=== PATIENT | male | born 1935 ===

== ENCOUNTER 2016-12-17 15:12 | Observation (INO) | payer MEDICARE, OTHER ==
[2016-12-17 15:12] VITALS: PULSE 55
--- NOTE | 2016-12-17 15:54 | ED PDOC ---
Arrival/HPI - General Historian: Patient - History of Present Illness Time/Duration: < week Symptom Onset: Gradual Symptom Course: Unchanged - General Chief Complaint: Chest Pain Time Seen by Provider: 12/17/16 15:36 - History of Present Illness Narrative History of Present Illness (Text): 81 M with a PMHx that includes diabetes, hypertension, congestive heart failure , COPD, atrial flutter, and atrial fibrillation (on eliquis) presents with shortness of breath. Pt states that his shortness of breath has been present for the past few days but is worse this morning. It is exacerbated upon ambulation. He denies any chest pain or palpitations. He denies any gorman, dizziness, f/c, cp, abd pain, n/v/d. PMD: Dr Luis ([facility]) Past Medical History - Provider Review Nursing Documentation Reviewed: Yes - Infectious Disease Hx of Infectious Diseases: None - Tetanus Immunization Tetanus Immunization: Unknown - Cardiac Hx Cardiac Disorders: Yes (mi) Hx Congestive Heart Failure: Yes Hx Hypertension: Yes - Pulmonary Hx Respiratory Disorders: Yes Hx Chronic Obstructive Pulmonary Disease (COPD): Yes - Neurological Hx Neurological Disorder: No Hx Alzheimer's Disease: No HX Cerebrovascular Accident: No Hx Dementia: No Hx Dizziness: No Hx Meningitis: No Hx Migraine: No Hx Parkinson's Disease: No Hx Seizures: No Hx Transient Ischemic Attacks (TIA): No - HEENT Hx HEENT Disorder: Yes Hx Blind: Yes (right eye) Hx Cataracts: Yes Hx Deafness: No Hx Difficulty Chewing: No Hx Epistaxis: No Hx Glaucoma: Yes Hx Macular Degeneration: No - Renal Hx Renal Disorder: No Hx Dialysis: No Hx Kidney Stones: No Hx Neurogenic Bladder: No Hx Pyelonephritis: No Hx Renal Cancer: No Hx Renal Failure: No - Endocrine/Metabolic Hx Endocrine Disorders: Yes Hx Diabetes Mellitus Type 2: Yes - Hematological/Oncological Hx Blood Disorders: Yes Hx AIDS: No Hx Anemia: No Hx Cancer: No Hx Chemotherapy: No Hx Cirrhosis: No Hx Hemophilia: No Hx Hepatitis A: No Hx Hepatitis B: No Hx Hepatitis C: No Hx Metastasis: No Hx Shingles: Yes Hx Sickle Cell Disease: No Hx Unexplained Bleeding: No - Integumentary Hx Dermatological Disorder: No Hx Basal Cell Carcinoma: No Hx Eczema: No Hx Melanoma: No Hx Psoriasis: No Hx Squamous Cell Carcinoma: No - Musculoskeletal/Rheumatological Hx Musculoskeletal Disorders: Yes Hx Arthritis: Yes (knees chronic pain) - Gastrointestinal Hx Gastrointestinal Disorders: Yes Hx Colostomy: No Hx Crohn's Disease: No Hx Diverticulitis: No Hx Gall Bladder Disease: Yes Hx Gastroesophageal Reflux: Yes Hx Gastrointestinal Ulcer: No Hx Ileostomy: No Hx Liver Failure: No Hx Pancreatitis: No HX Swallowing Problems: No - Genitourinary/Gynecological Hx Genitourinary Disorders: No Hx Hematuria: No Hx Incontinence: No Hx Prostate Problems: No Hx Sexually Transmitted Diseases: No Hx Urinary Tract Infection: No - Psychiatric Hx Psychophysiologic Disorder: Yes Hx Anxiety: Yes Hx Bipolar Disorder: No Hx Depression: Yes Hx Emotional Abuse: No Hx Hallucinations: No Hx Panic Disorder: No Hx Post Traumatic Stress Disorder: No Hx Psychosis: No Hx Physical Abuse: No Hx Schizophrenia: No Hx Sexual Abuse: No Hx Substance Use: No - Past Surgical History Past Surgical History: Unable to Obtain - Surgical History Hx Amputation: No Hx Appendectomy: No Hx Cardiac Catheterization: Yes Hx Cholecystectomy: Yes Hx Coronary Stent: Yes Hx Gastric Bypass Surgery: No Hx Hysterectomy: No Hx Joint Replacement: No Hx Kidney Transplant: No Hx Liver Transplant: No Hx Mastectomy: No Hx Musculoskeletal Surgery: No Hx Open Heart Surgery: Yes (CABG) Hx Orthopedic Surgery: No Hx Splenectomy: No Hx Valve Replacement: No Other/Comment: carotid endarterectomy, pacemaker - Anesthesia Hx Anesthesia: Yes Hx Anesthesia Reactions: No Hx Malignant Hyperthermia: No - Suicidal Assessment Feels Threatened In Home Enviroment: No Family/Social History Family/Social History: CAD/RI Smoking Status: Never Smoked Hx Alcohol Use: No Hx Substance Use: No Hx Substance Use Treatment: No Allergies/Home Meds Allergies/Adverse Reactions: Allergies aspirin Allergy (Verified 12/17/16 15:19) RASH ketorolac tromethamine [From Toradol] Allergy (Verified 12/17/16 15:19) SWELLING Penicillins Allergy (Verified 12/17/16 15:19) ANGIOEDEMA Home Medications: Home Meds Medication Instructions Recorded Confirmed Carvedilol [Coreg] 3.125 mg PO BID 02/06/14 09/28/16 Digoxin [Lanoxin] 125 mcg PO DAILY 02/17/16 09/28/16 Glipizide [Glipizide ER] 1 tab PO DAILY 06/18/16 09/30/16 Potassium Chloride [Klor-Con 10] 1 tab PO DAILY 06/18/16 09/28/16 Prednisone [Jese] 3 tab PO DAILY 09/28/16 09/28/16 Furosemide [Lasix] 20 mg PO DAILY 09/30/16 09/30/16 Isosorbide Mononitrate [Imdur] 60 mg PO DAILY 09/30/16 09/30/16 Review of Systems - Physician Review All systems were reviewed & negative as marked: Yes - Review of Systems Respiratory: SOB. absent: Cough, Sputum Cardiovascular: absent: Chest Pain, Palpitations Gastrointestinal: absent: Abdominal Pain, Nausea, Vomiting Neurological: absent: Headache Endocrine: absent: Diaphoresis Physical Exam Temperature: Afebrile Blood Pressure: Normal Pulse: Tachycardic Respiratory Rate: Normal Appearance: Positive for: Well-Appearing, Non-Toxic, Comfortable Pain Distress: None Mental Status: Positive for: Alert and Oriented X 3 - Systems Exam Head: Present: Atraumatic, Normocephalic Pupils: Present: PERRL Extroacular Muscles: Present: EOMI Conjunctiva: Present: Normal Mouth: Present: Moist Mucous Membranes Neck: Present: Normal Range of Motion Respiratory/Chest: Present: Clear to Auscultation, Good Air Exchange. No: Respiratory Distress, Accessory Muscle Use, Wheezes, Rales, Rhonchi Cardiovascular: Present: Regular Rate and Rhythm, Normal S1, S2. No: Murmurs Abdomen: Present: Normal Bowel Sounds. No: Tenderness, Distention, Peritoneal Signs Upper Extremity: Present: Normal Inspection. No: Cyanosis, Edema Lower Extremity: Present: Normal Inspection, Edema (1+). No: CALF TENDERNESS Neurological: Present: GCS=15, CN II-XII Intact, Speech Normal Skin: Present: Warm, Dry, Normal Color. No: Rashes Psychiatric: Present: Alert, Oriented x 3, Normal Insight, Normal Concentration Vital Signs Temp Pulse Resp BP Pulse Ox 12/17/16 18:40 97 H 17 100/62 94 L 12/17/16 18:20 127/76 12/17/16 17:50 75 17 131/83 100 12/17/16 16:23 89 18 138/79 96 12/17/16 15:33 98.5 F 91 H 18 140/86 96 Medical Decision Making ED Course and Treatment: Patient seen and examined with resident. Came up with treatment and disposition plan with resident. (Maikol Allan) Impression: 81 M with a PMHx that includes diabetes, hypertension, congestive heart failure, COPD, atrial flutter, and atrial fibrillation (on eliquis) presents with shortness of breath. Differential Diagnosis included but are not limited to: chf exac / copd exac / RI Plan: - CBC, CMP, Cardiac iso, BNP - EKG stat - CXR - Reassess and disposition Progress Notes: 12/17/16 16:02 Pt resting comfortably in bed. No complaints. Hemodynamically stable. 12/17/16 16:06 EKG: Ordered, reviewed, and independently interpreted the EKG. Rate : 55 BPM Rhythm : Interpretation: 09/28/16 12/17/16 17:19 BNP: 1850 CXR shows Cardiomegally with mild pulm vascular congestion. Lasix 40mg IVP stat Hyperkalemia of 5.7 - treated with Insulin 10 unit and Albuterol neb treatment 12/17/16 17:[address] Luis which will admit the patient for CHF exac for obs to telemetry. 12/17/16 18:[address] Luis request I placed a cardiology consult with Dr Costa and Oxycodone 15mg PO Stat (Raminfar,Vic) - Lab Interpretations Lab Results: 12/17/16 16:00 12/17/16 16:00 Lab Results 12/17/16 16:00: Sodium 132, Potassium 5.7 H* D, Chloride 98, Carbon Dioxide 25, Anion Gap 15, BUN 28 H, Creatinine 1.6 H, Est GFR ( Amer) 50, Est GFR ( Non-Af Amer) 42, Random Glucose 210 H, Calcium 9.2, Total Bilirubin 1.9 H, AST 36, ALT 42, Alkaline Phosphatase 152 H, Lactate Dehydrogenase 635, Total Creatine Kinase 36, Troponin I 0.05, NT-Pro-B Natriuret Pep 1850 H, Total Protein 7.4, Albumin 3.7, Globulin 3.6, Albumin/Globulin Ratio 1.0 L 12/17/16 16:00: WBC 6.4, RBC 4.32, Hgb 13.3 L, Hct 41.1 L, MCV 95.1, MCH 30.8, MCHC 32.4, RDW 15.4 H, Plt Count 162, MPV 11.3 H, Gran % 73.2 H, Lymph % (Auto) 19.7 L, [place] % (Auto) 5.5, Eos % (Auto) 1.3 L, Baso % (Auto) 0.3, Gran # 4.66, Lymph # 1.3, [place] # 0.4, Eos # 0.1, Baso # 0.02 - RAD Interpretation Radiology Orders: 12/17/16 15:48 CHEST PORTABLE [RAD] Stat - Medication Orders Current Medication Orders: Discontinued Medications Albuterol Sulfate (Albuterol 0.083% Inhal [place] (2.5 Mg/3 Ml) Ud) 2.5 mg IH STAT STA Stop: 12/17/16 16:59 Last Admin: 12/17/16 18:30 Dose: 2.5 mg Dextrose (Dextrose 50% Inj) 50 ml IVP STAT STA Stop: 12/17/16 17:29 Last Admin: 12/17/16 18:39 Dose: 50 ml Furosemide (Lasix) 40 mg IVP STAT STA Stop: 12/17/16 16:51 Last Admin: 12/17/16 18:20 Dose: 40 mg Insulin Human Regular (Humulin R) 10 units IVP STAT STA Stop: 12/17/16 16:57 Last Admin: 12/17/16 18:30 Dose: 10 units Nitroglycerin (Nitrostat Sl Tab) 0.4 mg SL STAT STA Stop: 12/17/16 16:53 Last Admin: 12/17/16 18:20 Dose: 0.4 mg Oxycodone HCl (Oxycodone Immediate Release Tab) 15 mg PO STAT STA Stop: 12/17/16 18:49 - PA / LABORER [employer]FIN[employer] / Resident Statement SON has reviewed & agrees with the documentation as recorded. / has examined the patient and agrees with the treatment plan. Disposition/Present on Arrival - Present on Arrival Any Indicators Present on Arrival: No History of DVT/PE: No History of Uncontrolled Diabetes: No Urinary Catheter: No History of Decub. Ulcer: No History Surgical Site Infection Following: None - Disposition Have Diagnosis and Disposition been Completed?: Yes Disposition Time: 17:27 Patient Plan: Admission - Disposition Diagnosis: CHF exacerbation Disposition: HOSPITALIZED Patient Problems: Current Active Problems Problem Status Onset CHF exacerbation Acute Condition: IMPROVED
[2016-12-17 16:11] LABS: ADD MANUAL DIFF? NO
[2016-12-17 16:25] LABS: BASO # 0.02 K/mm3 (0.0-2.0); BASO % 0.3 % (0.0-3.0); EOS # 0.1 (0.0-0.7); EOS % 1.3 % (1.5-5.0); GRAN # 4.66 (1.4-6.5); GRAN % 73.2 % (50.0-68.0); HEMATOCRIT 41.1 % (42.0-52.0); LYMPH # 1.3 (1.2-3.4); LYMPH % 19.7 % (22.0-35.0); MEAN CELL VOLUME 95.1 fL (80.0-105.0); MEAN CORPUSCULAR HEMOGLOBIN 30.8 pg (25.0-35.0); MEAN CORPUSCULAR HGB CONC 32.4 g/dl (31.0-37.0); MEAN PLATELET VOLUME 11.3 fl (7.0-11.0); MONO # 0.4 (0.1-0.6); MONO % 5.5 % (1.0-6.0); PLATELET COUNT 162 10^3/uL (120.0-450.0); RED CELL DISTRIBUTION WIDTH 15.4 % (11.5-14.5); WHITE BLOOD COUNT 6.4 10^3/ul (4.5-11.0)
[2016-12-17 16:27] LABS: BILIRUBIN,TOTAL 1.9 mg/dL (0.2-1.3); CALCIUM 9.2 mg/dL (8.4-10.5); TOTAL PROTEIN 7.4 g/dL (5.8-8.3)
[2016-12-17 16:39] LABS: TROPONIN I 0.05 ng/mL
[2016-12-17 16:45] LABS: POTASSIUM 5.7 mmol/L (3.6-5.0)
[2016-12-17] MEDS ORDERED: Insulin Regular 1 UNITS/0.01 ML ML IVP STA (16:56)
[2016-12-17] MEDS ORDERED: Albuterol 0.083% Inhal Sol (2.5 mg/3 mL) UD IH STA (16:58)
--- NOTE | 2016-12-17 17:11 | RAD ---
HISTORY: sob COMPARISON: Chest x-ray performed 09/28/16 TECHNIQUE: Chest, one view. FINDINGS: LUNGS: Pulmonary venous congestion. Biapical pleural thickening. Please note that chest x-ray has limited sensitivity for the detection of pulmonary masses. PLEURA: No significant pleural effusion identified. No definite pneumothorax . CARDIOVASCULAR: Cardiomegaly. Median sternotomy wires. Left-sided dual lead pacemaker. OSSEOUS STRUCTURES: Osseous demineralization. Degenerative changes. Acromioclavicular arthropathy. VISUALIZED UPPER ABDOMEN: Unremarkable. OTHER FINDINGS: None. IMPRESSION: Cardiomegaly. Mild pulmonary venous congestion.
[2016-12-17] MEDS ORDERED: Dextrose 50% SYRINGE Inj (50 ml) IVP STA (17:28)
[2016-12-17] MEDS ORDERED: oxyCODONE 20 mg Immediate Release Tab PO STA ×3 (18:19→18:26)
[2016-12-17] MEDS ORDERED: oxyCODONE 30 mg Immediate Release Tab PO STA (18:25)
[2016-12-17] MEDS ORDERED: oxyCODONE 10 mg Immediate Release Tab PO STA (18:32)
[2016-12-17] MEDS ORDERED: oxyCODONE 15 mg Immediate Release Tab PO STA (18:48)
[2016-12-17 20:05] VITALS: O2SAT 96
[2016-12-17] MEDS ORDERED: oxyCODONE 5 mg Immediate Release Tab PO PRN (21:53)
--- NOTE | 2016-12-17 22:21 | CARD ---
APPROVED REPORT EKG Measurement Heart [id number] <Conclusion> Electronic ventricular pacemaker Underlying rhythm is A Flutter
[2016-12-17] MEDS: Budesonide 0.5 mg/2 ml Inhal Susp UD IH SCH (23:10)
[2016-12-18] MEDS: Budesonide 0.5 mg/2 ml Inhal Susp UD IH SCH ×2 (07:43→19:25)
[2016-12-18] MEDS: Arformoterol 15 mcg/2 ml Inh Sol IH SCH ×2 (07:43→19:24)
[2016-12-18] MEDS ORDERED: oxyCODONE 15 mg Immediate Release Tab PO PRN (08:14)
[2016-12-18 09:56] LABS: MEAN CELL VOLUME 93.3 fL (80.0-105.0); MEAN CORPUSCULAR HEMOGLOBIN 30.4 pg (25.0-35.0); MEAN CORPUSCULAR HGB CONC 32.6 g/dl (31.0-37.0); MEAN PLATELET VOLUME 10.6 fl (7.0-11.0); RED CELL DISTRIBUTION WIDTH 15.4 % (11.5-14.5); WHITE BLOOD COUNT 7.8 10^3/ul (4.5-11.0)
[2016-12-18] MEDS ORDERED: GlipiZIDE 2.5 mg SR Tab PO SCH (10:00)
[2016-12-18] MEDS ORDERED: PREDNISONE PO SCH (10:00)
[2016-12-18 10:07] LABS: ALB/GLOB RATIO 0.9 (1.1-1.8); BILIRUBIN,TOTAL 1.8 mg/dL (0.2-1.3); CALCIUM 9.1 mg/dL (8.4-10.5); MAGNESIUM 1.9 mg/dL (1.7-2.2); PHOSPHOROUS 3.3 mg/dL (2.5-4.5); POTASSIUM 4.6 mmol/L (3.6-5.0); TOTAL PROTEIN 6.6 g/dL (5.8-8.3)
[2016-12-18 10:17] LABS: TROPONIN I 0.08 ng/mL
[2016-12-18] MEDS ORDERED: Digoxin 125 mcg (0.125 mg) Tab PO SCH (14:00)
--- NOTE | 2016-12-18 16:31 | CARD ---
APPROVED REPORT EKG Measurement Heart [id number] <Conclusion> Atrial Flutter with variable conduction, a demand Ventricualr pacemaker rhythm Left axis deviation Right bundle branch block Left ventricular hypertrophy with repolarization abnormality Inferior infarct, age undetermined Abnormal ECG
[2016-12-18 18:08] VITALS: BP 112/43; PULSE 56
[2016-12-18 18:43] VITALS: RESP 14; TEMP 98
--- NOTE | 2016-12-18 19:42 | CON ---
DATE: 12/18/2016 REASON FOR CONSULTATION: Cardiac evaluation, history of coronary artery disease, CABG, history of PT CA. Admitted with generalized weakness, chronic atrial fibrillation. BRIEF CLINICAL HISTORY: This is an 81-year-old male with a past medical history significant for diab etes, hypertension, hyperlipidemia, coronary artery disease, CABG, chronic atrial fibrillation, and C OPD. Very noncompliant with medication. History of chronic atrial fibrillation. Admitted with comp laint of generalized weakness, inability to walk. Denies any chest pain, denies any shortness of luis alfredo ath, denies any palpitation. PAST HISTORY: Significant for ischemic cardiomyopathy, history of hypertension, history of CABG, his tory of nonobstructive coronary artery disease (post-CABG), history of recurrent pneumonia, history o f AICD, chronic atrial fibrillation, noncompliance with the medication. PREVIOUS CARDIAC WORKUP: As follows: The patient had a recent cardiac catheterization 03/29/2016 whe n the patient admitted with a non-STEMI. Troponin 7.35. Cardiac catheterization revealed 2-vessel d isease, occluded LAD and RCA, patent stent in circumflex, ramus intermedius mild to moderate disease, patent GLOVER to LAD but distal LAD diffusely diseased, patent SVG to diagonal 1, patent SVG to RCA bu t patent proximal stent in SVG, severely decreased LV function, ejection fraction 20%. EDP was in th e range of 15. Medical treatment recommended. Status post AICD. Cardiac catheterization as mention ed dated 03/29/2016, medical treatment recommended. Last echocardiography 02/19/2016 that shows modera te to severe tricuspid regurgitation, RV systolic pressure 75, mild to moderate aortic regurgitation, 4-chamber dilatation, ejection fraction 30% to 35%, moderate mitral regurgitation, history of CABG i n 2006 at [facility], 3-vessel bypass -- initially GLOVER to LAD, saphenous graft to th e RCA, and saphenous graft to the diagonal 1. Most recent cardiac catheterization as above, status p ost AICD. Last catheterization dated 03/29/2016 shows [place] 2-vessel disease, occluded LAD, occluded RCA, patent stent in circumflex, ramus intermedius mild to moderate disease, patent GLOVER to LAD, pat ent SVG to diagonal 1, patent SVG to RCA, patent proximal stent in SVG to RCA, distal LAD diffuse dis ease, ejection fraction 20%, EDP was in the range of 20. Chronic atrial fibrillation, anticoagulatio n, status post AICD. SOCIAL HISTORY: Denies any smoking. Denies any history of alcohol abuse. CURRENT MEDICATIONS: The patient is taking Eliquis 2.5 mg daily, carvedilol 3.125 mg, digoxin 0.125 mg, Lasix 20 mg, glipizide 1 tablet, isosorbide 60 mg, potassium chloride 1 tablet, prednisone 3 tabl et daily. REVIEW OF SYSTEMS: As per HPI. Fourteen point review of the systems as per HPI and negative except as per HPI. PHYSICAL EXAMINATION: As follows: VITAL SIGNS: Temperature afebrile, heart rate 86, blood pressure 123/67. HEENT: PERRLA, intact. NECK: Supple. No carotid bruits. No thyromegaly. CHEST: Clear to auscultation. HEART: S1, S2 regular. ABDOMEN: Soft. EXTREMITIES: Clubbing and cyanosis negative. BLOOD WORKUP: As follows: WBC 7.8, hemoglobin 12.7, hematocrit 39, platelet count 168. Chemistry s hows sodium 134, potassium ____, chloride ____, carbon dioxide 25, anion gap of 15, BUN 29, creatinin e 1.5. Troponin 0.05. 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 Last catheterization the patient presented non ST segment eleva tion myocardial infarction on 03/29/2016, showed [place] 2-vessel disease, occluded left internal mamma ry artery, occluded right coronary artery, patent stent in circumflex, ramus intermedius mild to mode rate disease, patent left internal mammary artery to left anterior descending but distal left anterio r descending diffusely diseased, patent saphenous graft to diagonal 1, patent saphenous graft to the right coronary artery with proximal stent patent, decreased left ventricular function, ejection fract ion 20%, end-diastolic pressure was in the range of 20. Most recent echo dated 03/29/2016 shows eject ion fraction 30% to 35%, moderate mitral regurgitation, moderate to severe tricuspid regurgitation, r ight ventricular systolic pressure 75 consistent with moderate to severe pulmonary hypertension. Gen eralized weakness. Chronic atrial fibrillation flutter, status post automatic implanted cardiac defi brillator, currently on Eliquis. RECOMMENDATION: We will give 1 dose of Lasix. Resume all previous medication including Coreg, isoso rbide nitrate, Lasix. We will give extra dose of Lasix IV and then resume from tomorrow. Continue _ ___ for back pain. We will get lipid profile, TSH, hemoglobin A1c and chemistry tomorrow. Monitor r enal function closely. Thank you, Dr. Luis, for providing us the opportunity in taking care of the patient. Kymberly Costa MD cc: [id number] TT: 12/18/2016 19:42:01 Confirmation # [id number] Dictation # [id number]
--- NOTE | 2016-12-18 22:53 | CP.PCM.PN ---
Subjective - Date & Time of Evaluation Date of Evaluation: 12/18/16 Time of Evaluation: 22:53 - Subjective Subjective: S:Patient was seen at bedside. Requests a sleeping pill. Has no other complaints now. Denies chest pain, sob. Pertinent medical record was reviewed. O:VSS. Not in acute distress. LUNGS:Normal breathing pattern. NEURO: Speech normal. A: Adjustment insomnia. P:Ambien 5 mg PO x 1. Objective - Vital Signs/Intake and Output Vital Signs (last 24 hours): Temp Pulse Resp BP Pulse Ox 98 F 56 L 14 112/43 L 96 12/18/16 18:00 12/18/16 18:07 12/18/16 18:00 12/18/16 18:07 12/17/16 20:04 Intake and Output: 12/18/16 12/19/16 18:59 06:59 Intake Total 600 Output Total 600 Balance 0 - Medications Medications: Current Medications Apixaban (Eliquis) 2.5 mg PO BID [facility] PRN Reason: Protocol Last Admin: 12/18/16 18:07 Dose: 2.5 mg Arformoterol Tartrate (Brovana) 15 mcg IH [id number] [facility] Last Admin: 12/18/16 19:24 Dose: 15 mcg Budesonide (Pulmicort Respules) 0.5 mg IH [id number] [facility] Last Admin: 12/18/16 19:25 Dose: 0.5 mg Carvedilol (Coreg) 3.125 mg PO BID [facility] Last Admin: 12/18/16 18:07 Dose: Not Given Digoxin (Lanoxin) 0.125 mg PO 1400 [facility] Last Admin: 12/18/16 14:02 Dose: Not Given Furosemide (Lasix) 40 mg PO DAILY [facility] Glipizide (Glucotrol Xl) 2.5 mg PO DAILY [facility] Last Admin: 12/18/16 09:56 Dose: 2.5 mg Isosorbide Mononitrate (Imdur) 60 mg PO DAILY [facility] Last Admin: 12/18/16 09:56 Dose: 60 mg Non-Formulary Medication (Prednisone [Jese]) 3 tab PO DAILY [facility] Oxycodone HCl (Oxycodone Immediate Release Tab) 15 mg PO Q6H PRN PRN Reason: Arthritis Prednisone (Prednisone Tab) 15 mg PO DAILY [facility] - Labs Labs: 12/18/16 09:35 12/18/16 09:35
--- NOTE | 2016-12-19 07:40 | HP ---
REASON FOR ADMISSION: The patient came in short of breath. HISTORY OF PRESENT ILLNESS: The patient is an 81-year-old male with cardiomyopathy insuf ficiency, pacemaker, ICD, came in with complaints of short of breath . Denied any fever o r chills. vomiting or diarrhea. PAST MEDICAL HISTORY: , rheumatoid arthritis, . MEDICATIONS: He takes mg p.o. daily, once a day, Imdur 60 once a day, mg once a da y, Lasix 20 p.o. daily, and enalapril 2.5 mg daily. ALLERGIES: . REVIEW OF SYSTEMS: present illness. . PHYSICAL EXAMINATION: GENERAL: The patient is sitting on the side of the bed, comfortable, . VITAL SIGNS: Temperature , heart rate , blood pressure /83, respirations 17, saturati ng on room air. HEAD AND NECK: Normal. No JVD, no thyromegaly. CHEST: Diminished breath sounds. A few crackles at the bases. CARDIAC: First sound and second sound normal. Systolic . ABDOMEN: Soft, nontender. EXTREMITIES: No edema. ENUROLOGIC: . LABORATORY DATA: White blood cell count 6.4, hemoglobin , hematocrit , platelets 162. Terese mistries: Sodium , BUN 28, creatinine 1.6, , calcium , total bilirubin . AST an d ALT is normal at . ProBNP 1850. Troponin 0.05. Chest x-ray shows , congestive h eart failure, pleural thickening. IMPRESSION AND PLAN: 1. Acute congestive heart failure, , acute systolic heart failure on top of chronic systolic he art failure. Continue IV Lasix. . Cardiology consult, Dr. Costa. 2. Chronic COPD. Continue . 3. Diabetes, . 4. Hypertension . 5. Rheumatoid arthritis . Followup clinically . Other medication. Myles Luis MD cc: [phone] TT: 12/18/2016 19:23:37 mn
--- NOTE | 2016-12-19 15:05 | PN ---
DATE: 12/19/2016 REASON FOR CONSULTATION: History of chronic atrial fibrillation, atrial flutter, CABG, PTCA, status post AICD, admitted with generalized weakness. BRIEF CLINICAL HISTORY: This is an 81-year-old male with past medical history significant for zamora ry artery disease, CABG in 2006, status post multiple stents, chronic atrial fibrillation, anticoagul ation, noncompliance with medication, COPD, history of chronic atrial fibrillation, admitted with gen eralized weakness. Denies any chest pain, shortness of breath, any palpitation. PHYSICAL EXAMINATION: VITAL SIGNS: Temperature afebrile, heart rate 80, blood pressure 120/80. HEENT: PERRLA. Extraocular muscles intact. NECK: Supple. No carotid bruits. No thyromegaly. CHEST: Clear to auscultation. HEART: S1, S2 regular. ABDOMEN: Soft. EXTREMITIES: Clubbing and cyanosis negative. LABORATORY DATA: Blood workup pending as [employer] system is down. IMPRESSION: Decompensated congestive heart failure, acute on chronic systolic dysfunction, coronary artery disease, coronary artery bypass graft in 2006, 3-vessel bypass, status post percutaneous trans luminal coronary angioplasty, chronic atrial flutter, chronic obstructive pulmonary disease, status p ost automatic implantable cardioverter-defibrillator. RECOMMENDATION: Continue anticoagulation. Continue diuretics. Follow up the lab as the [employer] sy stem is down. Will follow the lab when the lab is available. Kymberly Costa MD cc: [id number] TT: 12/19/2016 11:36:47 Confirmation # [id number] Dictation # [id number] scotty
[2016-12-19] MEDS: Budesonide 0.5 mg/2 ml Inhal Susp UD IH SCH (19:42)
[2016-12-19] MEDS: Arformoterol 15 mcg/2 ml Inh Sol IH SCH (19:42)
--- NOTE | 2016-12-20 08:17 | HP ---
CHIEF COMPLAINT: An 81-year-old male who came into the hospital because of short of breath. HISTORY OF PRESENT ILLNESS: The patient is complaining of short of breath that has been getting wors e for the last few days. He denied any fever, any phlegm, any chills. The patient does have a histo ry of congestive heart failure in the past, ischemic cardiomyopathy with ejection fraction low in the 20% with ICD and pacemaker. The patient does comply with his medications, seems compliant with diet ; however, the patient, in the last few days, seems to be getting worse breathing tavarez his. He denie d any chest pain at this time. History and physical was done on 12/18/2016. 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 HOME MEDICATIONS: The patient takes prednisone 50 mg daily, potassium, Lasix 20, glipizide ER 10 mg p.o. daily, Imdur 60 mg p.o. daily, Lanoxin 0.125 mg p.o. daily, Coreg 3.125 mg p.o. b.i.d., Eliquis 2.5 mg p.o. b.i.d. ALLERGIES: SHE HAS ALLERGY TO PENICILLIN AND TORADOL AND ASPIRIN. REVIEW OF SYSTEMS: As in the present illness, is short of breath, will get chest pain occasionally, he is weak, he has multiple joint pain. PHYSICAL EXAMINATION: VITAL SIGNS: On 12/18/2016, temperature 98, heart rate 56, blood pressure 112/43, respirations 18. HEAD AND NECK: Normal. No JVD, no thyromegaly. CHEST: Clear, good entry. CARDIAC: First and second sounds are normal. Systolic murmur across the precordium. ABDOMEN: Soft, nontender. EXTREMITIES: No edema. NEUROLOGIC: Nonfocal. JOINTS: Multiple joint swellings, including knees and hands. LABORATORY DATA: On 12/18/2016, the patient has white count 7.8, hemoglobin 12.7, hematocrit 39, aric telets 168. Chemistry shows sodium 134, potassium 4.6, chloride 99, bicarbonate 25, BUN 29, creatini ne 1.5, which is better than before. On 12/17, his BUN 28, creatinine was 1.6. IMPRESSION AND PLAN: 1. Acute congestive heart failure, improving. Will continue Lasix. Cardiology seen the patient, se ems stable. Will continue current treatment. 2. Chronic renal insufficiency. Will follow up clinically. Seems stable. Creatinine runs usually 1.5. 3. Diabetes type 2, chronic atrial fibrillation, chronic ischemic cardiomyopathy. Continue current medication. Follow up clinically. Myles Luis MD cc: [phone] TT: 12/20/2016 02:40:07 mn
--- NOTE | 2016-12-20 08:17 | DS ---
HISTORY OF PRESENT ILLNESS: An 81-year-old male admitted with congestive heart failure. The patient was seen by attic blower, Dr. Costa. Clinically, the patient is better, less pain, less short of luis alfredo ath. The patient does have chronic ischemic cardiomyopathy with acute systolic heart failure on top of chronic. It seems better. We will discharge the patient. His potassium is better and the patien t will be discharged. PHYSICAL EXAMINATION: VITAL SIGNS: Temperature 98, heart rate in the 60s, blood pressure 112/50, respirations 18. HEAD AND NECK: Normal. No JVD, no thyromegaly. CHEST: Clear, good entry. CARDIAC: First sounds and second sounds normal. There is a systolic murmur across the precordium. ABDOMEN: Soft, nontender. EXTREMITIES: No edema. NEUROLOGIC: Normal except generalized weakness. LABORATORY DATA: Including blood sugar was 100-180. DISCHARGE DIAGNOSES: 1. Acute systolic heart failure on top of chronic systolic heart failure. 2. Chronic obstructive pulmonary disease. 3. Chronic atrial fibrillations. 4. Ischemic cardiomyopathy. 5. Chronic rheumatoid arthritis. 6. Chronic osteoarthritis. 7. Generalized weakness. The patient wants to go home. Will discharge the patient home. The is taking care of him and s he does assist him and seems stable environment at home. Myles Luis MD cc: [phone] TT: 12/20/2016 03:24:15 an
[2016-12-20 16:55] LABS: HEMATOCRIT 39.1 % (42.0-52.0); MEAN CELL VOLUME 93.5 fL (80.0-105.0); MEAN CORPUSCULAR HEMOGLOBIN 30.4 pg (25.0-35.0); MEAN CORPUSCULAR HGB CONC 32.5 g/dl (31.0-37.0); MEAN PLATELET VOLUME 10.4 fl (7.0-11.0); RED CELL DISTRIBUTION WIDTH 15.3 % (11.5-14.5); WHITE BLOOD COUNT 7.8 10^3/ul (4.5-11.0)
[2016-12-23 01:36] LABS: ALB/GLOB RATIO 0.9 (1.1-1.8); ALKALINE PHOSPHATASE 123 U/L (38-133); ALT/SGPT 39 U/L (7-56); AST/SGOT 31 U/L (15-59); BILIRUBIN,TOTAL 1.2 mg/dL (0.2-1.3); BLOOD UREA NITROGEN 25 mg/dL (7-21); CARBON DIOXIDE 26 mmol/L (21-33); CHLORIDE 97 mmol/L (98-107); CHOLESTEROL 116 mg/dL (130-200); GFR AFRICAN-AMERICAN > 60; GLUCOSE,RANDOM 87 mg/dL (70-110); MAGNESIUM 1.9 mg/dL (1.7-2.2); PHOSPHOROUS 2.7 mg/dL (2.5-4.5); POTASSIUM 3.9 mmol/L (3.6-5.0); SODIUM 135 mmol/L (132-148); TOTAL PROTEIN 6.7 g/dL (5.8-8.3)
== END 2016-12-19 14:37 | disposition home or self-care (01) ==
LOC: ED 15:12 → ERH 17:51 → 2RNO 21:14
PROVIDERS: ADMIT Internal Medicine; ATTEND Internal Medicine
DX: I13.0 Hypertensive heart and chronic kidney disease with heart failure and stage 1 through stage 4 chronic kidney disease, or unspecified chronic kidney disease (principal); I50.23 Acute on chronic systolic (congestive) heart failure; I25.10 Atherosclerotic heart disease of native coronary artery without angina pectoris; N18.9 Chronic kidney disease, unspecified; E11.22 Type 2 diabetes mellitus with diabetic chronic kidney disease; E78.5 Hyperlipidemia, unspecified; H40.9 Unspecified glaucoma; H54.41 Blindness, right eye, normal vision left eye; I08.3 Combined rheumatic disorders of mitral, aortic and tricuspid valves; I25.2 Old myocardial infarction; I25.5 Ischemic cardiomyopathy; I27.2 Other secondary pulmonary hypertension; I48.2 Chronic atrial fibrillation; I48.92 Unspecified atrial flutter; J44.9 Chronic obstructive pulmonary disease, unspecified; K21.9 Gastro-esophageal reflux disease without esophagitis; M06.9 Rheumatoid arthritis, unspecified; M17.0 Bilateral primary osteoarthritis of knee; Z95.810 Presence of automatic (implantable) cardiac defibrillator; Z79.01 Long term (current) use of anticoagulants; Z87.01 Personal history of pneumonia (recurrent); Z90.49 Acquired absence of other specified parts of digestive tract; Z91.14 Patient's other noncompliance with medication regimen; Z95.1 Presence of aortocoronary bypass graft; Z95.5 Presence of coronary angioplasty implant and graft
CPT/HCPCS: 36415; 71010; 80053; 80061; 82550; 82948; 83036; 83615; 83735; 83880; 84100; 84443; 84484; 85025; 85027; 93005; 94640; 94760; 96374; 96375; 96376; 99285; G0378; J1940

== ENCOUNTER 2016-12-25 11:07 | Observation (INO) | payer MEDICARE, OTHER ==
[2016-12-25 11:07] VITALS: PULSE 55
[2016-12-25 11:18] VITALS: BMI 22.4
[2016-12-25 12:12] LABS: ADD MANUAL DIFF? NO
[2016-12-25 12:26] LABS: INR 1.2 (0.93-1.08); PARTIAL THROMBOPLASTIN TIME 31.8 Seconds (23.7-30.8)
--- NOTE | 2016-12-25 12:33 | RAD ---
HISTORY: chest pain COMPARISON: 12/17/2016 FINDINGS: LUNGS: Interstitial infiltrate unchanged PLEURA: No significant pleural effusion identified, no pneumothorax apparent. CARDIOVASCULAR: Moderate cardiomegaly OSSEOUS STRUCTURES: No significant abnormalities. VISUALIZED UPPER ABDOMEN: Normal. OTHER FINDINGS: None. IMPRESSION: No change in interstitial infiltrate
[2016-12-25 12:35] LABS: ALB/GLOB RATIO 1.1 (1.1-1.8); ALKALINE PHOSPHATASE 133 U/L (38-133); ALT/SGPT 33 U/L (7-56); AST/SGOT 40 U/L (15-59); BILIRUBIN,TOTAL 1.4 mg/dL (0.2-1.3); BLOOD UREA NITROGEN 29 mg/dL (7-21); CALCIUM 9.8 mg/dL (8.4-10.5); CARBON DIOXIDE 27 mmol/L (21-33); CHLORIDE 101 mmol/L (98-107); GFR AFRICAN-AMERICAN > 60; GLUCOSE,RANDOM 141 mg/dL (70-110); MAGNESIUM 2.2 mg/dL (1.7-2.2); POTASSIUM 4.7 mmol/L (3.6-5.0); SODIUM 137 mmol/L (132-148); TOTAL PROTEIN 7.6 g/dL (5.8-8.3)
--- NOTE | 2016-12-25 12:35 | ED PDOC ---
Arrival/HPI - General Chief Complaint: Chest Pain Time Seen by Provider: 12/25/16 11:18 Historian: Patient, Family EM Caveat: Language Barrier (Patient's daughter functioning as medical translator as per miket's request. ) - History of Present Illness Narrative History of Present Illness (Text): 12/25/16 12:03 A 81 year old male, whose past medical history includes ischemic cardiomyopathy with low ejection fraction of 20%, COPD, CHF, pacemaker, chronic atrial fibrillation (on eliquis), diabetes, and chronic rheumatoid arthritis, presents to the emergency department, accompanied by daughter and , for complaints of 2 days history of abdominal and chest pain, which radiated to the back. Patient notes some associated shortness of breath, dizziness, and mild headache. He denies any fever, nausea, vomiting, dysuria, or other complaints at this time. PMD: Dr. Luis Time/Duration: Other (2 days) Symptom Onset: Sudden Symptom Course: Unchanged Quality: Other Activities at Onset: Rest Context: Home Past Medical History - Provider Review Nursing Documentation Reviewed: Yes - Infectious Disease Hx of Infectious Diseases: None - Tetanus Immunization Tetanus Immunization: Unknown - Cardiac Hx Cardiac Disorders: Yes Hx Congestive Heart Failure: Yes Hx Hypertension: Yes Hx Pacemaker: Yes - Pulmonary Hx Respiratory Disorders: Yes Hx Chronic Obstructive Pulmonary Disease (COPD): Yes - Neurological Hx Neurological Disorder: No Hx Alzheimer's Disease: No HX Cerebrovascular Accident: No Hx Dementia: No Hx Dizziness: No Hx Meningitis: No Hx Migraine: No Hx Parkinson's Disease: No Hx Seizures: No Hx Transient Ischemic Attacks (TIA): No - HEENT Hx HEENT Disorder: Yes Hx Blind: Yes (right eye) Hx Cataracts: Yes Hx Deafness: No Hx Difficulty Chewing: No Hx Epistaxis: No Hx Glaucoma: Yes Hx Macular Degeneration: No - Renal Hx Renal Disorder: No Hx Dialysis: No Hx Kidney Stones: No Hx Neurogenic Bladder: No Hx Pyelonephritis: No Hx Renal Cancer: No Hx Renal Failure: No - Endocrine/Metabolic Hx Endocrine Disorders: Yes Hx Diabetes Mellitus Type 2: Yes - Hematological/Oncological Hx Blood Disorders: Yes Hx AIDS: No Hx Anemia: No Hx Cancer: No Hx Chemotherapy: No Hx Cirrhosis: No Hx Hemophilia: No Hx Hepatitis A: No Hx Hepatitis B: No Hx Hepatitis C: No Hx Metastasis: No Hx Shingles: Yes Hx Sickle Cell Disease: No Hx Unexplained Bleeding: No - Integumentary Hx Dermatological Disorder: No Hx Basal Cell Carcinoma: No Hx Eczema: No Hx Melanoma: No Hx Psoriasis: No Hx Squamous Cell Carcinoma: No - Musculoskeletal/Rheumatological Hx Falls: No - Gastrointestinal Hx Gastrointestinal Disorders: Yes Hx Colostomy: No Hx Crohn's Disease: No Hx Diverticulitis: No Hx Gall Bladder Disease: Yes Hx Gastroesophageal Reflux: Yes Hx Gastrointestinal Ulcer: No Hx Ileostomy: No Hx Liver Failure: No Hx Pancreatitis: No HX Swallowing Problems: No - Genitourinary/Gynecological Hx Genitourinary Disorders: No Hx Hematuria: No Hx Incontinence: No Hx Prostate Problems: No Hx Sexually Transmitted Diseases: No Hx Urinary Tract Infection: No - Psychiatric Hx Psychophysiologic Disorder: Yes Hx Anxiety: Yes Hx Bipolar Disorder: No Hx Depression: Yes Hx Emotional Abuse: No Hx Hallucinations: No Hx Panic Disorder: No Hx Post Traumatic Stress Disorder: No Hx Psychosis: No Hx Physical Abuse: No Hx Schizophrenia: No Hx Sexual Abuse: No Hx Substance Use: No - Past Surgical History Past Surgical History: Unable to Obtain - Surgical History Hx Amputation: No Hx Appendectomy: No Hx Cardiac Catheterization: Yes Hx Cholecystectomy: Yes Hx Coronary Stent: Yes Hx Gastric Bypass Surgery: No Hx Hysterectomy: No Hx Joint Replacement: No Hx Kidney Transplant: No Hx Liver Transplant: No Hx Mastectomy: No Hx Musculoskeletal Surgery: No Hx Open Heart Surgery: Yes (CABG) Hx Orthopedic Surgery: No Hx Splenectomy: No Hx Valve Replacement: No Other/Comment: carotid endarterectomy, pacemaker - Anesthesia Hx Anesthesia: Yes Hx Anesthesia Reactions: No Hx Malignant Hyperthermia: No - Suicidal Assessment Feels Threatened In Home Enviroment: No Family/Social History - Physician Review Nursing Documentation Reviewed: Yes Family/Social History: Unknown Family HX Smoking Status: Never Smoked Hx Alcohol Use: No Hx Substance Use: No Hx Substance Use Treatment: No Allergies/Home Meds Allergies/Adverse Reactions: Allergies aspirin Allergy (Verified 12/17/16 15:19) RASH ketorolac tromethamine [From Toradol] Allergy (Verified 12/17/16 15:19) SWELLING Penicillins Allergy (Verified 12/17/16 15:19) ANGIOEDEMA Home Medications: Home Meds Medication Instructions Recorded Confirmed Carvedilol [Coreg] 3.125 mg PO BID 02/06/14 09/28/16 Glipizide [Glipizide ER] 1 tab PO DAILY 06/18/16 09/30/16 Potassium Chloride [Klor-Con 10] 1 tab PO DAILY 06/18/16 09/28/16 Furosemide [Lasix] 40 mg PO DAILY 09/30/16 12/25/16 Allopurinol [Zyloprim] 100 mg PO DAILY 12/25/16 Brimonidine 0.2% [Alphagan 0.2% 1 drop OU HS 12/25/16 Opht] Omeprazole 20 mg PO DAILY 12/25/16 Timolol [Betimol] 5 ml OU DAILY 12/25/16 Review of Systems - Physician Review All systems were reviewed & negative as marked: Yes - Review of Systems Constitutional: absent: Fevers Eyes: Normal ENT: Normal Respiratory: Normal Cardiovascular: Chest Pain Gastrointestinal: Abdominal Pain. absent: Nausea, Vomiting Genitourinary Male: absent: Dysuria Musculoskeletal: Back Pain Skin: Normal Neurological: Normal Endocrine: Normal Hemo/Lymphatic: Normal Psychiatric: Normal Physical Exam Vital Signs Temp Pulse Resp BP Pulse Ox 12/25/16 13:32 58 L 18 126/84 97 12/25/16 11:26 98.1 F 55 L 16 153/83 H 97 Temperature: Afebrile Blood Pressure: Hypertensive Pulse: Regular Respiratory Rate: Normal Appearance: Positive for: Well-Appearing, Non-Toxic, Comfortable Pain Distress: None Mental Status: Positive for: Alert and Oriented X 3 - Systems Exam Head: Present: Atraumatic, Normocephalic Pupils: Present: PERRL Conjunctiva: Present: Normal Mouth: Present: Moist Mucous Membranes Pharnyx: Present: Normal. No: ERYTHEMA, EXUDATE Neck: Present: Normal Range of Motion Respiratory/Chest: Present: Clear to Auscultation, Good Air Exchange. No: Respiratory Distress, Accessory Muscle Use Cardiovascular: Present: Regular Rate and Rhythm, Murmurs, Normal S1, S2 Abdomen: Present: Normal Bowel Sounds. No: Tenderness, Distention, Peritoneal Signs Back: Present: Normal Inspection Upper Extremity: Present: Normal Inspection. No: Cyanosis, Edema Lower Extremity: Present: Normal Inspection. No: Edema Neurological: Present: GCS=15, CN II-XII Intact, Speech Normal Skin: Present: Warm, Dry, Normal Color. No: Rashes Psychiatric: Present: Alert, Oriented x 3, Normal Insight, Normal Concentration Medical Decision Making ED Course and Treatment: 12/25/16 12:03 Impression: A 81 year old male with abdominal and back pain radiating to the chest. Differential Diagnosis included but are not limited to: aortic dissection vs. ACS Plan: -- EKG -- Angiography Dissection CT -- Chest X-ray -- labs -- Urinalysis -- Reassess and disposition Prior Visits: Notes and results from previous visits were reviewed. The patient last presented to the emergency department emergency department on 12/17/16 for evaluation of shortness of breath. Progress Notes: EKG: Ordered, reviewed, and independently interpreted the EKG. Rate : 57 BPM Rhythm : Ventricular paced Interpretation : underlying atrial flutter, left bundle branch block pattern Comparison : No change from previous EKG on 12/17/16 for comparison. 12/25/16 12:35 Chest X-ray: Creator : Jorge L Cuadra MD COMPARISON:12/17/2016 FINDINGS: LUNGS:Interstitial infiltrate unchanged PLEURA:No significant pleural effusion identified, no pneumothorax apparent. CARDIOVASCULAR:Moderate cardiomegaly OSSEOUS STRUCTURES:No significant abnormalities. VISUALIZED UPPER ABDOMEN:Normal. OTHER FINDINGS:None. IMPRESSION: No change in interstitial infiltrate 12/25/16 14:[address]: Creator : Jorge L Cuadra MD COMPARISON:None. FINDINGS: CT ANGIOGRAPHY OF THE CHEST WITH & WITHOUT CONTRAST: AORTA (CHEST AND ABDOMEN): The thoracic and abdominal aorta are unremarkable, without aneurysm, dissection or rupture. No intramural thrombus identified in the thoracic aorta on the non-contrast ct of the chest. The celiac axis, superior mesenteric artery, inferior mesenteric artery and the renal arteries are widely patent. The pelvic arteries are unremarkable. LUNGS: Minimal ground-glass interstitial infiltrates MEDIASTINUM: Unremarkable. Normal caliber aorta and pulmonary arterial trunk. No aortic dissection. Normal size heart. LYMPH NODES: Unremarkable. PLEURA: Small pleural effusions BONES: Unremarkable. OTHER FINDINGS: None. CT ANGIOGRAPHY OF THE ABDOMEN AND PELVIS WITH CONTRAST: LIVER: Unremarkable. No gross lesion or ductal dilatation. GALLBLADDER AND BILE DUCTS: There is some enhancement of the wall of the gallbladder with mural thickening and edema. No obvious stones. PANCREAS: Unremarkable. No gross lesion or ductal dilatation. SPLEEN: Unremarkable. ADRENALS: Unremarkable. No mass. KIDNEYS AND URETERS: Unremarkable. No hydronephrosis. No solid mass. VASCULATURE: Unremarkable. No aortic aneurysm. STOMACH AND BOWEL: Unremarkable. No obstruction. No gross mural thickening. APPENDIX: Normal appendix. PERITONEUM: Unremarkable. No free fluid. No free air. LYMPH NODES: Unremarkable. No enlarged lymph nodes. BLADDER: Unremarkable. REPRODUCTIVE: Unremarkable. BONES: No acute fracture. OTHER FINDINGS: None. IMPRESSION: No evidence of aortic dissection. Mural thickening and edema in the gallbladder. Possible cholecystitis. Small pleural effusions. Minimal ground- glass interstitial infiltrates 12/25/16 15:50 Abdomen Ultrasound: Creator : Joelle Martinez MD COMPARISON: CT dissection angiography protocol performed the same day. FINDINGS: LIVER:Measures 12.8 cm in sagittal dimension. Echogenic liver may be seen in setting of hepatic parenchymal disease or fatty infiltration. No focal hepatic mass identified. The main portal vein appears patent with normal directional flow. No intrahepatic bile duct dilatation. GALLBLADDER:No gallstones. Mild gallbladder wall thickening measuring approximately 5 mm. Trace pericholecystic fluid. Negative sonographic Knapp's sign as assessed by the capital project engineer. COMMON BILE DUCT:Measures 5 mm. PANCREAS:Not well visualized. RIGHT KIDNEY:Measures 7.7 x 4.6 x 4.2 cm. No obstructing calculus or hydronephrosis identified. LEFT KIDNEY:Measures 9.6 x 5.5 x 4.6cm. No obstructing calculus or hydronephrosis identified. SPLEEN:Measures approximately 10.4 x 5.7 x 4.8 cm. AORTA:Limited views appear unremarkable. IVC:Limited views appear unremarkable. OTHER FINDINGS:None. IMPRESSION: Gallbladder wall thickening and trace pericholecystic fluid. No evidence of gallstones. Negative sonographic Knapp's sign as assessed by the capital project engineer. Correlate clinically. Echogenic liver may be seen in setting of hepatic parenchymal disease or fatty infiltration. Diminutive right kidney. 12/25/16 16:28 Patient with noted history. EKG is unchanged. CTA done to r/o dissection is negative for dissection but possible cholecysititis. Patient is not tender in RUQ but history may reflect GB etiology. Additionally given age and medical problems, exam may not be reliable. Sono done shows GB wall thickening and pericholecystic fluid. Will start antibiotics for possible cholecystitis. Discussed with Dr. Luis, who requested surgical and GI consult. Patient will be place on observation on tele, given chest pain. 12/25/16 16:31 Patient is allergic to aspirin, so it was held. - Lab Interpretations Lab Results: 12/25/16 11:40 12/25/16 11:40 Lab Results 12/25/16 11:40: Sodium 137, Potassium 4.7, Chloride 101, Carbon Dioxide 27, Anion Gap 14, BUN 29 H, Creatinine 1.3, Est GFR ( Amer) > 60, Est GFR ( Non-Af Amer) 53, Random Glucose 141 H, Calcium 9.8, Magnesium 2.2, Total Bilirubin 1.4 H, AST 40, ALT 33, Alkaline Phosphatase 133, Lactate Dehydrogenase 822 H, Total Creatine Kinase 42, Troponin I 0.05 D, NT-Pro-B Natriuret Pep 2090 H, Total Protein 7.6, Albumin 3.9, Globulin 3.7, Albumin/ Globulin Ratio 1.1 12/25/16 11:40: PT 13.0 H, INR 1.20 H, APTT 31.8 H 12/25/16 11:40: WBC 7.8, RBC 4.69, Hgb 14.3, Hct 44.1, MCV 94.0, MCH 30.5, MCHC 32.4, RDW 15.4 H, Plt Count 284, MPV 11.1 H, Gran % 73.6 H, Lymph % (Auto) 16.5 L, Woodward % (Auto) 8.3 H, Eos % (Auto) 1.2 L, Baso % (Auto) 0.4, Gran # 5.76, Lymph # 1.3, Woodward # 0.7 H, Eos # 0.1, Baso # 0.03 I have reviewed the lab results: Yes - RAD Interpretation Radiology Orders: 12/25/16 11:51 CHEST PORTABLE [RAD] Stat 12/25/16 12:08 ANGIOGRAPHY DISECTION PROTOCOL [CT] Stat - Medication Orders Current Medication Orders: Sodium Chloride (Sodium Chloride 0.9%) 500 mls @ 100 mls/hr IV .Q5H STA Stop: 12/25/16 17:37 Last Admin: 12/25/16 12:57 Dose: 100 mls/hr Meropenem 1g/NS 100mL IVPB (Meropenem 1g/Ns 100ml Ivpb) 1 gm in 100 mls @ 100 mls/hr IVPB STAT STA PRN Reason: Protocol Stop: 12/25/16 17:16 Discontinued Medications Iodixanol (Visipaque) Confirm Administered Dose 150 ml IV .[employer] Stop: 12/25/16 12:59 - Scribe Statement The provider has reviewed the documentation as recorded by the Scribe Temi Landin Provider Scribe Attestation: All medical record entries made by the Scribe were at my direction and personally dictated by me. I have reviewed the chart and agree that the record accurately reflects my personal performance of the history, physical exam, medical decision making, and the department course for this patient. I have also personally directed, reviewed, and agree with the discharge instructions and disposition. Disposition/Present on Arrival - Present on Arrival Any Indicators Present on Arrival: No History of DVT/PE: No History of Uncontrolled Diabetes: No Urinary Catheter: No History of Decub. Ulcer: No History Surgical Site Infection Following: None - Disposition Have Diagnosis and Disposition been Completed?: Yes Diagnosis: Abdominal pain, Chest pain Disposition: HOSPITALIZED Disposition Time: 13:40 Patient Plan: Observation, Telemetry Condition: FAIR
[2016-12-25] MEDS ORDERED: Sodium Chloride 0.9% 500 ML IV STA (12:38)
[2016-12-25 12:43] LABS: BASO # 0.03 K/mm3 (0.0-2.0); BASO % 0.4 % (0.0-3.0); EOS # 0.1 (0.0-0.7); EOS % 1.2 % (1.5-5.0); GRAN # 5.76 (1.4-6.5); GRAN % 73.6 % (50.0-68.0); HEMATOCRIT 44.1 % (42.0-52.0); LYMPH # 1.3 (1.2-3.4); LYMPH % 16.5 % (22.0-35.0); MEAN CORPUSCULAR HEMOGLOBIN 30.5 pg (25.0-35.0); MEAN CORPUSCULAR HGB CONC 32.4 g/dl (31.0-37.0); MEAN PLATELET VOLUME 11.1 fl (7.0-11.0); MONO # 0.7 (0.1-0.6); MONO % 8.3 % (1.0-6.0); PLATELET COUNT 284 10^3/uL (120.0-450.0); RED CELL DISTRIBUTION WIDTH 15.4 % (11.5-14.5); WHITE BLOOD COUNT 7.8 10^3/ul (4.5-11.0)
[2016-12-25 12:45] LABS: TROPONIN I 0.05 ng/mL
[2016-12-25] MEDS ORDERED: Iodixanol 320 mg/ml 150 ml Bottle IV ONE (12:58)
--- NOTE | 2016-12-25 14:05 | CT ---
PROCEDURE: CT Angiography Chest, Abdomen and Pelvis with and without intravenous contrast HISTORY: chest pain abd pain radiating to the back COMPARISON: None. TECHNIQUE: Contiguous axial images of the chest, abdomen and pelvis were obtained in the phase of aortic enhancement. A noncontrast enhanced CT of the chest was also obtained to evaluate for possible intramural thrombus. Coronal and sagittal reformats were generated. There was a technical problem with the timing of injection. On the initial images most of the contrast was seen in the right side of the heart and pulmonary arteries with some reflux into the IVC. Some delayed images were obtained of the aorta which showed enhancement to a level of 88 Hounsfield units. This is probably enough to exclude aortic dissection but the images are suboptimal IV dose administered: 150 cc of Visipaque Radiation dose: Total exam DLP = 1263 mGy-cm. This CT exam was performed using one or more of the following dose reduction techniques: Automated exposure control, adjustment of the mA and/or kV according to patient size, and/or use of iterative reconstruction technique. FINDINGS: CT ANGIOGRAPHY OF THE CHEST WITH & WITHOUT CONTRAST: AORTA (CHEST AND ABDOMEN): The thoracic and abdominal aorta are unremarkable, without aneurysm, dissection or rupture. No intramural thrombus identified in the thoracic aorta on the non-contrast ct of the chest. The celiac axis, superior mesenteric artery, inferior mesenteric artery and the renal arteries are widely patent. The pelvic arteries are unremarkable. LUNGS: Minimal ground-glass interstitial infiltrates MEDIASTINUM: Unremarkable. Normal caliber aorta and pulmonary arterial trunk. No aortic dissection. Normal size heart. LYMPH NODES: Unremarkable. PLEURA: Small pleural effusions BONES: Unremarkable. OTHER FINDINGS: None. CT ANGIOGRAPHY OF THE ABDOMEN AND PELVIS WITH CONTRAST: LIVER: Unremarkable. No gross lesion or ductal dilatation. GALLBLADDER AND BILE DUCTS: There is some enhancement of the wall of the gallbladder with mural thickening and edema. No obvious stones. PANCREAS: Unremarkable. No gross lesion or ductal dilatation. SPLEEN: Unremarkable. ADRENALS: Unremarkable. No mass. KIDNEYS AND URETERS: Unremarkable. No hydronephrosis. No solid mass. VASCULATURE: Unremarkable. No aortic aneurysm. STOMACH AND BOWEL: Unremarkable. No obstruction. No gross mural thickening. APPENDIX: Normal appendix. PERITONEUM: Unremarkable. No free fluid. No free air. LYMPH NODES: Unremarkable. No enlarged lymph nodes. BLADDER: Unremarkable. REPRODUCTIVE: Unremarkable. BONES: No acute fracture. OTHER FINDINGS: None. IMPRESSION: No evidence of aortic dissection. Mural thickening and edema in the gallbladder. Possible cholecystitis. Small pleural effusions. Minimal ground-glass interstitial infiltrates
--- NOTE | 2016-12-25 15:50 | US ---
HISTORY: wall thick on CT - r/o cholecystitis COMPARISON: CT dissection angiography protocol performed the same day. TECHNIQUE: Sonographic evaluation of the abdomen. FINDINGS: LIVER: Measures 12.8 cm in sagittal dimension. Echogenic liver may be seen in setting of hepatic parenchymal disease or fatty infiltration. No focal hepatic mass identified. The main portal vein appears patent with normal directional flow. No intrahepatic bile duct dilatation. GALLBLADDER: No gallstones. Mild gallbladder wall thickening measuring approximately 5 mm. Trace pericholecystic fluid. Negative sonographic Knapp's sign as assessed by the cyber software engineer. COMMON BILE DUCT: Measures 5 mm. PANCREAS: Not well visualized. RIGHT KIDNEY: Measures 7.7 x 4.6 x 4.2 cm. No obstructing calculus or hydronephrosis identified. LEFT KIDNEY: Measures 9.6 x 5.5 x 4.6cm. No obstructing calculus or hydronephrosis identified. SPLEEN: Measures approximately 10.4 x 5.7 x 4.8 cm. AORTA: Limited views appear unremarkable. IVC: Limited views appear unremarkable. OTHER FINDINGS: None. IMPRESSION: Gallbladder wall thickening and trace pericholecystic fluid. No evidence of gallstones. Negative sonographic Knapp's sign as assessed by the cyber software engineer. Correlate clinically. Echogenic liver may be seen in setting of hepatic parenchymal disease or fatty infiltration. Diminutive right kidney.
[2016-12-25] MEDS ORDERED: Meropenem 1g/NS 100mL IVPB 1 GM/100 ML PIGGYBACK IVPB STA (16:17)
--- NOTE | 2016-12-25 18:31 | CP.PCM.CON ---
History of Present Illness - History of Present Illness History of Present Illness: Gen Sx: Dr Nicholson Pt is an 81M with PMH of ischemic cardiomyopathy (EF 20% w/ pacemaker), COPD, CHF, pacemaker, DM, chronic afib (eliquis). Pt came to the ED with CC of epigastric pain 6/10 radiating into the left chest. Pt states it started about two days ago. He has been feeling weak, with intermittent episodes of dizziness and shortness of breath. His dyspnea is worse with exertion. He has also had some intermittent nausea. At this current point in time, he states his symptoms have resolved. He has never had any episodes of emesis. His pain has not been associated with food or drink, and has seemed to be exacerbated by physical exertion. He admits to moving his bowels regularly and denies diarrhea or constipation. Surgery consulted to rule out cholecystitis CT/US show thickened gallbladder wall but no evidence of stones. There is no leukocytosis and his liver enzymes are normal. Review of Systems - Review of Systems All systems: reviewed and no additional remarkable complaints except (as per hpi ) Past Patient History - Infectious Disease Hx of Infectious Diseases: None - Tetanus Immunizations Tetanus Immunization: Unknown - Past Social History Smoking Status: Never Smoked - CARDIAC Hx Cardiac Disorders: Yes Hx Congestive Heart Failure: Yes Hx Hypertension: Yes Hx Pacemaker: Yes - PULMONARY Hx Respiratory Disorders: Yes Hx Chronic Obstructive Pulmonary Disease (COPD): Yes - NEUROLOGICAL Hx Neurological Disorder: No Hx Alzheimer's Disease: No HX Cerebrovascular Accident: No Hx Dementia: No Hx Dizziness: No Hx Meningitis: No Hx Migraine: No Hx Parkinson's Disease: No Hx Seizures: No Hx Transient Ischemic Attacks (TIA): No - HEENT Hx HEENT Problems: Yes Hx Blind: Yes (right eye) Hx Cataracts: Yes Hx Deafness: No Hx Difficulty Chewing: No Hx Epistaxis: No Hx Glaucoma: Yes Hx Macular Degeneration: No - RENAL Hx Chronic Kidney Disease: No Hx Dialysis: No Hx Kidney Stones: No Hx Neurogenic Bladder: No Hx Pyelonephritis: No Hx Renal (Kidney) Cancer: No Hx Renal Failure: No - ENDOCRINE/METABOLIC Hx Endocrine Disorders: Yes Hx Diabetes Mellitus Type 2: Yes - HEMATOLOGICAL/ONCOLOGICAL Hx Blood Disorders: Yes Hx AIDS: No Hx Anemia: No Hx Cancer: No Hx Chemotherapy: No Hx Cirrhosis: No Hx Hemophilia: No Hx Hepatitis A: No Hx Hepatitis B: No Hx Hepatitis C: No Hx Metastesis: No Hx Shingles: Yes Hx Sickle Cell Disease: No Hx Unexplained Bleeding: No - INTEGUMENTARY Hx Dermatological Problems: No Hx Basil Cell: No Hx Eczema: No Hx Melanoma: No Hx Psoriasis: No Hx Squamous Cell: No - MUSCULOSKELETAL/RHEUMATOLOGICAL Hx Falls: No - GASTROINTESTINAL Hx Gastrointestinal Disorders: Yes Hx Colostomy: No Hx Crohn's Disease: No Hx Diverticulitis: No Hx Gall Bladder Disease: Yes Hx Gastroesophageal Reflux: Yes Hx Ileostomy: No Hx Liver Failure: No Hx Pancreatitis: No HX Swallowing Problems: No - GENITOURINARY/GYNECOLOGICAL Hx Genitourinary Disorders: No Hx Hematuria: No Hx Incontinence: No Hx Prostate Problems: No Hx Sexually Transmitted Disorders: No Hx Urinary Tract Infection: No - PSYCHIATRIC Hx Psychophysiologic Disorder: Yes Hx Anxiety: Yes Hx Bipolar Disorder: No Hx Depression: Yes Hx Emotional Abuse: No Hx Hallucinations: No Hx Panic Symptoms: No Hx Post Traumatic Stress Disorder: No Hx Psychosis: No Hx Physical Abuse: No Hx Schizophrenia: No Hx Sexual Abuse: No Hx Substance Use: No - SURGICAL HISTORY Hx Amputation: No Hx Appendectomy: No Hx Cardiac Catheterization: Yes Hx Cholecystectomy: Yes Hx Coronary Stent: Yes Hx Gastric Bypass Surgery: No Hx Hysterectomy: No Hx Joint Replacement: No Hx Kidney Transplant: No Hx Liver Transplant: No Hx Mastectomy: No Hx Musculoskeletal Surgery: No Hx Open Heart Surgery: Yes (CABG) Hx Orthopedic Surgery: No Hx Splenectomy: No Hx Valve Replacement: No Other/Comment: carotid endarterectomy, pacemaker - ANESTHESIA Hx Anesthesia: Yes Hx Anesthesia Reactions: No Hx Malignant Hyperthermia: No Meds Allergies/Adverse Reactions: Allergies Allergy/AdvReac Type Severity Reaction Status Date / Time aspirin Allergy RASH Verified 12/17/16 15:19 ketorolac tromethamine Allergy SWELLING Verified 12/17/16 15:19 [From Toradol] Penicillins Allergy ANGIOEDEMA Verified 12/17/16 15:19 Physical Exam - Constitutional Appears: Non-toxic, No Acute Distress - Head Exam Head Exam: NORMOCEPHALIC - Eye Exam Eye Exam: absent: Scleral icterus - ENT Exam ENT Exam: Mucous Membranes Dry - Respiratory Exam Respiratory Exam: absent: Accessory Muscle Use, Respiratory Distress - GI/Abdominal Exam GI & Abdominal Exam: Soft, Tenderness (epigastric). absent: Distended, Firm, Guarding, Hernia, Rigid - Extremities Exam Extremities exam: Negative for: pedal edema - Neurological Exam Neurological exam: Alert, Oriented x3 - Psychiatric Exam Psychiatric exam: Normal Mood - Skin Skin Exam: Normal Color, Warm Results - Vital Signs Recent Vital Signs: Last Vital Signs Temp 97.2 F L 12/25/16 16:25 Pulse 57 L 12/25/16 18:00 Resp 18 12/25/16 16:25 BP 163/92 H 12/25/16 16:25 Pulse Ox 96 12/25/16 16:25 - Labs Result Diagrams: 12/25/16 11:40 12/25/16 11:40 Labs: Laboratory Results - last 24 hr 12/25/16 12/25/16 14:30 14:30 Lipase 88 Digoxin < 0.4 L Assessment & Plan - Assessment and Plan (Free Text) Assessment: 81M admitted for epigastric pain and sob Plan: given age and history prudent to r/o cardiac causes symptoms unlikely related to gallbladder we will continue to follow Ok to trial on CLD if symptoms have resolved d/w Dr Bharat Garza DO, PGY2 - Date & Time Date: 12/25/16 Time: 20:12
--- NOTE | 2016-12-25 18:36 | CARD ---
APPROVED REPORT EKG Measurement Heart [id number] <Conclusion> Electronic ventricular pacemaker
[2016-12-25 19:19] LABS: PH,URINE 5.5 (4.7-8.0); URINE BILIRUBIN NEGATIVE (NEGATIVE); URINE BLOOD SMALL (NEGATIVE); URINE GLUCOSE (UA) NEGATIVE (NEGATIVE); URINE KETONE NEGATIVE (NEGATIVE); URINE LEUKOCYTE ESTERASE NEGATIVE Leu/uL (NEGATIVE); URINE PROTEIN 100 mg/dL (<30 mg/dL)
[2016-12-25 19:20] LABS: URINE APPEARANCE CLEAR (CLEAR); URINE COLOR YELLOW (YELLOW)
[2016-12-25 20:01] LABS: URINE BACTERIA FEW (NEG); URINE EPITHELIAL CELLS 0 - 2 /hpf (0-5); URINE WBC 0 - 2 /hpf (0-6)
[2016-12-25] MEDS ORDERED: Pneumococcal 23-Valent Vaccine IM ONE (21:47)
--- NOTE | 2016-12-26 08:01 | CP.PCM.PN ---
Subjective - Date & Time of Evaluation Date of Evaluation: 12/26/16 Time of Evaluation: 07:59 - Subjective Subjective: pt needs angiocath insertion. Objective - Vital Signs/Intake and Output Vital Signs (last 24 hours): Temp Pulse Resp BP Pulse Ox 97.5 F L 66 18 119/67 96 12/26/16 00:00 12/26/16 02:00 12/26/16 00:00 12/26/16 00:00 12/25/16 16:25 Intake and Output: 12/26/16 12/26/16 06:59 18:59 Intake Total 240 Output Total 150 Balance 90 - Medications Medications: Current Medications Allopurinol (Zyloprim) 100 mg PO DAILY [facility] Apixaban (Eliquis) 2.5 mg PO BID [facility] PRN Reason: Protocol Last Admin: 12/25/16 20:30 Dose: 2.5 mg Carvedilol (Coreg) 3.125 mg PO BID [facility] Last Admin: 12/25/16 20:35 Dose: Not Given Famotidine (Pepcid) 20 mg PO 1000,2200 [facility] Last Admin: 12/25/16 22:46 Dose: 20 mg Furosemide (Lasix) 40 mg PO DAILY [facility] Glipizide (Glucotrol Xl) 2.5 mg PO DAILY [facility] Non-Formulary Medication (Brimonidine 0.2% [Alphagan 0.2% Opht]) 1 drop OU HS [facility] Non-Formulary Medication (Timolol [Betimol]) 0.02 ml OU DAILY [facility] Pantoprazole Sodium (Protonix Inj) 40 mg IVP DAILY [facility] Potassium Chloride (Klor-Con 10) 10 meq PO DAILY [facility] - Labs Labs: PT 13.0 Seconds (9.9-11.8) H 12/25/16 11:40 INR 1.20 (0.93-1.08) H 12/25/16 11:40 APTT 31.8 Seconds (23.7-30.8) H 12/25/16 11:40 Assessment and Plan - Assessment and Plan (Free Text) Assessment: 24 guage angio cath inserted in left wrist area.
--- NOTE | 2016-12-26 08:20 | CP.PCM.PN ---
Subjective - Date & Time of Evaluation Date of Evaluation: 12/26/16 Time of Evaluation: 07:20 - Subjective Subjective: General Surgery Progress Note for Dr. Nicholson Pt was seen and examined at bedside. No acute complaints at this time. No acute or adverse events overnight as per nursing team. Pt states that he is feeling better today compared to yesterday. Pt admitted to having a bm and to passing flatus. He is also tolerating po intake at this time. Pt denied fever, chills, n/v/c. Objective - Vital Signs/Intake and Output Vital Signs (last 24 hours): Temp Pulse Resp BP Pulse Ox 97.0 F L 56 L 20 144/71 100 12/26/16 06:00 12/26/16 06:00 12/26/16 06:00 12/26/16 06:00 12/26/16 06:00 Intake and Output: 12/26/16 12/26/16 06:59 18:59 Intake Total 240 Output Total 150 Balance 90 - Medications Medications: Current Medications Allopurinol (Zyloprim) 100 mg PO DAILY [facility] Apixaban (Eliquis) 2.5 mg PO BID [facility] PRN Reason: Protocol Last Admin: 12/25/16 20:30 Dose: 2.5 mg Carvedilol (Coreg) 3.125 mg PO BID [facility] Last Admin: 12/25/16 20:35 Dose: Not Given Famotidine (Pepcid) 20 mg PO 1000,2200 [facility] Last Admin: 12/25/16 22:46 Dose: 20 mg Furosemide (Lasix) 40 mg PO DAILY [facility] Glipizide (Glucotrol Xl) 2.5 mg PO DAILY [facility] Non-Formulary Medication (Brimonidine 0.2% [Alphagan 0.2% Opht]) 1 drop OU HS [facility] Non-Formulary Medication (Timolol [Betimol]) 0.02 ml OU DAILY [facility] Pantoprazole Sodium (Protonix Inj) 40 mg IVP DAILY [facility] Potassium Chloride (Klor-Con 10) 10 meq PO DAILY [facility] - Labs Labs: PT 13.0 Seconds (9.9-11.8) H 12/25/16 11:40 INR 1.20 (0.93-1.08) H 12/25/16 11:40 APTT 31.8 Seconds (23.7-30.8) H 12/25/16 11:40 - Constitutional Appears: No Acute Distress - Head Exam Head Exam: ATRAUMATIC, NORMAL INSPECTION, NORMOCEPHALIC - Eye Exam Eye Exam: EOMI, Normal appearance, PERRL. absent: Scleral icterus Pupil Exam: NORMAL ACCOMODATION, PERRL - ENT Exam ENT Exam: Mucous Membranes Moist, Normal Exam - Neck Exam Neck Exam: Full ROM, Normal Inspection. absent: Lymphadenopathy - Respiratory Exam Respiratory Exam: Clear to Ausculation Bilateral, NORMAL BREATHING PATTERN. absent: Rales, Rhonchi, Wheezes - Cardiovascular Exam Cardiovascular Exam: REGULAR RHYTHM, +S1, +S2. absent: Murmur - GI/Abdominal Exam GI & Abdominal Exam: Soft, Normal Bowel Sounds. absent: Tenderness - Extremities Exam Extremities Exam: Full ROM, Normal Capillary Refill, Normal Inspection. absent : Joint Swelling, Pedal Edema - Neurological Exam Neurological Exam: Alert, Awake, CN II-XII Intact, Oriented x3 - Psychiatric Exam Psychiatric exam: Normal Affect, Normal Mood - Skin Skin Exam: Dry, Intact, Normal Color, Warm Assessment and Plan - Assessment and Plan (Free Text) Assessment: 81M admitted for epigastric pain and sob general surgery consulted to r/o cholecystitis. Pt denies abdominal pain at this time. - CT/US show thickened gallbladder wall but no evidence of stones. There is no leukocytosis and his liver enzymes are normal. - Likely 2/2 cardiac pathology, unlikely to be caused by gbladder - we will continue to follow - Ok to trial on CLD if symptoms have resolved Seen reviewed and discussed with attending Emma Tolliver, PGY1
--- NOTE | 2016-12-26 11:15 | HP ---
DATE: 12/25/2016. CHIEF COMPLAINT: The patient is an 81-year-old male, Yakut speaking, and came in with complaint of chest pain radiating to the epigastric area. HISTORY OF PRESENT ILLNESS: This is an 81-year-old male who has ischemic cardiomyopathy, rheumatoid arthritis, congestive heart failure with low ejection fraction, and chronic atrial fibrillation, came into the hospital with left side chest pain. He also feels like the pain is getting into his upper part of the abdomen. That pain has been intermittently. He denies any nausea, any vomiting, any kegaan rrhea. He does feel short of breath and this pain happening for the last day or two. The patient ca me to the ER for further evaluation. No fever, no cough, no phlegm, no diarrhea, no other complaint. 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 HOME MEDICATIONS: Timolol, he also gets potassium 10 mEq, omeprazole, glipizide ER 1 tablet daily, c arvedilol 3.125 mg daily, Lasix 40 mg 1 daily, Alphagan eyedrops daily, Eliquis 2.5 mg b.i.d., and al lopurinol 100 mg p.o. daily. ALLERGIES: ASPIRIN, TORADOL, AND PENICILLINS. FAMILY HISTORY: Noncontributory. REVIEW OF SYSTEMS: As in the present illness. PHYSICAL EXAMINATION: GENERAL: The patient is alert, awake, does not seem to be in distress. VITAL SIGNS: Temperature 97.2, heart rate 58, blood pressure is 163/92, respiratory rate 18. HEAD AND NECK: Normal. No JVD, no thyromegaly. CHEST: There is a few rhonchi, otherwise clear. CARDIAC: First and second sounds diminished. There is pansystolic murmur across the precordium. ABDOMEN: Soft. There is mild tenderness in the epigastric area, more than on each side, the whole u pper abdomen mildly tender. Bowel sounds intact. EXTREMITIES: No edema. NEUROLOGIC: Normal. LABORATORY DATA: White count 7.8, hemoglobin 14.3, hematocrit 44.1, platelets 284. Chemistry shows s odium 137, potassium 4.7, chloride 101, bicarb 27, BUN 29, creatinine 1.3. Blood sugar 141, calcium 9.8, magnesium 2.2. AST is normal at 40, ALT 33, alkaline phosphatase 133. Lactate dehydrogenase is 822. ProBNP 2090. The patient also had a urinalysis which was negative. He also had ____ INR 1.2 and PTT 31.8. Digoxin level was low, less than 0.4. The patient also had angio CT of the chest by t Emergency Room to rule out dissection. There was no dissection. There is no evidence of aortic d issection. There is mural thickening and edema in the gallbladder, possible cholecystitis. Also sma ll pleural effusion, minimal ground glass interstitial infiltrates. Abdominal ultrasound here was do ne and shows gallbladder wall thickening and trace pericholecystic fluid, no evidence of gallstones. Negative sonographic Knapp sign ____ echogenic liver, may be in the setting of hepatic parenchymal disease or fatty liver, diminutive right kidney. IMPRESSION AND PLAN: 1. This is an 81-year-old male with severe cardiomyopathy, low ejection fraction, came in with left side chest pain, also epigastric pain and noted that he has epigastric tenderness and a thick walled gallbladder, raises the possibility of acute cholecystitis. The patient will be admitted for observa tion, get a GI consult, Dr. Pace, surgical consult Dr. Nicholson. We will discuss further with the resident and the surgical residency ____ does not think it is acute cholecystitis; however, if it is, he is a high risk patient for surgery is so high. Will evaluate on a daily basis. We will see how things go. 2. Chronic congestive heart failure, chronic obstructive pulmonary disease, diabetes, chronic antico agulation. Will resume all meds. We will observe the patient and see how he does. We may put him on diet and see how he tolerates it and will follow up with the surgical consult. Also get a cardiolog y consult, Dr. Costa. Myles Luis MD cc: [phone] TT: 12/26/2016 11:14:55 scotty
[2016-12-26] MEDS: TIMOLOL OU SCH (11:32)
[2016-12-26] MEDS: Insulin Reg-LOW-Coverage SC SCH ×3 (11:32→22:01)
[2016-12-26] MEDS: GlipiZIDE 2.5 mg SR Tab PO SCH (11:53)
[2016-12-26] MEDS: Potassium Chloride 10 mEq ER Tab PO SCH (11:55)
--- NOTE | 2016-12-26 13:07 | CON ---
DATE: 12/26/2016 Seen and examined at the bedside this morning. He just returned from HIDA scan. REASON FOR CONSULTATION: Abdominal pain/cholecystitis HISTORY OF PRESENT ILLNESS: This is an 81-year-old male with a past medical history of atrial fibrillation on Eliquis who came to the Emergency Room with complaints of epigastric pain and shortness of breath. The patient's and son are currently at bedside. The patient denies any nausea or vomiting. Denies any fever or chills. No reports of any diarrhea. On admission, he had an abdominal ultrasound which was showing gallbladder wall thickening and positive for pericholecystic fluid. There were no gallstones noted. Denies ever having endoscopy. His reports that he did have a colonoscopy many years ago, does not recall any colon polyps. Denies any weight loss or loss of appetite. PAST MEDICAL HISTORY: Atrial fibrillation, on Eliquis. He has ischemic cardiomyopathy, congestive heart failure with low ejection fraction, rheumatoid arthritis, gastritis, glaucoma and diabetes mellitus type 2. PAST SURGICAL HISTORY: He had a pacemaker and CABG x 4 vessels. ALLERGIES: HE IS ALLERGIC TO ASPIRIN AND KETORLOAC, PROAMATINE, PENICILLIN. He had cardiac stents, carotid endarterectomy. FAMILY HISTORY: Noncontributory at this time. SOCIAL HISTORY: Denies smoking, alcohol or substance abuse. MEDICATIONS: Significant for Eliquis, otherwise reviewed as per MAR. REVIEW OF SYSTEMS: Systems reviewed with positive findings, see HPI VITAL SIGNS: Temperature is 97.0, blood pressure 144/71, pulse 53, his respiration is 20, 100 100 room oxygen. LABORATORY DATA: Labs on admission 12/25: WBC is 7.8, H and H is 14.3 and 44.1 , platelets are 284. PT is 13.0, INR is 1.20, PTT is 31.8. Sodium is 137, K 4.7, BUN 29, creatinine is 1.3, magnesium 2.2, total bilirubin is 1.4, AST 40, ALT 33, alkaline phosphatase is 133. LDH is 822. BNP is 2090. The patient had abdominal ultrasound which showed gallbladder wall thickening, positive pericholecystic fluid, no gallstones, common bile duct measured 5 mm. PHYSICAL EXAMINATION: HEENT: Sclerae are anicteric. NECK: Supple. CARDIAC: S1, S2. LUNGS: With decreased breath sounds, but positive air entry. No rales or wheeze. ABDOMEN: With bowel sounds, softly distended. He has some mid upper abdominal tenderness and right upper quadrant. No rebound, guarding, or organomegaly. EXTREMITIES: Positive pedal pulses, no edema. NEUROLOGIC: Awake, alert, and aware of surroundings. ASSESSMENT: This is an 81-year-old male with a past medical history of atrial fibrillation on Eliquis, pacemaker, ischemic cardiomyopathy, came with complaints of epigastric pain and shortness of breath. He had an ultrasound on admission which was showing gallbladder wall thickening and pericholecystic fluid. Rule out acute cholecystitis. The patient with chronic atrial fibrillation, history of diabetes mellitus type 2, congestive heart failure. PLAN: Follow up the HIDA scan. The patient is currently on clear liquid. He seems to be tolerating this. Continue Protonix 40 in am. The patient is also on Pepcid bid, will change to 20 mg at HS. We will follow up with the HIDA. The patient is also being followed by surgery and cardiology. Thank you for this consult and for allowing us to participate in your patient's care. We will make further recommendations based upon patient's clinical course. The patient was seen and case discussed with Dr. Pace. Mago COLÓN cc: [id number] TT: 12/26/2016 13:06:24 Confirmation # [id number] Dictation # [id number] [id number]
--- NOTE | 2016-12-26 15:32 | NM ---
PROCEDURE: Nuclear Medicine Hepatobiliary Scan HISTORY: cholysystitis COMPARISON: December 25, 2016. Abdominal ultrasound TECHNIQUE: 5.2 mCi of technetium 99m Mebrofenin was administered intravenously. Planar images of the abdomen were obtained at 5 min intervals to 60 mins. Delayed images were also obtained. FINDINGS: LIVER: Timely and homogenous uptake. COMMON BILE DUCT: identified at 15 mins. GALLBLADDER: identified at 15 mins. SMALL BOWEL: Identified at 30 mins. IMPRESSION: Normal Hepatobiliary Scan. The cystic duct is patent.
--- NOTE | 2016-12-26 15:51 | RAD ---
HISTORY: abdominal pain/vomiting COMPARISON: No prior. FINDINGS: BOWEL: Normal. No obstruction. No free air. BONES: Normal. OTHER FINDINGS: None. IMPRESSION: No active disease.
[2016-12-26 20:18] VITALS: RESP 20
[2016-12-26] MEDS: Non Formulary Medication (Brimonidine 0.2% [Alphagan 0.2% Opht] 1 DROP) OU SCH ×2 (22:21→22:37)
[2016-12-26 23:51] VITALS: O2SAT 96
[2016-12-27 08:08] VITALS: PULSE 51; TEMP 98.2
--- NOTE | 2016-12-27 08:24 | CON ---
DATE: 12/26/2016 The patient in room 262, bed 2. REASON FOR CONSULTATION: Abdominal pain, coronary artery disease, atrial fibrillation; cardiomyopath y, ischemic. HISTORY OF PRESENT ILLNESS: The patient is an 81-year-old male admitted with a history of abdominal pain of 2-3 days' duration, upper abdominal and epigastric area. Family present. History taken thro [facility] [place] the family. The patient felt nausea but did not have any vomiting or diarrhea, or hemetemesis, n o melena. The patient off and on complained of shortness of breath, but this present admission is du e to abdominal pain. According to family, sometimes on exertion he says that he has shortness of luis alfredo ath. Also, patient very poor compliant as per family; patient takes medication off and on. The sunil ent now lying flat in bed without any shortness of breath. PAST MEDICAL HISTORY: Positive for ischemic cardiomyopathy, hypertension, CABG. Post CABG, patient has nonobstructive coronary artery disease, history of recurrent pneumonia, AICD, chronic atrial fibr illation. PREVIOUS CARDIAC WORKUP: The patient had cardiac catheterization 03/29/2016. When patient was admit bubba with non-STEMI, troponin was 7.35. Cardiac catheterization revealed 2-vessel disease - occluded LAD and RCA - patent stent in circumflex, ramus intermedius mild to moderate disease, patent GLOVER to LAD but the distal LAD diffusely diseased, patent SVG to diagonal 1, patent SVG to RCA, patent proxim al stent in the SVG, severely decreased LV function, ejection fraction 20%, EDP was in the range of 1 5. Medical treatment was recommended. The patient had AICD already. Echo on 02/19/2016 showed moderate to severe tricuspid regurg, RV systolic pressure of 75 mmHg sugges tive of severe pulmonary hypertension, mild to moderate aortic regurgitation, 4-chamber dilatation, e jection fraction 30-35%, moderate mitral regurgitation. The patient had CABG in 2006 at [facility], 3-vessel bypass - initially GLOVER to LAD, saphenous vein graft to RCA, saphenous vein graft to diagonal 1. PERSONAL HISTORY: Denies smoking, denies alcohol abuse. HOME MEDICATIONS: The patient was taking carvedilol 3.125 mg, digoxin 0.125 mg, Eliquis 2.5 mg, Lasi x 20 mg, glipizide 1 tablet daily, isosorbide 60 mg daily, potassium 1 tablet daily and prednisone, b ut patient is poorly compliant; he takes medication on and off. ALLERGIES: The patient has no allergies. REVIEW OF SYSTEMS: All the systems were reviewed. Positive mentioned in the history, others were ne gative. PHYSICAL EXAMINATION: VITAL SIGNS: Blood pressure 137/91, respirations 20, pulse 70, temperature 97.2. HEENT: Head is normocephalic. Eyes: Pupils normal. Conjunctivae normal. Nose and throat normal. NECK: JVP low. Carotid equal. THORAX: AP diameter normal. LUNGS: Clear. CARDIOVASCULAR: S1, S2, systolic murmur, no rub. ABDOMEN: Soft. No organomegaly. Bowel sounds normal. The patient feels vague tenderness epigastri c/upper abdomen. PERIPHERIES: No clubbing, no cyanosis. LABORATORY DATA: WBC 7.8, hemoglobin 14.3, hematocrit 44.1, platelets 284. Sodium 137, potassium 4. 7, BUN 29, creatinine 1.3, random sugar 141, magnesium 2.2, calcium 9.8. AST, ALT normal. Troponin 0.05. Anti-proB natriuretic pep 0. Chest x-ray: Moderate cardiomegaly, interstitial infiltrates. No change in interstitial infiltrates as compared to old x-rays. EKG showed pacemaker rhythm. CT angio for pulmonary embolism was negati ve for pulmonary embolism; small pleural effusions, minimal ground glass interstitial infiltrates; no evidence of dissection. Abdominal ultrasound shows gallbladder wall thickening and trace pericholec ystic fluid, no evidence of gallstones, negative sonographic Knapp sign. Echogenic liver may be see n in the setting of hepatic parenchymal disease or fatty infiltration. DIAGNOSES: Abdominal pain, coronary artery disease, coronary artery bypass graft, ischemic cardiomyo sandy, automatic implantable cardioverter-defibrillator insertion, status post coronary artery bypass graft, ejection fraction 30-35%, moderate mitral regurgitation, moderate to severe tricuspid regurg, right ventricular systolic pressure 75 mmHg consistent with moderate to severe pulmonary hypertensio n, chronic atrial fibrillation, thickened gallbladder on ultrasound. PLAN: The patient on carvedilol 3.125 b.i.d., Eliquis 2.5 b.i.d., Glucotrol-XL 2.5 mg p.o. daily, po tassium 10 mEq p.o. daily, furosemide 40 mg p.o. daily, Pepcid 20 mg p.o. b.i.d., Protonix 40 IV courtney Kaye moodyoprim 100 mg p.o. daily. Clinically, patient has no evidence of CHF at present and I doubt he had any anginal symptoms. If he needs any GI procedures like endoscopy, from cardiac point of view w e can proceed with that as a moderate risk. Will follow with you. Kymberly Schafer MD cc: [phone] TT: 12/27/2016 08:23:53 Confirmation # [id number] Dictation # [id number] mn
--- NOTE | 2016-12-27 08:41 | CON ---
DATE: 12/26/2016 This is an addendum to the GI consultation report dictated by Mago Oden APN. This 81-year-old admitted with a history of atrial fibrillation on Eliquis, status post pacemaker, __ __ to be admitted with epigastric pain. The patient has mild tenderness on deep palpation in the epi gastrium and the midline. No rebound or guarding. The patient did have a HIDA scan which was review ed which was negative. The patient ____. BNP was elevated. Clinically, it is less likely gallstone s, less likely cholecystitis. Common bile duct was normal. No gallstones. The differential diagnos is should include hepatic congestion and peptic ulcer disease to be considered in the differential di agnosis. Continue to follow up the care. Thank you very much for allowing us to participate in the care of the patient. Tra Pace MD cc: [phone] TT: 12/27/2016 08:40:18 Confirmation # [id number] Dictation # [id number] tn
--- NOTE | 2016-12-27 08:46 | PN ---
DATE: 12/26/2016 The patient seems clinically stable, underwent a HIDA scan. He has no chest pain, no abdominal pain. Currently on Protonix IV, Pepcid. PHYSICAL EXAMINATION: VITAL SIGNS: Temperature 97.2, heart rate , blood pressure 127/86, respirations 18, saturation 96% on room air. HEAD AND NECK: Normal. No JVD, no thyromegaly. CHEST: Clear, good air entry. CARDIAC: First sound, second sound normal. ABDOMEN: Soft, nontender. EXTREMITIES: No edema. ABDOMEN: Soft. Mild epigastric tenderness. EXTREMITIES: No edema. NEUROLOGIC: Normal. HIDA scan came back negative, no evidence of cholecystitis. IMPRESSION AND PLAN: 1. Abdominal pain, most likely gastritis. Continue Protonix. Continue Pepcid. Follow up as outpat ient. 2. Chronic congestive heart failure, chronic atrial fibrillation, coronary artery disease, defibrill ator/pacemaker, underlying chronic obstructive pulmonary disease, chronic anemia, chronic rheumatoid arthritis. We will continue current treatment. The patient supposedly getting the prednisone, but i s not. We will resume it. We will continue current therapy. Myles Luis MD cc: [phone] TT: 12/27/2016 08:45:07 Confirmation # [id number] Dictation # [id number]
[2016-12-27] MEDS: GlipiZIDE 2.5 mg SR Tab PO SCH (11:20)
[2016-12-27] MEDS: Potassium Chloride 10 mEq ER Tab PO SCH (11:20)
[2016-12-27 11:23] VITALS: BP 130/72
[2016-12-27] MEDS: Insulin Reg-LOW-Coverage SC SCH (11:28)
[2016-12-27] MEDS: TIMOLOL OU SCH (11:28)
--- NOTE | 2016-12-27 12:38 | PN ---
DATE: 12/27/2016 The patient in room 377, bed 2. REASON FOR CONSULTATION: Abdominal pain, coronary artery disease, atrial fibrillation, cardiomyopath y. HISTORY OF PRESENT ILLNESS: The patient is an 81-year-old male admitted with abdominal pain of 2-3 d ays' duration, upper abdominal and epigastric area. The patient denies any chest pain, shortness of breath, or palpitation. The patient known to have coronary artery disease, CABG, post CABG nonobstru ctive coronary artery disease, history of recurrent pneumonia, AICD insertion, chronic atrial fibrill ation. There is ischemic cardiomyopathy. The patient stated today abdominal pain is much, much bett er now. Denies any cardiac symptoms. The patient's detailed cardiac history has been mentioned in o ur consult dated 12/26/2016. PHYSICAL EXAMINATION: VITAL SIGNS: Blood pressure 130/72, respirations 20, pulse 51, temperature 98.2. HEAD: Normocephalic. EYES: Pupils normal. Conjunctivae are normal. NOSE AND THROAT: Normal. NECK: JVP low. Carotid equal. THORAX: AP diameter normal. LUNGS: Clear. CARDIOVASCULAR: S1, S2. ABDOMEN: Soft, bowel sounds normal. EXTREMITIES: No clubbing, no cyanosis. LABORATORY DATA: WBC 7.8, hemoglobin 14.3, hematocrit 44.1, platelets 284. Sodium 137, potassium 4. 7, BUN 29, creatinine 1.3, random glucose 98. AST, ALT normal. Anti-proB natriuretic pep 2090. Lip ase 88. DIAGNOSES: Abdominal pain which is improving, coronary artery disease, coronary artery bypass surger y, ischemic cardiomyopathy, automatic implantable cardioverter-defibrillator insertion, status post c oronary artery bypass surgery, ejection fraction 30-35%, moderate mitral regurgitation, moderate to s evere tricuspid regurgitation, right ventricular systolic pressure at 75 mmHg consistent with severe pulmonary hypertension, chronic atrial fibrillation, thickened gallbladder on ultrasound. PLAN: The patient clinically has no evidence of congestive heart failure. The patient has no angina l symptoms. We will continue present therapy. Carvedilol 3.125 b.i.d., Eliquis 2.5 b.i.d., glipizid e 2.5 mg p.o. daily, potassium 10 mg daily, furosemide 40 p.o. daily, Pepcid 20 mg b.i.d., prednisone ____ mg daily, Protonix 40 mg IV daily, Zyloprim 100 mg p.o. daily. If patient needs any GI procedu re, the patient can go for that as a moderate to high risk for the procedures. Will continue to foll ow with you. Kymberly Schafer MD cc: [phone] TT: 12/27/2016 12:36:50 Confirmation # [id number] Dictation # [id number] mn
--- NOTE | 2016-12-28 19:35 | DS ---
An 81-year-old male came in with abdominal pain, some chest pain. The patient does have history of c oronary artery disease, congestive heart failure, multiple medications. The patient also has history of chronic atrial fibrillation, diabetes type 2, rheumatoid arthritis. The patient came into the [facility] with abdominal pain, epigastric area. CT was negative for any dissection; however, a thick wa lled gallbladder, edema of wall gallbladder. The patient underwent biliary scan, which was negative. Clinically, patient less likely to a surgical candidate. He is stable, hemodynamically stable, vit als stable. PHYSICAL EXAMINATION: VITAL SIGNS: On discharge, which is 12/27/2016, temperature 98.2, heart rate 51, blood pressure 139/8 4, respirations 20, saturation 96. HEAD AND NECK: Normal. No JVD, no thyromegaly. CHEST: Clear, good entry. CARDIAC: First and second sounds diminished, horn systolic murmur. EXTREMITIES: No edema. NEUROLOGIC: Normal. LABORATORY DATA: No change in the labs. His blood sugar runs 98. His lipase is 88. His proBNP 209 0. The patient was given Lasix, seen by software engineering manager and GI, Dr. Pace and also by surgical consult, which I discussed with him, he thinks it is a nonsurgical case and patient clinically stable, no comp laints. DISCHARGE DIAGNOSES: 1. Abdominal pain, probably gastritis. 2. Congestive heart failure. 3. Chronic atrial fibrillation. 4. Coronary artery disease. 5. Right-sided heart failure, secondary to the left sided heart failure. 6. Hepatic congestions. 7. Gastritis. 8. Gouty arthritis. 9. Rheumatoid arthritis. PLAN: Discharge the patient, same meds, will continue Protonix 20 mg b.i.d. and also prednisone 15 m g. To be followed by electric organ inspector and repairer as outpatient. Myles Luis MD cc: [phone] TT: 12/28/2016 19:34:41 jn
== END 2016-12-27 12:15 | disposition home or self-care (01) ==
LOC: ED 11:07 → ERH 13:40 → 2RNO 16:45 → 3RNO 12-26 22:28 → 3RSO 12-27 08:13
PROVIDERS: ADMIT Internal Medicine; ATTEND Internal Medicine
DX: R07.9 Chest pain, unspecified (principal); R10.13 Epigastric pain; I48.2 Chronic atrial fibrillation; I25.5 Ischemic cardiomyopathy; E11.9 Type 2 diabetes mellitus without complications; J44.9 Chronic obstructive pulmonary disease, unspecified; M10.00 Idiopathic gout, unspecified site; M06.9 Rheumatoid arthritis, unspecified; K29.70 Gastritis, unspecified, without bleeding; I50.9 Heart failure, unspecified; I27.2 Other secondary pulmonary hypertension; I11.0 Hypertensive heart disease with heart failure; I25.10 Atherosclerotic heart disease of native coronary artery without angina pectoris; I08.1 Rheumatic disorders of both mitral and tricuspid valves; H40.9 Unspecified glaucoma; D64.9 Anemia, unspecified; Z79.01 Long term (current) use of anticoagulants; Z95.1 Presence of aortocoronary bypass graft; Z95.810 Presence of automatic (implantable) cardiac defibrillator; Z87.01 Personal history of pneumonia (recurrent); Z91.19 Patient's noncompliance with other medical treatment and regimen; Z88.6 Allergy status to analgesic agent
CPT/HCPCS: 71010; 71275; 74000; 74175; 76700; 78227; 80053; 80162; 81001; 82550; 82948; 83615; 83690; 83735; 83880; 84484; 85025; 85610; 85730; 93005; 99284; A9537; C9113; G0378; J7040

== ENCOUNTER 2017-01-01 14:52 | Inpatient (IN) | payer MEDICARE, OTHER ==
[2017-01-01 14:53] VITALS: PULSE 55
[2017-01-01 14:54] VITALS: BMI 20.5
--- NOTE | 2017-01-01 15:11 | ED PDOC ---
Arrival/HPI - General Time Seen by Provider: 01/01/17 14:56 Historian: Patient, Family - History of Present Illness Narrative History of Present Illness (Text): 01/01/17 15:11 Patient is an 81 yr old male with a PMH of HTN, DM, CABG, COPD, pacemaker, a-fib , gastritis, heart failure and rheumatoid arthritis who was admitted to [facility] last week (12/25/16 to 12/27/16) with a discharge diagnosis of CHF , gastritis, a-fib who presents to the ED today with family with a complaint of nausea, chest pain, SOB and cough (with yellow phlegm) for the past 3 days. states that the patient had a tactile fever today as well--but did not check the patient's temperature with a thermometer. Tylenol was given at 11 AM for the tactile fever. Patient also not eating well/poor appetite. No additional complaints at this time. PMD: Dr. Myles Luis Past Medical History - Provider Review Nursing Documentation Reviewed: Yes - Infectious Disease Hx of Infectious Diseases: None - Tetanus Immunization Tetanus Immunization: Unknown - Cardiac Hx Cardiac Disorders: Yes Hx Cardiac Arrhythmia: Yes (palpitations/svt/tachycardia/afib) Hx Congestive Heart Failure: Yes Hx Hypertension: Yes Hx Pacemaker: Yes Other/Comment: coronary rotational ablation, coronary laser therapy, angioplasty ,carotid endarterectomy, mi, open heart, left forearm and hand cool to touch - Pulmonary Hx Respiratory Disorders: Yes Hx Chronic Obstructive Pulmonary Disease (COPD): Yes Hx Pneumonia: Yes - Neurological Hx Neurological Disorder: No Hx Alzheimer's Disease: No HX Cerebrovascular Accident: No Hx Dementia: No Hx Dizziness: No Hx Meningitis: No Hx Migraine: No Hx Parkinson's Disease: No Hx Seizures: No Hx Transient Ischemic Attacks (TIA): No - HEENT Hx HEENT Disorder: Yes Hx Blind: Yes (right eye) Hx Cataracts: Yes Hx Deafness: No Hx Difficulty Chewing: No Hx Epistaxis: No Hx Glaucoma: Yes Hx Macular Degeneration: No - Renal Hx Renal Disorder: No Hx Dialysis: No Hx Kidney Stones: No Hx Neurogenic Bladder: No Hx Pyelonephritis: No Hx Renal Cancer: No Hx Renal Failure: No - Endocrine/Metabolic Hx Endocrine Disorders: Yes Hx Diabetes Mellitus Type 2: Yes - Hematological/Oncological Hx Blood Disorders: Yes Hx AIDS: No Hx Anemia: No Hx Cancer: No Hx Chemotherapy: No Hx Cirrhosis: No Hx Hemophilia: No Hx Hepatitis A: No Hx Hepatitis B: No Hx Hepatitis C: No Hx Metastasis: No Hx Shingles: Yes Hx Sickle Cell Disease: No Hx Unexplained Bleeding: No - Integumentary Hx Dermatological Disorder: No Hx Basal Cell Carcinoma: No Hx Eczema: No Hx Melanoma: No Hx Psoriasis: No Hx Squamous Cell Carcinoma: No Other/Comment: ble discolored dry skin, healed wound lle - Musculoskeletal/Rheumatological Hx Falls: No - Gastrointestinal Hx Gastrointestinal Disorders: Yes Hx Colostomy: No Hx Crohn's Disease: No Hx Diverticulitis: No Hx Gall Bladder Disease: Yes Hx Gastroesophageal Reflux: Yes Hx Ileostomy: No Hx Liver Failure: No Hx Pancreatitis: No HX Swallowing Problems: No - Genitourinary/Gynecological Hx Genitourinary Disorders: No Hx Hematuria: No Hx Incontinence: No Hx Prostate Problems: No Hx Sexually Transmitted Diseases: No Hx Urinary Tract Infection: No - Psychiatric Hx Psychophysiologic Disorder: Yes Hx Anxiety: Yes Hx Bipolar Disorder: No Hx Depression: Yes Hx Emotional Abuse: No Hx Hallucinations: No Hx Panic Disorder: No Hx Post Traumatic Stress Disorder: No Hx Psychosis: No Hx Physical Abuse: No Hx Schizophrenia: No Hx Sexual Abuse: No Hx Substance Use: No - Past Surgical History Past Surgical History: Unable to Obtain - Surgical History Hx Amputation: No Hx Appendectomy: No Hx Cardiac Catheterization: Yes Hx Cholecystectomy: Yes Hx Coronary Stent: Yes Hx Gastric Bypass Surgery: No Hx Hysterectomy: No Hx Joint Replacement: No Hx Kidney Transplant: No Hx Liver Transplant: No Hx Mastectomy: No Hx Musculoskeletal Surgery: No Hx Open Heart Surgery: Yes (CABG) Hx Orthopedic Surgery: No Hx Splenectomy: No Hx Valve Replacement: No Other/Comment: carotid endarterectomy, pacemaker - Anesthesia Hx Anesthesia: Yes Hx Anesthesia Reactions: No Hx Malignant Hyperthermia: No - Suicidal Assessment Feels Threatened In Home Enviroment: No Family/Social History Family/Social History: Diabetes Smoking Status: Never Smoked Hx Alcohol Use: No Hx Substance Use: No Hx Substance Use Treatment: No Allergies/Home Meds Allergies/Adverse Reactions: Allergies aspirin Allergy (Verified 12/17/16 15:19) RASH ketorolac tromethamine [From Toradol] Allergy (Verified 12/17/16 15:19) SWELLING Penicillins Allergy (Verified 12/17/16 15:19) ANGIOEDEMA Home Medications: Home Meds Medication Instructions Recorded Confirmed Carvedilol [Coreg] 3.125 mg PO BID 02/06/14 12/25/16 Glipizide [Glipizide ER] 1 tab PO DAILY 06/18/16 12/25/16 Potassium Chloride [Klor-Con 10] 1 tab PO DAILY 06/18/16 12/25/16 Furosemide [Lasix] 40 mg PO DAILY 09/30/16 12/25/16 Allopurinol [Zyloprim] 100 mg PO DAILY 12/25/16 12/25/16 Brimonidine 0.2% [Alphagan 0.2% 1 drop OU HS 12/25/16 12/25/16 Opht] Omeprazole 20 mg PO DAILY 12/25/16 12/25/16 Timolol [Betimol] 5 ml OU DAILY 12/25/16 12/25/16 Review of Systems - Review of Systems Constitutional: Fatigue Respiratory: SOB, Cough Cardiovascular: Chest Pain Gastrointestinal: absent: Vomiting Neurological: absent: Headache Physical Exam Vital Signs Reviewed: Yes Vital Signs Temp Pulse Resp BP Pulse Ox 01/01/17 17:38 61 14 142/94 H 96 01/01/17 16:28 69 14 132/79 96 01/01/17 15:30 59 L 18 136/89 98 01/01/17 14:53 97.8 F 56 L 17 141/93 H 96 Temperature: Afebrile Blood Pressure: Hypertensive Pulse: Bradycardic Respiratory Rate: Tachypneic Appearance: Positive for: Ill-Appearing Pain Distress: None - Systems Exam Head: Present: Atraumatic, Normocephalic Pupils: Present: PERRL Extroacular Muscles: Present: EOMI Conjunctiva: Present: Normal Mouth: Present: Dry Pharnyx: Present: Normal Nose (External): Present: Atraumatic Respiratory/Chest: Present: Decreased Breath Sounds (to bases bilateral) Cardiovascular: Present: Irregular Rhythm Abdomen: Present: Normal Bowel Sounds. No: Tenderness Upper Extremity: Present: Normal Inspection. No: Cyanosis, Edema Lower Extremity: Present: Normal Inspection, Edema (mild) Neurological: Present: Motor Func Grossly Intact, Normal Sensory Function Skin: Present: Warm, Dry Psychiatric: Present: Alert Medical Decision Making ED Course and Treatment: 01/01/17 15:24 Initial Impression: Dyspnea/chest pain; also with possible fever Differential diagnosis includes but is not limited to: CHF, pneumonia, bronchitis, ACS, sepsis, hospital acquired infection (recently admitted to the hospital) Initial Plan: Will check labs, CXR, monitor, get EKG, pain medication (will not give aspirin as pt has aspirin allergy) 01/01/17 15:31 Patient's lactate is 5.2--indicative of possible sepsis; however, currently does not have 2 SIRS criteria (only 1 SIRS -- resp rate >20). Since pt does not have 2 or more SIRS criteria, the pt does not meet the national core measure definition of septic shock; therefore, I will not give 30mL/kg of IV fluids at this time (will give lower volume of fluids and then repeat lactate). QSOFA score = 1 :30 Case d/w Dr. Luis--recommends admission to his service. 01/01/17 18:26 Repeat lactate has come down significantly after 1 liter of IV fluids. Will admit to telemetry (not ICU) given satisfactory lactate clearance. - Critical Care Critical Care Minutes: 30 minutes - Lab Interpretations Lab Results: 01/01/17 15:00 01/01/17 15:05 Lab Results 01/01/17 18:00: pO2 44, VBG pH 7.29 L, VBG pCO2 50.0, VBG HCO3 24.0, VBG Total CO2 25.5, VBG O2 Sat (Calc) 71.8 H, VBG Base Excess -3.1 L, VBG Potassium 4.5, Sodium 135.0, Chloride 104.0, Glucose 109, Lactate 2.8 H, FiO2 21.0, Venous Blood Potassium 4.5 01/01/17 17:15: Urine Color Dark yellow, Urine Appearance Sl cloudy, Urine pH 5.5, Ur Specific Gerber >= 1.030, Urine Protein 100 H, Urine Glucose (UA) Negative, Urine Ketones Negative, Urine Blood Moderate H, Urine Nitrate Negative , Urine Bilirubin Small H, Urine Urobilinogen 2.0 H, Ur Leukocyte Esterase Trace H, Urine RBC 2 - 5, Urine WBC 2 - 5, Ur Epithelial Cells 0 - 2, Amorphous Sediment Moderate, Urine Bacteria Few 01/01/17 15:05: Sodium 135, Chloride 102, Potassium 4.6, Carbon Dioxide 22, Anion Gap 16, BUN 39 H, Creatinine 1.6 H, Est GFR ( Amer) 50, Est GFR ( Non-Af Amer) 42, Random Glucose 148 H, Calcium 9.2, Magnesium 2.4 H, Total Bilirubin 2.1 H, AST 55, ALT 44, Alkaline Phosphatase 230 H, Lactate Dehydrogenase 773 H, Total Creatine Kinase 38, Troponin I 0.05, NT-Pro-B Natriuret Pep 3690 H, Total Protein 7.3, Albumin 3.8, Globulin 3.6, Albumin/ Globulin Ratio 1.1 01/01/17 15:00: pO2 52, VBG pH 7.29 L, VBG pCO2 40.0, VBG HCO3 19.2 L, VBG Total CO2 20.4 L, VBG O2 Sat (Calc) 85.9 H, VBG Base Excess -7.0 L, VBG Potassium 7.1 H*, Sodium 134.0, Chloride 104.0, Glucose 143 H, Lactate 5.2 H*, FiO2 21.0, Venous Blood Potassium 7.1 H* 01/01/17 15:00: PT 16.4 H, INR 1.52 H, APTT 31.7 H 01/01/17 15:00: WBC 8.1, RBC 4.88, Hgb 14.7, Hct 45.6, MCV 93.4, MCH 30.1, MCHC 32.2, RDW 15.9 H, Plt Count 332, MPV 10.5, Gran % 70.7 H, Lymph % (Auto) 18.4 L , [place] % (Auto) 9.7 H, Eos % (Auto) 1.0 L, Baso % (Auto) 0.2, Gran # 5.70, Lymph # 1.5, [place] # 0.8 H, Eos # 0.1, Baso # 0.02 - RAD Interpretation Radiology Orders: 01/01/17 14:57 CHEST PORTABLE [RAD] Stat - EKG Interpretation EKG Interpretation (Text): 01/01/17 16:26 atrial flutter with demand pacemaker rhythm as well. Interpreted by ED Physician: Yes - Medication Orders Current Medication Orders: Discontinued Medications Albuterol/Ipratropium (Duoneb 3 Mg/0.5 Mg (3 Ml) Ud) 3 ml IH STAT STA Stop: 01/01/17 16:00 Last Admin: 01/01/17 16:48 Dose: 3 ml Aztreonam (Azactam 2 Gm) 100 mls @ 100 mls/hr IVPB STAT STA PRN Reason: Protocol Stop: 01/01/17 16:26 Last Admin: 01/01/17 15:43 Dose: 100 mls/hr Vancomycin HCl (Vancomycin 1gm) 1 gm in 250 mls @ 167 mls/hr IVPB STAT STA PRN Reason: Protocol Stop: 01/01/17 16:56 Last Admin: 01/01/17 16:43 Dose: 167 mls/hr Sodium Chloride (Sodium Chloride 0.9%) 1,000 mls @ 999 mls/hr IV .Q1H1M STA Stop: 01/01/17 18:22 Last Admin: 01/01/17 17:28 Dose: 999 mls/hr Morphine Sulfate (Morphine) 4 mg IVP STAT STA Stop: 01/01/17 15:15 Last Admin: 01/01/17 15:20 Dose: 4 mg Re-Assess: [place] Pain Assessment Document 01/01/17 16:20 SRE (Rec: 01/01/17 16:47 SRE [id number]) Pain Reassessment Is this a pain reassessment? Yes Sleep Is patient sleeping during reassessment? No Presence of Pain Presence of Pain Yes Pain Scale Used Pain Scale Used Numeric Location Pain Location Body Site Chest Description Description Intermittent Disposition/Present on Arrival - Present on Arrival Any Indicators Present on Arrival: No History of DVT/PE: No History of Uncontrolled Diabetes: No Urinary Catheter: No History Surgical Site Infection Following: None - Disposition Have Diagnosis and Disposition been Completed?: Yes Diagnosis: Sepsis, CHF (congestive heart failure), UTI (urinary tract infection), Chest pain Disposition: HOSPITALIZED Disposition Time: 16:27 Patient Plan: Admission Patient Problems: Current Active Problems Problem Status Onset Sepsis Acute CHF (congestive heart failure) Acute UTI (urinary tract infection) Acute Chest pain Acute Condition: FAIR Discharge Instructions (ExitCare): Heart Failure (ED), Chest Pain (ED), Sepsis (ED) Referrals: Myles Luis MD [Primary Care Provider] - Follow up with primary
[2017-01-01 15:14] LABS: ADD MANUAL DIFF? NO
[2017-01-01] MEDS ORDERED: Morphine 4 mg/ml ISec IVP STA (15:14)
[2017-01-01 15:21] LABS: VENOUS BLOOD PH 7.29 (7.32-7.43)
[2017-01-01 15:23] LABS: BASO # 0.02 K/mm3 (0.0-2.0); BASO % 0.2 % (0.0-3.0); EOS # 0.1 (0.0-0.7); GRAN % 70.7 % (50.0-68.0); HEMATOCRIT 45.6 % (42.0-52.0); LYMPH # 1.5 (1.2-3.4); LYMPH % 18.4 % (22.0-35.0); MEAN CELL VOLUME 93.4 fL (80.0-105.0); MEAN CORPUSCULAR HEMOGLOBIN 30.1 pg (25.0-35.0); MEAN CORPUSCULAR HGB CONC 32.2 g/dl (31.0-37.0); MEAN PLATELET VOLUME 10.5 fl (7.0-11.0); MONO # 0.8 (0.1-0.6); MONO % 9.7 % (1.0-6.0); PLATELET COUNT 332 10^3/uL (120.0-450.0); RED CELL DISTRIBUTION WIDTH 15.9 % (11.5-14.5); WHITE BLOOD COUNT 8.1 10^3/ul (4.5-11.0)
[2017-01-01] MEDS ORDERED: Aztreonam 2 Gm in NS 100mL 100 ML IVPB STA (15:27)
[2017-01-01] MEDS ORDERED: Vancomycin 1gm in NS 250ml 1 GM/250 ML BAG IVPB STA (15:27)
[2017-01-01 15:29] LABS: INR 1.52 (0.93-1.08); PARTIAL THROMBOPLASTIN TIME 31.7 Seconds (23.7-30.8)
--- NOTE | 2017-01-01 15:46 | RAD ---
HISTORY: chest pain Comparison chest 12/25/2016 COMPARISON: FINDINGS: LUNGS: Mild pulmonary vascular congestive changes. PLEURA: No significant pleural effusion identified, no pneumothorax apparent. CARDIOVASCULAR: Sternotomy wires, bipolar pacemaker and mild cardiomegaly unchanged. OSSEOUS STRUCTURES: No significant abnormalities. VISUALIZED UPPER ABDOMEN: Normal. OTHER FINDINGS: None. IMPRESSION: Mild pulmonary vascular congestion.
[2017-01-01] MEDS ORDERED: Albuterol-Ipratrop 3 mg / 0.5 (3 ml) UD IH STA ×2 (15:59→18:35)
[2017-01-01 16:11] LABS: ALB/GLOB RATIO 1.1 (1.1-1.8); BILIRUBIN,TOTAL 2.1 mg/dL (0.2-1.3); CALCIUM 9.2 mg/dL (8.4-10.5); MAGNESIUM 2.4 mg/dL (1.7-2.2); POTASSIUM 4.6 mmol/L (3.6-5.0); TOTAL PROTEIN 7.3 g/dL (5.8-8.3)
[2017-01-01 16:23] LABS: TROPONIN I 0.05 ng/mL
[2017-01-01] MEDS ORDERED: Sodium Chloride 0.9% 1,000 ML IV STA (17:22)
[2017-01-01 17:29] LABS: PH,URINE 5.5 (4.7-8.0); URINE APPEARANCE SL CLOUDY (CLEAR); URINE BILIRUBIN SMALL (NEGATIVE); URINE BLOOD MODERATE (NEGATIVE); URINE COLOR DARK YELLOW (YELLOW); URINE GLUCOSE (UA) NEGATIVE (NEGATIVE); URINE KETONE NEGATIVE (NEGATIVE); URINE LEUKOCYTE ESTERASE TRACE Leu/uL (NEGATIVE); URINE PROTEIN 100 mg/dL (<30 mg/dL)
[2017-01-01 17:39] LABS: URINE AMORPHOUS SEDIMENT MODERATE; URINE BACTERIA FEW (NEG); URINE EPITHELIAL CELLS 0 - 2 /hpf (0-5)
[2017-01-01 18:12] LABS: VENOUS BLOOD GAS BASE EXCESS -3.1 mmol/L (0.0-2.0); VENOUS BLOOD PH 7.29 (7.32-7.43)
[2017-01-01] MEDS ORDERED: MethylPREDNISolone 40 mg Vial ONE (20:30)
[2017-01-01] MEDS ORDERED: MethylPREDNISolone 40 mg Vial IV STA (21:03)
[2017-01-01] MEDS ORDERED: Levalbuterol 0.63 MG/3 ML Inhal Soln UD IH PRN (21:15)
--- NOTE | 2017-01-01 22:09 | CARD ---
APPROVED REPORT EKG Measurement Heart [id number] PA P96 [id number] <Conclusion> Demand pacemaker, interpretation is based on intrinsic rhythm Atrial flutter with variable AV block with premature ventricular or aberrantly conducted complexes Left axis deviation Right bundle branch block Left ventricular hypertrophy with repolarization abnormality Inferior infarct, age undetermined Abnormal ECG
[2017-01-02] MEDS: oxyCODONE 15 mg Immediate Release Tab PO PRN (01:49)
[2017-01-02] MEDS: MethylPREDNISolone 40 mg Vial IV SCH ×3 (06:29→21:56)
[2017-01-02] MEDS: Budesonide 0.5 mg/2 ml Inhal Susp UD IH SCH ×2 (08:09→19:53)
[2017-01-02] MEDS: Arformoterol 15 mcg/2 ml Inh Sol IH SCH ×2 (08:09→19:53)
[2017-01-02] MEDS ORDERED: TIMOLOL OU SCH (10:00)
[2017-01-02] MEDS: Potassium Chloride 10 mEq ER Tab PO SCH (10:19)
--- NOTE | 2017-01-02 11:21 | HP ---
An 81-year-old male came in with left-sided chest pain and epigastric discomfort. HISTORY OF PRESENT ILLNESS: An 81-year-old male was recently admitted to the hospital with similar s ymptoms and was discharged, came back by the because of persistent chest pain, stayed longer. T he patient has the pain left side. It is across his chest mainly, but more on the left. He denied a ny nausea or vomiting. mentioned one-time fever, but otherwise he feels weak. He feels tired. He is short of breath. Otherwise negative. The patient has history of COPD, congestive heart failu re, on multiple medications. PAST MEDICAL HISTORY: As I mentioned, congestive heart failure, EF 15%, coronary artery disease, atr ial fibrillation flutter, COPD, congestive heart failure, renal insufficiency, diabetes type 2, rheum atoid arthritis with steroids, and multiple gouty arthritis. ALLERGIES: ASPIRIN. TORADOL. PENICILLINS. FAMILY HISTORY: Noncontributory. REVIEW OF SYSTEMS: ____ complained of joint pain, short of breath, back pain, frequent urination, de creased vision, also has history of glaucoma. PHYSICAL EXAMINATION: GENERAL: The patient was seen in the Emergency Room. He was stable. No respiratory distress. The patient was in Emergency Room on 01/01/2017 when I saw him. The patient was seen on 01/01/2017. VITAL SIGNS: Temperature 98. Heart rate is ____9, blood pressure 141/93, respirations 17, saturatio n 96% on room air. HEAD AND NECK: Normal. No JVD, no thyromegaly. CHEST: Diminished breath sounds. Few rhonchi. CARDIAC: First and second sounds are normal. Systolic murmur. ABDOMEN: Soft. Epigastric tenderness. EXTREMITIES: No edema. NEUROLOGIC: He is normal. LABORATORY DATA: White count 8.1, hemoglobin 14.7, hematocrit 45.6. Platelets are 332. Chemistry s hows sodium 135, potassium 4.6, chloride 102, bicarb 22, BUN 39, creatinine 1.6. Liver function test is normal. Blood sugar 148, calcium 9.2, magnesium 2.4, bilirubin total 2.1. AST and ALT are opal l. Alk phos 230. Lactate dehydrogenase is 773, and proBNP 3690. The patient also had a chest x-ray, which shows mild pulmonary vascular congestive changes. IMPRESSION AND PLAN: 1. Chest pain, most likely cardiac. The patient has coronary artery disease, has cardiac symptoms. We will admit to telemetry. Cardiology consult, Dr. Costa. 2. Congestive heart failure. IV Lasix. Continue his cardiac meds. 3. Atrial fibrillation flutter, diabetes, hypertension, gouty arthritis. We will put the patient on steroids for underlying chronic obstructive pulmonary disease, probably will be switched to p.o. pre dnisone 15 mg, and we will give him also Protonix and Pepcid. 4. Gastritis. We will put the patient on Pepcid and Protonix. He is tender in epigastric area. Th e patient advised to take these while he is on the steroids to prevent any ulcerations. At this time , continue with current medicines, follow up with the decorator consultant, get cardiac enzymes. We will get G I, Dr. Pace, and cardiology, Dr. Costa. Myles Luis MD cc: [phone] TT: 01/02/2017 11:20:04 jn
[2017-01-02] MEDS: POLYETHYLENE GLYCOL 3350 17 GM/Dose PACKET PO SCH (14:54)
--- NOTE | 2017-01-02 16:27 | CARD ---
APPROVED REPORT EKG Measurement Heart [id number] <Conclusion> Demand pacemaker, interpretation is based on intrinsic rhythm Atrial flutter with variable AV block with premature ventricular or aberrantly conducted complexes Left axis deviation Right bundle branch block Left ventricular hypertrophy with repolarization abnormality Inferior infarct, age undetermined Abnormal ECG
[2017-01-02] MEDS: Aztreonam 2 Gm in NS 100mL 100 ML IVPB SCH (21:56)
[2017-01-02] MEDS ORDERED: Non Formulary Medication (Brimonidine 0.2% [Alphagan 0.2% Opht] 1 DROP) OU SCH (22:00)
[2017-01-02] MEDS: GlipiZIDE 2.5 mg SR Tab PO SCH (22:36)
[2017-01-03] MEDS: oxyCODONE 15 mg Immediate Release Tab PO PRN (02:07)
[2017-01-03] MEDS: Aztreonam 2 Gm in NS 100mL 100 ML IVPB SCH ×3 (05:31→22:10)
[2017-01-03] MEDS: MethylPREDNISolone 40 mg Vial IV SCH ×3 (06:27→22:12)
[2017-01-03] MEDS: Budesonide 0.5 mg/2 ml Inhal Susp UD IH SCH ×2 (08:02→19:49)
[2017-01-03] MEDS: Arformoterol 15 mcg/2 ml Inh Sol IH SCH ×2 (08:02→19:49)
--- NOTE | 2017-01-03 08:22 | CON ---
DATE: 01/02/2017 REASON FOR CONSULTATION: Cardiac evaluation, history of coronary artery disease, CABG, pacemaker, ad mitted with epigastric pain, cough, fever and chest pain on coughing. BRIEF CLINICAL HISTORY: This is an 81-year-old male with a past medical history significant for isch emic cardiomyopathy, CABG, history of AICD, who was recently discharged 2 days ago, came in with a co mplaint of epigastric pain, fever. According to , has a fever at home, but did not check, but ap pears warm and cough and coughing developed chest pain, so brought here. Denies any chest pain now. PAST MEDICAL HISTORY: Significant for ischemic cardiomyopathy, hypertension, coronary artery disease , CABG, status post recent cardiac catheterization, nonobstructive post CABG, history of recurrent pn eumonia, history of AICD, history of chronic atrial fibrillation, noncompliance with the medication. PREVIOUS CARDIAC WORKUP: The patient had a recent cardiac catheterization 03/29/2016 when the patient admitted with a non-STEMI, troponin 7.35. Cardiac catheterization revealed 2-vessel disease, occlud ed LAD and RCA, patent stent in circumflex, ramus intermedius mild to moderate disease, patent GLOVER t o LAD, but distal LAD is diffusely diseased, ejection fraction 20%, EDP was in the range of 15, medic al treatment recommended, is status post AICD. Cardiac catheterization dated 03/29/2016. The patient had also echocardiography done on 02/19/2016 that shows moderate to severe tricuspid regurg, RV systo lic pressure 75, mild to moderate aortic regurgitation, 4-chamber dilatation, ejection fraction 30%-3 5%, moderate mitral regurgitation. History of CABG in 2006 at [facility], 3-vessel b ypass, initial GLOVER to LAD, saphenous venous graft to the RCA, saphenous graft to the diagonal 1. Mo st recent cardiac catheterization as mentioned revealed occluded LAD, occluded RCA, patent stent in c ircumflex, ramus intermedius mild to moderate disease, patent GLOVER to LAD, patent SVG to diagonal 1, patent GLOVER, patent SVG to diagonal 1, patent SVG to diagonal, SVG to RCA, medical treatment recommen ded. History of chronic atrial fibrillation. SOCIAL HISTORY: Denies smoking. Denies any history of alcohol abuse. CURRENT MEDICATIONS: The patient is taking Eliquis 2.5 mg daily, Coreg 3.125 mg , digoxin 0.125 mg daily, Lasix 20, glipizide 1 tablet, isosorbide 60 mg, potassium chloride 1 tablet, prednisone re cently tapering dose. REVIEW OF SYSTEMS: A 14-point as per HPI. PHYSICAL EXAMINATION: VITAL SIGNS: Temperature afebrile, heart rate 54, blood pressure 132/62. HEENT: PERRLA. Extraocular muscles intact. NECK: Supple. No carotid bruits. No thyromegaly. CHEST: Clear to auscultation. HEART: S1, S2 regular. ABDOMEN: Soft. EXTREMITIES: Clubbing, cyanosis negative. WBC 8.1, hemoglobin 14. , hematocrit 45.6, platelet count 332. Chemistry shows sodium 135, potas sium , chloride 102, carbon dioxide 22, anion gap of 16, BUN 39, creatinine 1.6. Troponin 0.05 and 0.08. BNP 2090. IMPRESSION: Atypical chest pain, chronic renal insufficiency with a baseline creatinine 1.5-1.6, his tory of coronary artery bypass graft 3 vessels 2005 at [facility], left internal mamm arcelia artery to left anterior descending, saphenous venous graft to the right coronary artery, saphenou s graft to diagonal 1 at [facility] [place] in 2006. Most recent cardiac catheterization 03/29/2016 showed patent s aphenous graft, circumflex patent, patent saphenous vein graft to right coronary artery, patent left internal mammary artery to left anterior descending, occluded left anterior descending, occluded righ t coronary artery, mild disease in ramus, medical treatment recommended, decreased left ventricular f unction. Bronchitis, diabetes, hypertension, hyperlipidemia, atrial fibrillation, chronic, status po st automatic implantable cardioverter-defibrillator. RECOMMENDATION: Continue antibiotic, continue Coreg, continue Eliquis, continue Lasix. Supplement p otassium. Continue cough suppressant and antibiotic. No further invasive cardiac workup is planned at this time. We will follow. We will discontinue telemetry Thank you, Dr. Luis, for providing us the opportunity in taking care of the patient. We will follo w. Kymberly Costa MD cc: [id number] TT: 01/02/2017 15:43:29 Confirmation # [id number] Dictation # [id number] en
--- NOTE | 2017-01-03 10:06 | PN ---
DATE: 01/03/2017 REASON FOR CONSULTATION AND FOLLOWUP: Cardiac evaluation, history of coronary artery disease, CABG, status post AICD, admitted with epigastric pain, cough, fever and ____ on coughing and epigastric jaya n. BRIEF CLINICAL HISTORY: This is an 81-year-old male with past medical history significant for ischem ic cardiomyopathy, CABG, history of AICD, recently discharged 2 days ago, admitted with possible bron chitis. brought because of fever, epigastric pain, cough, nausea. Denies any ____. The patient's last catheterization 03/29/2016 revealed 2-vessel disease - occluded left anterior desc ending and RCA - patent stent in circumflex, ramus intermedius with mild to moderate disease, patent GLOVER to LAD, but distal LAD diffusely diseased, patent SVG to RCA, patent SVG to diagonal 1 and RCA. ____ Cardiac catheterization revealed eklutna 2 vessel disease - occluded LAD, occluded RCA - patent stent in circumflex, ramus intermedius mild to moderate disease, patent GLOVER to LAD, but distal LAD is diff usely diseased, patent SVG to diagonal 1, patent SVG to RCA with 2 patent stents. Medical treatment recommended, status post automatic implantable cardioverter-defibrillator. ____ Last echo patient had, 02/19/2016, that showed 4-chamber dilatation, ejection fraction 30-35%, modera te MR. PHYSICAL EXAMINATION: VITAL SIGNS: Temperature afebrile, heart rate 56, blood pressure 124/75. HEENT: PERRLA. Extraocular muscles intact. NECK: Supple. No carotid bruits. No thyromegaly. CHEST: Clear to auscultation. HEART: S1, S2 regular. ABDOMEN: Soft. EXTREMITIES: Clubbing and cyanosis negative. BLOOD WORKUP: As follows: WBC 8.1, hemoglobin 14.____, hematocrit 45.6, platelet count 332. Chemis try shows sodium 135, potassium 4.____, chloride 102, carbon dioxide 22, anion gap of 16, BUN 39, cre atinine 1.6. Troponin remains negative. No evidence of acute [place]. IMPRESSION: Decompensated congestive heart failure, acute on chronic, secondary to systolic dysfunct ion; cardiomyopathy, decreased left ventricular function, status post coronary artery bypass graft in 2008, status post repeat catheterization last year when the patient had positive troponin 7.6, noted occluded left anterior descending, occluded right coronary artery, patent stent in circumflex, paten t saphenous vein graft to diagonal 1 with patent saphenous vein graft to right coronary artery, and l eft internal mammary artery to left anterior descending patent, status post automatic implantable car dioverter-defibrillator; cardiomyopathy, ischemic cardiomyopathy, medical treatment; history of chron ic atrial fibrillation, on anticoagulation. RECOMMENDATION: No evidence of acute [place]. Will discontinue telemetry. Continue aggressive medical t reatment. Continue treatment for bronchitis. Continue Eliquis 2.5 mg, renally adjusted dose and age . Will discontinue telemetry. Further recommendation depending upon the hospital course. We will p ut AICD interrogation because patient is very noncompliant. Last interrogation was a couple of years ago. Discussed with the family yesterday. Discussed with the . Will follow with you. The pat ient also refuses the blood workup this morning. Also, patient refused blood workup. Kymberly Costa MD cc: [phone] TT: 01/03/2017 09:53:13 Confirmation # [id number] Dictation # [id number] leola
--- NOTE | 2017-01-03 10:43 | CP.PCM.CON ---
History of Present Illness - History of Present Illness History of Present Illness: 81 year old male with PMH of CAD S/P CABG, chronic CHF, HTN, COPD, DM, S/P pacemaker placement, atrial fibrillation, history of gastritis came in complaining of chest pain associated with cough and shortness of breath for the past 3-4 days. The patient denies having fever or chills, no nausea or vomiting , no headache or dizziness, no sore throat or rhinorrhea, no abdominal pain, no diarrhea, no dysuria. In the ED, CXr shows pulmonary vascular congestion but Infectious Diseases consult is requested to evaluate for the possibility of pneumonia in this patient. Review of Systems - Review of Systems All systems: reviewed and no additional remarkable complaints except (as per HPI ) Past Patient History - Infectious Disease Hx of Infectious Diseases: None - Tetanus Immunizations Tetanus Immunization: Unknown - Past Social History Smoking Status: Unknown If Ever Smoked - CARDIAC Hx Cardiac Disorders: Yes Hx Cardia Arrhythmia: Yes Hx Congestive Heart Failure: Yes - PULMONARY Hx Chronic Obstructive Pulmonary Disease (COPD): Yes - NEUROLOGICAL Hx Neurological Disorder: No Hx Alzheimer's Disease: No HX Cerebrovascular Accident: No Hx Dementia: No Hx Dizziness: No Hx Meningitis: No Hx Migraine: No Hx Parkinson's Disease: No Hx Seizures: No Hx Transient Ischemic Attacks (TIA): No - HEENT Hx Cataracts: Yes - RENAL Hx Chronic Kidney Disease: No Hx Dialysis: No Hx Kidney Stones: No Hx Neurogenic Bladder: No Hx Pyelonephritis: No Hx Renal (Kidney) Cancer: No Hx Renal Failure: No - ENDOCRINE/METABOLIC Hx Endocrine Disorders: Yes Hx Diabetes Mellitus Type 2: Yes - HEMATOLOGICAL/ONCOLOGICAL Hx Blood Disorders: Yes Hx AIDS: No Hx Anemia: No Hx Cancer: No Hx Chemotherapy: No Hx Cirrhosis: No Hx Hemophilia: No Hx Hepatitis A: No Hx Hepatitis B: No Hx Hepatitis C: No Hx Metastesis: No Hx Shingles: Yes Hx Sickle Cell Disease: No Hx Unexplained Bleeding: No - INTEGUMENTARY Hx Dermatological Problems: No Hx Basil Cell: No Hx Eczema: No Hx Melanoma: No Hx Psoriasis: No Hx Squamous Cell: No Other/Comment: ble discolored dry skin, healed wound lle - MUSCULOSKELETAL/RHEUMATOLOGICAL Hx Falls: No Hx Osteoarthritis: Yes - GASTROINTESTINAL Hx Gastrointestinal Disorders: Yes Hx Gastroesophageal Reflux: Yes - GENITOURINARY/GYNECOLOGICAL Hx Genitourinary Disorders: No Hx Hematuria: No Hx Incontinence: No Hx Prostate Problems: No Hx Sexually Transmitted Disorders: No Hx Urinary Tract Infection: No - PSYCHIATRIC Hx Anxiety: Yes Hx Depression: Yes - SURGICAL HISTORY Hx Cardiac Catheterization: Yes Hx Coronary Stent: Yes - ANESTHESIA Hx Anesthesia: Yes Hx Anesthesia Reactions: No Hx Malignant Hyperthermia: No Meds Allergies/Adverse Reactions: Allergies Allergy/AdvReac Type Severity Reaction Status Date / Time aspirin Allergy RASH Verified 12/17/16 15:19 ketorolac tromethamine Allergy SWELLING Verified 12/17/16 15:19 [From Toradol] Penicillins Allergy ANGIOEDEMA Verified 12/17/16 15:19 - Medications Medications: Current Medications Allopurinol (Zyloprim) 100 mg PO DAILY [facility] Last Admin: 01/02/17 10:19 Dose: 100 mg Apixaban (Eliquis) 2.5 mg PO BID [facility] PRN Reason: Protocol Last Admin: 01/02/17 17:58 Dose: 2.5 mg Arformoterol Tartrate (Brovana) 15 mcg IH [id number] [facility] Last Admin: 01/02/17 08:09 Dose: 15 mcg Budesonide (Pulmicort Respules) 0.5 mg IH [id number] [facility] Last Admin: 01/02/17 08:09 Dose: 0.5 mg Carvedilol (Coreg) 3.125 mg PO BID [facility] Last Admin: 01/02/17 18:00 Dose: 3.125 mg Docusate Sodium (Colace) 100 mg PO BID [facility] Last Admin: 01/02/17 17:58 Dose: 100 mg Famotidine (Pepcid) 20 mg PO 1000,2200 [facility] Furosemide (Lasix) 40 mg IV DAILY [facility] Last Admin: 01/02/17 10:20 Dose: Not Given Glipizide (Glucotrol Xl) 2.5 mg PO HS [facility] Doxycycline Hyclate 100 mg/ (Sodium Chloride) 100 mls @ 100 mls/hr IVPB Q12 [facility] PRN Reason: Protocol Last Admin: 01/02/17 13:11 Dose: Not Given Aztreonam (Azactam 2 Gm) 100 mls @ 100 mls/hr IVPB Q8 [facility] PRN Reason: Protocol Stop: 01/09/17 22:01 Levalbuterol HCl (Xopenex) 0.63 mg IH [id number] PRN PRN Reason: Cough and congestion Last Admin: 01/02/17 08:09 Dose: 0.63 mg Methylprednisolone (Solu-Medrol) 40 mg IV Q8 [facility] Last Admin: 01/02/17 13:11 Dose: Not Given Mirtazapine (Remeron) 15 mg PO HS [facility] Non-Formulary Medication (Brimonidine 0.2% [Alphagan 0.2% Opht]) 1 drop OU HS [facility] Non-Formulary Medication (Timolol [Betimol]) 5 ml OU DAILY [facility] Oxycodone HCl (Oxycodone Immediate Release Tab) 15 mg PO Q6H PRN PRN Reason: Pain, moderate (4-7) Last Admin: 01/02/17 01:49 Dose: 15 mg Pantoprazole Sodium (Protonix Inj) 40 mg IVP DAILY [facility] Last Admin: 01/02/17 10:20 Dose: Not Given Polyethylene Glycol (Miralax) 17 gm PO DAILY [facility] Last Admin: 01/02/17 14:54 Dose: 17 gm Potassium Chloride (Klor-Con 10) 10 meq PO DAILY [facility] Last Admin: 01/02/17 10:19 Dose: 10 meq Physical Exam - Constitutional Appears: Non-toxic, No Acute Distress - Head Exam Head Exam: NORMAL INSPECTION - ENT Exam ENT Exam: Mucous Membranes Moist - Neck Exam Neck exam: Negative for: Lymphadenopathy, Meningismus - Respiratory Exam Respiratory Exam: Decreased Breath Sounds - Cardiovascular Exam Cardiovascular Exam: +S1, +S2 - GI/Abdominal Exam GI & Abdominal Exam: Soft. absent: Tenderness Results - Vital Signs Recent Vital Signs: Last Vital Signs Temp 97.3 F L 01/02/17 12:00 Pulse 62 01/02/17 18:00 Resp 20 01/02/17 12:00 BP 145/95 H 01/02/17 18:00 Pulse Ox 99 01/02/17 06:00 - Labs Result Diagrams: 01/01/17 15:00 01/01/17 15:05 Labs: Laboratory Results - last 24 hr 01/02/17 07:29 POC Glucose (mg/dL) 171 H Assessment & Plan - Assessment and Plan (Free Text) Plan: Assessment Dyspnea, probable acute on chronic congestive heart failure, need to rule out pneumonia CAD S/P CABG chronic CHF HTN COPD DM S/P pacemaker placement atrial fibrillation history of gastritis Plan started patient on Doxycycline and Azactam pending blood cx, PCT; reviewed CXR; should get a repeat CXR tomorrow to re-evaluate the findings on the CXR Will monitor clinically
--- NOTE | 2017-01-03 12:01 | PN ---
DATE: 01/02/2017 SUBJECTIVE: The patient admitted with chest pain is still complaining of chest pain intermittently; however, he does not seem to be in any distress at this time. PHYSICAL EXAMINATION: VITAL SIGNS: Temperature 98.2, heart rate 66, blood pressure 145/95, respiratory rate is 18, saturat ion 97% on room air. HEAD AND NECK: Normal, positive JVD. CHEST: Clear, diminished breath sounds bilaterally. CARDIAC: First and second sounds are normal. Systolic murmur across the precordium. ABDOMEN: Soft, nontender except epigastric area. EXTREMITIES: No edema. NEUROLOGIC: Normal. LABORATORY DATA: Noted for normal white count 8.1, hemoglobin 14.7, hematocrit 45.6, and platelets 3 3.2. Also, he has BUN 39, creatinine 1.6. His blood sugar 150s range. IMPRESSION: 1. Chest pain, atypical. However, because the patient has history of coronary artery disease, we wi ll evaluate with the cardiology consult, Dr. Costa. He will further evaluate the patient and follow h is recommendations. Continue IV Lasix. Continue IV and inhaled bronchodilators and continue current treatment. The patient is noncompliant, he refused blood work this morning. 2. Acute chronic obstructive pulmonary disease exacerbation. Continue IV steroids and continue inha led bronchodilators. 3. Chronic renal insufficiency, diabetes type 2, rheumatoid arthritis, chronic osteoarthritis, gener alized weakness, chronic atrial fibrillation, history of permanent pacemaker an defibrillator. 4. History of coronary artery disease with stenting bypass surgery. PLAN: 1. Continue current treatment. 3. History of fever. The patient did have cultures, urine culture, blood culture, which came back n egative. Follow up with ID. Continue current antibiotic treatment and further evaluation. Chest x- ray was done on admission shows congestive heart failure. Probably patient would benefit from TCU. Myles Luis MD cc: [phone] TT: 01/03/2017 12:01:00 Confirmation # [id number] Dictation # [id number] [email or web address]
[2017-01-03] MEDS: Potassium Chloride 10 mEq ER Tab PO SCH (12:16)
[2017-01-03 12:18] VITALS: RESP 18
[2017-01-03] MEDS: POLYETHYLENE GLYCOL 3350 17 GM/Dose PACKET PO SCH (12:18)
--- NOTE | 2017-01-03 14:04 | CON ---
DATE: 01/03/2017 Seen and examined at the bedside earlier this morning. REQUEST FOR CONSULTATION: For abdominal pain. The chart was reviewed. HISTORY OF PRESENT ILLNESS: This is an 81-year-old male who came to the Emergency Room with complain ts of chest pain. The patient was seen by our service last week. He was complaining of epigastric p ain. At that time, the patient had gone for an abdominal ultrasound, which was negative for gallston es, but did show some mild gallbladder wall thickening and a trace of pericholecystic fluid. He went for a HIDA scan to rule out any acute cholecystitis and that was negative. The patient was discharg ed home, was not complaining of any abdominal pain. The patient returned with complaints of persiste nt chest pain, mostly on the left side. Now, the patient was seen this morning. The is there a nd he complains of chest pain and point that it is across. He denies abdominal pain. No nausea or v omiting. He is eating. No reports of any fever or chills. He did have a chest x-ray and that showe d mild pulmonary vascular congestion. PAST MEDICAL HISTORY: Atrial fibrillation, ischemic cardiomyopathy, congestive heart failure with lo w ejection fraction, glaucoma, gastritis, diabetes mellitus type 2 and rheumatoid arthritis. PAST SURGICAL HISTORY: He had a pacemaker and CABG x 4 vessels. Colonoscopy, according to , was many years ago. Cardiac endarterectomy. ALLERGIES: ASPIRIN, PROAMATINE, PENICILLIN, AND KETORALAC. FAMILY HISTORY: Noncontributory at this time. SOCIAL HISTORY: Denies smoking, alcohol abuse or substance abuse. MEDICATIONS: Reviewed as per MAR. REVIEW OF SYSTEMS: Systems reviewed with positive findings, see HPI. VITAL SIGNS: Temperature is 97.8, blood pressure is 124/75, pulse 56, respirations 20, 98% on room a ir. LABORATORIES: Most recent are noted from 01/01. WBC is 8.1, hemoglobin 14.7, hematocrit is 45.6, aric telets is 332. PT is 16.4, INR is 1.52, PTT 31.7. His chem is from 01/01 as well and sodium 135, K i s 4.6, BUN 39, creatinine is 1.6, magnesium is 2.4. His total bilirubin is 2.1, AST 55, ALT 44, frieda line phosphatase is 230. BNP at that time is 3690. No recent labs are noted except for POC glucose which was 154 at 7:34 this morning. PHYSICAL EXAMINATION: HEENT: Sclera is anicteric. NECK: Supple. CARDIAC: S1, S2. LUNG SOUNDS: With decreased breath sounds, no rales or wheeze. ABDOMEN: With bowel sounds, soft. It is not distended and there was no tenderness on exam. No rebo und or guarding. EXTREMITIES: No edema. NEUROLOGIC: He is awake, alert, oriented. ASSESSMENT: This is an 81-year-old male with history of atrial fibrillation, pacemaker, congestive h eart failure. Comes with complaint of chest discomfort. The patient also with chronic renal insuffi ciency, diabetes, coronary artery bypass graft and history of chronic obstructive pulmonary disease. PLAN: The patient is on PPI. We will continue Protonix in the morning and he can get the Pepcid in the evening. The patient is on antibiotics of doxycycline. He is also getting Solu-Medrol. He is a lso on MiraLax for the bowel regimen and getting Azactam. The patient is on Eliquis for the atrial f ibrillation. If cardiac workup is negative, patient has multiple comorbidities, we would have to dis cuss if he would benefit from an endoscopy. He did have abdominal ultrasound and that was negative f or any gallbladder pathology except for some sludge, but no gallstones. Thank you for this consult and for allowing us to participate in your patient's care. We will make f urther recommendations based upon patient's clinical course. The patient was seen and case discussed with Dr. Pace. Mago COLÓN cc: [phone] TT: 01/03/2017 14:03:37 Confirmation # [id number] Dictation # [id number] en
--- NOTE | 2017-01-03 17:07 | PN ---
DATE: 01/03/2017 ADDENDUM The patient's AICD was interrogated, found to be reaching end of life in 1-2 months. Arrangements gorman d been made with ____ office for generator change as outpatient. The patient is currently on Faiza juanito. When the patient is stable and discharged home and AICD generator change can be done as outpat ient early next week after holding the Eliquis for 24-48 hours. All arrangements have been made for this. Will also notified Dr. Luis. Thank you for providing the opportunity in taking care of this patient. Kymberly Costa MD cc: [id number] TT: 01/03/2017 17:06:37 Confirmation # [id number] Dictation # [id number] [email or web address]
[2017-01-03 17:48] VITALS: TEMP 97.4
[2017-01-03] MEDS: GlipiZIDE 2.5 mg SR Tab PO SCH (22:11)
[2017-01-04] MEDS: Aztreonam 2 Gm in NS 100mL 100 ML IVPB SCH (05:31)
[2017-01-04] MEDS: MethylPREDNISolone 40 mg Vial IV SCH (05:32)
[2017-01-04 07:47] VITALS: BP 139/98; PULSE 74; O2SAT 92
[2017-01-04] MEDS: Arformoterol 15 mcg/2 ml Inh Sol IH SCH (08:43)
[2017-01-04] MEDS: Budesonide 0.5 mg/2 ml Inhal Susp UD IH SCH (08:43)
[2017-01-04] MEDS: POLYETHYLENE GLYCOL 3350 17 GM/Dose PACKET PO SCH (09:33)
[2017-01-04] MEDS: Potassium Chloride 10 mEq ER Tab PO SCH (09:34)
--- NOTE | 2017-01-04 10:01 | US ---
HISTORY: abnormal lft COMPARISON: None. TECHNIQUE: Sonographic evaluation of the abdomen. FINDINGS: LIVER: Measures cm. Heterogeneous echogenicity of the liver parenchyma. No mass. No intrahepatic bile duct dilatation. GALLBLADDER: Unremarkable. No gallstones. COMMON BILE DUCT: Measures mm. No stones. No dilatation. PANCREAS: Unremarkable as visualized. No mass. No ductal dilatation. RIGHT KIDNEY: Measures cm. Normal echogenicity. No calculus, mass, or hydronephrosis. LEFT KIDNEY: Measures cm. Normal echogenicity. No calculus, mass, or hydronephrosis. SPLEEN: Normal in size and contour. No mass. AORTA: No aneurysmal dilatation. IVC: Unremarkable. OTHER FINDINGS: Ascites. IMPRESSION: Heterogeneous liver echotexture. Mild abdominal ascites.
--- NOTE | 2017-01-04 10:26 | CON ---
DATE: 01/03/2017 This patient was seen and evaluated earlier. This is an addendum to the GI progress report dictated by Mago Oden APN. The patient was recently in the hospital, discharged and readmitted with chest pain and also epigastric pain. The patient at the time of admission had some pericholecystic fluid a nd epigastric discomfort, but ultrasound showed no stones. The patient clinically improved. Now say s mainly discomfort on the left side of the chest. Now presently denies any abdominal discomfort. T he patient has a history of atrial fibrillation on Eliquis, history of diabetes mellitus, history of rheumatoid arthritis. PHYSICAL EXAMINATION: ABDOMEN: Soft. There is no mass, no tenderness. The patient is presently on steroid, history of COPD. The patient does have a significantly elevated total bilirubin level. We will repeat the labs this morning and we will repeat the LFTs and also re quest for repeat ultrasound scan to further evaluate. Thank you very much for allowing us to participate in the care of the patient. Tra Pace MD cc: [phone] TT: 01/04/2017 10:25:50 Confirmation # [id number] Dictation # [id number] tn
--- NOTE | 2017-01-04 11:46 | CP.PCM.PN ---
Subjective - Date & Time of Evaluation Date of Evaluation: 01/04/17 Time of Evaluation: 10:30 - Subjective Subjective: Comfortable in bed, breathing better, not in distress, afebrile. Objective - Vital Signs/Intake and Output Vital Signs (last 24 hours): Temp Pulse Resp BP Pulse Ox 97.4 F L 74 18 139/98 H 92 L 01/04/17 07:46 01/04/17 09:34 01/04/17 07:46 01/04/17 09:34 01/04/17 07:46 Intake and Output: 01/04/17 01/04/17 06:59 18:59 Intake Total 200 Output Total 250 Balance -50 - Medications Medications: Current Medications Allopurinol (Zyloprim) 100 mg PO DAILY [facility] Last Admin: 01/04/17 09:34 Dose: 100 mg Apixaban (Eliquis) 2.5 mg PO BID [facility] PRN Reason: Protocol Last Admin: 01/04/17 09:34 Dose: 2.5 mg Arformoterol Tartrate (Brovana) 15 mcg IH [id number] [facility] Last Admin: 01/04/17 08:43 Dose: Not Given Budesonide (Pulmicort Respules) 0.5 mg IH [id number] [facility] Last Admin: 01/04/17 08:43 Dose: Not Given Carvedilol (Coreg) 6.25 mg PO BID [facility] Docusate Sodium (Colace) 100 mg PO BID [facility] Last Admin: 01/04/17 09:34 Dose: 100 mg Famotidine (Pepcid) 20 mg IVP HS [facility] Last Admin: 01/03/17 22:11 Dose: 20 mg Furosemide (Lasix) 40 mg IV DAILY [facility] Last Admin: 01/04/17 09:34 Dose: 40 mg Glipizide (Glucotrol Xl) 2.5 mg PO HS [facility] Last Admin: 01/03/17 22:11 Dose: 2.5 mg Doxycycline Hyclate 100 mg/ (Sodium Chloride) 100 mls @ 100 mls/hr IVPB Q12 [facility] PRN Reason: Protocol Last Admin: 01/04/17 09:36 Dose: 100 mls/hr Aztreonam (Azactam 2 Gm) 100 mls @ 100 mls/hr IVPB Q8 [facility] PRN Reason: Protocol Stop: 01/09/17 22:01 Last Admin: 01/04/17 05:31 Dose: 100 mls/hr Levalbuterol HCl (Xopenex) 0.63 mg IH [id number] PRN PRN Reason: Cough and congestion Last Admin: 01/02/17 08:09 Dose: 0.63 mg Methylprednisolone (Solu-Medrol) 40 mg IV Q8 [facility] Last Admin: 01/04/17 05:32 Dose: 40 mg Mirtazapine (Remeron) 15 mg PO HS [facility] Last Admin: 01/03/17 22:12 Dose: 15 mg Non-Formulary Medication (Brimonidine 0.2% [Alphagan 0.2% Opht]) 1 drop OU HS [facility] Non-Formulary Medication (Timolol [Betimol]) 5 ml OU DAILY [facility] Oxycodone HCl (Oxycodone Immediate Release Tab) 15 mg PO Q6H PRN PRN Reason: Pain, moderate (4-7) Last Admin: 01/03/17 02:07 Dose: 15 mg Pantoprazole Sodium (Protonix Inj) 40 mg IVP DAILY [facility] Last Admin: 01/04/17 09:34 Dose: 40 mg Polyethylene Glycol (Miralax) 17 gm PO DAILY [facility] Last Admin: 01/04/17 09:33 Dose: 17 gm Potassium Chloride (Klor-Con 10) 10 meq PO DAILY [facility] Last Admin: 01/04/17 09:34 Dose: 10 meq - Labs Labs: PT 16.4 Seconds (9.9-11.8) H 01/01/17 15:00 INR 1.52 (0.93-1.08) H 01/01/17 15:00 APTT 31.7 Seconds (23.7-30.8) H 01/01/17 15:00 - Constitutional Appears: Non-toxic, No Acute Distress - Head Exam Head Exam: NORMAL INSPECTION - ENT Exam ENT Exam: Mucous Membranes Moist - Neck Exam Neck Exam: absent: Lymphadenopathy, Meningismus - Respiratory Exam Respiratory Exam: Decreased Breath Sounds (with some crackles at the bases) - Cardiovascular Exam Cardiovascular Exam: +S1, +S2 - GI/Abdominal Exam GI & Abdominal Exam: Soft. absent: Tenderness Assessment and Plan - Assessment and Plan (Free Text) Plan: Assessment Dyspnea, probable acute on chronic congestive heart failure, need to rule out pneumonia CAD S/P CABG chronic CHF HTN COPD DM S/P pacemaker placement atrial fibrillation history of gastritis Plan on Doxycycline and Azactam day 2 pending final blood cx results; PCT is only 0.21; reviewed CXR; should get a repeat CXR tomorrow to re-evaluate the findings on the CXR Will continue to monitor clinically
--- NOTE | 2017-01-04 18:19 | PN ---
DATE: 01/04/2017 The patient is in room 277, bed 2. REASON FOR CONSULTATION AND FOLLOWUP: History of coronary artery disease, CABG, status post AICD, ad mitted with epigastric pain, cough, fever. HISTORY OF PRESENT ILLNESS: The patient is an 81-year-old male with history of ischemic cardiomyopat hy, CABG, history of AICD insertion. Now admitted with possible bronchitis with fever, epigastric pa in, cough and nausea. The patient denies any chest pain, palpitation, shortness of breath. The sunil ent detailed cardiac history as mentioned in our consult 01/02/2017. PHYSICAL EXAMINATION: VITAL SIGNS: Blood pressure 133/96, respirations 18, pulse 77, temperature 97.6. HEAD: Normocephalic. EYES: Pupils normal. Conjunctivae normal. NOSE AND THROAT: Normal. NECK: JVP low. Carotid equal. THORAX: AP diameter normal. LUNGS: Clear. CARDIOVASCULAR: S1, S2. Systolic murmur. ABDOMEN: Soft, nontender, no organomegaly. Bowel sounds normal. EXTREMITIES: No clubbing, no cyanosis. LABORATORY DATA: WBC 8.1, hemoglobin 14.7, hematocrit 45.6, platelet 332, random sugar 198. Other l abs were done on 12/25 and were reported on previous notes. AICD interrogation was done and it is reading end of life, it has still about 2 months' time in the b attery and arrangements have been made for the patient in outpatient to go to ____ and change the AICD. At that time, will stop the Eliquis for 2-3 days prior to insertion of AICD. In the meantime , we will continue present therapy aztreonam 2 gram IV q. 8 hours, carvedilol 6.25 b.i.d., Eliquis 2. 5 b.i.d., glipizide SR 2.5 p.o. daily, furosemide 40 IV daily, methylprednisone 40 mg IV q. 8 hours, Zyloprim 100 mg daily. DIAGNOSES: Acute on chronic decompensated congestive heart failure secondary to systolic dysfunction , ischemic cardiomyopathy, coronary artery disease. Personal history of coronary artery bypass graft , automatic implantable cardioverter defibrillator insertions end of life, chronic atrial fibrillatio n. Kymberly Schafer MD cc: [phone] TT: 01/04/2017 18:17:44 Confirmation # [id number] Dictation # [id number] jn
--- NOTE | 2017-01-05 23:20 | PN ---
DATE: 01/03/2017 HISTORY OF PRESENT ILLNESS: The patient was admitted to telemetry with chest pain, congestive heart failure. The patient clinically stable. Currently on IV Lasix. He does not seem to be in distress. PHYSICAL EXAMINATION: VITAL SIGNS: Temperature 97.4, heart rate 68, blood pressure 122/86, respirations 18, saturation 92% on room air. HEAD AND NECK: Normal. No JVD, no thyromegaly. CHEST: There are diminished breath sounds, few rhonchi. CARDIAC: First and second sounds are normal. Systolic murmur across precordium. ABDOMEN: Soft, nontender. EXTREMITIES: No edema. NEUROLOGIC: Normal except general weakness, unsteady gait. LABORATORY DATA: Blood sugar 182. Blood cultures are pending at the time. The patient also seen by GI consult, Dr. Pace, who recommended to continue Protonix IV and Pepcid in the evening, and will follow up clinically. IMPRESSION AND PLAN: 1. Acute chest pain: Will get a cardiology consult. Dr. Costa will evaluate. The patient did have coronary artery disease, bypass surgery. Will continue beta-blockers, continue Eliquis, and follow u p clinically. 2. Chronic atrial fibrillations: Continue Eliquis. Continue current medications. 3. Chronic obstructive pulmonary disease with acute exacerbations: Continue IV steroids, Solu-Medr ol. Continue inhaled bronchodilators. Continue IV antibiotic. Currently on doxycycline and Azactam . Follow up with the infectious disease consult. 4. Chronic rheumatoid arthritis, history of osteoarthritis, gouty arthritis. Continue Solu-Medrol. Probably patient will continue also on oxycodone. Continue current treatment. Repeat labs in the m orning. The patient does have high creatinine, which is normal for him. His baseline usually 1.5, 1 .6, so will monitor his labs in the morning. 5. The patient also has diabetes. Continue insulin coverage. Continue current meds for diabetes an d follow up clinically. Myles Luis MD cc: [phone] TT: 01/05/2017 23:18:57 Confirmation # [id number] Dictation # [id number] dn
--- NOTE | 2017-01-05 23:21 | DS ---
SUBJECTIVE: The patient clinically stable. He just complains of general weakness. Otherwise, breat catherine tavarez, he is better. His appetite a little bit down, but otherwise he feels better. He is afebr ile. No nausea, no vomiting. PHYSICAL EXAMINATION: VITAL SIGNS: His temperature 97.4, heart rate 74, blood pressure 139/98, respirations 18, saturation 92% on room air. HEAD AND NECK: Normal. No JVD, no thyromegaly. CHEST: Clear. Diminished breath sounds. CARDIAC: First and second sounds normal. Irregular, systolic murmur across the precordium. ABDOMEN: Soft, nontender. Minimal or mild tender epigastric area. EXTREMITIES: No edema. NEUROLOGIC: Normal. The patient, while in the hospital, seen by cardiology, Dr. Costa, and seen by GI, Dr. Pace and Wayne Oden. Also seen by ID consult, . We will continue current medications. We will follow up clinically and the patient probably will be discharged to transitional care unit for continuation of care, pending lab results. LABORATORY DATA: Blood sugar noted for 150-230 range. DISCHARGE DIAGNOSES: 1. Acute chronic obstructive pulmonary disease exacerbations. 2. Chest pain, atypical, stable cardiac tavarez. 3. Diabetes type 2. 4. Chronic osteoarthritis, rheumatoid arthritis, gouty arthritis. Continue steroids. 5. Generalized weakness, unsteady gait. The patient will benefit from physical therapy, TCU evaluat ion. Will be discharged to TCU when bed available. 6. Chronic anemia, chronic renal insufficiency, history of noncompliance. PLAN: Continue current therapy, follow up clinically. Myles Luis MD cc: [phone] TT: 01/05/2017 23:20:30 leola
--- NOTE | 2017-01-06 22:16 | PQF SEPSIS ---
01/06/17 Dr. Luis, ED documents "acute sepsis" in their diagnostic statement. This is the only mention of this diagnosis in this chart. Was sepsis ruled out, ruled n, undetermined? Thank you. Clarification of your documentation is requested to better reflect the severity of illness and intensity of treatment of your patient. Indicators present [] Temp < 96.8 or > 100.4 [] WBC count > 12,000/mm3 or <000/mm3 or 10% immature neutrophils [] Heart Rate > 90 [] Respiratory Rate > 20 [] Fever or hypothermia [] Chills [] Positive blood cultures [] Hypotension [] Metabolic acidosis (Elevated lactate level, anion gap or reduced blood pH) [] Acute confusion /Altered Mental Status [] Shock [] Other: [] Location in the medical record that reflects the above clinical findings: [] Treatment Provided: [] PHYSICIAN'S RESPONSE Based on your medical judgment of the clinical indicators outlined above, are you treating this patient for a known or suspected: [] Sepsis / Septicemia Please specify organism if known [] [] SIRS (Systemic Inflammatory Response Syndrome) [] Severe Sepsis (Sepsis with Associated Organ Dysfunction) [] Fever of Unknown Origin [] Other, please indicate: [] [] If Unable to Determine, please check the box, sign and date. Present On Admission (POA) Indicator: [] Present at the time of admission [] Not present at the time of admission [] Clinically Undetermined In responding to this query, please exercise your independent professional judgment. The fact that a question is asked does not imply that any particular answer is desired or expected. Thank you for your clarification on this documentation. If you have any questions please call:[ ] * Thank you, [ ] sterile proc tech RANDA
--- NOTE | 2017-01-15 13:32 | PQF SEPSIS ---
01/15/17 Dr. Luis, Sepsis is mentioned in the ED notes for this patient but nowhere else. Was sepsis ruled in, ruled out, undetermined? Thank you. Clarification of your documentation is requested to better reflect the severity of illness and intensity of treatment of your patient. Indicators present [] Temp < 96.8 or > 100.4 [] WBC count > 12,000/mm3 or <000/mm3 or 10% immature neutrophils [] Heart Rate > 90 [] Respiratory Rate > 20 [] Fever or hypothermia [] Chills [] Positive blood cultures [] Hypotension [] Metabolic acidosis (Elevated lactate level, anion gap or reduced blood pH) [] Acute confusion /Altered Mental Status [] Shock [] Other: [] Location in the medical record that reflects the above clinical findings: [] Treatment Provided: [] PHYSICIAN'S RESPONSE Based on your medical judgment of the clinical indicators outlined above, are you treating this patient for a known or suspected: [] Sepsis / Septicemia Please specify organism if known [] [x] SIRS (Systemic Inflammatory Response Syndrome) [] Severe Sepsis (Sepsis with Associated Organ Dysfunction) [] Fever of Unknown Origin [] Other, please indicate: [] [] If Unable to Determine, please check the box, sign and date. Present On Admission (POA) Indicator: [x] Present at the time of admission [] Not present at the time of admission [] Clinically Undetermined In responding to this query, please exercise your independent professional judgment. The fact that a question is asked does not imply that any particular answer is desired or expected. Thank you for your clarification on this documentation. If you have any questions please call:[ ] * Thank you, [ ] [employer] RANDA
== END 2017-01-04 12:48 | DRG 291 ==
LOC: ED 14:52 → ERH 18:24 → 2RSO 22:06 → 3RSO 01-03 18:55
PROVIDERS: ADMIT Internal Medicine; ATTEND Internal Medicine
DX: I13.0 Hypertensive heart and chronic kidney disease with heart failure and stage 1 through stage 4 chronic kidney disease, or unspecified chronic kidney disease (principal); I50.23 Acute on chronic systolic (congestive) heart failure; I48.92 Unspecified atrial flutter; E11.22 Type 2 diabetes mellitus with diabetic chronic kidney disease; R65.10 Systemic inflammatory response syndrome (SIRS) of non-infectious origin without acute organ dysfunction; J44.1 Chronic obstructive pulmonary disease with (acute) exacerbation; I48.2 Chronic atrial fibrillation; N39.0 Urinary tract infection, site not specified; I08.3 Combined rheumatic disorders of mitral, aortic and tricuspid valves; I25.5 Ischemic cardiomyopathy; I25.10 Atherosclerotic heart disease of native coronary artery without angina pectoris; K21.9 Gastro-esophageal reflux disease without esophagitis; K29.70 Gastritis, unspecified, without bleeding; M06.9 Rheumatoid arthritis, unspecified; M10.00 Idiopathic gout, unspecified site; M19.90 Unspecified osteoarthritis, unspecified site; N18.9 Chronic kidney disease, unspecified; Z91.14 Patient's other noncompliance with medication regimen; Z91.19 Patient's noncompliance with other medical treatment and regimen; D64.9 Anemia, unspecified; E78.5 Hyperlipidemia, unspecified; H40.9 Unspecified glaucoma; H54.41 Blindness, right eye, normal vision left eye; I25.2 Old myocardial infarction; Z79.01 Long term (current) use of anticoagulants; Z79.899 Other long term (current) drug therapy; Z87.01 Personal history of pneumonia (recurrent); Z90.49 Acquired absence of other specified parts of digestive tract; Z95.0 Presence of cardiac pacemaker; Z95.1 Presence of aortocoronary bypass graft; Z95.5 Presence of coronary angioplasty implant and graft; Z95.810 Presence of automatic (implantable) cardiac defibrillator; F41.9 Anxiety disorder, unspecified; F32.89 Other specified depressive episodes; Z88.6 Allergy status to analgesic agent; Z88.0 Allergy status to penicillin; H26.9 Unspecified cataract

== ENCOUNTER 2017-01-04 12:54 | Inpatient (IN) | payer OTHER ==
[2017-01-04] MEDS: MethylPREDNISolone 40 mg Vial IVP SCH ×2 (13:07→21:47)
[2017-01-04] MEDS ORDERED: oxyCODONE 15 mg Immediate Release Tab PO PRN (13:47)
[2017-01-04] MEDS ORDERED: Levalbuterol 0.63 MG/3 ML Inhal Soln UD IH PRN (13:47)
[2017-01-04 14:05] VITALS: BMI 23.3
[2017-01-04] MEDS ORDERED: Pneumococcal 23-Valent Vaccine IM ONE (14:05)
[2017-01-04] MEDS: Aztreonam 2 Gm in NS 100mL 100 ML IVPB SCH ×2 (16:08→21:44)
--- NOTE | 2017-01-04 16:43 | CP.PCM.PN ---
Subjective - Date & Time of Evaluation Date of Evaluation: 01/04/17 Time of Evaluation: 16:41 - Subjective Subjective: called by nurse pt needs angiocath insertion. Objective - Vital Signs/Intake and Output Vital Signs (last 24 hours): Temp Pulse Resp BP Pulse Ox 97.6 F 77 18 133/96 H 97 01/04/17 13:55 01/04/17 13:55 01/04/17 13:55 01/04/17 13:55 01/04/17 13:55 - Medications Medications: Current Medications Allopurinol (Zyloprim) 100 mg PO DAILY [facility] PRN Reason: Protocol Apixaban (Eliquis) 2.5 mg PO BID [facility] PRN Reason: Protocol Arformoterol Tartrate (Brovana) 15 mcg IH [id number] [facility] PRN Reason: Protocol Budesonide (Pulmicort Respules) 0.5 mg IH [id number] [facility] PRN Reason: Protocol Carvedilol (Coreg) 6.25 mg PO BID [facility] PRN Reason: Protocol Docusate Sodium (Colace) 100 mg PO BID [facility] PRN Reason: Protocol Famotidine (Pepcid) 20 mg IVP HS [facility] PRN Reason: Protocol Furosemide (Lasix) 40 mg IVP DAILY [facility] PRN Reason: Protocol Glipizide (Glucotrol Xl) 2.5 mg PO HS [facility] PRN Reason: Protocol Home Med (Home Med) 1 unit OU DAILY [facility] Home Med (Home Med) 1 unit OU DAILY [facility] Aztreonam (Azactam 2 Gm) 100 mls @ 100 mls/hr IVPB Q8 [facility] PRN Reason: Protocol Stop: 01/09/17 22:01 Last Admin: 01/04/17 16:08 Dose: 100 mls/hr Doxycycline Hyclate 100 mg/ (Sodium Chloride) 100 mls @ 100 mls/hr IVPB 0600, 1800 [facility] PRN Reason: Protocol Levalbuterol HCl (Xopenex) 0.63 mg IH [id number] PRN; Protocol PRN Reason: Cough and congestion Methylprednisolone (Solu-Medrol) 40 mg IVP Q8H [facility] PRN Reason: Protocol Last Admin: 01/04/17 13:07 Dose: 40 mg Mirtazapine (Remeron) 15 mg PO HS [facility] PRN Reason: Protocol Oxycodone HCl (Oxycodone Immediate Release Tab) 15 mg PO Q6H PRN; Protocol PRN Reason: Pain, moderate (4-7) Pantoprazole Sodium (Protonix Inj) 40 mg IVP 0630 [facility] PRN Reason: Protocol Polyethylene Glycol (Miralax) 17 gm PO DAILY [facility] PRN Reason: Protocol Potassium Chloride (Klor-Con 10) 10 meq PO 0800 [facility] PRN Reason: Protocol Assessment and Plan - Assessment and Plan (Free Text) Assessment: 24 guage angiocath inserted in left hand.
[2017-01-04] MEDS ORDERED: Arformoterol 15 mcg/2 ml Inh Sol IH SCH (20:00)
--- NOTE | 2017-01-04 20:05 | PN ---
DATE: 01/04/2017 SUBJECTIVE: This patient was seen and evaluated earlier. The patient is now transferred from the pa d/surgery to TCU. PHYSICAL EXAMINATION: VITAL SIGNS: The temperature is 97.6, pulse 69, blood pressure 124/83. HEENT: Atraumatic, anicteric. NECK: Supple. HEART: S1, S2 heard. LUNGS: Bilateral air entry present. ABDOMEN: Soft. There is no tenderness. EXTREMITIES: No edema, no cyanosis, no clubbing. LABORATORY DATA: No recent labs. IMPRESSION: This is an 81-year-old patient with a past medical history of ischemic cardiomyopathy, a dmitted with [id number] decompensated congestive failure, history of automatic implantable card ioverter-defibrillator placement. The patient has been on Eliquis. The patient was recently in the hospital prior to this admission with elevated LFTs and at that time, ultrasound showed some perichol ecystic fluid. The patient did have mild epigastric discomfort. The differential diagnosis at that time was congestive hepatomegaly with some disease. The patient clinically improved with treat ment. The patient now admitted with some chest pain. The patient does have still elevated LFTs. Th e patient requested for ultrasound scan of the abdomen again to further evaluate. It showed again no stones in the gallbladder, CBD normal. Would recommend follow up the LFTs. Will continue the cardiac optimization presently on Eliquis. Thank you very much for allowing us to participate in the care of the patient. Tra Pace MD cc: [phone] TT: 01/04/2017 20:04:37 Confirmation # [id number] Dictation # [id number] dn
[2017-01-04] MEDS: Budesonide 0.5 mg/2 ml Inhal Susp UD IH SCH (20:24)
[2017-01-04] MEDS: Arformoterol 15 mcg/2 ml Inh Sol IH SCH (20:25)
[2017-01-04] MEDS: GlipiZIDE 2.5 mg SR Tab PO SCH (23:24)
[2017-01-05] MEDS: Aztreonam 2 Gm in NS 100mL 100 ML IVPB SCH (05:30)
[2017-01-05] MEDS: MethylPREDNISolone 40 mg Vial IVP SCH (05:31)
[2017-01-05] MEDS ORDERED: Pantoprazole 40mg/100ml IVPB 40 MG/100 ML BAG IVPB SCH (06:00)
[2017-01-05] MEDS: Budesonide 0.5 mg/2 ml Inhal Susp UD IH SCH ×2 (08:18→21:34)
[2017-01-05] MEDS: Arformoterol 15 mcg/2 ml Inh Sol IH SCH ×2 (08:18→21:34)
[2017-01-05 08:20] LABS: BILIRUBIN,TOTAL 0.9 mg/dL (0.2-1.3); CALCIUM 9.2 mg/dL (8.4-10.5); POTASSIUM 4.5 mmol/L (3.6-5.0); TOTAL PROTEIN 6.6 g/dL (5.8-8.3)
[2017-01-05 08:21] LABS: HEMATOCRIT 40.4 % (42.0-52.0); MEAN CELL VOLUME 90.6 fL (80.0-105.0); MEAN CORPUSCULAR HEMOGLOBIN 29.8 pg (25.0-35.0); MEAN CORPUSCULAR HGB CONC 32.9 g/dl (31.0-37.0); MEAN PLATELET VOLUME 10.5 fl (7.0-11.0); PLATELET COUNT 207 10^3/uL (120.0-450.0); RED CELL DISTRIBUTION WIDTH 15.6 % (11.5-14.5); WHITE BLOOD COUNT 10.1 10^3/ul (4.5-11.0)
[2017-01-05 08:32] LABS: ADD MANUAL DIFF? YES
[2017-01-05] MEDS: Potassium Chloride 10 mEq ER Tab PO SCH (08:37)
[2017-01-05] MEDS: TIMOLOL OU SCH (09:08)
[2017-01-05] MEDS: BRIMONIDINE 0.2% OU SCH (09:08)
[2017-01-05] MEDS: POLYETHYLENE GLYCOL 3350 17 GM/Dose PACKET PO SCH (09:08)
[2017-01-05 09:15] LABS: NEUTROPHIL 93 % (50.0-70.0)
--- NOTE | 2017-01-05 10:59 | CP.PCM.CON ---
History of Present Illness - History of Present Illness History of Present Illness: 81 year old male with PMH of CAD S/P CABG, chronic CHF, HTN, COPD, DM, S/P pacemaker placement, atrial fibrillation, history of gastritis was initially admitted in [facility] because of shortness of breath with exertion and at rest and has been treated for CHF. He was also being treated for possible pneumonia with antibiotics. He is now transferred to [facility] for continued medical therapy and physical rehabilitation. Infectious diseases consult is requested to re-evaluate his antibiotic regimen. Currently the patient is comfortable, not in distress. Denies fever or chills, no nausea or vomiting, improved breathing and coughing, no headache or dizziness, no chest pain, no sore throat, no abdominal pain, no diarrhea, no dysuria. Review of Systems - Review of Systems All systems: reviewed and no additional remarkable complaints except (as per HPI ) Past Patient History - Infectious Disease Hx of Infectious Diseases: None - Tetanus Immunizations Tetanus Immunization: Unknown - Past Social History Smoking Status: Unknown If Ever Smoked - CARDIAC Hx Cardiac Disorders: Yes Hx Cardia Arrhythmia: Yes Hx Congestive Heart Failure: Yes - PULMONARY Hx Chronic Obstructive Pulmonary Disease (COPD): Yes - NEUROLOGICAL Hx Neurological Disorder: No Hx Alzheimer's Disease: No HX Cerebrovascular Accident: No Hx Dementia: No Hx Dizziness: No Hx Meningitis: No Hx Migraine: No Hx Parkinson's Disease: No Hx Seizures: No Hx Transient Ischemic Attacks (TIA): No - HEENT Hx Cataracts: Yes - RENAL Hx Chronic Kidney Disease: No Hx Dialysis: No Hx Kidney Stones: No Hx Neurogenic Bladder: No Hx Pyelonephritis: No Hx Renal (Kidney) Cancer: No Hx Renal Failure: No - ENDOCRINE/METABOLIC Hx Endocrine Disorders: Yes Hx Diabetes Mellitus Type 2: Yes - HEMATOLOGICAL/ONCOLOGICAL Hx Blood Disorders: Yes Hx AIDS: No Hx Anemia: No Hx Cancer: No Hx Chemotherapy: No Hx Cirrhosis: No Hx Hemophilia: No Hx Hepatitis A: No Hx Hepatitis B: No Hx Hepatitis C: No Hx Metastesis: No Hx Shingles: Yes Hx Sickle Cell Disease: No Hx Unexplained Bleeding: No - INTEGUMENTARY Hx Dermatological Problems: No Hx Basil Cell: No Hx Eczema: No Hx Melanoma: No Hx Psoriasis: No Hx Squamous Cell: No Other/Comment: ble discolored dry skin, healed wound lle - MUSCULOSKELETAL/RHEUMATOLOGICAL Hx Falls: No - GASTROINTESTINAL Hx Gastrointestinal Disorders: Yes (reflux) - GENITOURINARY/GYNECOLOGICAL Hx Reproductive Disorders: No - PSYCHIATRIC Hx Anxiety: Yes Hx Depression: Yes - SURGICAL HISTORY Hx Cardiac Catheterization: Yes Hx Coronary Stent: Yes - ANESTHESIA Hx Anesthesia: Yes Hx Anesthesia Reactions: No Hx Malignant Hyperthermia: No Meds Allergies/Adverse Reactions: Allergies Allergy/AdvReac Type Severity Reaction Status Date / Time aspirin Allergy RASH Verified 12/17/16 15:19 ketorolac tromethamine Allergy SWELLING Verified 12/17/16 15:19 [From Toradol] Penicillins Allergy ANGIOEDEMA Verified 12/17/16 15:19 - Medications Medications: Current Medications Allopurinol (Zyloprim) 100 mg PO DAILY [facility] PRN Reason: Protocol Apixaban (Eliquis) 2.5 mg PO BID [facility] PRN Reason: Protocol Last Admin: 01/04/17 17:20 Dose: 2.5 mg Arformoterol Tartrate (Brovana) 15 mcg IH [id number] [facility] PRN Reason: Protocol Last Admin: 01/04/17 20:25 Dose: 15 mcg Budesonide (Pulmicort Respules) 0.5 mg IH [id number] [facility] PRN Reason: Protocol Last Admin: 01/04/17 20:24 Dose: 0.5 mg Carvedilol (Coreg) 6.25 mg PO BID [facility] PRN Reason: Protocol Last Admin: 01/04/17 17:19 Dose: 6.25 mg Docusate Sodium (Colace) 100 mg PO BID [facility] PRN Reason: Protocol Last Admin: 01/04/17 17:19 Dose: 100 mg Famotidine (Pepcid) 20 mg IVP HS [facility] PRN Reason: Protocol Furosemide (Lasix) 40 mg IVP DAILY [facility] PRN Reason: Protocol Glipizide (Glucotrol Xl) 2.5 mg PO HS [facility] PRN Reason: Protocol Home Med (Home Med) 1 unit OU DAILY [facility] Home Med (Home Med) 1 unit OU DAILY [facility] Aztreonam (Azactam 2 Gm) 100 mls @ 100 mls/hr IVPB Q8 [facility] PRN Reason: Protocol Stop: 01/09/17 22:01 Last Admin: 01/04/17 21:44 Dose: 100 mls/hr Doxycycline Hyclate 100 mg/ (Sodium Chloride) 100 mls @ 100 mls/hr IVPB 0600, 1800 [facility] PRN Reason: Protocol Last Admin: 01/04/17 17:18 Dose: 100 mls/hr Pantoprazole Sodium (Protonix 40mg Ivpb) 40 mg in 100 mls @ 200 mls/hr IVPB 0600 [facility] Levalbuterol HCl (Xopenex) 0.63 mg IH [id number] PRN; Protocol PRN Reason: Cough and congestion Methylprednisolone (Solu-Medrol) 40 mg IVP Q8H [facility] PRN Reason: Protocol Last Admin: 01/04/17 21:47 Dose: 40 mg Mirtazapine (Remeron) 15 mg PO HS [facility] PRN Reason: Protocol Last Admin: 01/04/17 21:47 Dose: 15 mg Oxycodone HCl (Oxycodone Immediate Release Tab) 15 mg PO Q6H PRN; Protocol PRN Reason: Pain, moderate (4-7) Polyethylene Glycol (Miralax) 17 gm PO DAILY [facility] PRN Reason: Protocol Potassium Chloride (Klor-Con 10) 10 meq PO 0800 [facility] PRN Reason: Protocol Physical Exam - Constitutional Appears: Non-toxic, No Acute Distress - Head Exam Head Exam: NORMAL INSPECTION - ENT Exam ENT Exam: Mucous Membranes Moist - Neck Exam Neck exam: Negative for: Lymphadenopathy, Meningismus - Respiratory Exam Respiratory Exam: Decreased Breath Sounds - Cardiovascular Exam Cardiovascular Exam: +S1, +S2 - GI/Abdominal Exam GI & Abdominal Exam: Soft. absent: Tenderness Results - Vital Signs Recent Vital Signs: Last Vital Signs Temp 97.6 F 01/04/17 13:55 Pulse 70 01/04/17 20:27 Resp 18 01/04/17 13:55 BP 124/83 01/04/17 17:19 Pulse Ox 97 01/04/17 13:55 - Labs Result Diagrams: 01/05/17 06:00 01/05/17 08:01 Assessment & Plan - Assessment and Plan (Free Text) Plan: Assessment Dyspnea, probable acute on chronic congestive heart failure, need to rule out pneumonia CAD S/P CABG chronic CHF HTN COPD DM S/P pacemaker placement atrial fibrillation history of gastritis Plan on Doxycycline and Azactam day 3 pending final blood cx results; PCT is only 0.21; reviewed CXR; if cx continue to be negative, we may de-escalate antibiotics to Doxycycline to complete a 5-7 day course Will continue to monitor clinically
--- NOTE | 2017-01-05 19:19 | CON ---
DATE: 01/05/2017 REFERRING PHYSICIAN: Dr. Luis. REASON FOR CONSULT: Chronic lung disease, heart failure, may have sleep apnea syndrome. HISTORY OF PRESENT ILLNESS: This is an 81-year-old male, noncompliant with followup, refused sleep s tudy in the past, has a history of coronary artery disease, history of coronary bypass surgery, heart failure, chronic lung disease, hypertension, cardiac arrhythmia requiring pacemaker, admitted to acu te side of the hospital with shortness of breath. Treated for heart failure. Also has pulmonary inf iltrate, has been on antibiotics. Presently transferred to [facility] for continued care. He feels a danyel le better, still has cough and shortness of breath. No nausea, no vomiting, no diarrhea, no leg pain or leg swelling. PAST MEDICAL HISTORY: Chronic lung disease, diabetes, cardiac arrhythmia requiring pacemaker, hypert ension, heart failure, cardiomyopathy, coronary bypass surgery. ALLERGIES: ASPIRIN, TORADOL, AND PENICILLIN. FAMILY HISTORY: No significant cardiopulmonary disease reported. SOCIAL HISTORY: Denies any active smoking, no alcohol use. MEDICATIONS: Brovana 15 mcg inhaled twice a day, Colace 100 mg twice a day, Coreg 6.25 mg twice a da y, doxycycline 100 mg twice a day, Eliquis 2.5 mg twice a day, glipizide 2.5 mg p.o. at bedtime, also on timolol 5 mL daily, potassium 10 mEq daily, Lasix 40 mg daily, MiraLax 17 grams daily, Tylenol, o xycodone 15 mg q. 6 hours p.r.n., Pepcid 20 mg daily, prednisone 30 mg daily, Protonix 40 mg daily, P ulmicort inhaled twice a day, Remeron 50 mg at bedtime, Xopenex 0.63 mg q. 4 hours p.r.n., allopurino l 100 mg daily. REVIEW OF SYSTEMS: No headache, no rhinitis. Does have snoring, daytime sleepiness, mild cough and shortness of breath. No dysuria. No leg pain or leg swelling. PHYSICAL EXAMINATION: GENERAL: Lying in the bed in no acute distress. VITAL SIGNS: Temp is 98, heart rate 66, respiratory rate is 20, blood pressure 151/83, pulse ox 97% on room air. HEENT: Small oral cavity. Crowded airway. NECK: Supple. No JVD. LUNGS: Has crackles at the bases, expiratory wheezing. HEART: S1 and S2. ABDOMEN: Soft, nontender. No organomegaly. EXTREMITIES: There is no edema. NEUROLOGIC: Sleepy, arousable, follows simple commands. LABORATORY DATA: Shows hemoglobin 13.3, hematocrit is 40.4, WBC 10.1, platelet is 207. Had ABG done on admission, shows pH 7.29, pCO2 50, O2 44. Sodium 138, potassium 5.6, chloride 106, bicarbonate 2 0, BUN 57, creatinine 1.5, glucose 119, calcium 9.2, AST 42, ALT 45, alkaline phosphatase is 191, alb umin is 3.3. MICROBIOLOGY: Blood culture, urine culture, there is no growth. Had abdominal ultrasound done yeste rday, which showed heterogeneous liver, mild abdominal ascites. IMPRESSION AND PLAN: Chronic obstructive lung disease, cardiomyopathy with heart failure, hypertensi on, diabetes, atrial fibrillation, noncompliant with CPAP/BiPAP. Will try CPAP 8 cm with 30% oxygen while sleeping. Keep head elevated at 45 degrees. Avoid sedatives. Continue IV and inhaled broncho dilator, antibiotics, diuretics. Follow up chest x-ray and electrolytes in the morning. We will fol low with you. Kymberly Bauer MD cc: [phone] TT: 01/05/2017 19:18:09 Confirmation # [id number] Dictation # [id number] scotty
--- NOTE | 2017-01-06 | HP ---
REASON FOR ADMISSION: An 81-year-old male came in with generalized weakness, status post acute COPD exacerbations, atypical chest. The patient will need IV antibiotic and physical therapy. HISTORY OF PRESENT ILLNESS: As above. The patient was transferred from medical floor, telemetry, to the rehab for continuation of IV steroids, IV antibiotic, and generalized weakness, unsteady gait, a nd needs physical therapy. The patient's is very helpful for him; however, is too much for her. He denied any nausea or vomiting. His chest pain seems a lot better, resolved. Seen by cardiology , GI, and ID consults. PHYSICAL EXAMINATION: VITAL SIGNS: Today, 01/05/2017, temperature 98, heart rate 56, blood pressure 121/71, respirations 2 0, and saturating 94% on 30%. HEAD AND NECK: Normal. No JVD, no thyromegaly. CHEST: Clear. CARDIAC: First and second sounds normal. Irregular. Systolic murmur across the precordium. LUNGS: Diminished breath sounds, but clear. ABDOMEN: Soft, nontender. EXTREMITIES: Very minimal edema. NEUROLOGIC: General weakness, but nonfocal. LABORATORY DATA: Will be ordered. Laboratory studies: His labs are as follows: White count 10.1, hemoglobin 15.3, hematocrit 40.4, platelets 207. His chemistry: Sodium 138, potassium 4.5, chloride 106, bicarb 20, BUN 57, creatinine 1.5. Blood sugar 199. Liver function test normal except alk rachel s 191. IMPRESSION AND PLAN: 1. Generalized weakness: Continue physical therapy. 2. Acute chronic obstructive pulmonary disease exacerbations: Blood cultures still pending. Will c ontinue doxycycline. Continue IV Azactam. The patient has difficulty getting IV started. Will try again. 3. Chronic renal insufficiency, diabetes type 2, ischemic cardiomyopathy with low ejection fraction, history of congestive heart failure. Plan: Continue steroids, inhalers. Continue IV Lasix, oxygen . Continue inhaled bronchodilators. Continue insulin coverage. 4. For chronic osteoarthritis, rheumatoid arthritis, and gouty arthritis, continue steroids. Contin ue oxycodone 50 mg every 6 hours. Follow up clinically. Myles Luis MD cc: [phone] TT: 01/06/2017 00:00:10 dn
[2017-01-06] MEDS: GlipiZIDE 2.5 mg SR Tab PO SCH ×2 (05:47→21:15)
[2017-01-06] MEDS: Pantoprazole 40 mg EC Tab PO SCH (05:48)
--- NOTE | 2017-01-06 07:09 | PN ---
DATE: 01/05/2017 SUBJECTIVE: This patient was seen and evaluated earlier. The patient's was at bedside. Denies any abdominal pain. PHYSICAL EXAMINATION: VITAL SIGNS: Stable. ABDOMEN: Soft. ABDOMEN: Soft with no tenderness. ABDOMEN: Soft. There was no tenderness. No tenderness. LABORATORIES: Reviewed. IMPRESSION: This 81-year-old patient admitted with some left-sided chest discomfort; decompensated c ongestive heart failure; atrial fibrillation, on Eliquis; abnormal LFTs. WOULD RECOMMEND: Follow up with the LFTs. Continue the present management of optimization of cardia c status. Thank you very much. We will continue to closely follow up. We will continue to closely follow up his care and suggest further management based on the clinical course. Tra Pace MD cc: [id number] TT: 01/06/2017 07:08:39 Confirmation # [id number] Dictation # [id number] dn
[2017-01-06] MEDS: Budesonide 0.5 mg/2 ml Inhal Susp UD IH SCH ×2 (07:34→20:03)
[2017-01-06] MEDS: Arformoterol 15 mcg/2 ml Inh Sol IH SCH ×2 (07:34→20:03)
--- NOTE | 2017-01-06 07:37 | CON ---
DATE: 01/05/2017 The patient is in room 322, bed #2. REASON FOR CONSULTATION: Coronary artery disease, cardiomyopathy, AICD insertion, abdominal pain. HISTORY OF PRESENT ILLNESS: The patient is an 81-year-old male who is a known case of ischemic cardi omyopathy, coronary artery bypass surgery, history of AICD insertion, was admitted with epigastric pa in and fever at home. The patient did not check the temperature at home but just said he felt warm, also has a cough and with the cough was getting some chest pain. The patient is now feeling better. He still has some abdominal pain, but shortness of breath is better and denies any chest pain. The patient now in transitional care unit for deconditioning and physical therapy. PAST MEDICAL HISTORY: Significant for ischemic cardiomyopathy, hypertension, coronary artery disease , CABG, status post recent cardiac catheterization showed nonobstructive post CABG, recurrent pneumon ia, AICD, chronic atrial fibrillation. Noncompliant with the medication. PREVIOUS CARDIAC HISTORY: The patient had recent cardiac catheterization on 03/29/2016 when patient was admitted with a non-STEMI. Troponin was 7.35, and catheterization revealed 2-vessel disease, occ luded LAD and RCA, patent stent in circumflex, ramus intermedius mild to moderate disease, patent BLUM A to LAD, but ostial LAD is diffusely diseased, ejection fraction 20%. EDP was in the range of 15, a nd medical treatment was recommended. Echo on 02/19/2016 that showed moderate to severe tricuspid re gurg, RV systolic pressure of 75 mmHg suggestive of severe pulmonary hypertension, mild to moderate a ortic regurgitation, 4 chamber dilatation and ejection fraction 30% to 35%, moderate mitral regurgita tion. The patient had a CABG in 2006 at [facility]. A 3-vessel bypass was put in in itially, GLOVER to LAD, saphenous vein graft to RCA, saphenous graft to the diagonal 1, and most recent catheterization showed occluded LAD, occluded RCA, patent stent in circumflex, ramus intermedius mil d to moderate disease, patent GLOVER to LAD, patent SVG to diagonal 1, SVG to RCA. Medical treatment w as recommended. History of chronic atrial fibrillation. PERSONAL HISTORY: Denies smoking, denies alcohol abuse. MEDICATIONS: The patient's medication at home, Eliquis 2.5 mg b.i.d., Coreg 3.125 b.i.d., digoxin 0. 125 daily, Lasix 20 mg daily, glipizide 1 tablet daily, isosorbide mono 60 mg p.o. daily. Steroids, was on tapering dose. REVIEW OF SYSTEMS: All the systems were reviewed. Positive mentioned in the history, others are neg ative. PHYSICAL EXAMINATION: VITAL SIGNS: Blood pressure 124/83, respirations 20, pulse is 69, and temperature 97.6. HEENT: Head is normocephalic. EYES: Pupils normal. Conjunctivae normal. NOSE AND THROAT: Normal. NECK: JVP low. Carotid equal. THORAX: AP diameter normal. LUNGS: Clear. CARDIOVASCULAR: S1, S2, systolic murmur, no rub. ABDOMEN: No organomegaly. Bowel sounds normal. EXTREMITIES: No clubbing, no cyanosis. LABORATORY DATA: Done on 01/01. WBC 8.1, hemoglobin of 14.7, hematocrit 45.6, platelet 332. Sodium 141, potassium 4.3, BUN 19, creatinine 1.0, random sugar 114, calcium 9.9, magnesium 1.9. Troponin 0 .06, NT-proB natriuretic pep 2210. EKG showed pacemaker rhythm. Chest x-ray some mild vascular jerome estion changes on 01/01/2017. DIAGNOSES: Atypical chest pain, chronic renal insufficiency, coronary artery disease status post cor onary artery bypass graft, ischemic cardiomyopathy, severe pulmonary hypertension, tricuspid regurgit ation, mitral and aortic regurgitation, status post automatic implantable cardioverter-defibrillator insertion, diabetes, hypertension, bronchitis, hyperlipidemia, atrial fibrillation. The patient's au tomatic implantable cardioverter-defibrillator was interrogated on medical floor. It has reached end of life, probably 2 months or more. DIAGNOSES: Atypical chest pain, ischemic cardiomyopathy, history of CABG, severe pulmonary hypertens ion, moderate to severe tricuspid regurgitation, mild mitral regurgitation, mild aortic regurgitation , chronic renal dysfunction, history of chronic renal dysfunction, hypertension, chronic atrial fibri llation, history of automatic implantable cardioverter-defibrillator insertion, abdominal pain. PLAN: The patient is on carvedilol 6.25 b.i.d., Lasix 40 IV daily, glipizide, Glucotrol-XL 2.5 mg p. o. daily, Eliquis 2.5 b.i.d., famotidine 20 mg IV daily, Protonix 40 mg IV daily. We will continue p resent therapy and when patient is stabilized, we will arrange patient to go for AICD battery change, and at that time, we will stop Eliquis for 48-72 hours prior to change of defibrillator early next w [facility], it will be arranged, and we will continue to follow closely with you and continue present therap y. Kymberly Schafer MD cc: [phone] TT: 01/05/2017 11:41:21 Confirmation # [id number] Dictation # [id number] mn
[2017-01-06] MEDS: Potassium Chloride 10 mEq ER Tab PO SCH (08:55)
[2017-01-06] MEDS: POLYETHYLENE GLYCOL 3350 17 GM/Dose PACKET PO SCH (09:15)
--- NOTE | 2017-01-06 09:24 | CP.PCM.PN ---
Subjective - Date & Time of Evaluation Date of Evaluation: 01/06/17 Time of Evaluation: 08:50 - Subjective Subjective: Comfortable, afebrile, breathing better, no diarrhea. Objective - Vital Signs/Intake and Output Vital Signs (last 24 hours): Temp Pulse Resp BP Pulse Ox 97.6 F 56 L 18 121/75 97 01/04/17 13:55 01/05/17 22:37 01/04/17 13:55 01/05/17 17:49 01/04/17 13:55 - Medications Medications: Current Medications Allopurinol (Zyloprim) 100 mg PO DAILY JAVI PRN Reason: Protocol Last Admin: 01/05/17 09:09 Dose: 100 mg Apixaban (Eliquis) 2.5 mg PO BID JAVI PRN Reason: Protocol Last Admin: 01/05/17 17:49 Dose: 2.5 mg Arformoterol Tartrate (Brovana) 15 mcg IH [id number] JAVI PRN Reason: Protocol Last Admin: 01/06/17 07:34 Dose: 15 mcg Budesonide (Pulmicort Respules) 0.5 mg IH [id number] JAVI PRN Reason: Protocol Last Admin: 01/06/17 07:34 Dose: 0.5 mg Carvedilol (Coreg) 6.25 mg PO BID JAVI PRN Reason: Protocol Last Admin: 01/05/17 17:49 Dose: Not Given Docusate Sodium (Colace) 100 mg PO BID JAVI PRN Reason: Protocol Last Admin: 01/05/17 17:48 Dose: 100 mg Doxycycline Hyclate (Doryx) 100 mg PO Q12 JAVI PRN Reason: Protocol Stop: 01/10/17 10:00 Last Admin: 01/05/17 22:19 Dose: 100 mg Famotidine (Pepcid) 20 mg PO DAILY JAVI Furosemide (Lasix) 40 mg PO DAILY JAVI Last Admin: 01/05/17 14:42 Dose: 40 mg Glipizide (Glucotrol Xl) 2.5 mg PO HS JAVI PRN Reason: Protocol Last Admin: 01/06/17 05:47 Dose: Not Given Home Med (Home Med) 1 unit OU DAILY JAVI Last Admin: 01/05/17 09:08 Dose: Not Given Home Med (Home Med) 1 unit OU DAILY JAVI Last Admin: 01/05/17 09:08 Dose: Not Given Levalbuterol HCl (Xopenex) 0.63 mg IH [id number] PRN; Protocol PRN Reason: Cough and congestion Mirtazapine (Remeron) 15 mg PO HS JAVI PRN Reason: Protocol Last Admin: 01/05/17 22:19 Dose: 15 mg Oxycodone HCl (Oxycodone Immediate Release Tab) 15 mg PO Q6H PRN; Protocol PRN Reason: Pain, moderate (4-7) Pantoprazole Sodium (Protonix Ec Tab) 40 mg PO 0630 [facility] Last Admin: 01/06/17 05:48 Dose: Not Given Polyethylene Glycol (Miralax) 17 gm PO DAILY [facility] PRN Reason: Protocol Last Admin: 01/05/17 09:08 Dose: 17 gm Potassium Chloride (Klor-Con 10) 10 meq PO 0800 [facility] PRN Reason: Protocol Last Admin: 01/05/17 08:37 Dose: 10 meq Prednisone (Prednisone Tab) 30 mg PO DAILY [facility] Last Admin: 01/05/17 14:43 Dose: 30 mg - Labs Labs: 01/05/17 06:00 01/05/17 08:01 - Constitutional Appears: Non-toxic, No Acute Distress - Head Exam Head Exam: NORMAL INSPECTION - ENT Exam ENT Exam: Mucous Membranes Moist - Neck Exam Neck Exam: absent: Lymphadenopathy, Meningismus - Respiratory Exam Respiratory Exam: Decreased Breath Sounds - Cardiovascular Exam Cardiovascular Exam: +S1, +S2 - GI/Abdominal Exam GI & Abdominal Exam: Soft. absent: Tenderness Assessment and Plan - Assessment and Plan (Free Text) Plan: Assessment Dyspnea, probable acute on chronic congestive heart failure, need to rule out pneumonia CAD S/P CABG chronic CHF HTN COPD DM S/P pacemaker placement atrial fibrillation history of gastritis Plan on Doxycycline day 4 pending final blood cx results; PCT is only 0.21; reviewed CXR; should complete a 5-7 day course Will continue to monitor clinically
[2017-01-06] MEDS: BRIMONIDINE 0.2% OU SCH (09:59)
[2017-01-06] MEDS: TIMOLOL OU SCH (10:01)
--- NOTE | 2017-01-06 13:20 | PN ---
DATE: 01/06/2017 The patient in room 322, bed 2. REASON FOR CONSULTATION AND FOLLOWUP: Coronary artery disease, cardiomyopathy, AICD insertion, abdom inal pain. HISTORY OF PRESENT ILLNESS: The patient is an 81-year-old male with known case of ischemic cardiomyo sandy, coronary artery bypass surgery, history of AICD insertion, who was admitted with epigastric pa in and fever at home. The patient was on medical floor, was stabilized; now he is improved, now he i s in transitional care unit for deconditioning and physical therapy. The patient lying flat in bed w ithout any cardiac symptoms. CARDIAC HISTORY: The patient's detailed cardiac history is mentioned in our consult dated . PHYSICAL EXAMINATION: VITAL SIGNS: Blood pressure 136/99, respirations 18, pulse 54. The patient is afebrile. HEAD: Normocephalic. EYES: Pupils normal. Conjunctivae are normal. NECK: JVP low. Carotid equal. THORAX: AP diameter normal. LUNGS: No significant rales. CARDIOVASCULAR: S1, S2, systolic murmur, no rub. ABDOMEN: Soft. No tenderness, no organomegaly. Bowel sounds normal. EXTREMITIES: No clubbing, no cyanosis. LABORATORY DATA: WBC 10.1, hemoglobin 13.3, hematocrit 40.4, platelet 207. Sodium 138, potassium 4. 5, BUN 57, creatinine 1.5, sugar 282. Random sugar 199. Total protein and albumin normal. AST, ALT are normal. DIAGNOSES: Atypical chest pain, ischemic cardiomyopathy, history of coronary artery bypass graft, se amy pulmonary hypertension, moderate to severe tricuspid regurgitation, mild mitral regurgitation, m ild aortic regurgitation, chronic renal dysfunction, hypertension, chronic atrial fibrillation, histo ry of automatic implantable cardioverter-defibrillator insertion, abdominal pain. PLAN: The patient's AICD has been interrogated. It is coming to end of life; he still has 1-2 month s on the battery so will arrange changed of the battery shortly. In the meantime, the patient contin ues on medication: Coreg 6.25 b.i.d., glipizide 2.5 mg daily, Eliquis 2.5 mg b.i.d., furosemide 40 m g p.o. daily, Protonix 40 daily, Xopenex hand nebulizer therapy, Zyloprim 100 mg p.o. daily, Coreg 6. 25 b.i.d., Doryx 100 mg p.o. q. 12 hours. Will follow with you. Kymberly Schafer MD cc: [phone] TT: 01/06/2017 13:19:08 Confirmation # [id number] Dictation # [id number] mn
[2017-01-06] MEDS: Insulin Reg-LOW-Coverage SC SCH ×2 (16:55→22:23)
--- NOTE | 2017-01-07 04:44 | PN ---
DATE: 01/06/2017 REFERRING PHYSICIAN: Dr. Luis. SUBJECTIVE: He is lying in the bed, sleepy, arousable, is at bedside. Was placed on BiPAP last night. Decreased cough. Decreased shortness of breath. No nausea. No vomiting. No diarrhea. No leg pain or leg swelling. OBJECTIVE: GENERAL: No acute distress. VITAL SIGNS: Temperature is 98, heart rate is 56, respiratory rate is 20, blood pressure 116/70. HEENT: Moist mucous membranes. Small oral cavity. LUNGS: Has fair airflow with few crackles at the bases, prolonged expiratory phase. HEART: S1, S2, irregular. ABDOMEN: Soft, nontender. No organomegaly. EXTREMITIES: There is no edema. NEUROLOGIC: Sleepy, arousable, follows simple command. MEDICATIONS: He is on Brovana 15 mcg inhaled twice a day, Colace 100 mg twice a day, Coreg 6.25 mg t wice a day, doxycycline 100 mg twice a day, Eliquis 2.5 mg twice a day, glipizide 2.5 mg daily, insul in coverage, potassium 10 mEq daily, Lasix 40 mg daily, MiraLax 17 g daily, oxycodone immediate relea se 15 mg q. 6 hours p.r.n., Pepcid 20 mg daily, prednisone 30 mg daily, Protonix 40 mg daily, Pulmico rt inhaled twice daily, Remeron 15 mg at bedtime, Xopenex inhaled q. 4 hours, allopurinol 100 mg courtney y. LABORATORY DATA: Shows blood sugar is 353. IMPRESSION AND PLAN: Chronic obstructive lung disease, cardiomyopathy with heart failure, hypertensi on, diabetes, atrial fibrillation, noncompliant with continuous positive airway pressure. Pulmonary point of view, doing okay. We will continue to encourage to use continuous positive airway pressure. Continue bronchodilator. Gastric prophylaxis. Continue therapy. We will follow with you. Kymberly Bauer MD cc: [phone] TT: 01/07/2017 04:43:16 Confirmation # [id number] Dictation # [id number] tn
[2017-01-07] MEDS: Pantoprazole 40 mg EC Tab PO SCH (05:46)
[2017-01-07] MEDS: Budesonide 0.5 mg/2 ml Inhal Susp UD IH SCH ×2 (07:28→20:35)
[2017-01-07] MEDS: Arformoterol 15 mcg/2 ml Inh Sol IH SCH ×2 (07:28→20:35)
--- NOTE | 2017-01-07 09:00 | PN ---
DATE: 01/06/2017 The patient seems to be doing better. Less short of breath, no distress. He is eating okay. He mov ed his bowels. No new complaints. The patient getting physical therapy on daily basis, seems to be doing better. PHYSICAL EXAMINATION: VITAL SIGNS: Temperature 97.5, heart rate 56, blood pressure 116/70, respiration 14. HEAD AND NECK: Normal. No JVD, no thyromegaly. CHEST: Clear. Good air entry. CARDIAC: First sound and second sound is normal. Systolic murmur. ABDOMEN: Soft, nontender. EXTREMITIES: Mild bilateral ankle edema. NEUROLOGIC: General weakness, unsteady gait, but nonfocal. LABORATORY DATA: White count 10.1, hemoglobin 15.3, hematocrit 40.4, platelets 207. Chemistry: Sod ium 138, potassium 4.5, chloride 106, bicarb 28, BUN 57, creatinine 1.5, blood sugar in 200 range. L iver function test is normal except frieda phos 191. IMPRESSION AND PLAN: 1. Generalized weakness, unsteady gait. Continue physical therapy on daily basis. 2. Chronic obstructive pulmonary disease. Continue current medications and inhaled bronchodilators, steroids IV. Switch it to p.o. because patient does not want steroids in the IV. We will continue Lasix. We will continue oxygen and we will follow up clinically. 3. Diabetes type 2. Continue insulin. Follow up clinically. 4. History of chronic atrial fibrillation, congestive heart failure, ischemic cardiomyopathy. We wi ll continue Eliquis 2.5 mg b.i.d. The patient seems to be doing okay on that. 5. History of chronic osteoarthritis, rheumatoid arthritis, gouty arthritis. He is currently gettin g steroids. He is also getting oxycodone for pain control and continue current medications. For his pneumonia, the patient does have pneumonia. We will continue doxycycline 100 mg p.o. daily and cont inue inhaled bronchodilators. Myles Luis MD cc: [phone] TT: 01/07/2017 09:00:00 Confirmation # [id number] Dictation # [id number] tn
[2017-01-07] MEDS: Insulin Reg-LOW-Coverage SC SCH ×4 (09:48→21:25)
[2017-01-07] MEDS: Potassium Chloride 10 mEq ER Tab PO SCH (09:48)
[2017-01-07] MEDS: TIMOLOL OU SCH (09:48)
[2017-01-07] MEDS: POLYETHYLENE GLYCOL 3350 17 GM/Dose PACKET PO SCH (09:49)
--- NOTE | 2017-01-07 11:20 | PN ---
DATE: 01/07/2017 REASON FOR CONSULTATION: Coronary artery disease, cardiomyopathy, AICD placement, admitted with abdo farzana pain, cardiac evaluation, in transitional care unit. BRIEF CLINICAL HISTORY: An 81-year-old male with past medical history significant for cardiomyopathy , CAD, status post coronary artery bypass graft, status post AICD, admitted with acute exacerbation o f COPD. Denies any chest pain, shortness of breath, any palpitation. Admitted with acute exacerbati on. PHYSICAL EXAMINATION: VITAL SIGNS: Temperature afebrile, heart rate , blood pressure 123/74. HEENT: PERRLA. Extraocular muscles intact. NECK: Supple. No carotid bruits. No thyromegaly. CHEST: Clear to auscultation. HEART: S1, S2 regular. ABDOMEN: Soft. EXTREMITIES: Clubbing and cyanosis negative. BLOOD WORKUP: Last hemoglobin 13.3, hematocrit 40.4 on 01/05/2017. BUN 57, creatinine 1.5 on 01/05/2017 . IMPRESSION: Acute exacerbation of chronic obstructive pulmonary disease, diabetes, hypertension, hyp erlipidemia, coronary artery disease, status post coronary artery bypass graft, status post automatic implantable cardioverter-defibrillator, chronic atrial fibrillation, ischemic cardiomyopathy, hypert ension, chronic atrial fibrillation, status post automatic implantable cardioverter-defibrillator, en d of life in 1-2 years. RECOMMENDATION: Recent interrogation done, end of life 1-2 years. Arrangements have been made. Upon discharge, the patient will see Dr. Case for generator change. In the meantime, continue rehabi litation, continue Eliquis, continue Xopenex, continue rehabilitation, continue Coreg. Upon discharg e, the patient will be contacted by Dr. Case's office at [facility] for generator change. Kymberly Costa MD cc: [phone] TT: 01/07/2017 11:19:24 Confirmation # [id number] Dictation # [id number] scotty
[2017-01-07 11:30] VITALS: RESP 16
[2017-01-07] MEDS: PrednisoLONE 15 mg/5 ml Oral Syrup (240 ml) PO SCH (14:44)
--- NOTE | 2017-01-07 15:50 | CP.PCM.PN ---
Subjective - Date & Time of Evaluation Date of Evaluation: 01/07/17 Time of Evaluation: 10:40 - Subjective Subjective: Comfortable, breathing better, no fevers. Objective - Vital Signs/Intake and Output Vital Signs (last 24 hours): Temp Pulse Resp BP Pulse Ox 97.9 F 55 L 20 123/74 96 01/07/17 06:00 01/07/17 06:00 01/07/17 06:00 01/07/17 06:00 01/07/17 06:00 - Medications Medications: Current Medications Allopurinol (Zyloprim) 100 mg PO DAILY JAVI PRN Reason: Protocol Last Admin: 01/06/17 09:16 Dose: 100 mg Apixaban (Eliquis) 2.5 mg PO BID JAVI PRN Reason: Protocol Last Admin: 01/06/17 18:13 Dose: 2.5 mg Arformoterol Tartrate (Brovana) 15 mcg IH [id number] JAVI PRN Reason: Protocol Last Admin: 01/07/17 07:28 Dose: Not Given Budesonide (Pulmicort Respules) 0.5 mg IH [id number] JAVI PRN Reason: Protocol Last Admin: 01/07/17 07:28 Dose: Not Given Carvedilol (Coreg) 6.25 mg PO BID JAVI PRN Reason: Protocol Last Admin: 01/06/17 18:12 Dose: 6.25 mg Docusate Sodium (Colace) 100 mg PO BID JAVI PRN Reason: Protocol Last Admin: 01/06/17 18:11 Dose: 100 mg Doxycycline Hyclate (Doryx) 100 mg PO Q12 [facility]I PRN Reason: Protocol Stop: 01/10/17 10:00 Last Admin: 01/06/17 21:15 Dose: 100 mg Famotidine (Pepcid) 20 mg PO DAILY JAVI Last Admin: 01/06/17 09:58 Dose: 20 mg Furosemide (Lasix) 40 mg PO DAILY JAVI Last Admin: 01/06/17 09:58 Dose: 40 mg Glipizide (Glucotrol Xl) 2.5 mg PO HS JAVI PRN Reason: Protocol Last Admin: 01/06/17 21:15 Dose: 2.5 mg Home Med (Home Med) 1 unit OU DAILY JAVI Last Admin: 01/06/17 10:01 Dose: Not Given Home Med (Home Med) 1 unit OU DAILY J[facility]I Last Admin: 01/06/17 09:59 Dose: Not Given Insulin Human Regular (Humulin R Low) 0 units SC ACHS JAVI PRN Reason: Protocol Last Admin: 01/06/17 22:23 Dose: Not Given Levalbuterol HCl (Xopenex) 0.63 mg IH [id number] PRN; Protocol PRN Reason: Cough and congestion Mirtazapine (Remeron) 15 mg PO HS JAVI PRN Reason: Protocol Last Admin: 01/06/17 21:15 Dose: 15 mg Oxycodone HCl (Oxycodone Immediate Release Tab) 15 mg PO Q6H PRN; Protocol PRN Reason: Pain, moderate (4-7) Pantoprazole Sodium (Protonix Ec Tab) 40 mg PO 0630 [facility] Last Admin: 01/07/17 05:46 Dose: Not Given Polyethylene Glycol (Miralax) 17 gm PO DAILY JAVI PRN Reason: Protocol Last Admin: 01/06/17 09:15 Dose: 17 gm Potassium Chloride (Klor-Con 10) 10 meq PO 0800 J[facility]I PRN Reason: Protocol Last Admin: 01/06/17 08:55 Dose: 10 meq Prednisolone (Prednisolone Oral Soln) 15 mg PO DAILY [facility] Prednisone (Prednisone Tab) 30 mg PO DAILY [facility] Last Admin: 01/06/17 09:57 Dose: 30 mg - Labs Labs: 01/05/17 06:00 01/05/17 08:01 - Constitutional Appears: Non-toxic, No Acute Distress - Head Exam Head Exam: NORMAL INSPECTION - ENT Exam ENT Exam: Mucous Membranes Moist - Neck Exam Neck Exam: absent: Lymphadenopathy, Meningismus - Respiratory Exam Respiratory Exam: Decreased Breath Sounds - Cardiovascular Exam Cardiovascular Exam: +S1, +S2 - GI/Abdominal Exam GI & Abdominal Exam: Soft. absent: Tenderness Assessment and Plan - Assessment and Plan (Free Text) Plan: Assessment Dyspnea, probable acute on chronic congestive heart failure, consider atypical healthcare-associated pneumonia CAD S/P CABG chronic CHF HTN COPD DM S/P pacemaker placement atrial fibrillation history of gastritis Plan on Doxycycline day 5 pending final blood cx results; PCT is only 0.21; reviewed CXR; should complete a 5-7 day course Will continue to monitor clinically
--- NOTE | 2017-01-07 17:19 | CP.PCM.PN ---
Subjective - Date & Time of Evaluation Date of Evaluation: 01/07/17 Time of Evaluation: 11:40 - Subjective Subjective: Seen and examined at bedside. at side. Denies N/V or abdominal pain, having formed stool, no c/o overt GI bleed or acute overnight events. Objective - Vital Signs/Intake and Output Vital Signs (last 24 hours): Temp Pulse Resp BP Pulse Ox 97.0 F L 52 L 16 137/81 94 L 01/07/17 10:00 01/07/17 10:00 01/07/17 10:00 01/07/17 10:00 01/07/17 10:00 Intake and Output: 01/07/17 01/07/17 06:59 18:59 Intake Total 120 Balance 120 - Medications Medications: Current Medications Allopurinol (Zyloprim) 100 mg PO DAILY JAVI PRN Reason: Protocol Last Admin: 01/07/17 09:51 Dose: 100 mg Apixaban (Eliquis) 2.5 mg PO BID JAVI PRN Reason: Protocol Last Admin: 01/07/17 09:46 Dose: 2.5 mg Arformoterol Tartrate (Brovana) 15 mcg IH [id number] JAVI PRN Reason: Protocol Last Admin: 01/07/17 07:28 Dose: Not Given Budesonide (Pulmicort Respules) 0.5 mg IH [id number] JAVI PRN Reason: Protocol Last Admin: 01/07/17 07:28 Dose: Not Given Carvedilol (Coreg) 6.25 mg PO BID JAVI PRN Reason: Protocol Last Admin: 01/07/17 09:45 Dose: 6.25 mg Docusate Sodium (Colace) 100 mg PO BID JAVI PRN Reason: Protocol Last Admin: 01/07/17 09:44 Dose: 100 mg Doxycycline Hyclate (Doryx) 100 mg PO Q12 [facility]I PRN Reason: Protocol Stop: 01/10/17 10:00 Last Admin: 01/07/17 09:46 Dose: 100 mg Famotidine (Pepcid) 20 mg PO DAILY [facility]I Last Admin: 01/07/17 09:50 Dose: 20 mg Furosemide (Lasix) 40 mg PO DAILY JAVI Last Admin: 01/07/17 09:48 Dose: 40 mg Glipizide (Glucotrol Xl) 2.5 mg PO HS JAVI PRN Reason: Protocol Last Admin: 01/06/17 21:15 Dose: 2.5 mg Home Med (Home Med) 1 unit OU DAILY [facility] Last Admin: 01/07/17 09:48 Dose: Not Given Home Med (Home Med) 1 unit OU DAILY [facility] Last Admin: 01/06/17 09:59 Dose: Not Given Insulin Human Regular (Humulin R Low) 0 units SC ACHS JAVI PRN Reason: Protocol Last Admin: 01/07/17 13:05 Dose: 1 units Levalbuterol HCl (Xopenex) 0.63 mg IH [id number] PRN; Protocol PRN Reason: Cough and congestion Mirtazapine (Remeron) 15 mg PO HS JAVI PRN Reason: Protocol Last Admin: 01/06/17 21:15 Dose: 15 mg Oxycodone HCl (Oxycodone Immediate Release Tab) 15 mg PO Q6H PRN; Protocol PRN Reason: Pain, moderate (4-7) Pantoprazole Sodium (Protonix Ec Tab) 40 mg PO 0630 [facility] Last Admin: 01/07/17 05:46 Dose: Not Given Polyethylene Glycol (Miralax) 17 gm PO DAILY JAVI PRN Reason: Protocol Last Admin: 01/07/17 09:49 Dose: 17 gm Potassium Chloride (Klor-Con 10) 10 meq PO 0800 [facility] PRN Reason: Protocol Last Admin: 01/07/17 09:48 Dose: 10 meq Prednisolone (Prednisolone Oral Soln) 15 mg PO DAILY [facility] Last Admin: 01/07/17 14:44 Dose: Not Given Prednisone (Prednisone Tab) 30 mg PO DAILY [facility] Last Admin: 01/07/17 09:51 Dose: 30 mg - Labs Labs: 01/05/17 06:00 01/05/17 08:01 - Constitutional Appears: No Acute Distress - Eye Exam Eye Exam: absent: Normal appearance, Scleral icterus - ENT Exam ENT Exam: Mucous Membranes Moist - Neck Exam Neck Exam: Normal Inspection - Respiratory Exam Respiratory Exam: Decreased Breath Sounds, NORMAL BREATHING PATTERN. absent: Rhonchi, Wheezes, Respiratory Distress - Cardiovascular Exam Cardiovascular Exam: +S1, +S2 - GI/Abdominal Exam GI & Abdominal Exam: Soft. absent: Distended, Guarding, Tenderness, Normal Bowel Sounds, Rebound - Extremities Exam Extremities Exam: absent: Calf Tenderness, Pedal Edema - Neurological Exam Neurological Exam: Alert, Awake, Oriented x3 Assessment and Plan - Assessment and Plan (Free Text) Assessment: ASSESSMENT: Resolved abdominal Pain CHF Elevated LFT, improving, may be hepatic congestion, did have abdominal US, negative for GB stones, or CBD dilation Chronic AFIB on Eliquis COPD Pneumonia RA PLAN: continue diet as tolerated continue PPI/Pepcid on Eliquis monitor LFT on oral doxycline Seen and discussed with Dr. Pace.
[2017-01-07] MEDS: BRIMONIDINE 0.2% OU SCH (18:35)
--- NOTE | 2017-01-07 18:57 | PN ---
DATE: 01/07/2017 REFERRING PHYSICIAN: Dr. Luis. SUBJECTIVE: He is lying in the bed. Daughter and at the bedside. Not very compliant with CPAP . Breathing is better. No cough, no sputum production, no nausea, no vomiting, no diarrhea. No leg pain or leg swelling. OBJECTIVE: GENERAL: In no acute distress. VITAL SIGNS: Temperature is 98, heart rate 52, respiratory rate is 20, blood pressure 137/81, pulse ox 94% on nasal cannula. HEENT: Moist mucous membranes. Crowded airway. Mallampati score is 4. NECK: Supple. No JVD. LUNGS: Has a fair airflow with a few rhonchi. HEART: S1, S2. ABDOMEN: Soft, nontender. No organomegaly. EXTREMITIES: There is not much edema. NEUROLOGIC: Sleepy, arousable, follows simple commands. MEDICATIONS: The patient is on Colace 100 mg twice a day, Coreg 6.25 mg twice a day, doxycycline 100 mg twice a day, Eliquis 2.5 mg twice a day, Glucotrol-XL 2.5 mg daily, insulin coverage, potassium 1 0 mEq daily, Lasix 40 mg daily, MiraLax 17 grams daily, oxycodone immediate release q.6 hours, Pepcid 20 mg daily, prednisone oral solution 15 mL daily, Protonix 40 mg daily, Pulmicort inhaled twice a d ay, Remeron 50 mg at bedtime, Topamax inhaled q.4 hours, allopurinol 100 mg daily. LABORATORY DATA: Reviewed and shows blood sugar today 353. IMPRESSION AND PLAN: Chronic obstructive lung disease, cardiomyopathy, heart failure, hypertension, diabetes, atrial fibrillation. Continue to encourage BiPAP use. Will readjust prednisone doses. Sp lolly to the patient's daughter and at bedside. I spoke about sleep apnea and its consequences. Encouraged the patient to use the CPAP. Follow up electrolytes in the morning. Fall precaution. Thank you and will follow with you. Kymberly Bauer MD cc: [phone] TT: 01/07/2017 18:56:29 Confirmation # [id number] Dictation # [id number] dn
[2017-01-07] MEDS: GlipiZIDE 2.5 mg SR Tab PO SCH (21:56)
[2017-01-08] MEDS: Pantoprazole 40 mg EC Tab PO SCH (05:39)
[2017-01-08] MEDS: Insulin Reg-LOW-Coverage SC SCH ×5 (07:09→22:00)
[2017-01-08] MEDS: Budesonide 0.5 mg/2 ml Inhal Susp UD IH SCH ×2 (07:36→22:10)
[2017-01-08] MEDS: Arformoterol 15 mcg/2 ml Inh Sol IH SCH ×2 (07:36→22:10)
[2017-01-08] MEDS: Potassium Chloride 10 mEq ER Tab PO SCH (08:28)
[2017-01-08] MEDS: BRIMONIDINE 0.2% OU SCH (09:53)
[2017-01-08] MEDS: TIMOLOL OU SCH (09:54)
[2017-01-08] MEDS: POLYETHYLENE GLYCOL 3350 17 GM/Dose PACKET PO SCH (09:55)
[2017-01-08] MEDS: PrednisoLONE 15 mg/5 ml Oral Syrup (240 ml) PO SCH (10:29)
--- NOTE | 2017-01-08 14:03 | PN ---
DATE: 01/08/2017 The patient is in room 322, bed 2. REASON FOR CONSULTATION AND FOLLOWUP: Coronary artery disease, cardiomyopathy, AICD placement, admit bubba with abdominal pain. HISTORY OF PRESENT ILLNESS: An 81-year-old male with past medical history significant for cardiomyop athy, CAD, status post coronary artery bypass surgery, status post automatic implantable cardioverter -defibrillator insertion, admitted with acute exacerbation of COPD. Also had abdominal pain. The pa tient treated on medical floor, improved, now in transitional care unit for deconditioning and physic al therapy. The patient denies any chest pain, no shortness of breath, palpitation. He is lying fla t in bed without any symptoms. PHYSICAL EXAMINATION: VITAL SIGNS: Blood pressure 139/93. Respirations 18, pulse 53. The patient is afebrile. HEAD: Normocephalic. EYES: Pupils normal. Conjunctivae are normal. NECK: JVP low. Carotids equal. THORAX: AP diameter normal. LUNGS: Clear. CARDIOVASCULAR: S1, S2, pansystolic murmur, no rub. ABDOMEN: Soft, no tenderness, no organomegaly. Bowel sounds normal. EXTREMITIES: No clubbing, no cyanosis. LABORATORY DATA: Done on 01/05 and they were reported on my previous notes. Today's sugar is 279. DIAGNOSES: Acute exacerbation of chronic obstructive pulmonary disease, abdominal pain, diabetes, hy pertension, hyperlipidemia, coronary artery disease, status post coronary artery bypass surgery, stat us post automatic implantable cardioverter-defibrillator insertion, chronic atrial fibrillation, isch emic cardiomyopathy, hypertension. PLAN: The patient's recent elevation of AICD showed that there are 1-2 months left until end-of-life , so arrangements have been made upon discharge. The patient will see Dr. Case for generator miguel ángel nge. In the meantime, we will continue physical therapy, continue Coreg 6.25 b.i.d., Eliquis 2.5 b.i. d., glipizide SR 2.5 mg p.o. daily, Lasix 40 mg p.o. daily, potassium 10 mEq daily, prednisone 50 mg p.o. daily, Zyloprim 100 mg p.o. daily. We will continue present therapy and we will follow with you . Kymberly Schafer MD cc: [phone] TT: 01/08/2017 14:02:59 Confirmation # [id number] Dictation # [id number] rn
--- NOTE | 2017-01-08 16:22 | PN ---
DATE: 01/08/2017 REFERRING PHYSICIAN: Dr. Luis. SUBJECTIVE: He is lying in the bed, sleepy, arousable. Son is at bedside. Refused to use CPAP/BiPA P. Not ready to participate in therapy. No nausea, no vomiting, diarrhea. No leg pain or leg swell ing. OBJECTIVE: GENERAL: In no acute distress. VITAL SIGNS: Temp is 98, heart rate is 53, respiratory rate is 20, blood pressure 139/93. HEENT: Moist mucous membranes. Small oral cavity. LUNGS: Fair airflow with prolonged expiratory phase. HEART: S1 and S2. ABDOMEN: Soft, nontender. No organomegaly. EXTREMITIES: There is no edema. NEUROLOGIC: Sleepy, arousable, follows simple command. MEDICATIONS: Brovana was not given, Colace 100 mg twice a day, Coreg was not given, doxycycline 100 mg twice a day, Eliquis 2.5 mg twice a day, Glucotrol-XL 2.5 mg, which was not given, potassium 10 mE q daily, MiraLAX 17 g daily, Pepcid 20 mg daily, prednisone 50 mg daily, Protonix 40 mg daily, Pulmic ort inhaler was on hold, Remeron 50 mg at bedtime, Xopenex q. 6 hours p.r.n., allopurinol 100 mg courtney y. LABORATORY DATA: Reviewed. Blood sugar is 279. IMPRESSION AND PLAN: Chronic obstructive lung disease, cardiomyopathy, heart failure, hypertension, diabetes, atrial fibrillation. Spoke to patient's son at bedside. All the questions answered. Enco urage the patient to use CPAP/BiPAP and be compliant with the nebulizer treatment. The patient does not want to use CPAP. Understands risk/benefit ratio. Being followed by gastroenterology, cardiolog y. Overall, poor prognosis. Fall precaution. Thank you and will follow with you. Kymberly Bauer MD cc: [phone] TT: 01/08/2017 16:22:24 Confirmation # [id number] Dictation # [id number] dn
--- NOTE | 2017-01-08 16:54 | CP.PCM.PN ---
Subjective - Date & Time of Evaluation Date of Evaluation: 01/08/17 Time of Evaluation: 10:40 - Subjective Subjective: Comfortable, breathing better, afebrile. Objective - Vital Signs/Intake and Output Vital Signs (last 24 hours): Temp Pulse Resp BP Pulse Ox 97.0 F L 60 16 132/80 94 L 01/07/17 10:00 01/07/17 18:33 01/07/17 10:00 01/07/17 18:33 01/07/17 10:00 - Medications Medications: Current Medications Allopurinol (Zyloprim) 100 mg PO DAILY JAVI PRN Reason: Protocol Last Admin: 01/07/17 09:51 Dose: 100 mg Apixaban (Eliquis) 2.5 mg PO BID [facility]I PRN Reason: Protocol Last Admin: 01/07/17 18:34 Dose: 2.5 mg Arformoterol Tartrate (Brovana) 15 mcg IH [id number] JAVI PRN Reason: Protocol Last Admin: 01/08/17 07:36 Dose: Not Given Budesonide (Pulmicort Respules) 0.5 mg IH [id number] JAVI PRN Reason: Protocol Last Admin: 01/08/17 07:36 Dose: Not Given Carvedilol (Coreg) 6.25 mg PO BID [facility]I PRN Reason: Protocol Last Admin: 01/07/17 18:33 Dose: 6.25 mg Docusate Sodium (Colace) 100 mg PO BID [facility]I PRN Reason: Protocol Last Admin: 01/07/17 18:32 Dose: 100 mg Doxycycline Hyclate (Doryx) 100 mg PO Q12 [facility]I PRN Reason: Protocol Stop: 01/10/17 10:00 Last Admin: 01/07/17 21:56 Dose: 100 mg Famotidine (Pepcid) 20 mg PO DAILY [facility] Last Admin: 01/07/17 09:50 Dose: 20 mg Furosemide (Lasix) 40 mg PO DAILY [facility] Last Admin: 01/07/17 09:48 Dose: 40 mg Glipizide (Glucotrol Xl) 2.5 mg PO HS [facility]I PRN Reason: Protocol Last Admin: 01/07/17 21:56 Dose: Not Given Home Med (Home Med) 1 unit OU DAILY [facility] Last Admin: 01/07/17 09:48 Dose: Not Given Home Med (Home Med) 1 unit OU DAILY [facility] Last Admin: 01/07/17 18:35 Dose: Not Given Insulin Human Regular (Humulin R Low) 0 units SC ACHS [facility]I PRN Reason: Protocol Last Admin: 01/08/17 07:09 Dose: 3 units Levalbuterol HCl (Xopenex) 0.63 mg IH [id number] PRN; Protocol PRN Reason: Cough and congestion Mirtazapine (Remeron) 15 mg PO HS [facility]I PRN Reason: Protocol Last Admin: 01/07/17 21:57 Dose: 15 mg Oxycodone HCl (Oxycodone Immediate Release Tab) 15 mg PO Q6H PRN; Protocol PRN Reason: Pain, moderate (4-7) Pantoprazole Sodium (Protonix Ec Tab) 40 mg PO 0630 [facility] Last Admin: 01/08/17 05:39 Dose: 40 mg Polyethylene Glycol (Miralax) 17 gm PO DAILY [facility] PRN Reason: Protocol Last Admin: 01/07/17 09:49 Dose: 17 gm Potassium Chloride (Klor-Con 10) 10 meq PO 0800 [facility] PRN Reason: Protocol Last Admin: 01/08/17 08:28 Dose: 10 meq Prednisolone (Prednisolone Oral Soln) 15 mg PO DAILY [facility] Last Admin: 01/07/17 14:44 Dose: Not Given - Labs Labs: 01/05/17 06:00 01/05/17 08:01 - Constitutional Appears: Non-toxic, No Acute Distress - Head Exam Head Exam: NORMAL INSPECTION - ENT Exam ENT Exam: Mucous Membranes Moist - Neck Exam Neck Exam: absent: Meningismus - Respiratory Exam Respiratory Exam: Decreased Breath Sounds - Cardiovascular Exam Cardiovascular Exam: +S1, +S2 - GI/Abdominal Exam GI & Abdominal Exam: Soft. absent: Tenderness Assessment and Plan - Assessment and Plan (Free Text) Plan: Assessment Dyspnea, probable acute on chronic congestive heart failure, consider atypical healthcare-associated pneumonia CAD S/P CABG chronic CHF HTN COPD DM S/P pacemaker placement atrial fibrillation history of gastritis Plan on Doxycycline day 6 pending final blood cx results; PCT is only 0.21; reviewed CXR; should complete a 5-7 day course Will continue to follow clinically
[2017-01-08] MEDS: Insulin Detemir 100 units/ml Vial (Levemir) SC SCH (18:55)
[2017-01-08] MEDS: GlipiZIDE 2.5 mg SR Tab PO SCH (22:27)
[2017-01-09] MEDS: Pantoprazole 40 mg EC Tab PO SCH (06:24)
[2017-01-09] MEDS: Insulin Reg-LOW-Coverage SC SCH ×2 (06:40→12:39)
[2017-01-09] MEDS: Budesonide 0.5 mg/2 ml Inhal Susp UD IH SCH (07:44)
[2017-01-09] MEDS: Arformoterol 15 mcg/2 ml Inh Sol IH SCH (07:44)
--- NOTE | 2017-01-09 07:48 | PN ---
DATE: 01/07/2017 This is an 81-year-old male in TCU for physical therapy and continuation of his medical treatment. T he patient is stable. He still feels weak, still getting therapy and is doing better. No new compla int, no nausea, no vomiting. PHYSICAL EXAMINATION: VITAL SIGNS: Temperature is 98, heart rate 60, blood pressure 132/80 and respirations 18. HEAD AND NECK: Normal. No JVD, no thyromegaly. CHEST: Clear, good air entry. CARDIAC: First sound and second sound normal, regular. ABDOMEN: Soft, nontender. EXTREMITIES: No edema. NEUROLOGIC: General weakness, but he is alert, awake . LABORATORY DATA: . IMPRESSION AND PLAN: 1. Generalized weakness. Continue physical therapy. 2. Acute chronic obstructive pulmonary disease exacerbation. Continue steroids, continue inhaled br onchodilators. Currently on doxycycline ____. 3. Chronic osteoarthritis, gouty arthritis and chronic back pain. The patient does have arthr itis. Continue steroids, continue oxycodone . 4. Chronic congestive heart failure, chronic atrial fibrillation. Continue Eliquis and Lasix. Follow up clinically. Continue physical therapy. Myles Luis MD cc: [phone] TT: 01/08/2017 18:25:08 Confirmation # [id number] Dictation # [id number] dn
[2017-01-09] MEDS: Potassium Chloride 10 mEq ER Tab PO SCH (08:06)
[2017-01-09] MEDS: Insulin Detemir 100 units/ml Vial (Levemir) SC SCH (10:08)
[2017-01-09] MEDS: POLYETHYLENE GLYCOL 3350 17 GM/Dose PACKET PO SCH (10:08)
[2017-01-09 10:17] VITALS: BP 148/90; PULSE 61
[2017-01-09] MEDS: TIMOLOL OU SCH (10:48)
[2017-01-09] MEDS: BRIMONIDINE 0.2% OU SCH (10:48)
--- NOTE | 2017-01-09 10:55 | PN ---
DATE: 01/08/2017 The patient seems uncomfortable today, but he did not complain of the chest pain, ____ nausea or vomi ting. ____. He did not get his Lasix today. PHYSICAL EXAMINATION: GENERAL: The patient is lying flat, but seems uncomfortable. VITAL SIGNS: Temperature is 98, heart rate 72, blood pressure ____. The patient's saturation is 94% on nasal cannula. HEAD AND NECK: Normal. CHEST: Clear. CARDIAC: First and second sounds are normal. ____. ABDOMEN: Soft, nontender. EXTREMITIES: No edema. NEUROLOGIC: The patient ____. LABORATORY DATA: ____ blood work: Blood sugar is 260. IMPRESSION AND PLAN: 1. The patient has dyspnea. Will receive Lasix. Will give him Lasix 40 now, and we will see how he does. Head of the bed 45 degrees. ____. Followup with that. Continue on his cardiac and pulmonar y medications including ____ treatment. The patient ____ for blood pressure in the ____. 2. Chronic obstructive pulmonary disease. Continue steroids. Continue inhaled bronchodilators. Ke ep the head of the bed at 45 degrees. Continue BiPAP at night. 3. Diabetes, uncontrolled. We will add ____ b.i.d. in addition to his short-acting ____. 4. Probably prednisone ____. 5. Chronic atrial fibrillation, ____ cardiomyopathy. Continue Eliquis. Continue Coreg ____. Misael nue also potassium. The patient ____. Continue physical therapy. Myles Luis MD cc: [phone] TT: 01/09/2017 10:16:23 Confirmation # [id number] Dictation # [id number] jn 01/09/2017 09:54:46
[2017-01-09] MEDS: PrednisoLONE 15 mg/5 ml Oral Syrup (240 ml) PO SCH (11:06)
[2017-01-09 11:59] VITALS: TEMP 97.6; O2SAT 96
[2017-01-09] MEDS ORDERED: metOLazone 2.5 MG TAB PO SCH (12:15)
--- NOTE | 2017-01-09 13:06 | CP.PCM.PN ---
<Marlo Warner - Last Filed: 01/09/17 15:43> Subjective - Date & Time of Evaluation Date of Evaluation: 01/09/17 Time of Evaluation: 12:55 - Subjective Subjective: Responded STAT to machine fastener call at 12:44pm. Patient is an 81 y/o male with hx CHF, COPD, CKD who was admitted with CHF exacerbation and sepsis. A Rapid response called by nursing staff. Patient was found to be unresponsive in his bed by nursing. Patient was evaluated by his primary physician earlier this morning and was noted to be awake, alert and of normal mental status. On evaluation the patient is unresponsive to verbal or painful stimulation. The patient is hemodynamically stable with BP 134/89, HR 106, oxygen saturation at 96% on 3L nc, RR 18. Examination reveals PERRL, flaccid paralysis to all extremities. Blood glucose was check and found to be 133. Objective - Vital Signs/Intake and Output Vital Signs (last 24 hours): Temp Pulse Resp BP Pulse Ox 97.6 F 61 16 148/90 96 01/09/17 10:00 01/09/17 10:05 01/09/17 10:00 01/09/17 11:06 01/09/17 10:00 Intake and Output: 01/09/17 01/09/17 06:59 18:59 Intake Total 120 Balance 120 - Medications Medications: Current Medications Allopurinol (Zyloprim) 100 mg PO DAILY JAVI PRN Reason: Protocol Last Admin: 01/09/17 10:09 Dose: 100 mg Apixaban (Eliquis) 2.5 mg PO BID [facility] PRN Reason: Protocol Last Admin: 01/09/17 10:06 Dose: 2.5 mg Arformoterol Tartrate (Brovana) 15 mcg IH [id number] [facility]AVI PRN Reason: Protocol Last Admin: 01/09/17 07:44 Dose: Not Given Budesonide (Pulmicort Respules) 0.5 mg IH [id number] [facility]I PRN Reason: Protocol Last Admin: 01/09/17 07:44 Dose: Not Given Carvedilol (Coreg) 6.25 mg PO BID [facility]I PRN Reason: Protocol Last Admin: 01/09/17 10:05 Dose: 6.25 mg Docusate Sodium (Colace) 100 mg PO BID [facility]I PRN Reason: Protocol Last Admin: 01/09/17 10:04 Dose: 100 mg Doxycycline Hyclate (Doryx) 100 mg PO Q12 [facility] PRN Reason: Protocol Stop: 01/10/17 10:00 Last Admin: 01/09/17 10:06 Dose: 100 mg Famotidine (Pepcid) 20 mg PO DAILY [facility] Last Admin: 01/09/17 10:09 Dose: 20 mg Furosemide (Lasix) 40 mg IVP Q12 [facility] Glipizide (Glucotrol Xl) 2.5 mg PO HS [facility]I PRN Reason: Protocol Last Admin: 01/08/17 22:27 Dose: 2.5 mg Home Med (Home Med) 1 unit OU DAILY [facility]AVI Last Admin: 01/08/17 09:54 Dose: Not Given Home Med (Home Med) 1 unit OU DAILY [facility] Last Admin: 01/08/17 09:53 Dose: Not Given Insulin Detemir (Levemir) 10 unit SC BID [facility] Last Admin: 01/09/17 10:08 Dose: 10 unit Insulin Human Regular (Humulin R Low) 0 units SC ACHS [facility] PRN Reason: Protocol Last Admin: 01/09/17 06:40 Dose: Not Given Levalbuterol HCl (Xopenex) 0.63 mg IH [id number] PRN; Protocol PRN Reason: Cough and congestion Metolazone (Zaroxolyn) 2.5 mg PO DAILY JAVI Mirtazapine (Remeron) 15 mg PO HS [facility]I PRN Reason: Protocol Last Admin: 01/08/17 22:26 Dose: 15 mg Pantoprazole Sodium (Protonix Ec Tab) 40 mg PO 0630 [facility] Last Admin: 01/09/17 06:24 Dose: 40 mg Polyethylene Glycol (Miralax) 17 gm PO DAILY [facility] PRN Reason: Protocol Last Admin: 01/09/17 10:08 Dose: 17 gm Potassium Chloride (Klor-Con 10) 10 meq PO 0800 [facility] PRN Reason: Protocol Last Admin: 01/09/17 08:06 Dose: 10 meq Prednisolone (Prednisolone Oral Soln) 15 mg PO DAILY [facility] Last Admin: 01/09/17 11:06 Dose: 15 mg - Labs Labs: 01/05/17 06:00 01/05/17 08:01 - Constitutional Appears: No Acute Distress, Other (unresponsive) - Head Exam Head Exam: ATRAUMATIC, NORMOCEPHALIC - Eye Exam Eye Exam: PERRL. absent: EOMI - ENT Exam ENT Exam: Mucous Membranes Moist - Neck Exam Neck Exam: Normal Inspection - Respiratory Exam Respiratory Exam: Clear to Ausculation Bilateral. absent: Accessory Muscle Use , Rales, Rhonchi, Wheezes, Respiratory Distress, Stridor - Cardiovascular Exam Cardiovascular Exam: REGULAR RHYTHM, +S1, +S2 Additional comments: pacemaker noted in left chest wall - GI/Abdominal Exam GI & Abdominal Exam: Soft, Normal Bowel Sounds. absent: Distended, Firm - Extremities Exam Extremities Exam: Normal Inspection. absent: Pedal Edema - Neurological Exam Neurological Exam: Altered, Oriented x3 Additional comments: non-responsive to verbal or painful stimuli. PERRL. flaccid upper extremities bilaterally. minimal tone noted to lower extremities b/l. - Skin Skin Exam: Dry, Normal Color, Warm Assessment and Plan - Assessment and Plan (Free Text) Assessment: 81 y/o male admitted with CHF and sepsis who is found to be unresponsive Plan: Patient transferred to ER per attending's request for further evaluation and management. <Zonia Diez - Last Filed: 01/09/17 16:22> Objective - Vital Signs/Intake and Output Vital Signs (last 24 hours): Temp Pulse Resp BP Pulse Ox 97.6 F 61 16 148/90 96 01/09/17 10:00 01/09/17 10:05 01/09/17 10:00 01/09/17 11:06 01/09/17 10:00 Intake and Output: 01/09/17 01/09/17 06:59 18:59 Intake Total 120 Balance 120 - Labs Labs: 01/05/17 06:00 01/05/17 08:01 Attending/Attestation - Attestation I have personally seen and examined this patient.: Yes I have fully participated in the care of the patient.: Yes I have reviewed all pertinent clinical information, including history, physical exam and plan: Yes Notes (Text): 01/09/17 16:07 Patient was transferred to the ER by RR team,endorsed to Santosh Betancur. 01/09/17 16:22
--- NOTE | 2017-01-09 19:35 | PN ---
DATE: 01/09/2017 The patient was seen early this morning in room 322, is awake. No fevers, no chills, appeared to be comfortable. PHYSICAL EXAMINATION: VITAL SIGNS: Temperature 97, blood pressure of 135/60, respiratory rate is 16, heart rate of 61. HEENT: Unremarkable. NECK: Supple. LUNGS: Have decreased breath sounds. HEART: Normal S1, S2. ABDOMEN: Soft, nontender. LABORATORY DATA: Reveals a white count of 10,000, hemoglobin of 13, platelets of 207. The creatinin e is 1.5 from before. Microbiology is reviewed. Dr. Luis's note is reviewed. MEDICATIONS: Reviewed. ASSESSMENT AND PLAN: This is an 81-year-old male seen early this morning in room 322 with dyspnea, p robable acute on chronic congestive heart failure, atypical healthcare-associated pneumonia in a sunil ent with coronary artery disease, coronary bypass graft, chronic congestive heart failure, hypertensi on, chronic obstructive pulmonary disease, pacemaker, on doxycycline day #7 with a normal procalciton in. He is at risk for developing nosocomial infections. Eze Mai MD cc: 350 TT: 01/09/2017 19:35:17 Confirmation # [id number] Dictation # [id number]
--- NOTE | 2017-01-10 13:58 | DS ---
The patient was seen on medical transitional care unit. Seems weak. Not in significant respiratory distress, but seems weak and also has difficulty responding also. Has answered questions. Denied an y pain. Denied any chest pain but he did mention that he feels short of breath, although he did not seem to be in respiratory distress, but patient did have complaint of short of breath. No fever, no nausea, no vomiting, no diarrhea. The patient is weak. He is lying on the bed from one side. He mo hunter to the other side, but he could not get up and sit up as usual. PHYSICAL EXAMINATION: VITAL SIGNS: Temperature 97.6, heart rate 53, blood pressure 136/87, respirations 16, saturating 96% . HEAD AND NECK: Shows positive JVD. CHEST: ____ sounds. CARDIAC: First sound, second sound normal. Systolic murmur across precordium. ABDOMEN: Soft, nontender. EXTREMITIES: No edema except in the ankle area. NEUROLOGIC: He is very weak and seems sleepy. IMPRESSION AND PLAN, DISCHARGE DIAGNOSES: Change in generalized weakness, getting weaker. Will ____ complain of respiratory distress. I feel the patient has no intravenous access and we will transfer the patient to Emergency Room for evaluations. The patient was responding well before giving the or debby to transfer her to the Emergency Room. However, I got a call that the patient has poor response. Came in, saw the patient again. He was poorly responsive, ____ own and patient was advised to robison sfer the patient to Emergency Room immediately for further evaluations. At this time, family members do not want any intubation. We will give him oxygen. We will continue Emergency Room evaluation at this time. So, patient was discharged from the transitional care unit to Emergency Room evaluations . Underlying medical problems: 1. Chronic obstructive pulmonary disease. 2. Chronic renal failure. 3. Diabetes. 4. Ischemic cardiomyopathy with low ejection fractions 5. Permanent pacemaker, chronic atrial fibrillation, glaucoma, diabetes type 2, history of hypertens ion, rheumatoid arthritis, gouty arthritis, osteoarthritis. Currently on steroids. We will transfer patient to Emergency Room. Myles Luis MD cc: [id number] TT: 01/10/2017 13:57:31 sn
== END 2017-01-09 14:07 | disposition short-term general hospital (02) | DRG 945 ==
LOC: TRCU 12:54
PROVIDERS: ADMIT Internal Medicine; ATTEND Internal Medicine
PROC: 3E0F7GC Introduction of Other Therapeutic Substance into Respiratory Tract, Via Natural or Artificial Opening (ICD-10-PCS; 2017-01-04)
PROC: 5A09357 Assistance with Respiratory Ventilation, Less than 24 Consecutive Hours, Continuous Positive Airway Pressure (ICD-10-PCS; 2017-01-05)
PROC: F07Z9FZ Gait Training/Functional Ambulation Treatment using Assistive, Adaptive, Supportive or Protective Equipment (ICD-10-PCS; principal; 2017-01-06)
PROC: F08Z4FZ Home Management Treatment using Assistive, Adaptive, Supportive or Protective Equipment (ICD-10-PCS; 2017-01-06)
DX: R53.1 Weakness (principal); R26.81 Unsteadiness on feet; J18.9 Pneumonia, unspecified organism; I13.0 Hypertensive heart and chronic kidney disease with heart failure and stage 1 through stage 4 chronic kidney disease, or unspecified chronic kidney disease; J44.0 Chronic obstructive pulmonary disease with (acute) lower respiratory infection; J44.1 Chronic obstructive pulmonary disease with (acute) exacerbation; E11.22 Type 2 diabetes mellitus with diabetic chronic kidney disease; I50.9 Heart failure, unspecified; E11.65 Type 2 diabetes mellitus with hyperglycemia; I27.2 Other secondary pulmonary hypertension; N18.9 Chronic kidney disease, unspecified; I25.5 Ischemic cardiomyopathy; M19.90 Unspecified osteoarthritis, unspecified site; M10.9 Gout, unspecified; M06.9 Rheumatoid arthritis, unspecified; I48.2 Chronic atrial fibrillation; I25.10 Atherosclerotic heart disease of native coronary artery without angina pectoris; K29.70 Gastritis, unspecified, without bleeding; I08.3 Combined rheumatic disorders of mitral, aortic and tricuspid valves; E78.5 Hyperlipidemia, unspecified; G89.29 Other chronic pain; M54.9 Dorsalgia, unspecified; Z91.19 Patient's noncompliance with other medical treatment and regimen; I25.2 Old myocardial infarction; Z79.01 Long term (current) use of anticoagulants; Z95.1 Presence of aortocoronary bypass graft; Z95.810 Presence of automatic (implantable) cardiac defibrillator

== ENCOUNTER 2017-01-09 12:56 | Inpatient (IN) | payer OTHER ==
[2017-01-09 12:56] VITALS: PULSE 55
[2017-01-09] MEDS ORDERED: Etomidate 20 mg/10ml Inj IV ONE (13:09)
[2017-01-09] MEDS ORDERED: Rocuronium 10 mg/ml (5 ml) ONE (13:09)
[2017-01-09 13:34] LABS: ADD MANUAL DIFF? NO
[2017-01-09 13:41] LABS: BASO # 0.01 K/mm3 (0.0-2.0); BASO % 0.1 % (0.0-3.0); EOS # 0.1 (0.0-0.7); EOS % 0.5 % (1.5-5.0); GRAN # 11.66 (1.4-6.5); GRAN % 86.4 % (50.0-68.0); HEMATOCRIT 43.3 % (42.0-52.0); LYMPH % 7.6 % (22.0-35.0); MEAN CELL VOLUME 93.3 fL (80.0-105.0); MEAN CORPUSCULAR HEMOGLOBIN 29.7 pg (25.0-35.0); MEAN CORPUSCULAR HGB CONC 31.9 g/dl (31.0-37.0); MEAN PLATELET VOLUME 11.1 fl (7.0-11.0); MONO # 0.7 (0.1-0.6); MONO % 5.4 % (1.0-6.0); PLATELET COUNT 190 10^3/uL (120.0-450.0); RED CELL DISTRIBUTION WIDTH 15.7 % (11.5-14.5); WHITE BLOOD COUNT 13.5 10^3/ul (4.5-11.0)
[2017-01-09] MEDS ORDERED: metroNIDAZOLE IV 500 mg/100 ml 500 MG/100 ML BAG IVPB STA (13:42)
[2017-01-09] MEDS ORDERED: Ciprofloxacin 400mg/200ml D5W 400 MG/200 ML BAG IVPB STA (13:42)
[2017-01-09] MEDS ORDERED: Vancomycin 1gm in NS 250ml 1 GM/250 ML BAG IVPB STA (13:42)
--- NOTE | 2017-01-09 13:43 | ED PDOC ---
Arrival/HPI - General Time Seen by Provider: 01/09/17 13:07 - History of Present Illness Narrative History of Present Illness (Text): 01/09/17 13:20 An 81 year old male, whose past medical history includes congestive heart failure and pacemaker (on Eliquis), brought in to the emergency department from TCU for unresponsiveness. Patient was noted awake and alert this morning. Patient unresponsive upon transfer to emergency department as per PMD at bedside , CHF exacerbation in TCU. At bedside, patient unresponsive, cannot provide further history. No fevers or any other complaints at this time. PMD: Dr. Sanchez Time/Duration: Prior to Arrival Symptom Onset: Sudden Symptom Course: Unchanged Activities at Onset: Rest Past Medical History - Provider Review Nursing Documentation Reviewed: Yes - Infectious Disease Hx of Infectious Diseases: None - Tetanus Immunization Tetanus Immunization: Unknown - Cardiac Hx Cardiac Disorders: Yes Hx Congestive Heart Failure: Yes - Pulmonary Hx Chronic Obstructive Pulmonary Disease (COPD): Yes - Neurological HX Cerebrovascular Accident: No - HEENT Hx Cataracts: Yes - Renal Hx Renal Failure: No - Endocrine/Metabolic Hx Diabetes Mellitus Type 2: Yes - Hematological/Oncological Hx Blood Disorders: Yes Hx AIDS: No Hx Anemia: No Hx Cancer: No Hx Chemotherapy: No Hx Cirrhosis: No Hx Hemophilia: No Hx Hepatitis A: No Hx Hepatitis B: No Hx Hepatitis C: No Hx Metastasis: No Hx Shingles: Yes Hx Sickle Cell Disease: No Hx Unexplained Bleeding: No - Integumentary Hx Dermatological Disorder: No Hx Basal Cell Carcinoma: No Hx Eczema: No Hx Melanoma: No Hx Psoriasis: No Hx Squamous Cell Carcinoma: No Other/Comment: ble discolored dry skin, healed wound lle - Musculoskeletal/Rheumatological Hx Rheumatoid Arthritis: Yes - Gastrointestinal Hx Gastrointestinal Disorders: Yes (reflux) - Genitourinary/Gynecological Hx Reproductive Disorders: No - Psychiatric Hx Anxiety: Yes Hx Depression: Yes Hx Substance Use: No - Past Surgical History Past Surgical History: Unable to Obtain - Surgical History Hx Cardiac Catheterization: Yes Hx Coronary Stent: Yes - Anesthesia Hx Anesthesia: Yes Hx Anesthesia Reactions: No Hx Malignant Hyperthermia: No - Suicidal Assessment Feels Threatened In Home Enviroment: No Family/Social History - Physician Review Nursing Documentation Reviewed: Yes Family/Social History: No Known Family HX Smoking Status: Unknown If Ever Smoked Hx Alcohol Use: No Hx Substance Use: No Hx Substance Use Treatment: No Allergies/Home Meds Allergies/Adverse Reactions: Allergies aspirin Allergy (Verified 12/17/16 15:19) RASH ketorolac tromethamine [From Toradol] Allergy (Verified 12/17/16 15:19) SWELLING Penicillins Allergy (Verified 12/17/16 15:19) ANGIOEDEMA Home Medications: Home Meds Medication Instructions Recorded Confirmed Carvedilol [Coreg] 3.125 mg PO BID 02/06/14 01/09/17 Furosemide [Lasix] 40 mg PO DAILY 09/30/16 01/09/17 Allopurinol [Zyloprim] 100 mg PO DAILY 12/25/16 01/09/17 Brimonidine 0.2% [Alphagan 0.2% 1 drop OU HS 12/25/16 01/09/17 Opht] Omeprazole 20 mg PO DAILY 12/25/16 01/09/17 Timolol [Betimol] 5 ml OU DAILY 12/25/16 01/09/17 Glipizide [Glipizide ER] 2.5 mg PO HS 01/01/17 01/09/17 Review of Systems - Review of Systems Systems not reviewed;Unavailable: Other (unresponsive) Physical Exam Vital Signs Reviewed: Yes Vital Signs Temp Pulse Resp BP Pulse Ox 01/09/17 23:50 135/91 H 01/09/17 23:42 77 01/09/17 22:57 70 149/92 H 99 01/09/17 20:33 76 18 149/97 H 99 01/09/17 18:56 74 16 144/102 H 96 01/09/17 12:56 99 F 54 L 16 154/74 H 97 Temperature: Afebrile Blood Pressure: Hypertensive Pulse: Regular Respiratory Rate: Normal Appearance: Positive for: Well-Appearing, Non-Toxic, Comfortable Pain Distress: None Mental Status: Positive for: Alert and Oriented X 3 Medical Decision Making ED Course and Treatment: 01/09/17 13:20 Impression: An 81 year old male with unresponsiveness. Differential Diagnosis include but are not limited to: Plan: -- EKG -- chest xray -- CT head w/o contrast -- labs -- Urinalysis -- Cipro, Flagyl, Vancomycin -- Reassess and disposition Prior Visits: Notes and results from previous visits were reviewed. Patient last reported to the emergency department on 01/01/17 for evaluation of nausea, chest pain, shortness of breath and cough. Patient was admitted to telemetry for sepsis, CHF, UTI and chest pain. Patient discharged on 01/05/17. Progress Notes: 01/09/17 13:20 Code stroke called. Note upon arrival, patient was requested to be intubated for unresponsiveness, low GCS. At this time, family is holding off intubation. Deciding on resuscitation status. Family confirms DNI/DNR. EKG: Ordered, reviewed, and independently interpreted the EKG. Rate : 67 BPM Rhythm : pace Interpretation : Non-specific ST/T changes CT head Creator : Natividad Jimenez MD 01/09/2017 13:51 IMPRESSION: No acute intracranial abnormality. If there is a persistent focal neurologic deficit and an ongoing clinical concern for acute infarction, an MRI of the brain without intravenous contrast would be a more sensitive modality for evaluation of hyperacute/acute ischemic infarction. . Left posterior parietal lobe cystic encephalomalacia, sequela of remote MCA territory infarction. Mild chronic microangiopathic changes and moderate age-related global parenchymal volume loss. Important findings were discussed with the ER physician Santosh Elmore on 2016 at 1:48 p.m. chest xray: Creator : Jorge L Cuadra MD 01/09/2017 14:11 IMPRESSION: No active disease. 01/09/17 14:22 pt reassesed. now more responsive. updated dr sanchez. pt dni dnir, placed on tele Will hold off on aspirin because of patient allergy. 01/09/17 14:[address] Xie, not a tpa candidate as global unresponsive ness 01/09/17 15:07 code sepsis called with elevated la. ef 15 % p themodyncamilly stable. pt does not need 30cc/kg bolus 01/10/17 12:25 - Lab Interpretations Lab Results: 01/09/17 13:15 01/09/17 13:50 Lab Results 01/09/17 13:50: Sodium 137, Chloride 103, Potassium 4.6, Carbon Dioxide 25, Anion Gap 14, BUN 41 H, Creatinine 1.2, Est GFR ( Amer) > 60, Est GFR ( Non-Af Amer) 58, Random Glucose 112 H, Calcium 9.4, Magnesium 2.2, Total Bilirubin 1.5 H, AST 114 H, ALT 126 H, Alkaline Phosphatase 185 H, Lactate Dehydrogenase 986 H, Total Creatine Kinase 39, Troponin I 0.10 D, NT-Pro-B Natriuret Pep 5800 H, Total Protein 6.3, Albumin 3.3, Globulin 2.9, Albumin/ Globulin Ratio 1.1, Lipase 218 01/09/17 13:19: PT 14.5 H, INR 1.34 H, APTT 29.2 01/09/17 13:15: WBC 13.5 H D, RBC 4.64, Hgb 13.8 L, Hct 43.3, MCV 93.3, MCH 29.7 , MCHC 31.9, RDW 15.7 H, Plt Count 190, MPV 11.1 H, Gran % 86.4 H, Lymph % (Auto ) 7.6 L, [place] % (Auto) 5.4, Eos % (Auto) 0.5 L, Baso % (Auto) 0.1, Gran # 11.66 H, Lymph # 1.0 L, [place] # 0.7 H, Eos # 0.1, Baso # 0.01 01/09/17 13:15: pO2 55, VBG pH 7.38, VBG pCO2 46.0, VBG HCO3 27.2, VBG Total CO2 28.6 H, VBG O2 Sat (Calc) 90.7 H, VBG Base Excess 1.5, VBG Potassium 4.9, Sodium 136.0, Chloride 103.0, Glucose 117 H, Lactate 2.8 H, FiO2 21.0, Venous Blood Potassium 4.9 I have reviewed the lab results: Yes - RAD Interpretation Radiology Orders: 01/09/17 13:19 CHEST PORTABLE [RAD] Stat 01/09/17 13:26 HEAD W/O (CODE STROKE) [CT] Stat - EKG Interpretation Interpreted by ED Physician: Yes Type: 12 lead EKG - Medication Orders Current Medication Orders: Carvedilol (Coreg) 3.125 mg PO BID [facility] Last Admin: 01/10/17 11:51 Dose: 3.125 mg Enoxaparin Sodium (Lovenox) 50 mg SC Q12H [facility] PRN Reason: Protocol Stop: 01/11/17 23:59 Furosemide (Lasix) 40 mg IV DAILY [facility] Last Admin: 01/10/17 11:52 Dose: 40 mg Glipizide (Glucotrol Xl) 2.5 mg PO HS [facility] Last Admin: 01/09/17 22:50 Dose: Aztreonam (Azactam 1 Gm) 100 mls @ 100 mls/hr IVPB Q8 [facility] PRN Reason: Protocol Stop: 01/19/17 06:01 Last Admin: 01/10/17 05:32 Dose: 100 mls/hr Vancomycin HCl (Vancomycin 1gm) 1 gm in 250 mls @ 167 mls/hr IVPB DAILY [facility] PRN Reason: Protocol Stop: 01/19/17 10:01 Last Admin: 01/10/17 11:44 Dose: 167 mls/hr Insulin Human Regular (Humulin R Low) 0 units SC ACHS [facility] PRN Reason: Protocol Last Admin: 01/10/17 12:19 Dose: Not Given Non-Admin Reason: Blood Sugar Parameter Methylprednisolone (Solu-Medrol) 40 mg IV Q6 [facility] Last Admin: 01/10/17 11:53 Dose: 40 mg Non-Formulary Medication (Brimonidine 0.2% [Alphagan 0.2% Opht]) 1 drop OU HS [facility] Non-Formulary Medication (Timolol [Betimol]) 5 ml OU DAILY [facility] Last Admin: 01/10/17 11:36 Dose: Pantoprazole Sodium (Protonix Inj) 40 mg IVP DAILY [facility] Potassium Chloride (Klor-Con 10) 10 meq PO DAILY [facility] Last Admin: 01/10/17 11:51 Dose: 10 meq Prednisone (Prednisone Tab) 15 mg PO DAILY [facility] Last Admin: 01/10/17 11:50 Dose: 15 mg Discontinued Medications Albuterol/Ipratropium (Duoneb 3 Mg/0.5 Mg (3 Ml) Ud) 3 ml IH Q4H [facility] Stop: 01/10/17 01:31 Last Admin: 01/10/17 01:31 Dose: 3 ml Apixaban (Eliquis) 2.5 mg PO BID [facility] PRN Reason: Protocol Last Admin: 01/09/17 22:50 Dose: Etomidate (Amidate) Confirm Administered Dose 20 mg IV .STK-MED ONE Stop: 01/09/17 13:10 Last Admin: 01/09/17 16:08 Dose: Furosemide (Lasix) 40 mg IV ONCE ONE Stop: 01/09/17 22:33 Last Admin: 01/09/17 23:50 Dose: 40 mg Ciprofloxacin (Cipro 400mg/200ml Dsw) 400 mg in 200 mls @ 133.3 mls/hr IVPB STAT [facility] PRN Reason: Protocol Stop: 01/09/17 15:12 Last Admin: 01/09/17 15:52 Dose: 133.3 mls/hr Metronidazole (Flagyl) 500 mg in 100 mls @ 100 mls/hr IVPB STAT [facility] PRN Reason: Protocol Stop: 01/09/17 14:41 Last Admin: 01/09/17 14:31 Dose: 100 mls/hr Vancomycin HCl (Vancomycin 1gm) 1 gm in 250 mls @ 167 mls/hr IVPB STAT [facility] PRN Reason: Protocol Stop: 01/09/17 15:11 Last Admin: 01/09/17 18:26 Dose: 167 mls/hr Methylprednisolone (Solu-Medrol) 60 mg IVP STAT [facility] Stop: 01/09/17 17:26 Last Admin: 01/09/17 18:26 Dose: 60 mg Rocuronium [place] (Zemuron) Confirm Administered Dose 100 mg .ROUTE .STK-MED ONE Stop: 01/09/17 13:10 Last Admin: 01/09/17 16:08 Dose: NIHSS Scale ([place]) Time Performed: 13:19 - How Severe is the Stoke Baseline Level of Consciousness: 3=Unresponsive LOC to Questions: 2=Neither correct LOC to commands: 2=Neither correct Best Gaze: 0=Normal Visual: 0=No visual loss Facial: 0=Normal Motor Arm - Left: 4=No movement Motor Arm - Right: 4=No movement Motor Leg - Left: 4=No movement Motor Leg - Right: 4=No movement Limb Ataxia: 2=Present both Sensory: 0=Normal Best Language: 3=Mute Dysarthia: 2=Severe, near unintelligible or worse Extinction & Inattention (Neglect): 2=Profound neglect(does not recognize own hand or orients to one side) Score: 32 Risk Level: Severe Stroke Risk rTPA Inclusion/Exclusion - Refusal of Treatment Patient Refused Treatment: No - Inclusion Criteria for Altepase Patient is 18 years or Older: Yes The Clinical Diagnosis of Ischemic Stroke That is Causing a Potentially Disabling Neurological Deficit: Yes Time of Onset is Well Established to be Less Than 270 Minute Before Treatment Would Begin: Yes Risk/Benefit Discussed With Patient/Family Member Present: Yes - Warning to TPA With Conditions Condition: Age Greater Than 75 years, Stroke Severity Too Severe (NIHSS greater than 22) - Scribe Statement The provider has reviewed the documentation as recorded by the Anuradhaibstephanie Varghese Provider Scribe Attestation: All medical record entries made by the Scribe were at my direction and personally dictated by me. I have reviewed the chart and agree that the record accurately reflects my personal performance of the history, physical exam, medical decision making, and the department course for this patient. I have also personally directed, reviewed, and agree with the discharge instructions and disposition. Disposition/Present on Arrival - Present on Arrival Any Indicators Present on Arrival: No History of DVT/PE: No History of Uncontrolled Diabetes: No Urinary Catheter: No History Surgical Site Infection Following: None - Disposition Have Diagnosis and Disposition been Completed?: Yes Diagnosis: Sepsis, Pneumonia, Altered mental status, CHF (congestive heart failure) Disposition: HOSPITALIZED Disposition Time: 02:00 Patient Problems: Current Active Problems Problem Status Onset Altered mental status Acute CHF (congestive heart failure) Acute Pneumonia Acute Sepsis Acute Condition: CRITICAL
[2017-01-09 13:47] LABS: INR 1.34 (0.93-1.08); PARTIAL THROMBOPLASTIN TIME 29.2 Seconds (23.7-30.8)
--- NOTE | 2017-01-09 13:50 | CT ---
PROCEDURE: CT HEAD WITHOUT CONTRAST. HISTORY: unresponsive COMPARISON: 05/05/2014 TECHNIQUE: Axial computed tomography images were obtained through the head/brain without intravenous contrast. Radiation dose: Total exam DLP = 745.29 mGy-cm. This CT exam was performed using one or more of the following dose reduction techniques: Automated exposure control, adjustment of the mA and/or kV according to patient size, and/or use of iterative reconstruction technique. FINDINGS: HEMORRHAGE: No intracranial hemorrhage. BRAIN: There is redemonstration of cystic encephalomalacia in the left posterior parietal lobe. Again seen are mild chronic microangiopathic changes. There is no mass, mass effect or abnormal extra-axial fluid collection. VENTRICLES: There is moderate age-related global parenchymal volume loss and proportionate enlargement of the ventricles and cortical sulci. CALVARIUM: The skull base and calvarium are normal. PARANASAL SINUSES: Predominantly clear. MASTOID AIR CELLS: Predominantly clear. OTHER FINDINGS: None. IMPRESSION: No acute intracranial abnormality. If there is a persistent focal neurologic deficit and an ongoing clinical concern for acute infarction, an MRI of the brain without intravenous contrast would be a more sensitive modality for evaluation of hyperacute/acute ischemic infarction. . Left posterior parietal lobe cystic encephalomalacia, sequela of remote MCA territory infarction. Mild chronic microangiopathic changes and moderate age-related global parenchymal volume loss. Important findings were discussed with the ER physician Santosh Elmore on 01/09/2017 at 1:48 p.m.
[2017-01-09 13:56] LABS: ALB/GLOB RATIO 1.1 (1.1-1.8); BILIRUBIN,TOTAL 1.5 mg/dL (0.2-1.3); CHLORIDE 103 mmol/L (98-107); GFR AFRICAN-AMERICAN > 60; GLUCOSE,RANDOM 112 mg/dL (70-110); MAGNESIUM 2.2 mg/dL (1.7-2.2); POTASSIUM 4.6 mmol/L (3.6-5.0); SODIUM 137 mmol/L (132-148); TOTAL PROTEIN 6.3 g/dL (5.8-8.3)
--- NOTE | 2017-01-09 14:10 | RAD ---
HISTORY: unresponsive COMPARISON: 01/01/2017 FINDINGS: LUNGS: No active pulmonary disease. PLEURA: No significant pleural effusion identified, no pneumothorax apparent. CARDIOVASCULAR: Moderate cardiomegaly. Dual lead pacemaker OSSEOUS STRUCTURES: No significant abnormalities. VISUALIZED UPPER ABDOMEN: Normal. OTHER FINDINGS: None. IMPRESSION: No active disease.
[2017-01-09 14:19] LABS: ALT/SGPT 126 U/L (7-56); AST/SGOT 114 U/L (15-59); BLOOD UREA NITROGEN 41 mg/dL (7-21); CALCIUM 9.4 mg/dL (8.4-10.5); CARBON DIOXIDE 25 mmol/L (21-33)
[2017-01-09 14:20] LABS: ALKALINE PHOSPHATASE 185 U/L (38-133); LIPASE 218 U/L (23-300)
[2017-01-09 14:50] LABS: URINE BILIRUBIN NEGATIVE (NEGATIVE); URINE BLOOD TRACE-INTACT (NEGATIVE); URINE GLUCOSE (UA) NEGATIVE (NEGATIVE); URINE KETONE NEGATIVE (NEGATIVE); URINE LEUKOCYTE ESTERASE NEGATIVE Leu/uL (NEGATIVE); URINE PROTEIN NEGATIVE mg/dL (<30 mg/dL); URINE UROBILINOGEN 0.2 E.U./dL (<1 E.U./dL)
[2017-01-09 14:51] LABS: URINE APPEARANCE CLEAR (CLEAR); URINE COLOR YELLOW (YELLOW)
[2017-01-09 14:54] LABS: VENOUS BLOOD GAS BASE EXCESS 1.5 mmol/L (0.0-2.0); VENOUS BLOOD PH 7.38 (7.32-7.43)
[2017-01-09 15:00] LABS: URINE RBC 0 - 2 /hpf (0-2); URINE WBC NEGATIVE /hpf (0-6)
[2017-01-09 18:10] LABS: VENOUS BLOOD GAS BASE EXCESS 2.3 mmol/L (0.0-2.0); VENOUS BLOOD PH 7.33 (7.32-7.43)
[2017-01-09] MEDS: Albuterol-Ipratrop 3 mg / 0.5 (3 ml) UD IH SCH ×2 (18:25→22:56)
[2017-01-09] MEDS: GlipiZIDE 2.5 mg SR Tab PO SCH (22:50)
--- NOTE | 2017-01-10 | CON ---
DATE: 01/09/2017 REFERRING PHYSICIAN: Dr. Luis. REASON FOR CONSULT: Chronic lung disease, cardiomyopathy, status post episode. HISTORY OF PRESENT ILLNESS: This is an 81-year-old gentleman with multiple medical problems, includi ng cardiomyopathy with congestive heart failure, cardiac arrhythmia requiring pacemaker, chronic obst ructive lung disease. Past medical history also significant for coronary artery disease with coronar y artery bypass surgery, hypertension. He was in TRCU for continued therapy and found unresponsive, sent to Emergency Room, found to have hypoglycemia . The patient has very poor p.o. intake. Do es not use his CPAP. Family is at bedside. The patient is DNR and DNI. He feels okay, does have a cough a little bit. No nausea, no vomiting, no diarrhea. No leg pain or leg swelling. PAST MEDICAL HISTORY: Chronic obstructive lung disease, cardiac arrhythmia requiring pacemaker, hype rtension, heart failure, cardiomyopathy, coronary artery bypass surgery in the past. ALLERGIES: ASPIRIN, TORADOL, PENICILLIN. SOCIAL HISTORY: Nonsmoker, nondrinker. FAMILY HISTORY: No significant cardiopulmonary disease reported. MEDICATIONS: Presently, he is on DuoNeb, supplemental oxygen. REVIEW OF SYSTEMS: At present, he is awake, confused. Mild cough. No shortness of breath. No chest pain, no dysuria, no leg pain or leg swelling. PHYSICAL EXAMINATION: GENERAL: Family is at the bedside. VITAL SIGNS: Temperature is 99, heart rate is 54, respiratory rate is 16, blood pressure 154/74, pul se ox 97% on nasal cannula. HEENT: Moist mucous membranes. Crowded airway. NECK: Supple. No JVD. LUNGS: Has a fair airflow with scattered rhonchi. HEART: S1, S2. ABDOMEN: Soft, nontender. No organomegaly. EXTREMITIES: No edema. NEUROLOGIC: Awake, alert, follows simple commands, but confused. LABORATORY DATA: Shows hemoglobin 13.8, hematocrit 43.3, WBC 13.5, platelet count is 190. INR 1.34, PTT is 29. Blood gases in the VBG showed pH 7.38, pCO2 is , pO2 is 55. Sodium 137, potassium 4.6, chloride 103, bicarbonate 25, BUN 41, creatinine 1.2, glucose 112, calcium 9.4. AST 114, ALT is 126, alkaline phosphatase is 185. Troponin . ProBNP is 5800, albumin is 3.3. Had a CAT scan of the head done in the ER, which shows no acute intracranial bleed. There is persistent focal neuro logical deficit. Consider MRI. Left posterior parietal lobe cystic encephalomalacia, mild chronic mi croangiopathy. Chest x-ray shows no infiltrate or effusion. IMPRESSION AND PLAN: Hypoglycemia episode, chronic obstructive lung disease, cardiomyopathy, heart f ailure, hypertension, atrial fibrillation. I spoke to patient's family at bedside. All the question s answered. The patient is [id number] and do not intubate, family wishing to continue suppor tive care. We will place him on continuous positive airway pressure while sleeping and on a p.r.n. b asis. Keep head elevated at 45 degrees. Gastric prophylaxis. Sequential compression devices to low er extremity. Thank you and we will follow with you. Kymberly Bauer MD cc: [id number] TT: 01/10/2017 00:00:20 Confirmation # [id number] Dictation # [id number] ln
[2017-01-10] MEDS: MethylPREDNISolone 40 mg Vial IV SCH ×4 (00:30→17:53)
[2017-01-10] MEDS: Albuterol-Ipratrop 3 mg / 0.5 (3 ml) UD IH SCH (01:31)
[2017-01-10 04:39] LABS: URINE BILIRUBIN NEGATIVE (NEGATIVE); URINE BLOOD TRACE-INTACT (NEGATIVE); URINE GLUCOSE (UA) NEGATIVE (NEGATIVE); URINE KETONE NEGATIVE (NEGATIVE); URINE LEUKOCYTE ESTERASE SMALL Leu/uL (NEGATIVE); URINE PROTEIN NEGATIVE mg/dL (<30 mg/dL); URINE UROBILINOGEN 0.2 E.U./dL (<1 E.U./dL)
[2017-01-10 04:47] LABS: URINE APPEARANCE SL CLOUDY (CLEAR); URINE COLOR YELLOW (YELLOW)
[2017-01-10 05:07] VITALS: BMI 22.7
[2017-01-10 05:24] LABS: URINE EPITHELIAL CELLS 0 - 2 /hpf (0-5)
[2017-01-10 05:25] LABS: URINE BACTERIA RARE (NEG)
[2017-01-10] MEDS: Aztreonam 1 Gm in NS 100mL 100 ML IVPB SCH ×3 (05:32→21:59)
[2017-01-10 10:14] LABS: VENOUS BLOOD GAS BASE EXCESS 2.7 mmol/L (0.0-2.0); VENOUS BLOOD PH 7.41 (7.32-7.43)
[2017-01-10 10:15] LABS: MEAN CELL VOLUME 92.9 fL (80.0-105.0); MEAN CORPUSCULAR HEMOGLOBIN 29.4 pg (25.0-35.0); MEAN CORPUSCULAR HGB CONC 31.6 g/dl (31.0-37.0); MEAN PLATELET VOLUME 11.1 fl (7.0-11.0); RED CELL DISTRIBUTION WIDTH 15.8 % (11.5-14.5)
--- NOTE | 2017-01-10 10:15 | CARD ---
APPROVED REPORT EKG Measurement Heart [id number] MO P-90 [id number] <Conclusion> Atrial flutter with variable AV block V. pacing: Nl sensing and capture RBBB STTW changes
[2017-01-10 10:35] LABS: BLOOD UREA NITROGEN 40 mg/dL (7-21); CALCIUM 9.1 mg/dL (8.4-10.5); CARBON DIOXIDE 26 mmol/L (21-33); CHLORIDE 101 mmol/L (98-107); GFR AFRICAN-AMERICAN > 60; GLUCOSE,RANDOM 80 mg/dL (70-110); POTASSIUM 4.5 mmol/L (3.6-5.0); SODIUM 137 mmol/L (132-148)
--- NOTE | 2017-01-10 11:09 | CP.PCM.CON ---
History of Present Illness - History of Present Illness History of Present Illness: 81 year old male with PMH of CAD S/P CABG, chronic CHF, HTN, COPD, DM, S/P pacemaker placement, atrial fibrillation, history of gastritis was in the TRCU for continued therapy for the patient's atypical HCAP and was doing well until he was found to be unresponsive in TRCU and was immediately brought to the ED. In the ED, he was apparently found to be hypoglycemic and patient started to wake up after treatment. He is now admitted in the acute care portion of the hospital for continued observation. There has been no note of fever, no vomiting , no convulsions, no diarrhea. Full review of systems is not obtainable because the patient is currently sleepy and not very cooperative. Infectious Diseases consult is requested to further evaluate and manage. Review of Systems - Review of Systems All systems: reviewed and no additional remarkable complaints except (as per HPI ) Past Patient History - Infectious Disease Hx of Infectious Diseases: None - Tetanus Immunizations Tetanus Immunization: Unknown - Past Social History Smoking Status: Unknown If Ever Smoked - CARDIAC Hx Cardiac Disorders: Yes Hx Congestive Heart Failure: Yes - PULMONARY Hx Chronic Obstructive Pulmonary Disease (COPD): Yes - NEUROLOGICAL HX Cerebrovascular Accident: No - HEENT Hx Cataracts: Yes - RENAL Hx Renal Failure: No - ENDOCRINE/METABOLIC Hx Diabetes Mellitus Type 2: Yes - HEMATOLOGICAL/ONCOLOGICAL Hx Blood Disorders: Yes Hx AIDS: No Hx Anemia: No Hx Cancer: No Hx Chemotherapy: No Hx Cirrhosis: No Hx Hemophilia: No Hx Hepatitis A: No Hx Hepatitis B: No Hx Hepatitis C: No Hx Metastesis: No Hx Shingles: Yes Hx Sickle Cell Disease: No Hx Unexplained Bleeding: No - INTEGUMENTARY Hx Dermatological Problems: No Hx Basil Cell: No Hx Eczema: No Hx Melanoma: No Hx Psoriasis: No Hx Squamous Cell: No Other/Comment: ble discolored dry skin, healed wound lle - MUSCULOSKELETAL/RHEUMATOLOGICAL Hx Rheumatoid Arthritis: Yes - GASTROINTESTINAL Hx Gastrointestinal Disorders: Yes (reflux) - GENITOURINARY/GYNECOLOGICAL Hx Reproductive Disorders: No - PSYCHIATRIC Hx Anxiety: Yes Hx Depression: Yes Hx Substance Use: No - SURGICAL HISTORY Hx Cardiac Catheterization: Yes Hx Coronary Stent: Yes - ANESTHESIA Hx Anesthesia: Yes Hx Anesthesia Reactions: No Hx Malignant Hyperthermia: No Meds Allergies/Adverse Reactions: Allergies Allergy/AdvReac Type Severity Reaction Status Date / Time aspirin Allergy RASH Verified 12/17/16 15:19 ketorolac tromethamine Allergy SWELLING Verified 12/17/16 15:19 [From Toradol] Penicillins Allergy ANGIOEDEMA Verified 12/17/16 15:19 - Medications Medications: Current Medications Albuterol/Ipratropium (Duoneb 3 Mg/0.5 Mg (3 Ml) Ud) 3 ml IH Q4H JAVI Stop: 01/10/17 01:31 Last Admin: 01/09/17 18:25 Dose: 3 ml Apixaban (Eliquis) 2.5 mg PO BID JAVI PRN Reason: Protocol Carvedilol (Coreg) 3.125 mg PO BID JAVI Furosemide (Lasix) 40 mg IV DAILY JAVI Furosemide (Lasix) 40 mg IV ONCE ONE Stop: 01/09/17 22:33 Glipizide (Glucotrol Xl) 2.5 mg PO HS JAVI Aztreonam (Azactam 1 Gm) 100 mls @ 100 mls/hr IVPB Q8 JAVI PRN Reason: Protocol Stop: 01/19/17 06:01 Vancomycin HCl (Vancomycin 1gm) 1 gm in 250 mls @ 167 mls/hr IVPB DAILY JAVI PRN Reason: Protocol Stop: 01/19/17 10:01 Insulin Human Regular (Humulin R Low) 0 units SC ACHS JAVI PRN Reason: Protocol Methylprednisolone (Solu-Medrol) 40 mg IV Q6 JAVI Non-Formulary Medication (Brimonidine 0.2% [Alphagan 0.2% Opht]) 1 drop OU HS JAVI Non-Formulary Medication (Timolol [Betimol]) 5 ml OU DAILY JAVI Potassium Chloride (Klor-Con 10) 10 meq PO DAILY [facility] Prednisone (Prednisone Tab) 15 mg PO DAILY JAVI Physical Exam - Constitutional Appears: Non-toxic, No Acute Distress - Head Exam Head Exam: NORMAL INSPECTION - ENT Exam ENT Exam: Mucous Membranes Moist - Neck Exam Neck exam: Negative for: Lymphadenopathy, Meningismus - Respiratory Exam Respiratory Exam: Decreased Breath Sounds - Cardiovascular Exam Cardiovascular Exam: +S1, +S2 - GI/Abdominal Exam GI & Abdominal Exam: Soft. absent: Tenderness Results - Vital Signs Recent Vital Signs: Last Vital Signs Temp 99 F 01/09/17 12:56 Pulse 76 01/09/17 20:33 Resp 18 01/09/17 20:33 BP 149/97 H 01/09/17 20:33 Pulse Ox 99 01/09/17 20:33 - Labs Result Diagrams: 01/10/17 10:00 01/10/17 10:00 Labs: Laboratory Results - last 24 hr 01/09/17 01/09/17 14:40 17:32 pO2 34 VBG pH 7.33 VBG pCO2 56.0 VBG HCO3 29.5 H VBG Total CO2 31.2 H VBG O2 Sat (Calc) 62.8 VBG Base Excess 2.3 H VBG Potassium 4.5 Sodium 137.0 Chloride 104.0 Glucose 55 L Lactate 2.5 H FiO2 21.0 Venous Blood Potassium 4.5 Urine Color Yellow Urine Appearance Clear Urine pH 6.0 Ur Specific [facility] 1.010 Urine Protein Negative Urine Glucose (UA) Negative Urine Ketones Negative Urine Blood Trace-intact H Urine Nitrate Negative Urine Bilirubin Negative Urine Urobilinogen 0.2 Ur Leukocyte Esterase Negative Urine RBC 0 - 2 Urine WBC Negative Assessment & Plan - Assessment and Plan (Free Text) Plan: Assessment Systemic Inflammatory Response syndrome, consider metabolic encephalopathy due to hypoglycemia, clinically improving, R/O sepsis history of healthcare-associated pneumonia CAD S/P CABG chronic CHF HTN COPD DM S/P pacemaker placement atrial fibrillation history of gastritis Plan started patient on Vancomycin, azactam and flagyl pending blood, urine cx, PCT; reviewed CXR which did not reveal active disease will monitor clinically
[2017-01-10] MEDS: Insulin Reg-LOW-Coverage SC SCH ×4 (11:34→22:13)
[2017-01-10] MEDS: TIMOLOL OU SCH (11:36)
[2017-01-10] MEDS: Vancomycin 1gm in NS 250ml 1 GM/250 ML BAG IVPB SCH (11:44)
[2017-01-10] MEDS: Potassium Chloride 10 mEq ER Tab PO SCH (11:51)
[2017-01-10 11:55] LABS: ALB/GLOB RATIO 1.2 (1.1-1.8); BILIRUBIN,TOTAL 1.8 mg/dL (0.2-1.3); TOTAL PROTEIN 6.2 g/dL (5.8-8.3)
[2017-01-10] MEDS: Non Formulary Medication (Brimonidine 0.2% [Alphagan 0.2% Opht] 1 DROP) OU SCH ×2 (12:31→22:01)
--- NOTE | 2017-01-10 12:34 | CON ---
DATE: 01/10/2017 Seen and examined at the bedside this morning. The chart was reviewed. REQUEST FOR CONSULTATION: For elevated liver enzymes and mental status change. HISTORY OF PRESENT ILLNESS: This is an 81-year-old male with a past medical history of coronary artery disease, status post CABG, pacemaker, atrial fibrillation, chronic congestive heart failure and history of gastritis, who was being followed in TCU. The patient had complaint of abdominal pain, came in with atypical chest pain. His symptoms had resolved. Yesterday, the patient was found unresponsive in TCU and brought to the Emergency Room. He was evaluated and found to be hypoglycemic and post-treatment, started becoming more awake. The patient is seen on 2R and he is mainly [place] Citizen speaking. Mechanical Reliability Engineer was at the bedside. He is awake and alert. He denies any nausea, vomiting, or abdominal pain. No complaints of any chest pain. In review of his labs, yesterday, the patient was found to have elevated liver enzymes and also found to have elevated BNP. A CAT scan of the head was done yesterday and that was negative for any acute findings, but it did show mild chronic changes and mild chronic microangiopathic changes and there was no acute intracranial abnormality. PAST MEDICAL HISTORY: As stated above, atrial fibrillation on Eliquis, ischemic cardiomyopathy, chronic congestive heart failure with low ejection fraction, glaucoma, diabetes mellitus type 2, arthritis, gastritis. PAST SURGICAL HISTORY: Pacemaker, CABG x 4 vessels, carotid endarterectomy. SOCIAL HISTORY: Denies smoking, ETOH, or substance abuse. FAMILY HISTORY: Noncontributory at this time. MEDICATIONS: Reviewed as per MAR. Please see list. REVIEW OF SYSTEMS: Systems reviewed with positive findings, see HPI. VITAL SIGNS: Temperature is 97.5, blood pressure is 101/66, pulse rate is 60, respirations 22, and 96 on nasal cannula. LABORATORY DATA: Today, sodium 137, K 4.5, BUN 40, creatinine is 1.2. Ammonia is 14. CBC: WBC is 12.0, H and H is 13.6 and 43.0, platelets are 180. He had PT done yesterday and that was 14.5, INR is 1.3. Urinalysis was done. It was negative for leukoesterase. PHYSICAL EXAMINATION: HEENT: Sclerae are anicteric. CARDIAC: S1, S2. LUNGS: With decreased breath sounds at the bases, but no rales or wheeze. ABDOMEN: With bowel sounds, soft. It is not tender, no rebound or guarding. EXTREMITIES: No edema. NEUROLOGIC: The patient is awake and alert and oriented. ASSESSMENT: An 81-year-old male with a history of ischemic cardiomyopathy, chronic congestive heart failure, coronary artery disease, status post coronary artery bypass graft, pacemaker, atrial fibrillation, found unresponsive in TCU, found to be hypoglycemic. The patient with systemic inflammatory response syndrome, probable metabolic encephalopathy, history of pneumonia. The patient was found to have elevated liver enzymes, may be secondary to hepatic congestion. The patient also has elevated BNP. He did have abdominal ultrasound on 01/04 and that was negative for gallstones and the common bile duct was negative for dilation or stones. PLAN: Continue diet as tolerated on dysphagia diet. He has been started on IV antibiotics as per ID. He is on Lovenox and Lasix. Monitor electrolytes. FU hepatitis panel,and trend LFT. We will put him on Protonix 40 mg daily. Thank you for this consult and for allowing us to participate in your patient's care. The patient was seen and case discussed with Dr. Pace. Mago COLÓN cc: [id number] TT: 01/10/2017 12:34:11 Confirmation # [id number] Dictation # [id number] tn MTDD
--- NOTE | 2017-01-10 13:48 | CON ---
DATE: 01/10/2017 REASON FOR CONSULTATION: Cardiac evaluation, status post syncope, unresponsiveness while in TCU, tra nsferred to ER and admitted to 2R. BRIEF CLINICAL HISTORY: This is an 81-year-old male with past medical history of coronary artery dis ease, CABG, history of PTCA, history of chronic atrial fibrillation on Coumadin; history of permanent pacemaker, who was recently admitted with acute exacerbation of COPD and was on the medical floor an d then patient was transferred to transitional care unit. Was in transitional care unit where found to be not improving, so plan was to transfer to ER. The patient had rapid response and transferred t o ER and then patient admitted here. Denies any chest pain, shortness of breath, any palpitation. PAST MEDICAL HISTORY: Significant for ischemic cardiomyopathy, hypertension, coronary artery disease , CABG, status post recent catheterization, nonobstructive coronary artery disease; history of recurr ent pneumonia, history of initially mentioned AICD was interrogated, found to be pacemaker with of th e life 1-2 months, history of chronic atrial fibrillation, noncompliance with the medication. PREVIOUS CARDIAC WORKUP: As follows: History of recent cardiac catheterization 03/29/2016 when the patient admitted with non-STEMI and troponin 7.35. Cardiac catheterization revealed 2-vessel disease - occluded LAD and RCA, patent stent in circumflex, ramus intermedius mild to moderate disease, case nt GLOVER to LAD and distal LAD diffusely diseased, ejection fraction 20%. EDP was in the range of 15. Medical treatment recommended. History of previously mentioned AICD, but it is a pacemaker. Yeste luke called [employer] and got the number of the pacemaker, and was found to be it is a pacem idalia which is reaching end of the life in 1-2 months. Cardiac catheterization dated 03/29/2013 as me ntioned above. History of coronary artery disease, CABG in 2006 in [facility], 3-ves mady bypass - initial GLOVER to LAD, saphenous graft to the RCA and saphenous graft to the diagonal 1 wa s done. Most recent cardiac catheterization revealed occluded LAD, occluded RCA, patent stent in cir cumflex, ramus intermedius mild to moderate disease, patent GLOVER to LAD, patent saphenous graft to di agonal 1, patent SVG to RCA. Medical treatment recommended. History of chronic atrial fibrillation, on anticoagulation. As mentioned, reaching end of the life of the pacemaker. The patient is on Faiza juanito. SOCIAL HISTORY: Denies any smoking. Denies any history of ____. CURRENT MEDICATIONS: The patient is taking Eliquis, Coreg, digoxin, Lasix, glipizide, isosorbide, po tassium chloride, prednisone. REVIEW OF SYSTEMS: As per HPI. PHYSICAL EXAMINATION: VITAL SIGNS: Temperature afebrile, heart rate 60, blood pressure 101/66. HEENT: PERRLA. Extraocular muscles intact. NECK: Supple. No carotid bruits. No thyromegaly. CHEST: Clear to auscultation. HEART: S1, S2 regular. ABDOMEN: Soft. EXTREMITIES: Clubbing and cyanosis negative. LABORATORY DATA: WBC 13.5, hemoglobin 13.____, hematocrit 43.3, platelet count 190. Chemistry shows sodium 130, potassium 4.6, chloride 103, carbon dioxide 25, anion gap of 14, BUN 41, creatinine 1.2. BNP 5800. INR 1.34. IMPRESSION: Syncope, etiology is not clear; history of coronary artery disease, history of coronary artery bypass graft, history of recent catheterization. Medical treatment recommended. Three-vessel bypass 2006, history of pacemaker which is reaching end of life, initially mentioned automatic impla ntable cardioverter-defibrillator but called yesterday the company, [employer], and it is a pacemaker, and the life is 1-2 months. History of chronic atrial fibrillation. On anticoagulation, on Eliquis 2.5 b.i.d. RECOMMENDATION: Follow up in telemetry. Etiology not clear. Follow up CPK, troponin. We will hold Eliquis today and generator change on ____ at 7 p.m. Keep n.p.o. after ____. Will give only 2 dose s of Lovenox tomorrow and generator change on ____. Thank you, Dr. Luis, for providing the opportunity in taking care of this patient. Kymberly Costa MD cc:Myles Luis MD [id number] TT: 01/10/2017 11:47:50 Confirmation # [id number] Dictation # [id number] mn
[2017-01-10 13:55] LABS: VENOUS BLOOD GAS BASE EXCESS 1.3 mmol/L (0.0-2.0); VENOUS BLOOD PH 7.37 (7.32-7.43)
--- NOTE | 2017-01-10 14:10 | HP ---
The patient was in transitional care unit and brought into the ER because of a change in mental statu s. HISTORY OF PRESENT ILLNESS: An 81-year-old male, history of chronic atrial fibrillation, on Eliquis, chronic ischemic cardiomyopathy with EF in the 15%, history of renal insufficiency, COPD, rheumatoid arthritis, diabetes and multiple medical problems, on steroids, was in TCU getting therapy. However , last 24 hours, patient seems weak, seems also a little bit lethargic. Day of admissions to the [facility], become so unresponsive. Also, just a half hour earlier, he was responding. He was complai ry. Denied any pain. Denied any chest pain, just seems weak generally and was recommended before he become completely unresponsive, patient was recommended to be discharged from TCU and to be redire cted to the Emergency Room for evaluation for admission to medical floor. However, when the patient became unresponsive, the code status called and the patient was brought in to the ER immediately for evaluations. He had a CT of the head, no bleed. However, he became unresponsive. His blood pressur e, hemodynamics were stable. His blood sugar was above 100 and he was breathing on his own. However , he was not responding to any verbal commands and question of intubation to protect his airway was r aised. However, the family, the daughter, the sister, the all agree about the patient wishes, w hich is do not resuscitate or do not intubate, so patient was kept in Emergency Room, was given BiPAP to help his breathing and was evaluated and was maintained in Emergency Room for further treatment a nd evaluation. Also, patient had a pacemaker that battery needs to be replaced because it is end of life. PAST MEDICAL HISTORY: As I mentioned in the present illness, he has rheumatoid arthritis, weakness, chronic AFib, ischemic cardiomyopathy, hypertension, hypercholesterolemia, diabetes type 2, COPD and chronic atrial fibrillation and osteoarthritis, gouty arthritis, general weakness, using a walker, gl aucoma. ALLERGIES: ALLERGIC TO ASPIRIN, TORADOL AND PENICILLINS. FAMILY HISTORY: Noncontributory. REVIEW OF SYSTEMS: As in the present illness. PHYSICAL EXAMINATION: VITAL SIGNS: On 01/09, his temperature 97, heart rate 55, blood pressure 154/74, respirations 16, sat urating was 94% on room air. HEAD AND NECK: Positive for JVD. CHEST: Diminished breath sounds. CARDIAC: First sound, second sound normal. Systolic murmur. ABDOMEN: Soft, nontender. EXTREMITIES: No edema. NEUROLOGIC: The patient seems not responding to verbal stimuli. He may his eyes with deep jaya nful stimuli, does not withdraw any of his arms or legs. He does move his arms, upper and lower extr emities spontaneously. LABORATORY DATA: On admission, white count 13.5, hemoglobin 13.8, hematocrit 43.3, platelets 190. H is chemistry shows sodium 137, potassium 4.6, chloride 103, bicarb 25, BUN 41, creatinine 1.2, blood sugar 112. His liver function tests came back as follows: Total bili 1.5, AST 114, ALT 126, alk rachel s 185. Troponin is negative and proBNP is 5800. The patient also had blood gas initially and it peter ws pO2 55, pH 7.38, pCO2 46, bicarb 27 on room air. Also, patient has chest x-ray, which was reported as no active pulmonary disease. There is moderate cardiomegaly and there is a dual lead pacemaker. The EKG was just ventricular pacing with sensing an d capturing. Also, a CT of the head was done and was no intracranial hemorrhage, cystic encephalomal acia on the sequelae of remote middle cerebral artery territory infarction and also patient has micro angiopathic changes with moderate age-related global parenchymal volume loss, no active bleeding. IMPRESSION AND PLAN: 1. This is an 81-year-old male, came in unresponsive with change in mental status, gradually got so worse. We will admit the patient to telemetry since he is not do not resuscitate/do not intubate. H emodynamically stable. We will give steroids 40 mg IV Solu-Medrol. Also, patient has been on predni sone like 50 mg every day. Currently, he is hemodynamically stable. We will continue steroids IV, b ronchodilators IV, inhaled bronchodilators, Brovana, Pulmicort, DuoNeb and albuterol. Will get also IV antibiotic for possible sepsis and ID consultation, Dr. Mai. The patient got vancomycin, g et also Azactam and he got Cipro later. At this time, we will continue current therapy. We will ronnie ve the antibiotic for the infectious disease evaluations and treatment, and also we are going to get a neuro consult for etiology of the change in mental status, which could be multifactorial. It could be due to related to any underlying stroke. However, CT was negative for bleed, but will further ev aluate. 2. Sepsis could be underlying. In the presence of abnormal liver function test and gallstones, we a re going to get also ultrasound of the gallbladder and liver, GI consultation, ammonia level, also pu lmonary consult. Check the carbon dioxide, seems within normal reasonable range. Other etiology of change in mental status has been ruled out with blood sugar within normal range. At this time, yancy ludwig current therapy. Follow up with the outside solar sales consultant. Discussed with the family in detail. The patie nt also needs to change the pacemaker wires when he is hemodynamically stable. Please be advised history and physical for 01/09/2017. The patient was seen in Emergency Room. Myles Luis MD cc: [phone] TT: 01/10/2017 14:10:00 en
[2017-01-10] MEDS ORDERED: Barium Sulfate Susp 2.1% w/v, 2.0% w/w 450 mL Bottle PO ONE (14:40)
--- NOTE | 2017-01-10 18:04 | CON ---
DATE: 01/10/2017 CHIEF COMPLAINT: Change in mental status. HISTORY OF PRESENTING ILLNESS: This is an 81-year-old man with past medical history of chronic atria l fibrillation on Eliquis, chronic ischemic cardiomyopathy with an ejection fraction of 15% with hist ory of renal insufficiency, COPD, rheumatoid arthritis, type 2 diabetes mellitus and multiple medical problems. Was on TCU, getting steroid therapy when the nurse noted that he was becoming more lethar gic and generalized weakness than compared to before, slower to respond. 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 Currently, when I am talking to the patient in Croatian, he is responding to commands. He is alert , orientated to person, place, month and year. He knows that he is in [facility] and he can un derstand his medical problems. He follows simple commands. He does have diabetic peripheral neuropa thy on examination but no pronator drift is seen. It was documented by the nurse's chart that he did have a blood sugar of 66, was given orange juice and it went up to 210 and became more responsive. Currently, his blood pressures are stable. There are no focal signs that I see on examination except for his transient drop in blood pressures. PAST MEDICAL HISTORY: As per the HPI, rheumatoid arthritis, generalized weakness, AFib, ischemic car diomyopathy, hypertension, hypercholesterolemia, type 2 diabetes mellitus, COPD, chronic atrial fibri llation, gouty arthritis, osteoarthritis, glaucoma. ALLERGIES: ALLERGIC TO ASPIRIN, TORADOL, AND PENICILLIN. FAMILY HISTORY: Noncontributory. REVIEW OF SYSTEMS: A 14-point review of systems negative except for the HPI. PHYSICAL EXAMINATION: VITAL SIGNS: Temperature 98.6, pulse rate 68, blood pressure 122/76, respiratory rate 21, oxygen sat uration ____% via room air. GENERAL: The patient is sitting up in bed in no acute distress. HEENT: Atraumatic, normocephalic. PERRLA. Extraocular muscles intact. NECK: Supple, no JVD, no adenopathy noted. LUNGS: Clear to auscultation. No adventitious sounds. HEART: S1, S2, normal rate and rhythm. No murmurs, rubs, or gallops. ABDOMEN: Soft, nontender, nondistended. Bowel sounds are present. EXTREMITIES: No clubbing, no cyanosis. Peripheral pulses 2+ felt bilaterally. NEUROLOGIC: The patient is alert, orientated to person, place, month and year. I was translating in Croatian. His speech was fluent, no aphasia noted. Poor attention span, slow thought process. Reca ll after 5 minutes is 1/3. Cranial nerves II-XII intact. MOTOR: Slight increased tone throughout. No pronator drift seen. Moves all extremities equally. T oes are equivocal. SENSORY: Decreased light touch and pinprick up to the calves bilaterally. Decreased vibration of th e toes. DTRs are 2+ throughout, 1 at the knees and absent at the ankles. COORDINATION: [id number]-[id number] intact. Gait is deferred for now. LABORATORIES: Sodium is 137, potassium 4.5, chloride of 101, carbon dioxide 26, BUN of 40, creatinin e of 1.2, random glucose of 80. ASSESSMENT AND PLAN: This is an 81-year-old man with past medical history of arthritis, rheumatoid a rthritis, gouty arthritis, history of chronic obstructive pulmonary disease, history of ischemic card iomyopathy with ejection fraction 15%, renal insufficiency, type 2 diabetes mellitus. Came in with [facility] medical problems. On the transitional care unit getting steroids when he was less responsive to commands and was brought to the Emergency Room for further evaluation. 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 Currently , he is presenting following simple commands. There was a transient drop in his blood sugar to 66, w hich he was given juice. At this time, I feel like his altered mental status is secondary to underly ing general medical problems, superimposed on transient hypoglycemia with transient cerebral hypoperf usion to the brain from his underlying ischemic cardiomyopathy. At this time, recommend: 1. Monitor his electrolytes and correct accordingly. 2. Monitor his sugars and keep his blood sugar between 140-180. 3. Hydrate the patient since he is slightly dehydrated ____ normal. 4. We can continue with his, he is on Lovenox 50 mg subQ q.12 for stroke prophylaxis given his histo ry of atrial fibrillation and will likely go back on Eliquis or Xarelto wherever he ____. 5. Continue with his Solu-Medrol 40 mg intravenous q.6 for his underlying sepsis and chronic obstruc tive pulmonary disease exacerbation. 6. Keep systolic blood pressure between 120-130 and avoid sudden drops in blood pressure and continu e with physical and occupational therapy. No further neurological workup needed at this time, but would repeat a CAT scan of the head tomorrow to see if there is any evolving infarct, but otherwise he is clinically stable. Glen Xie MD cc: [phone] TT: 01/10/2017 18:03:43 Confirmation # [id number] Dictation # [id number] sn
--- NOTE | 2017-01-10 19:01 | CT ---
PROCEDURE: CT Abdomen and Pelvis without IV contrast. HISTORY: elevated lactate COMPARISON: CT abdomen and pelvis without IV contrast performed 04/04/13, abdominal ultrasound performed 01/04/17 TECHNIQUE: Contiguous axial images of the abdomen and pelvis. Oral contrast was administered. No IV contrast given. Coronal and Sagittal reformats generated and reviewed. Radiation dose: Total exam DLP = 486.67 mGy-cm. This CT exam was performed using one or more of the following dose reduction techniques: Automated exposure control, adjustment of the mA and/or kV according to patient size, and/or use of iterative reconstruction technique. FINDINGS: There is limited evaluation of the solid organs without the administration of IV contrast. The patient's arms were not elevated with resultant streak artifact. LOWER THORAX: Bilateral pleural effusions. No visible pneumothorax. Partially imaged cardiomegaly. Dredge Pipeman view demonstrates median sternotomy wire. Partially imaged single lead pacer wire. Small hiatal hernia. LIVER: Mildly nodular hepatic contour. Heterogeneous coarsened hepatic echotexture. Small perihepatic ascites extending inferiorly into the pelvis . GALLBLADDER AND BILE DUCTS: Contracted state of the gallbladder limits evaluation. Otherwise grossly unremarkable. PANCREAS: Pancreatic atrophy. SPLEEN: Unremarkable unenhanced appearance. ADRENALS: Unremarkable unenhanced appearance. KIDNEYS AND URETERS: No hydronephrosis or obstructing renal calculus. 9 mm hypodensity within the right upper pole kidney, possibly cyst but too small to characterize. BLADDER: Aquino catheter within decompressed urinary bladder which contains air presumably due to recent instrumentation. REPRODUCTIVE: Unremarkable. APPENDIX: The appendix is not identified. BOWEL: The stomach is nondistended. The bowel loops appear within normal limits of caliber without evidence of intestinal obstruction. Mild constipation. PERITONEUM: Small pelvic free fluid. Very hepatic ascites which extends into the right lower quadrant. No definite free air. LYMPH NODES: No bulky lymphadenopathy identified. VASCULATURE: Atherosclerotic calcifications. No aortic aneurysm. BONES: Osseous demineralization. Degenerative changes. OTHER FINDINGS: Bilateral fat containing inguinal hernias. IMPRESSION: Limited study. Bilateral pleural effusions. No visible pneumothorax. Partially imaged cardiomegaly. Nodular hepatic contour. Heterogeneous coarsened hepatic echotexture. Perihepatic ascites which extends into the pelvis. Correlate clinically for cirrhosis. Aquino catheter within a decompressed urinary bladder which contains air likely related to recent instrumentation. Large bilateral fat containing inguinal hernias. The appendix is not identified. Additional findings as above.
--- NOTE | 2017-01-10 20:11 | PN ---
DATE: 01/10/2017 REFERRING PHYSICIAN: Dr. Luis. SUBJECTIVE: He is lying in the bed, head at 45 degrees, sleepy, arousable. No headache, no rhinitis , mild cough. No nausea, no vomiting, no diarrhea. No leg pain or leg swelling. OBJECTIVE: GENERAL: No acute distress. VITAL SIGNS: Temperature is 98, heart rate 70, respiratory rate is 20, blood pressure 101/66, pulse ox 96% on nasal cannula. HEENT: Moist mucous membrane. Crowded airway. Mallampati score is 4. NECK: Supple. No JVD. LUNGS: Has a fair airflow with rhonchi. HEART: S1, S2. ABDOMEN: Soft, nontender. No organomegaly. EXTREMITIES: No edema. NEUROLOGIC: Sleepy, arousable, follows simple commands. MEDICATIONS: He is on Azactam 1 g IV q. 8 hours, getting eyedrops, Coreg 3.125 mg twice a day, glip izide XL 2.5 mg at bedtime, insulin coverage, potassium 10 mEq daily, Lasix 40 mg IV daily, Lovenox 5 0 mg subQ q. 12 hours, prednisone 50 mg daily, Protonix 40 mg daily, Solu-Medrol 20 mg q. 6 hours, vancomycin 1 g IV daily. LABORATORY DATA: Shows hemoglobin 13.6, hematocrit ____, WBC 12.0, platelet is 180. Blood gases peter ws pH 7.37, pCO2 is 47, O2 22, that ____ venous gases. Blood sugar 349. AST 90, ALT 119, alkaline p hosphatase is 187. Ammonia level is 14, albumin is 3.4. Procalcitonin 0.14. IMPRESSION AND PLAN: Status post hypoglycemic episode, chronic obstructive lung disease, cardiomyopa thy, heart failure, hypertension, atrial fibrillation. The patient is DNR and DNI. Not very complia nt with the CPAP, will write order if he needs to use maybe later on, decrease Solu-Medrol. Keep hea d elevated at 45 degrees. Bronchodilator. Gastric prophylaxis. Sequential compression device to lo wer extremities. Thank you and will follow with you. Kymberly Bauer MD cc: [id number] TT: 01/10/2017 20:10:21 Confirmation # [id number] Dictation # [id number] jn
[2017-01-10] MEDS: MethylPREDNISolone 40 mg Vial IVP SCH (21:59)
[2017-01-10] MEDS: GlipiZIDE 2.5 mg SR Tab PO SCH (22:13)
--- NOTE | 2017-01-10 23:32 | PN ---
DATE: 01/10/2017 ADDENDUM This patient was seen and evaluated earlier today. This is an addendum to the GI consultation report dictated by Mago Oden. This patient was recently in the hospital. This patient was admitted with confusion. The patient wa s admitted with for unresponsive in the TCU. The patient was hypoglycemic. Now is more confused. T he patient was found to have elevated LFTs. GI consult was requested to follow up. No complaints of any abdominal pain now. The patient had an ultrasound done in the past. This showed no stones. Th e patient was also found to have ascites on the CT scan, which was reviewed. Did have an ammonia lev el done to rule out hepatic encephalopathy. This was negative. We would recommend at this point fol lowup with LFTs, and we will continue to closely follow up her care and suggest further management ba sed on the clinical course. Tra Pace MD cc: [id number] TT: 01/10/2017 23:31:45 Confirmation # [id number] Dictation # [id number] cameron
[2017-01-11] MEDS: MethylPREDNISolone 40 mg Vial IVP SCH ×3 (05:38→22:32)
[2017-01-11] MEDS: Aztreonam 1 Gm in NS 100mL 100 ML IVPB SCH ×3 (05:39→22:33)
[2017-01-11] MEDS: Insulin Reg-LOW-Coverage SC SCH ×4 (07:30→22:31)
--- NOTE | 2017-01-11 10:42 | US ---
HISTORY: lfts changes COMPARISON: 01/04/2017. TECHNIQUE: Sonographic evaluation of the right upper quadrant of the abdomen. FINDINGS: LIVER: Measures 13.9 cm in length. Hepatopedal blood flow. Fatty infiltration manifest ultrasonographically as increased echogenicity of the liver parenchyma. No mass. No intrahepatic bile duct dilatation. GALLBLADDER: Unremarkable. No gallstones. COMMON BILE DUCT: Measures 3.2 mm. No stones. No dilatation. PANCREAS: Unremarkable as visualized. No mass. No ductal dilatation. RIGHT KIDNEY: Measures 4.7 x 9.1 cm in length. Normal echogenicity. No calculus, mass, or hydronephrosis. AORTA: Obscured by overlying bowel gas. Non diagnostic assessment of the aorta. IVC: Obscured by overlying bowel gas. Non diagnostic assessment of inferior vena cava OTHER FINDINGS: None . IMPRESSION: No acute findings related to/accounting for the clinical presentation. No significant interval change compared to the prior examination(s). Limitations of the current examination: Nonvisualization abdominal aorta and IVC.
[2017-01-11] MEDS: Potassium Chloride 10 mEq ER Tab PO SCH (10:51)
[2017-01-11 10:52] LABS: ALB/GLOB RATIO 1.1 (1.1-1.8); BILIRUBIN,TOTAL 1.1 mg/dL (0.2-1.3); CALCIUM 9.1 mg/dL (8.4-10.5); POTASSIUM 4.2 mmol/L (3.6-5.0); TOTAL PROTEIN 6.3 g/dL (5.8-8.3)
[2017-01-11] MEDS: Vancomycin 1gm in NS 250ml 1 GM/250 ML BAG IVPB SCH (10:54)
[2017-01-11] MEDS: TIMOLOL OU SCH (10:54)
[2017-01-11] MEDS: Enoxaparin 60 mg Syringe SC SCH ×2 (11:02→22:32)
--- NOTE | 2017-01-11 13:56 | CT ---
PROCEDURE: CT HEAD WITHOUT CONTRAST. HISTORY: ams COMPARISON: 05/05/2014 and 01/09/2017. TECHNIQUE: Axial computed tomography images were obtained through the head/brain without intravenous contrast. Radiation dose: Total exam DLP = 819.15 mGy-cm. This CT exam was performed using one or more of the following dose reduction techniques: Automated exposure control, adjustment of the mA and/or kV according to patient size, and/or use of iterative reconstruction technique. FINDINGS: HEMORRHAGE: No intracranial hemorrhage. BRAIN: No mass effect or edema. Stable area of cortical infarction left posterior parietal region. VENTRICLES: Unremarkable. No hydrocephalus. CALVARIUM: Unremarkable. PARANASAL SINUSES: Unremarkable as visualized. No significant inflammatory changes. MASTOID AIR CELLS: Unremarkable as visualized. No inflammatory changes. OTHER FINDINGS: None. IMPRESSION: No significant interval change compared to the prior examination(s). No acute intracranial abnormalities. No significant findings to account for the clinical presentation.
--- NOTE | 2017-01-11 17:35 | PN ---
DATE: 01/11/2017 REFERRING PHYSICIAN: Dr. Luis. SUBJECTIVE: He is lying in the bed, head elevated at 45 degrees, sleepy. and family is at the bedside. Denies any cough, no shortness of breath, no pain, no nausea, no vomiting, no diarrhea. No leg pain or leg swelling. OBJECTIVE: GENERAL: In no acute distress. VITAL SIGNS: Temperature is 98, heart rate is 56, respiratory rate is 16, blood pressure 143/86, pul se ox 96% on room air. HEENT: Moist mucous membranes. Small oral cavity. Crowded airway. NECK: Supple. No JVD. LUNGS: Has scattered rhonchi. HEART: S1, S2. ABDOMEN: Soft, nontender. No organomegaly. EXTREMITIES: There is no edema. NEUROLOGIC: Awake, alert, follows simple commands. MEDICATIONS: He is on Azactam 1 g IV q.8 hours, Coreg 3.125 mg, which was on hold; Glucotrol-XL 2.5 mg daily, insulin coverage, potassium 10 mEq daily, Lasix 40 mg IV daily, Lovenox 50 mg subQ q.12 carlton rs, prednisone 15 mg daily, Protonix 40 mg daily, Solu-Medrol 20 mg q.8 hours, vancomycin 1 g IV courtney y. LABORATORY DATA: Shows sodium 137, potassium 4.2, chloride 102, bicarbonate 24, BUN 61, creatinine 1 .5, glucose is 271, calcium is 9.1, AST 50, ALT 94, alkaline phosphatase is 159, albumin is 3.3. MICROBIOLOGY: Blood cultures, urine cultures so far there is no growth. Had a CAT scan of the head done today, which shows no significant interval changes compared to prior examination. No acute intra cranial abnormality, no significant finding. for clinical presentation. IMPRESSION AND PLAN: Status post hypoglycemic episode, chronic obstructive lung disease, cardiomyopa thy, heart failure, hypertension, atrial fibrillation, may have sleep apnea syndrome, refusing to use CPAP and BiPAP. I spoke to the patient's family at the bedside. All their questions were answered. Discontinue prednisone. Continue Solu-Medrol. Keep head elevated at 45 degrees. Gastric prophyla xis. Sequential compression devices to lower extremity. Fall precaution. The patient is DNR and DN I. Overall, poor prognosis. Thank you and will follow with you. Kymberly Bauer MD cc: [id number] TT: 01/11/2017 17:35:18 Confirmation # [id number] Dictation # [id number] dn
--- NOTE | 2017-01-11 18:05 | PN ---
DATE: 01/11/2017 The patient is in bed in no acute distress, nontoxic. PHYSICAL EXAMINATION: VITAL SIGNS: Temperature is 97, blood pressure is 143/80, respiratory rate of 16. HEENT: Unremarkable. NECK: Supple. LUNGS: Have decreased breath sounds. HEART: Normal S1, S2. ABDOMEN: Soft, nontender. LABORATORY DATA: Reveals a white count is down to 12,000, hemoglobin is noted. BUN of 61, creatinin e of 1.5. Urinalysis is noted and serology is noted. Microbiology reveals the blood cultures are ne gative. Urine cultures are negative. ASSESSMENT AND PLAN: This is an 81-year-old male with systemic inflammatory response syndrome, metab olic encephalopathy due to hypoglycemia and history of healthcare-associated pneumonia, coronary bypa ss graft, coronary artery disease, congestive heart failure, chronic obstructive pulmonary disease, d iabetes on vancomycin, Azactam and Flagyl and pending workup results. Review of the orders reveals the antibiotics to be vancomycin and Azactam. The patient also had a CA T scan of the head read by Dr. Goyo Amor, no significant change. The patient had a CAT scan of the abdomen and pelvis read by Dr. Joelle Davis which reveals unremarkable findings in the lower th orax. The CAT scan of the abdomen is seen. The patient had an ultrasound of gallbladder, no acute f indings with a chest x-ray, no pulmonary findings with negative blood cultures and negative urine cul tures and negative procalcitonin. We will follow with you and most likely will discontinue the antib iotics within the next 24 hours. Eze Mai MD cc: [id number] TT: 01/11/2017 18:04:27 Confirmation # [id number] Dictation # [id number] [email or web address]
--- NOTE | 2017-01-11 18:08 | PN ---
DATE: 01/11/2017 This is an addendum. This patient was seen and evaluated earlier today. The patient's family, both son and the [id number] were at the bedside. Family was at bedside. Denies any abdominal compla ints. Tolerating the diet. PHYSICAL EXAMINATION: VITAL SIGNS: Temperature is 97, pulse of 56, blood pressure 143/86. HEENT: Atraumatic, anicteric. NECK: Supple. HEART: S1, S2 heard. LUNGS: Bilateral air entry present. ABDOMEN: Soft. There is no more mass palpable. EXTREMITIES: No edema. NEUROLOGIC: He is drowsy, but appears to be more alert than yesterday. LABORATORY DATA: Alkaline phosphatase is 159, AST 50, ALT is 94. The patient's ammonia levels are n ormal. IMPRESSION: This is an 81-year-old patient admitted with hypoglycemia and change of mental status. The patient has a history of a nodular liver and also small ascites present. His ammonia levels are, however, normal. This 81-year-old patient had multiple recent hospitalizations with a history of pu lmonary infection, decompensated congestive heart failure and also had some lower chest and epigastri c discomfort. He has been evaluated by our service before. Had an ultrasound scan done twice and sh owed no stones noticed. Initially, there was small pericholecystic fluid noticed. This was thought to be secondary to the minimal ascites. The patient's CT was reviewed. There is nodularity of the l iver surface noticed; is probably suggestive of possible cirrhosis. The patient did have a hepatitis profile done in the past, which was negative. 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 Abnormal LFTs too can be secondary to the hepatic condition. The patient did have elevated LFTs that completely normalized. I had a detailed discussion with the patient's son and also the patient's [id number] at length. The decision by the family was not to do any aggressive evaluation including endoscopic evaluation. The patient is reluctant. The family is reluctant. They wanted more conservative management. With regards to gastrointestinal would not recommend any liver biopsy or endoscopy at the present time. This was clearly discussed with the patient's family; they do not want it at the moment. Will contin ue to follow up the LFTs and continue the present optimization of the cardiopulmonary status. The he patitis profile done in the past has been negative. Will continue to closely follow up his care and suggest further management based on the clinical course. Tra Pace MD cc: [id number] TT: 01/11/2017 18:08:38 Confirmation # [id number] Dictation # [id number] dn
[2017-01-11] MEDS: Non Formulary Medication (Brimonidine 0.2% [Alphagan 0.2% Opht] 1 DROP) OU SCH (22:33)
[2017-01-11] MEDS: GlipiZIDE 2.5 mg SR Tab PO SCH (22:41)
[2017-01-12] MEDS: Aztreonam 1 Gm in NS 100mL 100 ML IVPB SCH ×3 (06:36→21:55)
[2017-01-12] MEDS: MethylPREDNISolone 40 mg Vial IVP SCH ×3 (06:36→21:54)
--- NOTE | 2017-01-12 07:11 | PN ---
DATE: 01/11/2017 The patient was seen today. He is more awake, more alert, comfortable, no distress. He responded pr operly to every question. He has no chest pain any part of his body. He is responding. He ate gabi kfast. Bowel movement okay. No new complaint. Seemed generally weak and last night, he was a littl e bit agitated and they put a wrist restraint overnight. PHYSICAL EXAMINATION: VITAL SIGNS: Temperature 97, heart rate 53, blood pressure 126/83, respirations 18, saturation 96% o n room air. HEAD AND NECK: Normal. No JVD, no thyromegaly. CHEST: Clear, good entry. CARDIAC: First sound, second sound normal. ABDOMEN: Soft, nontender. EXTREMITIES: No edema. NEUROLOGIC: The patient generally weak, but otherwise he is awake and alert. He is still confused o n and off and he recognized me. LABORATORY DATA: ____, sodium 137, potassium 4.2, chloride 102, bicarb 24, BUN 61, creatinine 1.5. Blood sugar 234. CBC: 12,000 white count, hemoglobin ____, hematocrit 43, platelets are 180. IMPRESSION AND PLAN: 1. Acute change in mental status, probably toxic metabolic. Sepsis seems negative because blood cul ture, urine culture negative. A chest x-ray was done, shows no infiltrates. Also, patient has galls tones, abnormal liver function test and gallbladder ultrasound has been ordered, which showed no acut e findings, no significant ____ change from previous examinations. 2. Acute chronic obstructive pulmonary disease exacerbation. Continue intravenous steroid. Continu e inhaled bronchodilators. 3. Ischemic cardiomyopathy, congestive heart failure, chronic atrial fibrillation. Continue Loveno x. Continue current medication carvedilol. 4. Diabetes, uncontrolled. Glucotrol 2.5 mg plus insulin. We are going to go up on the insulin reg imen and we will follow up clinically. 5. The patient also is going to get Risperdal and get psychiatric consult for behavior changes with agitation overnight. Myles Luis MD cc: [phone] TT: 01/12/2017 07:10:45 Confirmation # [id number] Dictation # [id number] sn
--- NOTE | 2017-01-12 07:34 | PN ---
DATE: 01/10/2017 The patient is seen today. He is more responding. He is sitting on the bed, lying on one side, but he responds on calling his name. He has no pain and he is comfortable. He eats. No distress. The patient is alert and awake. Much better than the day of admission. PHYSICAL EXAMINATION: VITAL SIGNS: On 01/10/2017, his temperature 97.4, heart rate 55, blood pressure 151/74, respirations 18, saturating 96%. HEAD AND NECK: Normal. No JVD, no thyromegaly. CHEST: Clear bilaterally. CARDIAC: First sound, second sound normal. Systolic murmur across the precordium. ABDOMEN: Soft, nontender. EXTREMITIES: No edema. NEUROLOGIC: Normal. LABORATORY DATA: Shows white count 12, hemoglobin 13.6, hematocrit 43, platelets 180. Chemistry: S odium 137, potassium 4.2, chloride 102, bicarbonate 24, BUN 61, creatinine 1.5, blood sugar 234, alk phos 159, ALT 94. Liver function slightly elevated. His ammonia level came back normal. Total prot ein, albumin, globulin are normal levels. Blood sugar in the 200s; will increase his insulin. IMPRESSION AND PLAN: 1. Acute change in mental status, etiology unclear, probably toxic metabolic. The patient at this t yeni he has negative blood culture, negative urine culture. Continue current therapy for now. The pa maurice is getting Azactam, he gets vanco. Will follow up with ID. Could be transient ischemia, could be underlying seizure, could be medication side effects. Etiology of his acute change in mental sta tus still unclear; however, patient clinically better today and stable. 2. Acute chronic obstructive pulmonary disease exacerbations. Continue steroids. Continue inhaled bronchodilator. 3. Coronary artery disease, ischemic cardiomyopathy, chronic atrial fibrillation, permanent pacemake r. Will change his pacemaker battery as per Dr. Costa when clinically stable. Continue current thera py, Eliquis 2.5 mg b.i.d. Continue Lasix. Continue potassium. Continue current therapy. Follow up clinically. The patient is on Lovenox 50 mg q. 12. We will later on discontinue that and put him o n Eliquis as has been before. 4. Generalized weakness. He seems better. Will follow up clinically. Continue his eye drops for g laucoma. Myles Luis MD cc: [phone] TT: 01/12/2017 07:33:31 Confirmation # [id number] Dictation # [id number] mn
[2017-01-12] MEDS: Insulin Reg-LOW-Coverage SC SCH ×4 (08:52→21:57)
[2017-01-12] MEDS: Vancomycin 1gm in NS 250ml 1 GM/250 ML BAG IVPB SCH (09:58)
[2017-01-12] MEDS: Potassium Chloride 10 mEq ER Tab PO SCH (09:58)
[2017-01-12] MEDS: TIMOLOL OU SCH (10:02)
--- NOTE | 2017-01-12 15:35 | PN ---
DATE: 01/12/2017 The patient is in bed in no acute distress, was seen earlier this morning. Has periods of confusion and has had no fevers last night. PHYSICAL EXAMINATION: VITAL SIGNS: Temperature is 97, blood pressure is 120/60, respiratory rate of 18, heart rate of 55. HEENT: Unremarkable. NECK: Supple. LUNGS: Have decreased breath sounds. HEART: Normal S1, S2. ABDOMEN: Soft, nontender, no rebound, no guarding, no masses. LABORATORY DATA: Reveals a white count of 12,000, hemoglobin of 13, platelets of 180. Chemistries a re noted. BUN of 61, creatinine of 1.5, alkaline phosphatase is 159. Serology is negative. ASSESSMENT AND PLAN: This is an 81-year-old male with systemic inflammatory response syndrome, metab olic encephalopathy due to hypoglycemia secondary to healthcare-associated pneumonia and coronary art karla bypass graft by history, coronary artery disease, congestive heart failure, chronic obstructive l juwan disease, diabetes, on vancomycin and Azactam and currently with negative cultures and negative pr ocalcitonin. The patient has been afebrile. The white count is down to 12,000 with negative urine a nd blood cultures. CAT scan of the head is also noted to be negative. On Azactam and vancomycin. W ill check on the CBC in a.m. If normalized and all cultures remain negative, will discontinue antibi otics within the next 24 hours. Eze Mai MD cc: [id number] TT: 01/12/2017 15:34:04 Confirmation # [id number] Dictation # [id number] cameron
--- NOTE | 2017-01-12 16:57 | PN ---
DATE: 01/12/2017 ADDENDUM This patient was seen and evaluated earlier today. The patient's was at bedside. No complaints of abdominal pain, tolerating the diet. PHYSICAL EXAMINATION: VITAL SIGNS: Temperature is 97, pulse 55, blood pressure 125/63. HEENT: Atraumatic, anicteric. NECK: Supple. HEART: S1, S2 heard. LUNGS: Bilateral air entry present. ABDOMEN: Soft. No tenderness. IMPRESSION AND PLAN: This is an 81-year-old patient admitted with hypoglycemia, change of mental sta tus, now being treated for pneumonia, history of congestive heart failure, coronary artery disease. The patient has mild ascites and elevated LFTs thought to be probably secondary to hepatic congestion . Hepatitis profile was negative. I did have a detailed discussion with the family yesterday. They wanted to have more conservative management. They even for the endoscopic evaluation at the p resent time. We will continue followup of the LFTs and continue the empiric therapy with the PPI. Thank you very much for allowing us to participate in the care of the patient. Tra Pace MD cc: [id number] TT: 01/12/2017 16:56:42 Confirmation # [id number] Dictation # [id number] scotty
--- NOTE | 2017-01-12 17:43 | PN ---
DATE: 01/12/2017 REFERRING PHYSICIAN: Dr. Luis. SUBJECTIVE: The patient is lying in the bed, head at 45 degrees. is at bedside. Night was unr emarkable. Not very compliant with CPAP/BiPAP. Denying any cough or shortness of breath. No nausea , vomiting, diarrhea. No leg pain or leg swelling. OBJECTIVE: GENERAL: No acute distress. VITAL SIGNS: Temp is 98, heart rate is 95, respiratory rate is 18, blood pressure 125/63. HEENT: Small oral cavity. Crowded airway. NECK: Supple. No JVD. LUNGS: Has poor effort with scattered rhonchi. HEART: S1 and S2. ABDOMEN: Soft, nontender. No organomegaly. EXTREMITIES: There is no edema. NEUROLOGIC: Sleepy, arousable, follows simple commands. MEDICATIONS: He is on Azactam 1 g IV q. 8 hours, Coreg 3.125 mg twice a day, glipizide 2.5 mg at bed time, insulin coverage, potassium 10 mEq daily, Lasix 20 mg IV daily, Protonix 40 mg IV daily, Risper kiko 0.25 mg daily, Solu-Medrol 20 mg q. 8 hours, vancomycin 1 g IV daily. LABORATORY DATA: Shows blood sugar this morning 254. Microbiology: Blood cultures, urine culture, there is no growth. IMPRESSION AND PLAN: Status post hypoglycemic episode, chronic obstructive lung disease, cardiomyopa thy, heart failure, hypertension, atrial fibrillation, may have sleep apnea syndrome, refusing CPAP a nd BiPAP. DNR/DNI. I spoke to the patient's at bedside. All their questions answered. Continu e bronchodilator. Keep head elevated at 45 degrees. Sleep apnea precautions. Gastric prophylaxis. Deep venous thrombosis prophylaxis. Consider palliative consult. Will follow with you. Kymberly Bauer MD cc: [id number] TT: 01/12/2017 17:42:54 Confirmation # [id number] Dictation # [id number] scotty
[2017-01-12] MEDS: GlipiZIDE 2.5 mg SR Tab PO SCH (21:56)
--- NOTE | 2017-01-13 00:14 | PN ---
DATE: 01/12/2017 SUBJECTIVE: The patient clinically stable, more awake, responding, eating. No chest pain, no distre ss, no other new complaint. He looks better. PHYSICAL EXAMINATION: VITAL SIGNS: Temperature 97, heart rate is 56, blood pressure 135/84, respirations 20, saturation 95 % on room air. HEAD AND NECK: Normal. No JVD, no thyromegaly. CHEST: Clear. CARDIAC: First sound, second sound normal. Systolic murmur across the precordium. ABDOMEN: Soft, nontender. EXTREMITIES: No edema. NEUROLOGIC: He is more responding. He is awake, alert, and responds to questions properly. LABORATORY DATA: Noted for blood sugar 200s to 250s. IMPRESSION AND PLAN: 1. Acute change in mental status, probably toxic metabolic, improved. Continue current therapy. 2. Congestive heart failure, ischemic cardiomyopathy, chronic atrial fibrillations. Continue Coreg. Will increase Coreg for his high blood pressure to 6.25 b.i.d. Continue Lasix and will follow up c linically. 3. Possible underlying infections. Continue Azactam. Continue current therapy. 4. Acute chronic obstructive pulmonary disease exacerbation. The patient currently on Solu-Medrol I V. Continue IV steroids. Continue inhaled bronchodilators. 5. Diabetes. The patient currently on Glucotrol-XL 2.5 mg plus insulin coverage. Will add longacti ng medications at this time. Continue current therapy. 6. Continue Risperdal p.r.n. for his agitations. Follow up. Myles Luis MD cc: [phone] TT: 01/13/2017 00:13:21 Confirmation # [id number] Dictation # [id number] dn
[2017-01-13] MEDS: Insulin Detemir 100 units/ml Vial (Levemir) SC SCH ×3 (00:30→23:08)
[2017-01-13] MEDS: Non Formulary Medication (Brimonidine 0.2% [Alphagan 0.2% Opht] 1 DROP) OU SCH (03:49)
[2017-01-13] MEDS: Aztreonam 1 Gm in NS 100mL 100 ML IVPB SCH ×2 (05:11→15:25)
[2017-01-13] MEDS: MethylPREDNISolone 40 mg Vial IVP SCH ×3 (05:11→22:33)
[2017-01-13 05:19] LABS: BLOOD UREA NITROGEN 56 mg/dL (7-21); CALCIUM 9.4 mg/dL (8.4-10.5); CARBON DIOXIDE 21 mmol/L (21-33); CHLORIDE 106 mmol/L (98-107); GFR AFRICAN-AMERICAN > 60; GLUCOSE,RANDOM 235 mg/dL (70-110); POTASSIUM 4.4 mmol/L (3.6-5.0); SODIUM 139 mmol/L (132-148)
[2017-01-13 05:20] LABS: HEMATOCRIT 43.2 % (42.0-52.0); MEAN CELL VOLUME 93.1 fL (80.0-105.0); MEAN CORPUSCULAR HEMOGLOBIN 30.2 pg (25.0-35.0); MEAN CORPUSCULAR HGB CONC 32.4 g/dl (31.0-37.0); MEAN PLATELET VOLUME 10.3 fl (7.0-11.0); PLATELET COUNT 133 10^3/uL (120.0-450.0); RED CELL DISTRIBUTION WIDTH 16.4 % (11.5-14.5); WHITE BLOOD COUNT 13.8 10^3/ul (4.5-11.0)
[2017-01-13 05:21] LABS: INR 1.22 (0.93-1.08); PARTIAL THROMBOPLASTIN TIME 26.5 Seconds (23.7-30.8)
[2017-01-13 05:23] LABS: ADD MANUAL DIFF? YES
[2017-01-13 06:02] LABS: BAND 3 % (0-2); NEUTROPHIL 93 % (50.0-70.0)
[2017-01-13 06:03] LABS: ANISOCYTOSIS 1+; PLATELET ESTIMATE NORMAL (NORMAL)
[2017-01-13] MEDS: Insulin Reg-LOW-Coverage SC SCH ×5 (06:50→21:59)
[2017-01-13] MEDS ORDERED: Liquid Adhesive TOP ONE (09:45)
[2017-01-13] MEDS ORDERED: Lidocaine 2% Inj (20ml) ONE (09:45)
[2017-01-13] MEDS ORDERED: Midazolam 2 MG/2 ML VIAL ONE (10:38)
[2017-01-13] MEDS: TIMOLOL OU SCH (11:00)
[2017-01-13] MEDS ORDERED: Sodium Chloride 0.9% 1,000 ML IV SCH (11:30)
--- NOTE | 2017-01-13 11:51 | PN ---
DATE: 01/13/2017 REASON FOR THE DICTATION: Altered mental status, end of life of pacemaker. BRIEF CLINICAL HISTORY: This is an 81-year-old male with a past medical history significant for rashaun nary artery disease, CABG, PTCA, history of chronic atrial fibrillation on Coumadin. Now, patient is on Eliquis, end of life of pacemaker. The patient still closing his eyes. Last night, he got Rispe rdal and is sleeping. PHYSICAL EXAMINATION: VITAL SIGNS: Temperature afebrile, heart rate 55, blood pressure 140/80. HEENT: PERRLA. Extraocular muscles intact. NECK: Supple. No carotid bruits. No thyromegaly. CHEST: Clear to auscultation. HEART: S1, S2 regular. ABDOMEN: Soft. EXTREMITIES: Clubbing, cyanosis negative. BLOOD WORKUP: WBC 13. , hemoglobin 14, hematocrit 43.2, platelet count 133. Chemistry shows sod ium , potassium 4. , chloride 106, carbon dioxide 21, anion gap of 16, BUN 56, creatinine 1. 3. INR 1.22. IMPRESSION: End of the life of pacemaker, altered mental status, sepsis, coronary artery disease, co ronary artery bypass graft, cardiomyopathy, chronic atrial fibrillation/flutter. RECOMMENDATION: We will change the pacemaker generator, new [employer]. Will start medication. Resum e the DNR. DNR was held for pacemaker. Continue antibiotic as before. Continue gentle hydration. Will resume Eliquis from day after tomorrow. That is Friday at 10 a.m. Will follow CBC Thank you, Dr. Luis, for providing us the opportunity in taking care of the patient. Kymberly Costa MD cc: [phone] TT: 01/13/2017 11:50:50 Confirmation # [id number] Dictation # [id number] en
[2017-01-13 12:39] LABS: ALB/GLOB RATIO 1.2 (1.1-1.8); BILIRUBIN,DIRECT 0.7 mg/dL (0.0-0.4); TOTAL PROTEIN 6.3 g/dL (5.8-8.3)
[2017-01-13] MEDS: Vancomycin 1gm in NS 250ml 1 GM/250 ML BAG IVPB SCH (13:12)
[2017-01-13] MEDS: Potassium Chloride 10 mEq ER Tab PO SCH (13:15)
--- NOTE | 2017-01-13 13:19 | CARD ---
APPROVED REPORT EKG Measurement Heart [id number] MD P80 [id number] <Conclusion> Electronic ventricular pacemaker Underlying rhythm is A Flutter
--- NOTE | 2017-01-13 17:12 | CP.PCM.PN ---
Subjective - Date & Time of Evaluation Date of Evaluation: 01/13/17 Time of Evaluation: 09:30 - Subjective Subjective: Comfortable, afebrile, not in distress. Objective - Vital Signs/Intake and Output Vital Signs (last 24 hours): Temp Pulse Resp BP Pulse Ox 97 F L 55 L 19 140/80 96 01/13/17 06:00 01/13/17 06:00 01/13/17 06:00 01/13/17 06:00 01/13/17 06:00 Intake and Output: 01/13/17 01/13/17 06:59 18:59 Intake Total 320 Output Total 850 Balance -530 - Medications Medications: Current Medications Carvedilol (Coreg) 6.25 mg PO BID JAVI Furosemide (Lasix) 20 mg IVP DAILY [facility] Last Admin: 01/12/17 10:01 Dose: 20 mg Glipizide (Glucotrol Xl) 2.5 mg PO HS [facility] Last Admin: 01/12/17 21:56 Dose: 2.5 mg Aztreonam (Azactam 1 Gm) 100 mls @ 100 mls/hr IVPB Q8 JAVI PRN Reason: Protocol Stop: 01/19/17 06:01 Last Admin: 01/13/17 05:11 Dose: 100 mls/hr Vancomycin HCl (Vancomycin 1gm) 1 gm in 250 mls @ 167 mls/hr IVPB DAILY JAVI PRN Reason: Protocol Stop: 01/19/17 10:01 Last Admin: 01/12/17 09:58 Dose: 167 mls/hr Insulin Detemir (Levemir) 10 unit SC Q12H [facility] Last Admin: 01/13/17 00:30 Dose: Not Given Insulin Human Regular (Humulin R Low) 0 units SC ACHS [facility] PRN Reason: Protocol Last Admin: 01/13/17 06:50 Dose: 3 units Methylprednisolone (Solu-Medrol) 20 mg IVP Q8 [facility] Last Admin: 01/13/17 05:11 Dose: 20 mg Non-Formulary Medication (Brimonidine 0.2% [Alphagan 0.2% Opht]) 1 drop OU HS [facility] Last Admin: 01/13/17 03:49 Dose: Not Given Non-Formulary Medication (Timolol [Betimol]) 5 ml OU DAILY [facility] Last Admin: 01/12/17 10:02 Dose: Not Given Pantoprazole Sodium (Protonix Inj) 40 mg IVP DAILY JAVI Last Admin: 01/12/17 09:58 Dose: 40 mg Potassium Chloride (Klor-Con 10) 10 meq PO DAILY JAVI Last Admin: 01/12/17 09:58 Dose: 10 meq Risperidone (Risperdal Tab) 0.25 mg PO DAILY JAVI PRN Reason: Protocol Last Admin: 01/12/17 09:58 Dose: 0.25 mg - Labs Labs: 01/13/17 05:00 01/13/17 05:00 PT 13.2 Seconds (9.9-11.8) H 01/13/17 05:00 INR 1.22 (0.93-1.08) H 01/13/17 05:00 APTT 26.5 Seconds (23.7-30.8) 01/13/17 05:00 - Constitutional Appears: Non-toxic, No Acute Distress - Head Exam Head Exam: NORMAL INSPECTION - ENT Exam ENT Exam: Mucous Membranes Moist - Neck Exam Neck Exam: absent: Lymphadenopathy, Meningismus - Respiratory Exam Respiratory Exam: Decreased Breath Sounds - Cardiovascular Exam Cardiovascular Exam: +S1, +S2 - GI/Abdominal Exam GI & Abdominal Exam: Soft. absent: Tenderness Assessment and Plan - Assessment and Plan (Free Text) Plan: Assessment Systemic Inflammatory Response syndrome, consider metabolic encephalopathy due to hypoglycemia, clinically improving, with no evidence of sepsis identified history of healthcare-associated pneumonia CAD S/P CABG chronic CHF HTN COPD DM S/P pacemaker placement atrial fibrillation history of gastritis Plan PCt is only 0.24, cultures have been negative - will d/c Vanco and Azactam and observe will follow clinically
--- NOTE | 2017-01-13 18:39 | CARD ---
APPROVED REPORT HISTORY The Patient is a 81 year-old male with a history of PROCEDURES Replacement of Dual Chamber Pacemaker INDICATIONS End of life CONSCIOUS SEDATION AGENTS Versed Fentanyl IMPLANTED DEVICES [facility] EXPLANTED DEVICES [employer] , DDDR , ASSURITY OPERATIVE NOTE The patient was brought to the Cardiac Catheterization Laboratory in a fasting state and was prepped and draped in a sterile manner. The left subclavian region was infiltrated with 2% Lidocaine subcutaneously. A transverse incision was made in the left subclavian area. The subcutaneous pocket was opened and the pulse generator was removed. The ventricular lead wire was exposed via blunt dissection. P Wave...6.7 Threshold...2.1 Resistance...350 THE VENTRICULAR ELECTRODE PARAMETERS R WAVE 12 THRESHOLD0.8 RESISTANCE 504 setscrews firmly tightened to insure adequate contact and stability. The lead and pulse generator were placed into the subcutaneous pocket. Sharp and sponge counts were confirmed to be correct. At this time the pocket was closed subcutaneously with a Vicryl 2.0 and the skin was closed with a Vicryl 4.0 .The operative site was dressed in sterile fashion. The patient tolerated the procedure well and was transferred tot floor in stable condition. COMPLICATIONS The patient tolerated the procedure well and there were no complications associated with the procedure. CONCLUSION Successful Pace maker Generator Francisco DDDR , [facility]. Arrangement has been made foer F/u in [facility] clinic. CC; Dr. Luis
[2017-01-13] MEDS: GlipiZIDE 2.5 mg SR Tab PO SCH (22:26)
--- NOTE | 2017-01-14 02:39 | PN ---
DATE: 01/13/2017 REFERRING PHYSICIAN: Dr. Luis. SUBJECTIVE: He is lying in the bed, status post pacemaker battery replaced. No headache, no rhiniti s, no nausea, no vomiting, diarrhea. No leg pain or leg swelling. OBJECTIVE: GENERAL: No acute distress. VITAL SIGNS: Temperature is 98, heart rate is 60, respiratory rate is 20, blood pressure 153/93, pul se ox 99% on nasal cannula. HEENT: Moist mucous membrane. No ulcer or oral thrush noted. NECK: Supple. No JVD. LUNGS: Has a fair airflow. HEART: S1, S2. ABDOMEN: Soft, nontender. No organomegaly. EXTREMITIES: No edema. NEUROLOGIC: Sleepy, arousable, follows simple command. MEDICATIONS: The patient is on Coreg 6.25 mg twice a day, Eliquis 2.5 mg twice a day, Geodon 10 mg I M q. 6 hours p.r.n., glipizide 2.5 mg at bedtime, insulin coverage, potassium 10 mEq daily, Lasix 20 mg IV daily, Lovenox 10 units subQ q. 12 hours, Protonix 40 mg daily, Solu-Medrol 20 mg q. 8 hours, t imolol 5 mg daily, Tylenol p.r.n. basis. LABORATORY DATA: Shows hemoglobin 14.0, hematocrit 43.2, WBC 13.8, platelet count is 133. INR 1.22, PTT is 27. Sodium 139, potassium 4.4, chloride 106, bicarbonate 21, BUN 66, creatinine 1.3, glucose 235, calcium is 9.4. AST 62, ALT 105, alkaline phosphatase is 167, albumin is 3.4. MICROBIOLOGY: Blood culture, urine culture, there is no growth. IMPRESSION AND PLAN: Status post hypoglycemic episode, chronic obstructive lung disease, cardiomyopa thy, heart failure, hypertension, atrial fibrillation, may have sleep apnea syndrome, status post pac emaker battery change. The patient is DNR and DNI. Pulmonary point of view, doing okay. Encourage CPAP use. Give her 45 daily bronchodilator, testing, deep venous thrombosis prophylaxis, physi harman therapy, out of bed to chair. Fall precaution. Thank you and will follow with you. Kymberly Bauer MD cc: [id number] TT: 01/14/2017 02:38:55 Confirmation # [id number] Dictation # [id number] mn
--- NOTE | 2017-01-14 06:14 | CP.PCM.PN ---
Subjective - Date & Time of Evaluation Date of Evaluation: 01/14/17 Time of Evaluation: 06:13 - Subjective Subjective: Patient was seen at bed side because he was able to be aroused only with deep painful stimuli. I tried to wake him up by sternal rub, he got upset, tried to push my hands away , tried to bite me. Pupils are round ,regular bilaterally.FSBS was ordered before coming down to see patient which was 192 mg%. Medical record was reviewed . This 81 year old male was admitted with altered mental status. Has PMH of COPD, atrial fibrillation, ischemic cardiomyopathy, DM, history renal insufficiency. Objective - Vital Signs/Intake and Output Vital Signs (last 24 hours): Temp Pulse Resp BP Pulse Ox 97 F L 61 19 153/93 H 99 01/13/17 19:14 01/14/17 05:05 01/13/17 19:14 01/13/17 19:14 01/13/17 13:54 97.3*F,60,20/min,151/88. Intake and Output: 01/13/17 01/14/17 18:59 06:59 Intake Total 360 120 Output Total 950 750 Balance -590 -630 - Medications Medications: Current Medications Acetaminophen (Tylenol 325mg Tab) 650 mg PO Q4 PRN PRN Reason: Pain, moderate (4-7) Last Admin: 01/13/17 17:35 Dose: 650 mg Apixaban (Eliquis) 2.5 mg PO BID [facility]AVI PRN Reason: Protocol Carvedilol (Coreg) 6.25 mg PO BID [facility] Last Admin: 01/13/17 17:35 Dose: 6.25 mg Furosemide (Lasix) 20 mg IVP DAILY [facility] Last Admin: 01/13/17 13:15 Dose: 20 mg Glipizide (Glucotrol Xl) 2.5 mg PO HS [facility] Last Admin: 01/13/17 22:26 Dose: Not Given Insulin Detemir (Levemir) 10 unit SC Q12H [facility] Last Admin: 01/13/17 23:08 Dose: 10 unit Insulin Human Regular (Humulin R Low) 0 units SC ACHS [facility] PRN Reason: Protocol Last Admin: 01/13/17 21:59 Dose: Not Given Methylprednisolone (Solu-Medrol) 20 mg IVP Q8 [facility] Last Admin: 01/13/17 22:33 Dose: 20 mg Non-Formulary Medication (Brimonidine 0.2% [Alphagan 0.2% Opht]) 1 drop OU HS [facility] Last Admin: 01/13/17 03:49 Dose: Not Given Non-Formulary Medication (Timolol [Betimol]) 5 ml OU DAILY [facility] Last Admin: 01/13/17 11:00 Dose: Not Given Pantoprazole Sodium (Protonix Inj) 40 mg IVP DAILY [facility] Last Admin: 01/13/17 13:14 Dose: 40 mg Potassium Chloride (Klor-Con 10) 10 meq PO DAILY [facility] Last Admin: 01/13/17 13:15 Dose: 10 meq Ziprasidone (Geodon Inj) 10 mg IM Q6H PRN PRN Reason: Agitation Last Admin: 01/13/17 21:15 Dose: 10 mg - Labs Labs: 01/13/17 05:00 01/13/17 05:00 PT 13.2 Seconds (9.9-11.8) H 01/13/17 05:00 INR 1.22 (0.93-1.08) H 01/13/17 05:00 APTT 26.5 Seconds (23.7-30.8) 01/13/17 05:00 - Constitutional Appears: Well, No Acute Distress - Head Exam Head Exam: ATRAUMATIC, NORMAL INSPECTION, NORMOCEPHALIC - Eye Exam Additional comments: Pupils round , regular bilaterally. - ENT Exam ENT Exam: Normal External Ear Exam - Neck Exam Neck Exam: Normal Inspection - Respiratory Exam Respiratory Exam: NORMAL BREATHING PATTERN - Cardiovascular Exam Cardiovascular Exam: absent: JVD - GI/Abdominal Exam GI & Abdominal Exam: absent: Distended - Rectal Exam Rectal Exam: Deferred - Extremities Exam Extremities Exam: Normal Inspection - Back Exam Back Exam: NORMAL INSPECTION - Neurological Exam Neurological Exam: Altered Neuro motor strength exam: Left Upper Extremity: 4 (Moves all 4 extremity on sternal rub.Tries to bite.) - Psychiatric Exam Psychiatric exam: Normal Mood - Skin Skin Exam: Normal Color Assessment and Plan - Assessment and Plan (Free Text) Assessment: Altered mental status? Sleep deprived? DM. COPD , r/o Co2 retention. atrial fibrillation hx. history ischemic cardiomyopathy. Plan: FSBS-192 mg%. ABG. Continue present management. Discussed with .
[2017-01-14 06:30] LABS: HEMATOCRIT 40.4 % (42.0-52.0); MEAN CELL VOLUME 93.5 fL (80.0-105.0); MEAN CORPUSCULAR HEMOGLOBIN 29.6 pg (25.0-35.0); MEAN CORPUSCULAR HGB CONC 31.7 g/dl (31.0-37.0); MEAN PLATELET VOLUME 10.3 fl (7.0-11.0); PLATELET COUNT 133 10^3/uL (120.0-450.0); RED CELL DISTRIBUTION WIDTH 16.2 % (11.5-14.5); WHITE BLOOD COUNT 13.5 10^3/ul (4.5-11.0)
[2017-01-14 06:35] LABS: ADD MANUAL DIFF? YES
[2017-01-14] MEDS: MethylPREDNISolone 40 mg Vial IVP SCH ×3 (06:46→22:01)
[2017-01-14 06:48] LABS: BLOOD UREA NITROGEN 55 mg/dL (7-21); CALCIUM 9.3 mg/dL (8.4-10.5); CARBON DIOXIDE 26 mmol/L (21-33); CHLORIDE 106 mmol/L (98-107); GFR AFRICAN-AMERICAN > 60; GLUCOSE,RANDOM 153 mg/dL (70-110); MAGNESIUM 2.5 mg/dL (1.7-2.2); PHOSPHOROUS 3.2 mg/dL (2.5-4.5); POTASSIUM 4.1 mmol/L (3.6-5.0); SODIUM 141 mmol/L (132-148)
[2017-01-14 07:55] LABS: BAND 3 % (0-2)
[2017-01-14 07:56] LABS: ANISOCYTOSIS 1+; NEUTROPHIL 93 % (50.0-70.0); PLATELET ESTIMATE SL. DEC. (NORMAL); POIKILOCYTOSIS SLIGHT; TEAR DROP CELLS SLIGHT
[2017-01-14 07:57] LABS: OVALOCYTES SLIGHT
[2017-01-14] MEDS: Insulin Reg-LOW-Coverage SC SCH ×4 (08:02→22:18)
--- NOTE | 2017-01-14 08:06 | CON ---
DATE: 01/13/2017 HISTORY OF PRESENT ILLNESS: The patient is an 81-year-old male who was transferred to the t elemetry unit on 01/09/2017 after becoming unresponsive on the transitional care unit. The patient h as multiple severe medical problems. He over the last 2 days became somewhat agitated at times. His medical problems include atrial fibrillation, chronic ischemic cardiomyopathy with an ejection fract ion of 15%, renal insufficiency, COPD, rheumatoid arthritis, type 2 diabetes mellitus. He was gettin g steroid therapy when he became more lethargic, generally weak and slow to respond, [facility] and had [facility] scan of the head, evaluated. 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 He global volume loss. Th e patient has hypertension and he also has COPD, gouty arthritis, osteoarthritis and glaucoma. Addit ional history was obtained from patient's granddaughter. ALLERGIES: INCLUDE ASPIRIN, TORADOL AND PENICILLIN. PERSONAL HISTORY: He lives with his family in [place] with his . He has a granddaughter who wit h whom he stays. The patient is a do not resuscitate due to his severe medical problems. CURRENT LABORATORY DATA: His white count is 13,800, hemoglobin of 14. Electrolytes were all within normal range. BUN 56, creatinine 1.3. Random glucose of 235. A direct bilirubin was 0.7. He has a n AST of 62, ALT of 105, alk phos of 167. The rest of the profile within normal range. CURRENT MEDICATIONS: Includes Alphagan ophthalmic solution, Glucotrol, Humulin sliding scale insulin , Klor-Con, atenolol. He is on Solu-Medrol 20 mg IVP q. 8 h. He is receiving Protonix IV, Lasix IV. He gets Risperdal 0.25 mg daily, did not have it today. He is on Levemir, Coreg, Eliquis. He had been on vancomycin IV, Azactam IV which is currently stopped. He had yesterday a dose of Ativan 0.25 mg IV. He was receiving up until today, fentanyl 100 mcg IV and this was in preparation for a cardi ac catheterization. The patient had a cardiac catheterization this morning. The patient had a successful implantation of a pacemaker. The patient had a head scan on 01/11/17 which revealed a stable area of cortical infarc tion in the left posterior parietal region. He had also cerebral atrophy without change compared to recent scans. PHYSICAL EXAMINATION: VITAL SIGNS: His blood pressure is 153/93, pulse 88, respirations 18 per minute. He is afebrile. PSYCHIATRIC MENTAL STATUS: I spoke with patient with the sheet metal helper. He was somewhat confused. He knew he was in a hospital, not sure when and was disoriented to month and day. He knew the year was 2016. His recent memory is clouded. He denied visual or auditory hallucinations. His recent memory was clouded as is his judgment and insight. He seems somewhat drowsy and his sensorium was not tota lly clear. IMPRESSION: The patient has mild slowly resolving delirium. Today he had a pacemaker implant. He h as chronic obstructive lung disease, severe cardiomyopathy, heart failure, hypertension. He has rece nt healthcare-associated pneumonia, coronary artery bypass graft, coronary artery disease, congestive heart failure, insulin-dependent diabetes mellitus. He has healthcare-associated pneumonia with in flammatory response syndrome. The patient has a left posterior parietal infarct with encephalomalaci a and volume loss. SUGGESTIONS: I would stop Risperdal. I would also avoid any benzodiazepines. If the patient is jefferson tated later I will order Geodon 10 mg IM q. 6 h p.r.n. and will monitor mental status. Damián Arias MD cc: [id number] TT: 01/13/2017 21:38:56 Confirmation # [id number] Dictation # [id number] mn
[2017-01-14 08:27] LABS: ARTERIAL BLOOD GAS HCO3 24.4 mmol/L (21-28); ARTERIAL BLOOD GAS O2 CAPACITY 18.8 mL/dl (16-24); ARTERIAL BLOOD GAS O2 CONTENT 18.8 ML/dl (15-23); ARTERIAL BLOOD GAS PH 7.49 (7.35-7.45); ARTERIAL BLOOD HGB O2 SAT 96.8 % (95.0-98.0); CARBOXYHEMOGLOBIN 1.9 % (0.5-1.5); HHB 0.2 % (0-5); METHEMOGLOBIN 1.1 % (0.0-3.0)
[2017-01-14 10:25] LABS: ALB/GLOB RATIO 1.2 (1.1-1.8); BILIRUBIN,DIRECT 0.5 mg/dL (0.0-0.4); TOTAL PROTEIN 5.9 g/dL (5.8-8.3)
[2017-01-14] MEDS: Potassium Chloride 10 mEq ER Tab PO SCH (10:47)
--- NOTE | 2017-01-14 11:08 | PN ---
DATE: 01/14/2017 Seen and examined at the bedside this morning. The patient is drowsy, but arousable. Overnight even ts were noted. No reports of any nausea, vomiting or abdominal pain. No overt GI bleed. The patien t was status post generator change yesterday. VITAL SIGNS: Temperature 97.3, blood pressure 151/88, pulse 60, respirations 20, 100 nasal cannula. LABORATORY DATA: WBC is 13.5, H and H is 12.8 and 40.4, platelets are 133. Sodium 141, K is 4.1, BU N 55, creatinine is 1.2, magnesium 2.5. PHYSICAL EXAMINATION: HEENT: Sclerae are anicteric. NECK: Supple. CARDIAC: S1, S2. LUNGS: With decreased breath sounds, but good air entry, no rales or wheeze. ABDOMEN: With bowel sounds, soft, nontender. No rebound or guarding. NEUROLOGIC: The patient is sleepy, but arousable, follows simple commands. EXTREMITIES: No edema. ASSESSMENT: Status post hypoglycemia. The patient had altered mental status, likely secondary to th e hypoglycemia. Now patient is being treated with pneumonia. He is status post pacemaker generator change, history of congestive heart failure, coronary artery disease. The patient is noted to have m ild ascites with elevated liver enzymes, likely secondary to hepatic congestion. Hepatitis panel was done and that was negative. PLAN: Continue to trend LFTs. Family prefers conservative management. The patient with history of atrial fibrillation on Eliquis. Continue PPI. We will request for liver panel this morning. Yester day's was reviewed and there was some mild decrease. The patient was seen and case discussed with Dr Neri Pace. We will also check the patient's ammonia level this morning. Mago Villafanaes KATARZYNA cc: [id number] TT: 01/14/2017 11:08:11 Confirmation # [id number] Dictation # [id number] tn
--- NOTE | 2017-01-14 11:18 | PN ---
DATE: 01/14/2017 REASON FOR CONSULTATION AND FOLLOWUP: Altered mental status, end of life of pacemaker, atrial fibril lation, coronary artery disease, CABG. BRIEF CLINICAL HISTORY: This is an 81-year-old male with past medical history significant for chroni c atrial fibrillation, history of CABG, history of PTCA, history of atrial fibrillation, was on Couma din, now on Eliquis, has of the life of pacemaker. Yesterday, the patient underwent pacemaker genera tor change. Now patient is stable. Denies any chest pain, shortness of breath, any palpitation. Th e pacemaker site looks okay. PHYSICAL EXAMINATION: VITAL SIGNS: Temperature afebrile, heart rate 60, blood pressure 151/88. HEENT: PERRLA. Extraocular muscles intact. NECK: Supple. No carotid bruits or thyromegaly. CHEST: Clear to auscultation. HEART: S1, S2 regular. ABDOMEN: Soft. EXTREMITIES: Clubbing and cyanosis negative. BLOOD WORKUP: As follows: WBC 13.8, hemoglobin 12.____, hematocrit 40.4, platelet count 133. Chemi stry shows sodium 141, potassium 4.1, chloride 106, carbon dioxide 26, anion gap of 13, BUN 55, creat inine 1.2. IMPRESSION: Altered mental status, possibly metabolic encephalopathy, diabetes, hypertension, hyperl ipidemia, coronary artery disease, coronary artery bypass graft, chronic atrial fibrillation, end of life for pacemaker, status post pacemaker generator change ([employer]). Liver stable. RECOMMENDATION: Will resume back Eliquis from tomorrow. Discontinue telemetry. Continue Coreg, con tinue gentle diuretics, continue treatment for COPD. Will follow with you. Thank you, Dr. Luis, for providing the opportunity in taking care of the patient. Will follow with you. Kymberly Costa MD cc: [id number] TT: 01/14/2017 11:18:16 Confirmation # [id number] Dictation # [id number] mn
[2017-01-14 11:24] VITALS: RESP 18
--- NOTE | 2017-01-14 11:25 | CP.PCM.CON ---
History of Present Illness - History of Present Illness History of Present Illness: Palliative consult requested by Dr. Carrie Luis Reason: Goals of care/advance care planning HPI: 81 year old male who became unresponsive while in TCU. Found to be hypoglycemic, responded after bolus of dextrose. He was recently treated for pneumonia. During this admission pacemaker found to be failing and the generator was replaced. Also found to have mild ascites and elevated LFT's, lkley due to hepatic congestion PMHx: atrial fibrillation, COPD,real insufficiency, DM,rheumatoid arthritis, cardiomyopathy, EF 15%, left MCA infarction,HTN, DLD,gout, arthritis, peripheral neuropathy,glaucoma. Social History: Former smoker, no alcohol or drug use. lives with famiky Family History: Non contributory Review of Systems: A 14 point review of systems negative except for HPI Past Patient History - Infectious Disease Hx of Infectious Diseases: None - Tetanus Immunizations Tetanus Immunization: Unknown - Past Social History Smoking Status: Unknown If Ever Smoked - CARDIAC Hx Cardiac Disorders: Yes Hx Congestive Heart Failure: Yes - PULMONARY Hx Chronic Obstructive Pulmonary Disease (COPD): Yes - NEUROLOGICAL HX Cerebrovascular Accident: No - HEENT Hx Cataracts: Yes - RENAL Hx Renal Failure: No - ENDOCRINE/METABOLIC Hx Diabetes Mellitus Type 2: Yes - HEMATOLOGICAL/ONCOLOGICAL Hx Blood Disorders: Yes Hx AIDS: No Hx Anemia: No Hx Cancer: No Hx Chemotherapy: No Hx Cirrhosis: No Hx Hemophilia: No Hx Hepatitis A: No Hx Hepatitis B: No Hx Hepatitis C: No Hx Metastesis: No Hx Shingles: Yes Hx Sickle Cell Disease: No Hx Unexplained Bleeding: No - INTEGUMENTARY Hx Dermatological Problems: No Hx Basil Cell: No Hx Eczema: No Hx Melanoma: No Hx Psoriasis: No Hx Squamous Cell: No Other/Comment: ble discolored dry skin, healed wound lle - MUSCULOSKELETAL/RHEUMATOLOGICAL Hx Rheumatoid Arthritis: Yes - GASTROINTESTINAL Hx Gastrointestinal Disorders: Yes (reflux) - GENITOURINARY/GYNECOLOGICAL Hx Reproductive Disorders: No - PSYCHIATRIC Hx Anxiety: Yes Hx Depression: Yes Hx Substance Use: No - SURGICAL HISTORY Hx Surgeries: Yes - ANESTHESIA Hx Anesthesia Reactions: No Meds Allergies/Adverse Reactions: Allergies Allergy/AdvReac Type Severity Reaction Status Date / Time aspirin Allergy RASH Verified 12/17/16 15:19 ketorolac tromethamine Allergy SWELLING Verified 12/17/16 15:19 [From Toradol] Penicillins Allergy ANGIOEDEMA Verified 12/17/16 15:19 - Medications Medications: Current Medications Acetaminophen (Tylenol 325mg Tab) 650 mg PO Q4 PRN PRN Reason: Pain, moderate (4-7) Last Admin: 01/13/17 17:35 Dose: 650 mg Apixaban (Eliquis) 2.5 mg PO BID [facility] PRN Reason: Protocol Carvedilol (Coreg) 6.25 mg PO BID [facility] Last Admin: 01/14/17 10:47 Dose: 6.25 mg Furosemide (Lasix) 20 mg IVP DAILY [facility] Last Admin: 01/14/17 10:47 Dose: 20 mg Glipizide (Glucotrol Xl) 2.5 mg PO HS [facility] Last Admin: 01/13/17 22:26 Dose: Not Given Insulin Detemir (Levemir) 10 unit SC Q12H [facility] Last Admin: 01/13/17 23:08 Dose: 10 unit Insulin Human Regular (Humulin R Low) 0 units SC ACHS [facility] PRN Reason: Protocol Last Admin: 01/14/17 08:02 Dose: 1 units Methylprednisolone (Solu-Medrol) 20 mg IVP Q8 [facility] Last Admin: 01/14/17 06:46 Dose: 20 mg Non-Formulary Medication (Brimonidine 0.2% [Alphagan 0.2% Opht]) 1 drop OU HS [facility] Last Admin: 01/13/17 03:49 Dose: Not Given Non-Formulary Medication (Timolol [Betimol]) 5 ml OU DAILY [facility] Last Admin: 01/13/17 11:00 Dose: Not Given Pantoprazole Sodium (Protonix Inj) 40 mg IVP DAILY [facility] Last Admin: 01/14/17 10:46 Dose: 40 mg Potassium Chloride (Klor-Con 10) 10 meq PO DAILY [facility] Last Admin: 01/14/17 10:47 Dose: 10 meq Ziprasidone (Geodon Inj) 10 mg IM Q6H PRN PRN Reason: Agitation Last Admin: 01/13/17 21:15 Dose: 10 mg Physical Exam - Constitutional Appears: No Acute Distress, Chronically Ill - Head Exam Head Exam: NORMOCEPHALIC - Eye Exam Eye Exam: Normal appearance, PERRL - ENT Exam ENT Exam: Mucous Membranes Moist, Normal Oropharynx - Neck Exam Neck exam: Positive for: Normal Inspection - Respiratory Exam Respiratory Exam: Decreased Breath Sounds, NORMAL BREATHING PATTERN - Cardiovascular Exam Cardiovascular Exam: Irregular Rhythm - GI/Abdominal Exam GI & Abdominal Exam: Normal Bowel Sounds, Soft Additional comments: no tenderness - Extremities Exam Extremities exam: Positive for: pedal edema, pedal pulses present - Back Exam Back exam: NORMAL INSPECTION - Neurological Exam Neurological exam: Alert, Oriented x3 - Skin Skin Exam: Dry, Warm - Additional Findings Additional findings: Palliative performance scale rating 40% Results - Vital Signs Recent Vital Signs: Last Vital Signs Temp 97.3 F L 01/14/17 06:00 Pulse 60 01/14/17 10:47 Resp 20 01/14/17 06:00 BP 145/91 H 01/14/17 10:47 Pulse Ox 100 01/14/17 06:00 - Labs Result Diagrams: 01/14/17 05:30 01/14/17 05:30 Labs: Laboratory Results - last 24 hr 01/13/17 01/13/17 01/13/17 05:00 16:37 21:48 WBC RBC Hgb Hct MCV MCH MCHC RDW Plt Count MPV Neutrophils % (Manual) Band Neutrophils % Lymphocytes % (Manual) Monocytes % (Manual) Platelet Evaluation Poikilocytosis (manual Anisocytosis (manual) Tear Drop Cells Ovalocytes pCO2 pO2 HCO3 ABG pH ABG Total CO2 ABG O2 Saturation ABG O2 Content ABG Base Excess ABG Hemoglobin ABG Carboxyhemoglobin POC ABG HHb (Measured) ABG Methemoglobin ABG O2 Capacity Hgb O2 Saturation FiO2 Sodium Potassium Chloride Carbon Dioxide Anion Gap BUN Creatinine Est GFR ( Amer) Est GFR (Non-Af Amer) POC Glucose (mg/dL) 298 H 253 H Random Glucose Lactic Acid Calcium Phosphorus Magnesium Total Bilirubin 1.0 Direct Bilirubin 0.7 H AST 62 H ALT 105 H Alkaline Phosphatase 167 H Ammonia Total Protein 6.3 Albumin 3.4 Globulin 2.9 Albumin/Globulin Ratio 1.2 01/14/17 01/14/17 01/14/17 05:30 05:30 06:00 WBC 13.5 H RBC 4.32 Hgb 12.8 L Hct 40.4 L MCV 93.5 MCH 29.6 MCHC 31.7 RDW 16.2 H Plt Count 133 MPV 10.3 Neutrophils % (Manual) 93 H Band Neutrophils % 3 H Lymphocytes % (Manual) 2 L Monocytes % (Manual) 2 Platelet Evaluation Sl. dec. Poikilocytosis (manual Slight Anisocytosis (manual) 1+ Tear Drop Cells Slight Ovalocytes Slight pCO2 pO2 HCO3 ABG pH ABG Total CO2 ABG O2 Saturation ABG O2 Content ABG Base Excess ABG Hemoglobin ABG Carboxyhemoglobin POC ABG HHb (Measured) ABG Methemoglobin ABG O2 Capacity Hgb O2 Saturation FiO2 Sodium 141 Potassium 4.1 Chloride 106 Carbon Dioxide 26 Anion Gap 13 BUN 55 H Creatinine 1.2 Est GFR ( Amer) > 60 Est GFR (Non-Af Amer) 58 POC Glucose (mg/dL) Random Glucose 153 H Lactic Acid Calcium 9.3 Phosphorus 3.2 Magnesium 2.5 H Total Bilirubin 1.0 Direct Bilirubin 0.5 H AST 44 ALT 90 H Alkaline Phosphatase 149 H Ammonia Total Protein 5.9 Albumin 3.2 Globulin 2.7 Albumin/Globulin Ratio 1.2 01/14/17 01/14/17 01/14/17 06:17 06:59 07:36 WBC RBC Hgb Hct MCV MCH MCHC RDW Plt Count MPV Neutrophils % (Manual) Band Neutrophils % Lymphocytes % (Manual) Monocytes % (Manual) Platelet Evaluation Poikilocytosis (manual Anisocytosis (manual) Tear Drop Cells Ovalocytes pCO2 pO2 HCO3 ABG pH ABG Total CO2 ABG O2 Saturation ABG O2 Content ABG Base Excess ABG Hemoglobin ABG Carboxyhemoglobin POC ABG HHb (Measured) ABG Methemoglobin ABG O2 Capacity Hgb O2 Saturation FiO2 Sodium Potassium Chloride Carbon Dioxide Anion Gap BUN Creatinine Est GFR ( Amer) Est GFR (Non-Af Amer) POC Glucose (mg/dL) 192 H 157 H Random Glucose Lactic Acid 2.1 Calcium Phosphorus Magnesium Total Bilirubin Direct Bilirubin AST ALT Alkaline Phosphatase Ammonia Total Protein Albumin Globulin Albumin/Globulin Ratio 01/14/17 01/14/17 08:15 09:30 WBC RBC Hgb Hct MCV MCH MCHC RDW Plt Count MPV Neutrophils % (Manual) Band Neutrophils % Lymphocytes % (Manual) Monocytes % (Manual) Platelet Evaluation Poikilocytosis (manual Anisocytosis (manual) Tear Drop Cells Ovalocytes pCO2 32 L pO2 153.0 H HCO3 24.4 ABG pH 7.49 H ABG Total CO2 25.4 ABG O2 Saturation 99.8 H ABG O2 Content 18.8 ABG Base Excess 1.7 ABG Hemoglobin 13.6 ABG Carboxyhemoglobin 1.9 H POC ABG HHb (Measured) 0.2 ABG Methemoglobin 1.1 ABG O2 Capacity 18.8 Hgb O2 Saturation 96.8 FiO2 32.0 Sodium Potassium Chloride Carbon Dioxide Anion Gap BUN Creatinine Est GFR ( Amer) Est GFR (Non-Af Amer) POC Glucose (mg/dL) Random Glucose Lactic Acid Calcium Phosphorus Magnesium Total Bilirubin Direct Bilirubin AST ALT Alkaline Phosphatase Ammonia 39 H Total Protein Albumin Globulin Albumin/Globulin Ratio Assessment & Plan - Assessment and Plan (Free Text) Assessment: 81 year old male admitted with hypoglycemia, pacemaker failure, elevated LFT''s ,elevated ammonia level. Patient has multiple comorbidities; cardiomyopathy, EF 15%, renal insufficiency, DM, pneumonia, s/p left MCA infarct, Patient speaks [place]. He is lethargic, rouses easily. Offers no complaints. and granddaughter at bedside. Family aware of patient's multiple medical issues. Patient is DNR/DNI. Family does not want to consider comfort care option. Family will continue to seek supportive care as needed. Patient is scheduled to transition back to TCU. Advance care planning with POLST explained. Daughter at bedside, states someone is always with patient and do not feel the need to do POLST at this time. Time spent with patent /family in advance care panning discussion, 15 minutes Plan: Continue current medical management. Will follow as needed.
[2017-01-14] MEDS: Insulin Detemir 100 units/ml Vial (Levemir) SC SCH ×2 (11:34→22:55)
[2017-01-14] MEDS: TIMOLOL OU SCH (11:34)
--- NOTE | 2017-01-14 12:42 | PN ---
DATE: 01/14/2017 HISTORY OF PRESENT ILLNESS: The patient is an 81-year-old male admitted back to the medical -surgical department from the transitional care unit. I was asked to see him yesterday due to a radi harman change in mental status. The patient has multiple severe medical problems. The patient's current mental status is he is sleeping, but arousable. Nurse and the patient's a re at bedside. The patient apparently ate some breakfast this morning. He is arousable. He gets co nfused. He gets restless when disturbed. The patient is unable to participate in a formal mental st atus. CURRENT MEDICATIONS: Include Alphagan, Coreg, Eliquis. He has an order for p.r.n. Geodon, which he has not received for agitation. He is on Klor-Con, sliding dose insulin, Timolol. He received Solu -Medrol 20 mg q. 8 h. He receives Protonix, Lasix, Levemir, Coreg. The patient (correction) did hav e 1 dose of Geodon last night at 9:15 in the evening, which was due to restlessness and pulling out I V. The patient is also receiving Eliquis. According to nursing note, the patient was agitated as noted above. The patient responded well after half an hour with IM Geodon. He was calm and resting in bed. CURRENT LABORATORY DATA: His metabolic profile is abnormalities include a BUN of 55, creatinine 1.2, estimated GFR of 58. Random glucose 157. He has an ammonia level, which is slightly elevated at 39 . The patient's alk phos is 149, AST 44, ALT 90, which is elevated. The rest of the profile, includ ing electrolytes, is all within normal range. All the patient's cultures are negative. PHYSICAL EXAMINATION: VITAL SIGNS: Blood pressure is 145/91, pulse 60, respirations 18 per minute, and afebrile. IMPRESSION: The patient has delirium secondary to multiple medical problems including systemic infla mmatory response, history of [id number] pneumonia. He has had recent pacemaker battery bernard ged, had normal IV medicines prior to procedure yesterday. He has chronic congestive heart failure, hypertension, chronic obstructive pulmonary disease, insulin-dependent diabetes mellitus, atrial fibr illation. He also has elevated ____, has some degree of hepatitis. PLAN: Continue p.r.n. Geodon 10 mg q. 6 h p.r.n. Try to avoid sedating medicines, especially benzod iazepines. Damián Arias MD cc: [id number] TT: 01/14/2017 12:07:09 Confirmation # [id number] Dictation # [id number]
--- NOTE | 2017-01-14 19:48 | PN ---
DATE: 01/14/2017 REFERRING PHYSICIAN: Dr. Luis. SUBJECTIVE: He is lying in the bed, is at bedside, sleepy, arousable. No headache, no rhinitis , no sputum production. He has cough. No nausea, no vomiting, no diarrhea. No leg pain or leg swel ling. Very poor p.o. intake. OBJECTIVE: GENERAL: In no acute distress. VITAL SIGNS: Temp is 98, heart rate is 63, respiratory rate is 18, blood pressure 140/94, pulse ox 9 9% on 2 liter nasal cannula. HEENT: Moist mucous membranes. Crowded airway. NECK: Supple. No JVD. LUNGS: Have a poor effort, but fair airflow with few rhonchi. HEART: S1, S2. ABDOMEN: Soft, nontender. No organomegaly. EXTREMITIES: There is no edema. NEUROLOGIC: Awake, alert, follows simple commands. MEDICATIONS: He is on Coreg 6.25 mg twice a day, Eliquis 2.5 mg twice a day, lactulose 20 grams p.o. daily, Geodon 10 mg q. 6 hours p.r.n., glipizide 2.5 mg at bedtime, potassium 10 mEq daily, Lasix 20 mg daily, Levemir 10 units subQ q. 12 hours, Protonix 40 mg daily, Solu-Medrol 20 mg q. 8 hours, Tyl enol on a p.r.n. basis. LABORATORY DATA: Shows hemoglobin 12.8, hematocrit 40.4, WBC 15.5, platelet count is 133. Blood gas es done today show pH 7.49, pCO2 of 32, O2 of 153 and that is on a nasal cannula. AST 44, ALT 19, al k phos is 149, albumin 3.2. Sodium 141, potassium 4.1, chloride 106, bicarbonate 26, BUN 55, creatin ine 1.2, phosphorus is 3.2. MICROBIOLOGY: Blood culture and urine culture, there is no growth. IMPRESSION AND PLAN: Status post hypoglycemic episode, chronic obstructive lung disease, cardiomyopa thy, heart failure, hypertension, atrial fibrillation, sleep apnea syndrome, status post change of pa cemaker battery, DNR and DNI, daytime hypersomnia. Refusing to use CPAP. I spoke to patient's at bedside. All their questions answered. Overall, poor prognosis. Will try Nuvigil in the morning. Aspiration precaution. Gastric prophylaxis. Continue supportive care. Thank you and will follow with you. Kymberly Bauer MD cc: [id number] TT: 01/14/2017 19:47:15 Confirmation # [id number] Dictation # [id number] mn
--- NOTE | 2017-01-14 19:55 | PN ---
DATE: 01/14/2017 ADDENDUM This is an addendum to the GI progress report dictated by Mago Oden APN. SUBJECTIVE: This patient was seen and evaluated earlier today. Found to be more lethargic at that t yeni. Requested for ammonia level. It was found to be elevated. It is 39. Given a dose of lactulos e. Will also give her a low dose of maintenance lactulose or we will consider starting the patient o n Xifaxan. PHYSICAL EXAMINATION: The patient's abdomen was soft. There is no tenderness. The patient will follow up on the LFTs. Thank you very much for allowing us to participate in the care of the patient. Tra Pace MD cc: [id number] TT: 01/14/2017 19:55:31 Confirmation # [id number] Dictation # [id number] dn
--- NOTE | 2017-01-14 20:02 | PN ---
DATE: 01/14/2017 ADDENDUM This is an addendum to the GI progress report dictated by Mago Oden APN. The patient was evaluate d in the morning, early, and found to be more lethargic. Ammonia level was done which was found to b e mildly elevated. Did receive lactulose. Ordered for lactulose. Abdomen was soft. There is no te nderness. Will follow up the ammonia level in the a.m. Thank you very much for allowing us to participate in the care of the patient. Tra Pace MD cc: [id number] TT: 01/14/2017 20:01:52 Confirmation # [id number] Dictation # [id number] dn
[2017-01-14] MEDS: GlipiZIDE 2.5 mg SR Tab PO SCH (22:18)
[2017-01-14] MEDS: Non Formulary Medication (Brimonidine 0.2% [Alphagan 0.2% Opht] 1 DROP) OU SCH (22:19)
[2017-01-15] MEDS: MethylPREDNISolone 40 mg Vial IVP SCH ×2 (05:19→14:33)
[2017-01-15 07:04] LABS: GRAN # 13.75 (1.4-6.5); GRAN % 95.4 % (50.0-68.0); HEMATOCRIT 41.5 % (42.0-52.0); LYMPH # 0.3 (1.2-3.4); LYMPH % 2.2 % (22.0-35.0); MEAN CELL VOLUME 93.3 fL (80.0-105.0); MEAN CORPUSCULAR HEMOGLOBIN 29.4 pg (25.0-35.0); MEAN CORPUSCULAR HGB CONC 31.6 g/dl (31.0-37.0); MEAN PLATELET VOLUME 10.6 fl (7.0-11.0); MONO # 0.3 (0.1-0.6); MONO % 2.4 % (1.0-6.0); PLATELET COUNT 127 10^3/uL (120.0-450.0); RED CELL DISTRIBUTION WIDTH 16.1 % (11.5-14.5); WHITE BLOOD COUNT 14.4 10^3/ul (4.5-11.0)
[2017-01-15 07:07] LABS: ALB/GLOB RATIO 1.2 (1.1-1.8); ALKALINE PHOSPHATASE 161 U/L (38-133); ALT/SGPT 94 U/L (7-56); AST/SGOT 53 U/L (15-59); BILIRUBIN,DIRECT 0.5 mg/dL (0.0-0.4); BILIRUBIN,TOTAL 1.2 mg/dL (0.2-1.3); BLOOD UREA NITROGEN 49 mg/dL (7-21); CALCIUM 9.2 mg/dL (8.4-10.5); CARBON DIOXIDE 27 mmol/L (21-33); CHLORIDE 103 mmol/L (95-110); GFR AFRICAN-AMERICAN > 60; GLUCOSE,RANDOM 154 mg/dL (70-110); POTASSIUM 4.3 mmol/L (3.6-5.0); SODIUM 138 mmol/L (132-148)
[2017-01-15 07:15] LABS: ADD MANUAL DIFF? NO
[2017-01-15 08:49] VITALS: PULSE 60
[2017-01-15] MEDS: Insulin Reg-LOW-Coverage SC SCH ×3 (09:06→16:28)
[2017-01-15] MEDS: Potassium Chloride 10 mEq ER Tab PO SCH (09:30)
[2017-01-15] MEDS: Insulin Detemir 100 units/ml Vial (Levemir) SC SCH (11:32)
[2017-01-15] MEDS: TIMOLOL OU SCH (11:34)
--- NOTE | 2017-01-15 12:53 | PN ---
DATE: 01/13/2017 The patient is in the bed in telemetry. He seems in no distress, but has IV access problem, and nurs es have been trying to get an IV access. The patient is also getting Geodon p.r.n. for his agitation s. The patient seems generally weak. PHYSICAL EXAMINATION: On 01/13/2017: VITAL SIGNS: Temperature 98, heart rate 62, blood pressure 147/89, respirations 21, saturation 94% o n room air. HEAD AND NECK: Normal. No JVD, no thyromegaly. CHEST: Clear, good air entry with diminished breath sounds. CARDIAC: First and second sounds normal. There is ____ systolic murmur. ABDOMEN: Soft, nontender. EXTREMITIES: No edema. NEUROLOGIC: General weakness, and he is mildly lethargic. LABORATORY STUDIES: On 01/13, white count 13.8, hemoglobin 14, hematocrit 43.2, platelets 133. Chem istry shows sodium 141, potassium 4.1, chloride 106, bicarb 26. BUN 55, creatinine 1.2. Blood sugar is 153. His magnesium is 2.5. His ____ is normal. The patient also had abnormal liver function te sts including ALT ____ and alk phos 149. IMPRESSION AND PLAN: 1. Acute change in mental status, resolved. Continue to observe. Continue current medicines. Etio logy probably toxic metabolic. Blood culture seems negative. The patient is getting Geodon p.r.n. f or agitation. We will follow up. 2. Hypertension, ischemic cardiomyopathy, chronic atrial fibrillations, generalized weakness. Misael nue current medications. The patient is stable regarding this. We will continue Lasix IV. 3. Chronic obstructive pulmonary disease with acute exacerbations. The patient is getting IV steroi ds, getting inhaled bronchodilators. Continue current treatment. 4. Diabetes, on Glucotrol and Humulin R. The patient is also getting insulin - Levemir 10 units q. 12. Blood sugar seems okay. We will continue current treatment. Continue anticoagulant Eliquis 2.5 mg b.i.d., and will follow up clinically. CURRENT MEDICATIONS: The patient is getting eyedrops for his glaucoma, Coreg 6.25 b.i.d., Eliquis 2. 5 b.i.d., ____, Geodon injection 10 mg IM every 6 hours p.r.n., Glucotrol XL 2.5 mg once a day. The patient is getting insulin coverage, potassium 10, Lasix 20 IV daily, Levemir 10 b.i.d., ____, Proton ix 40 IV daily, Solu-Medrol 20 IV q. 8, and timolol eyedrops, and Tylenol. Continue current medicines. The patient will need physical therapy, maybe at [facility]. Myles Luis MD cc: [phone] TT: 01/15/2017 12:29:56 Confirmation # [id number] Dictation # [id number] jn
--- NOTE | 2017-01-15 13:59 | PN ---
DATE: 01/15/2017 Seen and examined at the bedside earlier this morning. The patient is lethargic, somewhat arousable. He is Irish speaking and nurse at the bedside, Yaz, is Irish-speaking. The patient is still s lightly difficult to arouse. A friend is at the bedside. No respiratory distress noted, although tracey richards denies any abdominal pain. No shortness of breath or chest pain. VITAL SIGNS: Temperature 97.9, blood pressure 132/85, pulse 60, respiration rate 18, 99 on room air. LABORATORY DATA: WBC is 14.4, H and H is 13.1 and 41.5, platelets are 127. Chem: Sodium 138, K 4.3 , BUN 49, creatinine is 1.2. Total bilirubin 1.2, direct bilirubin is 0.5, AST 53, ALT 94, alkaline phosphatase 161. His ammonia is 15. PHYSICAL EXAMINATION: HEENT: Sclerae are anicteric. NECK: Supple. CARDIAC: S1, S2. LUNGS: Decreased breath sounds but positive air entry, minimal rhonchi, no wheezing. ABDOMEN: With bowel sounds, soft, nontender on palpation. No organomegaly. EXTREMITIES: No edema. NEUROLOGIC: The patient is lethargic, somewhat arousable, slightly opening his eyes. Does not follo w commands. ASSESSMENT: This patient is an 81-year-old male with a history of recent pacemaker generator change. He has history of congestive heart failure, coronary artery disease, mild ascites with elevated donte er enzymes likely secondary to hepatic congestion. He came in, transferred from TCU for altered ment al status, which looks like was secondary to hypoglycemia. The patient has pneumonia and patient fou nd to have elevated ammonia level, probably some hepatic encephalopathy. He was given lactulose. It is unknown by the nursing staff if patient had a bowel movement. There is nothing recorded as well. PLAN: Continue lactulose. Hold dysphagia diet until the patient is fully alert and awake to eat. C ontinue GI prophylaxis. He is on Protonix. The patient is also on Eliquis. The patient is on Solu- Medrol. The patient was seen and case discussed with Dr. Pace. Mago COLÓN cc: [id number] TT: 01/15/2017 13:58:35 Confirmation # [id number] Dictation # [id number] rn
--- NOTE | 2017-01-15 14:26 | PN ---
DATE: 01/14/2017 The patient seems a little bit lethargic, but also mild short of breath. Otherwise, he is awake and alert, responding to commands and moving his upper and lower extremities. PHYSICAL EXAMINATION: VITAL SIGNS: His temperature is 98, heart rate is 60, blood pressure 132/85, respirations 18, satura tion 99% on room air. HEAD AND NECK: Normal. No JVD, no thyromegaly. CHEST: Clear, good entry. CARDIAC: First sound, second normal. There is diastolic murmur and systolic murmur on the pericardi um. ABDOMEN: Soft. EXTREMITIES: No edema. NEUROLOGIC: He is generally weak. The patient has difficulty getting up and ambulating. LABORATORYSTUDIES: Sodium 141, potassium 4.1, chloride 106, bicarb 26, BUN 55, creatinine 1.2, blood sugar 153. He also has CBC which shows white count 13.5, hemoglobin 12.8, hematocrit 40.4, platelet s 133. IMPRESSION AND PLAN: 1. Leukocytosis is still elevated, etiology unclear, concerned about sepsis or underlying infections or systemic inflammatory response syndrome. We will get infectious disease consult, Dr. Mai, Dr. Oconnor, to evaluate. 2. Chronic congestive heart failure. Continue Lasix. We give extra dose of IV Lasix 20. 3. Acute chronic obstructive pulmonary disease exacerbation on top of chronic. Continue IV steroids . Continue inhaled bronchodilators. 4. Generalized weakness, lethargy, probably toxic metabolic. We will continue current treatment. Eugenia elizondo current management. The patient will get benefit from Nuvigil that has been added by Dr. Elizabeth soriano, could help his mental status. His blood culture was negative. The patient is not retaining CO2 and his CAT scan was done and was negative, so we will continue current management. We observe how he does. We will monitor his mental status. For physical weakness, we may need to continue physical therapy and TCU. Diabetes. Continue insulin coverage. Continue Levemir, Glucotrol and follow up eugenia nova. Myles Luis MD cc: [phone] TT: 01/15/2017 14:26:23 Confirmation # [id number] Dictation # [id number] tn
[2017-01-15 17:58] VITALS: BP 142/91; TEMP 98; O2SAT 98
--- NOTE | 2017-01-15 18:10 | CP.PCM.PN ---
Subjective - Date & Time of Evaluation Date of Evaluation: 01/15/17 Time of Evaluation: 11:35 - Subjective Subjective: Comfortable, afebrile, not in distress. Objective - Vital Signs/Intake and Output Vital Signs (last 24 hours): Temp Pulse Resp BP Pulse Ox 97.3 F L 60 20 151/88 H 100 01/14/17 06:00 01/14/17 06:00 01/14/17 06:00 01/14/17 06:00 01/14/17 06:00 Intake and Output: 01/14/17 01/14/17 06:59 18:59 Intake Total 120 Output Total 950 Balance -830 - Medications Medications: Current Medications Acetaminophen (Tylenol 325mg Tab) 650 mg PO Q4 PRN PRN Reason: Pain, moderate (4-7) Last Admin: 01/13/17 17:35 Dose: 650 mg Apixaban (Eliquis) 2.5 mg PO BID [facility] PRN Reason: Protocol Carvedilol (Coreg) 6.25 mg PO BID [facility] Last Admin: 01/13/17 17:35 Dose: 6.25 mg Furosemide (Lasix) 20 mg IVP DAILY [facility] Last Admin: 01/13/17 13:15 Dose: 20 mg Glipizide (Glucotrol Xl) 2.5 mg PO HS [facility] Last Admin: 01/13/17 22:26 Dose: Not Given Insulin Detemir (Levemir) 10 unit SC Q12H [facility] Last Admin: 01/13/17 23:08 Dose: 10 unit Insulin Human Regular (Humulin R Low) 0 units SC ACHS [facility] PRN Reason: Protocol Last Admin: 01/13/17 21:59 Dose: Not Given Methylprednisolone (Solu-Medrol) 20 mg IVP Q8 [facility] Last Admin: 01/14/17 06:46 Dose: 20 mg Non-Formulary Medication (Brimonidine 0.2% [Alphagan 0.2% Opht]) 1 drop OU HS [facility] Last Admin: 01/13/17 03:49 Dose: Not Given Non-Formulary Medication (Timolol [Betimol]) 5 ml OU DAILY [facility] Last Admin: 01/13/17 11:00 Dose: Not Given Pantoprazole Sodium (Protonix Inj) 40 mg IVP DAILY [facility] Last Admin: 01/13/17 13:14 Dose: 40 mg Potassium Chloride (Klor-Con 10) 10 meq PO DAILY JAVI Last Admin: 01/13/17 13:15 Dose: 10 meq Ziprasidone (Geodon Inj) 10 mg IM Q6H PRN PRN Reason: Agitation Last Admin: 01/13/17 21:15 Dose: 10 mg - Labs Labs: 01/14/17 05:30 01/14/17 05:30 PT 13.2 Seconds (9.9-11.8) H 01/13/17 05:00 INR 1.22 (0.93-1.08) H 01/13/17 05:00 APTT 26.5 Seconds (23.7-30.8) 01/13/17 05:00 - Constitutional Appears: Non-toxic, No Acute Distress - Head Exam Head Exam: NORMAL INSPECTION - Neck Exam Neck Exam: absent: Meningismus - Respiratory Exam Respiratory Exam: Decreased Breath Sounds - Cardiovascular Exam Cardiovascular Exam: +S1, +S2 - GI/Abdominal Exam GI & Abdominal Exam: Soft. absent: Tenderness Assessment and Plan - Assessment and Plan (Free Text) Plan: Assessment Systemic Inflammatory Response syndrome, consider metabolic encephalopathy due to hypoglycemia, clinically improving, with no evidence of sepsis identified; persistent leukocytosis probably continues systemic steroid use for COPD ( Solumedrol) history of healthcare-associated pneumonia CAD S/P CABG chronic CHF HTN COPD DM S/P pacemaker placement atrial fibrillation history of gastritis Plan PCt is only 0.24, cultures have been negative - will continue to monitor off antibiotics since he is at risk for nosocomial infections
--- NOTE | 2017-01-15 20:05 | PN ---
DATE: 01/15/2017 ADDENDUM: This is an addendum to the GI progress report dictated by Mago Oden APN. The patient i s scheduled to be discharged today. The patient still remains lethargic. The patient still remains weak. The patient is DNR/DNI. Would continue the low dose of lactulose. Also, continue the support marcy care. Prognosis is guarded. Thank you very much for allowing us to participate in the care of the patient. Tra Pace MD cc: [id number] TT: 01/15/2017 20:03:59 Confirmation # [id number] Dictation # [id number] dn
--- NOTE | 2017-01-16 08:11 | PN ---
DATE: 01/15/2017 HISTORY OF PRESENT ILLNESS: The patient is an 81-year-old male who is currently being treat ed for delirium. The patient has had recent pacemaker change. He has congestive heart failure, mild ascites, elevated liver functions. The patient has been intermittently somnolent. According to the nursing staff, the patient was awake earlier this morning, but very confused. He is sleeping now, b ut arousable. His thinking is very disorganized. The patient is also being treated for pneumonia. He has an elevated ammonia level. The patient is receiving lactulose for that. CURRENT LABORATORY DATA: His white count is 14,400, hemoglobin is 13.1, platelet count 127,000. His metabolic profile, his electrolytes were all within normal range. His BUN is 49. His creatinine 1. 2, estimated GFR of 58. Random glucose 154. His AST is 53, ALT is 94, alk phos 161. His ammonia le sachin yesterday was 39, today it is 15. CURRENT MEDICATIONS: Include Coreg, Eliquis, Enulose. He has an order for p.r.n. ziprasidone for ag itation, Glucotrol, Klor-Con, Lasix, Levemir. He received an order for Nuvigil 150 mg daily, his Pro tonix, is receiving Solu-Medrol 20 mg IVP q.8 h. The patient was started on armodafinil by pulmonary specialists. The patient has had a CT scan on 01/11/17, which showed no significant findings. He h as an area of left cortical infarction in the posterior parietal region. VITAL SIGNS: His blood pressure is 132/85, pulse 60, respiration 18 per minute and afebrile, O2 sat uration 99% on room air. 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 He gorman s behavioral disturbance at times. He has fluctuating sensorium. He has a history of diabetes mars sun. He has a history of congestive heart failure. He is currently on steroids, he might be having steroid effect from Solu-Medrol. SUGGESTIONS: I would suggest tapering off Solu-Medrol, and we will continue to monitor mental status . Damián Arias MD cc: [id number] TT: 01/15/2017 16:16:40 Confirmation # [id number] Dictation # [id number] rn
--- NOTE | 2017-01-16 08:13 | PN ---
DATE: 01/15/2017 REFERRING PHYSICIAN: Dr. Luis. SUBJECTIVE: The patient is lying in the bed, head at 45 degrees. A little more awake and alert. De nies any pain. No nausea, no vomiting, no diarrhea. No leg pain or leg swelling. OBJECTIVE: GENERAL: No acute distress. VITAL SIGNS: Temp is 98, heart rate is 60, respiratory rate is 20, blood pressure 132/85, pulse ox 9 9% on 2 liter nasal cannula. HEENT: Moist mucous membrane. Crowded airway. NECK: Supple. No JVD. LUNGS: Have fair airflow with a few rhonchi. HEART: S1, S2. ABDOMEN: Soft, nontender. No organomegaly. EXTREMITIES: There is no edema. NEUROLOGIC: Sleepy, arousable, follows simple command. MEDICATIONS: He is on eyedrops, Coreg 6.25 mg twice a day, Eliquis 2.5 mg twice a day, lactulose 20 mg daily, Geodon 10 mg q. 6 hours p.r.n., glipizide 2.5 mg at bedtime, insulin coverage, potassium 10 mEq daily, Lasix 20 mg daily, Levemir 10 units subQ q. 12 hours, Nuvigil 150 mg daily, Protonix 40 m g daily, Solu-Medrol 20 mg q. 8 hours, Tylenol on a p.r.n. basis. LABORATORY DATA: Shows hemoglobin 13.1, hematocrit 41.5, WBC 14.4, platelet count is 127. Sodium 13 8, potassium 4.3, chloride 103, bicarbonate 27, BUN 49, creatinine 1.2, glucose 154, calcium 9.2. To rona bili 1.2, AST 53, ALT 94, alk phos is 161, albumin is 3.2. Microbiology: Blood cultures, urine culture - there is no growth. IMPRESSION AND PLAN: Status post hypoglycemic episode, ____ obstructive lung disease, cardiomyopathy with heart failure, hypertension, atrial fibrillation, sleep apnea syndrome, status post change of p acemaker battery, daytime hypersomnia. The patient is DNR and DNI. Pulmonary point of view, doing o cristal. ____ CPAP use. Continue daytime ____, bronchodilator, gastric prophylaxis, DVT prophylaxis, on anticoagulation. Thank you, and will follow with you. Kymberly Bauer MD cc: [facility] TT: 01/15/2017 15:20:53 Confirmation # [id number] Dictation # [id number] mn
--- NOTE | 2017-01-16 20:35 | DS ---
This is an 81-year-old male patient admitted to the medical floor because of acute change in mental s tatus. The patient was admitted initially to telemetry. Evaluation by neurology, cardiology, and in fectious disease was done and CAT scan was negative. Blood culture, urine cultures and chest x-ray w ere negative. The patient clinically improved. He had become more awake, more alert, eating, sittin g up, but he is generally weak; otherwise, was stable. His blood sugar was running 200s and his bloo d pressure remained hemodynamically stable. The patient was moved to a regular floor; however, the p atient on and off got weak. The patient will definitely need rehabilitation for subacute rehabilitat ion for 4 weeks at least or penitentiary placement because of his multiple and comorbid illnesses. D iscussed with the family, they refused, they want him home. Currently patient is stable, no chest pa in, no short of breath and he is stable. PHYSICAL EXAMINATION: VITAL SIGNS: Temperature 97.7, heart rate 60, blood pressure 132/85, respirations 18, saturation 99% . HEAD AND NECK: Normal. No JVD, no thyromegaly. CHEST: Clear, good entry. CARDIAC: First and second sounds are normal. ABDOMEN: Soft, nontender. EXTREMITIES: No edema. NEUROLOGIC: Normal except general weakness. LABORATORY DATA: As mentioned, his urine was negative. His chemistry shows sodium 138, potassium 4. 3, chloride 103, bicarb 27, BUN 49, creatinine 1.2, blood sugar is 154. Ammonia level was 15. [facility] also had [facility] CBC which showed white count 14.4, hemoglobin 13.1, hematocrit 41, and platelets 12 7. The patient also had blood cultures x 2 which was negative. Urine culture which was negative and Gram stain, which was negative. DISCHARGE DIAGNOSES: 1. Generalized weakness. The patient needs subacute rehabilitation. 2. Chronic ischemic cardiomyopathy with ejection fraction of 15%. The patient will continue his cur rent medications. 3. History of rheumatoid arthritis. Continue prednisone 15 mg after finishing dose of Medrol pack. 4. Leukocytosis, probably steroid-related. Will monitor. Advised family if fever develops, please bring him to the ER. 5. Chronic renal insufficiency, stable. 6. Diabetes type 2. Continue current medicines. Continue insulin as it is and frequent monitor blo od sugars. 7. Glaucoma. Continue eyedrops. 8. Chronic atrial fibrillation. Continue Eliquis. 9. Chronic obstructive pulmonary disease. The patient was given Medrol pack and bronchodilators. Yanira brown does have a nebulizer at home. Continue current medicines. DISCHARGE MEDICATIONS: Medrol pack followed by prednisone 15 mg daily, Timolol, potassium 10, Lasix 40 mg p.o. daily, Prilosec 20 mg p.o. daily, glipizide 2.5 mg, Coreg 3.125 b.i.d. , Eliquis 2.5 mg b.i.d., allopurinol 100 mg a day, lactulose 20 g p.o. daily, Levemir 10 units twice a day with frequent blood sugar monitoring, Alphagan and Tylenol. The patient is stable. He should follow up in the office within a week. The patient's family advise d if he develops any fevers, any health-related problems he cannot handle at home, they are welcome t o bring him back to the Emergency Room or to the office and I take care of him. Myles Luis MD cc: [phone] TT: 01/16/2017 20:34:41 pn
== END 2017-01-15 21:26 | disposition home or self-care (01) | DRG 987 ==
LOC: ED 12:56 → ERH 14:17 → 2RSO 01-10 00:30 → 5RNO 01-14 12:49
PROVIDERS: ADMIT Internal Medicine; ATTEND Internal Medicine
PROC: 0JPT0PZ Removal of Cardiac Rhythm Related Device from Trunk Subcutaneous Tissue and Fascia, Open Approach (ICD-10-PCS; principal; 2017-01-13)
PROC: 0JH606Z Insertion of Pacemaker, Dual Chamber into Chest Subcutaneous Tissue and Fascia, Open Approach (ICD-10-PCS; 2017-01-13)
DX: E11.649 Type 2 diabetes mellitus with hypoglycemia without coma (principal); G93.41 Metabolic encephalopathy; J18.9 Pneumonia, unspecified organism; R18.8 Other ascites; I13.0 Hypertensive heart and chronic kidney disease with heart failure and stage 1 through stage 4 chronic kidney disease, or unspecified chronic kidney disease; J44.0 Chronic obstructive pulmonary disease with (acute) lower respiratory infection; R65.10 Systemic inflammatory response syndrome (SIRS) of non-infectious origin without acute organ dysfunction; I50.9 Heart failure, unspecified; T82.199A Other mechanical complication of unspecified cardiac device, initial encounter; I48.92 Unspecified atrial flutter; J44.1 Chronic obstructive pulmonary disease with (acute) exacerbation; E11.22 Type 2 diabetes mellitus with diabetic chronic kidney disease; E11.42 Type 2 diabetes mellitus with diabetic polyneuropathy; K72.90 Hepatic failure, unspecified without coma; I48.2 Chronic atrial fibrillation; E86.0 Dehydration; E11.65 Type 2 diabetes mellitus with hyperglycemia; F91.9 Conduct disorder, unspecified; I25.2 Old myocardial infarction; I25.5 Ischemic cardiomyopathy; I25.10 Atherosclerotic heart disease of native coronary artery without angina pectoris; I67.9 Cerebrovascular disease, unspecified; E78.00 Pure hypercholesterolemia, unspecified; G47.30 Sleep apnea, unspecified; I69.398 Other sequelae of cerebral infarction; G93.89 Other specified disorders of brain; H40.9 Unspecified glaucoma; K21.9 Gastro-esophageal reflux disease without esophagitis; K76.1 Chronic passive congestion of liver; K80.20 Calculus of gallbladder without cholecystitis without obstruction; M06.9 Rheumatoid arthritis, unspecified; M10.9 Gout, unspecified; N18.9 Chronic kidney disease, unspecified; Y71.2 Prosthetic and other implants, materials and accessory cardiovascular devices associated with adverse incidents; Y95 Nosocomial condition; Z66 Do not resuscitate; Z78.1 Physical restraint status; Z79.01 Long term (current) use of anticoagulants; Z79.4 Long term (current) use of insulin; Z79.84 Long term (current) use of oral hypoglycemic drugs; Z79.899 Other long term (current) drug therapy; Z87.01 Personal history of pneumonia (recurrent); Z87.891 Personal history of nicotine dependence; Z91.14 Patient's other noncompliance with medication regimen; Z95.1 Presence of aortocoronary bypass graft; Z95.5 Presence of coronary angioplasty implant and graft; Z88.6 Allergy status to analgesic agent

== ENCOUNTER 2017-07-12 15:59 | Inpatient (IN) | payer MEDICARE, OTHER ==
--- NOTE | 2017-07-12 16:52 | ED PDOC ---
Arrival/HPI - General Chief Complaint: Shortness Of Breath Time Seen by Provider: 07/12/17 16:01 Historian: Patient - History of Present Illness Narrative History of Present Illness (Text): 07/12/17 16:49 An 81 year old male, whose past medical history includes CHF and pacemaker, presents to the emergency department with a complaint of chest pain and difficulty breathing. The patent's granddaughter states that the patient has had a cold and the patient notes that he has been having white phlegm with his cough. The granddaughter also notes that the patient has had a significant amount of weight loss since last year. The patient denies fevers, chills, headache, dizziness, abdominal pain, nausea, vomiting, diarrhea, back pain, neck pain, urinary/bowel changes, or any other complaint. PMD: Dr. Luis Time/Duration: Other (8 days) Symptom Onset: Sudden Symptom Course: Unchanged Activities at Onset: Rest Context: Home Past Medical History - Provider Review Nursing Documentation Reviewed: Yes - Travel History Have you recently traveled outside [place] w/in the past 3 mons?: No - Infectious Disease Hx of Infectious Diseases: None - Tetanus Immunization Tetanus Immunization: Unknown - Cardiac Hx Cardiac Disorders: Yes Hx Congestive Heart Failure: Yes Hx Pacemaker: Yes - Pulmonary Hx Chronic Obstructive Pulmonary Disease (COPD): Yes - Neurological HX Cerebrovascular Accident: No - HEENT Hx Cataracts: Yes - Renal Hx Renal Failure: No - Endocrine/Metabolic Hx Diabetes Mellitus Type 2: Yes - Hematological/Oncological Hx Blood Disorders: Yes Hx Shingles: Yes - Integumentary Other/Comment: ble discolored dry skin, healed wound lle - Musculoskeletal/Rheumatological Hx Rheumatoid Arthritis: Yes - Gastrointestinal Hx Gastrointestinal Disorders: Yes (reflux) - Genitourinary/Gynecological Hx Reproductive Disorders: No - Psychiatric Hx Anxiety: Yes Hx Depression: Yes Hx Substance Use: No - Past Surgical History Past Surgical History: Unable to Obtain - Surgical History Hx Cardiac Catheterization: Yes Hx Coronary Stent: Yes - Anesthesia Hx Anesthesia Reactions: No - Suicidal Assessment Feels Threatened In Home Enviroment: No Family/Social History - Physician Review Nursing Documentation Reviewed: Yes Family/Social History: No Known Family HX Smoking Status: Unknown If Ever Smoked Hx Alcohol Use: No Hx Substance Use: No Hx Substance Use Treatment: No Allergies/Home Meds Allergies/Adverse Reactions: Allergies aspirin Allergy (Verified 07/12/17 16:13) RASH ketorolac tromethamine [From Toradol] Allergy (Verified 07/12/17 16:13) SWELLING Penicillins Allergy (Verified 07/12/17 16:13) ANGIOEDEMA Home Medications: Home Meds Medication Instructions Recorded Confirmed Furosemide [Lasix] 40 mg PO DAILY 09/30/16 07/12/17 Allopurinol [Zyloprim] 100 mg PO DAILY 12/25/16 07/12/17 Omeprazole 20 mg PO DAILY 12/25/16 07/12/17 Timolol [Betimol] 5 ml OU DAILY 12/25/16 07/12/17 Glipizide [Glipizide ER] 2.5 mg PO HS 01/01/17 07/12/17 Carvedilol [Coreg] 0 mg PO BID 07/12/17 07/12/17 Digoxin [Digitek] 0 mg PO DAILY 07/12/17 07/12/17 Insulin Detemir [Levemir] 0 unit SC Q12H 07/12/17 07/12/17 Review of Systems - Physician Review All systems were reviewed & negative as marked: Yes - Review of Systems Constitutional: absent: Fevers, Night Sweats Respiratory: Cough, Sputum (White sputum) Cardiovascular: Chest Pain Gastrointestinal: absent: Abdominal Pain, Stool Changes, Diarrhea, Nausea, Vomiting Genitourinary Male: absent: Urinary Output Changes Musculoskeletal: absent: Back Pain, Neck Pain Neurological: absent: Headache, Dizziness Psychiatric: Normal Physical Exam - Physical Exam Physical Exam Limitations: Other (emaciated) Vital Signs Reviewed: Yes Vital Signs Temp Pulse Resp BP Pulse Ox 07/12/17 18:07 136/84 07/12/17 17:59 62 18 136/84 99 07/12/17 16:13 97 F L 66 20 143/76 07/12/17 16:00 18 99 Temperature: Febrile Blood Pressure: Normal Pulse: Regular Respiratory Rate: Normal Appearance: Positive for: Well-Appearing, Non-Toxic, Comfortable Pain Distress: None Mental Status: Positive for: Alert and Oriented X 3 Finger Stick Blood Glucose: 99 - Systems Exam Head: Present: Atraumatic, Normocephalic Pupils: Present: PERRL Extroacular Muscles: Present: EOMI Conjunctiva: Present: Normal Ears: Present: Normal Mouth: Present: Moist Mucous Membranes Pharnyx: Present: Normal Nose (External): Present: Atraumatic Nose (Internal): Present: Normal Inspection Neck: Present: Normal Range of Motion Respiratory/Chest: Present: Clear to Auscultation, Good Air Exchange Cardiovascular: Present: Other (mid-sternal scar are of prominence (possible suture). no breakthrough of skin and wo erythema/flucutance/crepitus.) Abdomen: No: Tenderness, Distention, Normal Bowel Sounds, Peritoneal Signs, Rebound, Guarding, McBurney's Point Tender, Rovsing's Sign Present, Hernias, Feeding Tubes, Ostomy Tubes, Mass/Organomegaly, Scars, Other Upper Extremity: Present: Normal ROM Lower Extremity: Present: Normal ROM, Other (b/l knee arthopathy) Neurological: Present: GCS=15, CN II-XII Intact, Speech Normal, Motor Func Grossly Intact Skin: Present: Warm, Normal Color Psychiatric: Present: Alert, Oriented x 3, Normal Insight, Normal Concentration Medical Decision Making ED Course and Treatment: 07/12/17 17:04 Impression: An 81 year old male presents to the emergency department with a complaint of chest pain, difficulty breathing, and cough with white phlegm. Plan: -- EKG -- Chest X-ray -- Labs -- Blood/ Urine Culture -- Urinalysis -- Reassess and disposition Prior Visits: Notes and results from previous visits were reviewed. Patient was last seen in the emergency department on 01/09/2017. The patient was seen in the emergency department for unresponsiveness. The patient was hospitalized. Progress Notes: 07/12/17 18:12 CXR mild vascular markings. pt with CHF exacerbation [id number] bnp. lactic 4.1 wo source of infection at this time. 07/12/17 18:46 d/w Dr. Luis who agreed pt with CHF exacerbation, 31982 bnp, indeterminate troponin 0.04, lasix, lactic is reactive, cxr vascular markings but give a dose of abx. 07/12/17 18:48 07/12/17 18:50 07/12/17 19:39 cxr vrad stable from prior. diffuse interstitial pulmonary congestion.no consolidation/infiltrate. ua negative. no acute sign of sepsis. lactic to be trended. - Lab Interpretations Lab Results: 07/12/17 16:55 07/12/17 16:55 Lab Results 07/12/17 18:48: Urine Color Yellow, Urine Appearance Clear, Urine pH 6.0, Ur Specific [place] 1.020, Urine Protein 30 H, Urine Glucose (UA) Negative, Urine Ketones Negative, Urine Blood Negative, Urine Nitrate Negative, Urine Bilirubin Negative, Urine Urobilinogen 0.2, Ur Leukocyte Esterase Negative, Urine RBC Negative, Urine WBC 1 - 3, Ur Epithelial Cells 1 - 3, Urine Bacteria Few 07/12/17 18:00: Influenza Typ A,B (EIA) Negative for flu a/b 07/12/17 16:55: Digoxin < 0.4 L 07/12/17 16:55: pO2 48, VBG pH 7.26 L, VBG pCO2 51.0, VBG HCO3 22.9, VBG Total CO2 24.5, VBG O2 Sat (Calc) 79.5 H, VBG Base Excess -4.6 L, VBG Potassium 5.1, Sodium 141.0, Chloride 108.0 H, Glucose 104, Lactate 4.1 H*, FiO2 21.0, Venous Blood Potassium 5.1 07/12/17 16:55: Sodium 143, Chloride 108 H, Potassium 4.9, Carbon Dioxide 21, Anion Gap 19, BUN 21, Creatinine 1.1, Est GFR ( Amer) > 60, Est GFR (Non- Af Amer) > 60, Random Glucose 102, Calcium 9.6, Phosphorus 4.1, Magnesium 2.1, Total Bilirubin 1.9 H, AST 33, ALT 19, Alkaline Phosphatase 179 H, Troponin I 0.04 D, NT-Pro-B Natriuret Pep 93974 H, Total Protein 7.7, Albumin 3.7, Globulin 3.9, Albumin/Globulin Ratio 0.9 L 07/12/17 16:55: PT 18.4 H, INR 1.67 H, APTT 33.2 07/12/17 16:55: WBC 7.1 D, RBC 3.98, Hgb 12.9 L, Hct 40.7 L, MCV 102.3, MCH 32.4, MCHC 31.7, RDW 18.8 H, Plt Count 246, MPV 10.6, Gran % 62.9, Lymph % (Auto ) 24.8, [place] % (Auto) 10.4 H, Eos % (Auto) 1.0 L, Baso % (Auto) 0.9, Gran # 4.44 , Lymph # 1.8, [place] # 0.7 H, Eos # 0.1, Baso # 0.06 I have reviewed the lab results: Yes - RAD Interpretation Radiology Orders: 07/12/17 16:49 CHEST TWO VIEWS (PA/LAT) [RAD] Stat - EKG Interpretation EKG Interpretation (Text): 07/12/17 17:12 ECG: electronic pacemaker. similar to 01/13/17 Interpreted by ED Physician: Yes Type: 12 lead EKG - Medication Orders Current Medication Orders: Discontinued Medications Furosemide (Lasix) 40 mg IVP STAT STA Stop: 07/12/17 18:01 Last Admin: 07/12/17 18:07 Dose: 40 mg MAR Blood Pressure Document 07/12/17 18:07 EWO (Rec: 07/12/17 18:08 [facility] [id number]) Blood Pressure Blood Pressure (100/60-150/90) 136/84 IVP Administration Document 07/12/17 18:07 EWO (Rec: 07/12/17 18:08 [facility] [id number]) Charges for Administration # of IVP Administrations 1 Levofloxacin/Dextrose (Levaquin 750mg) 750 mg IVPB ONCE ONE Stop: 07/12/17 18:40 - Scribe Statement The provider has reviewed the documentation as recorded by the David Best Provider Scribe Attestation: All medical record entries made by the Scribe were at my direction and personally dictated by me. I have reviewed the chart and agree that the record accurately reflects my personal performance of the history, physical exam, medical decision making, and the department course for this patient. I have also personally directed, reviewed, and agree with the discharge instructions and disposition. Disposition/Present on Arrival - Present on Arrival Any Indicators Present on Arrival: Yes History of DVT/PE: No History of Uncontrolled Diabetes: No Urinary Catheter: No History of Decub. Ulcer: No History Surgical Site Infection Following: None - Disposition Have Diagnosis and Disposition been Completed?: Yes Diagnosis: CHF exacerbation Disposition: HOSPITALIZED Disposition Time: 19:42 Patient Plan: Telemetry Condition: STABLE Discharge Instructions (ExitCare): Heart Failure (ED) Referrals: Myles Luis MD [Primary Care Provider] - Follow up with primary Forms: [facility] ([place])
[2017-07-12 17:11] LABS: VENOUS BLOOD GAS BASE EXCESS -4.6 mmol/L (0.0-2.0); VENOUS BLOOD PH 7.26 (7.32-7.43)
[2017-07-12 17:14] LABS: ALB/GLOB RATIO 0.9 (1.1-1.8); ALKALINE PHOSPHATASE 179 U/L (38-126); ALT/SGPT 19 U/L (7-56); AST/SGOT 33 U/L (17-59); BILIRUBIN,TOTAL 1.9 mg/dL (0.2-1.3); BLOOD UREA NITROGEN 21 mg/dL (7-21); CALCIUM 9.6 mg/dL (8.4-10.5); CARBON DIOXIDE 21 mmol/L (21-33); CHLORIDE 108 mmol/L (98-107); GFR AFRICAN-AMERICAN > 60; GLUCOSE,RANDOM 102 mg/dL (70-110); MAGNESIUM 2.1 mg/dL (1.7-2.2); PHOSPHOROUS 4.1 mg/dL (2.5-4.5); POTASSIUM 4.9 mmol/L (3.6-5.0); SODIUM 143 mmol/L (132-148); TOTAL PROTEIN 7.7 g/dL (5.8-8.3)
[2017-07-12 17:26] LABS: TROPONIN I 0.04 ng/mL
[2017-07-12 17:31] LABS: BASO # 0.06 K/mm3 (0.0-2.0); BASO % 0.9 % (0.0-3.0); EOS # 0.1 (0.0-0.7); GRAN # 4.44 (1.4-6.5); GRAN % 62.9 % (50.0-68.0); HEMATOCRIT 40.7 % (42.0-52.0); LYMPH # 1.8 (1.2-3.4); LYMPH % 24.8 % (22.0-35.0); MEAN CELL VOLUME 102.3 fl (80.0-105.0); MEAN CORPUSCULAR HEMOGLOBIN 32.4 pg (25.0-35.0); MEAN CORPUSCULAR HGB CONC 31.7 g/dl (31.0-37.0); MEAN PLATELET VOLUME 10.6 fl (7.0-11.0); MONO # 0.7 (0.1-0.6); MONO % 10.4 % (1.0-6.0); RED CELL DISTRIBUTION WIDTH 18.8 % (11.5-14.5); WHITE BLOOD COUNT 7.1 10^3/ul (4.5-11.0)
[2017-07-12 17:33] LABS: INR 1.67 (0.93-1.08); PARTIAL THROMBOPLASTIN TIME 33.2 Seconds (25.1-36.5)
[2017-07-12] MEDS ORDERED: levoFLOXacin 750 mg in D5W 150 ML BAG IVPB ONE (18:39)
[2017-07-12 19:06] LABS: URINE APPEARANCE CLEAR (CLEAR); URINE BILIRUBIN NEGATIVE (NEGATIVE); URINE BLOOD NEGATIVE (NEGATIVE); URINE COLOR YELLOW (YELLOW); URINE GLUCOSE (UA) NEGATIVE (NEGATIVE); URINE KETONE NEGATIVE (NEGATIVE); URINE LEUKOCYTE ESTERASE NEGATIVE Leu/uL (NEGATIVE); URINE PROTEIN 30 mg/dL (<30 mg/dL); URINE UROBILINOGEN 0.2 E.U./dL (<1 E.U./dL)
[2017-07-12 19:11] LABS: URINE BACTERIA FEW (NEG); URINE RBC NEGATIVE /hpf (0-2)
--- NOTE | 2017-07-12 19:36 | RAD ---
EXAM: XR Chest, 2 Views EXAM DATE/TIME: 07/12/2017 4:49 PM CLINICAL HISTORY: 81 years old, male; with cough/sob/chest pain. TECHNIQUE: Frontal and lateral views of the chest. COMPARISON: Prior chest radiographs of 2017-01-09 FINDINGS: LUNGS: Mild, diffuse pulmonary interstitial prominence is seen bilaterally, suspicious for mild pulmonary vascular congestion. Appearance is similar to the prior exam. No definite focal consolidation/infiltrate is seen in the lungs. PLEURAL SPACE: No pneumothorax or pleural effusions seen. HEART: Cardiac pacing device is in place. Heart appears moderately enlarged. Heart size does not appear significantly changed from the prior study. MEDIASTINUM: Mediastinal contour is stable. BONES/JOINTS: Sternotomy wires noted. Bony structures appear demineralized. VASCULATURE: Thoracic aorta appears mildly ectatic. IMPRESSION: - Stable appearance of the chest appear to a prior exam. - Cardiomegaly, with suspected mild pulmonary vascular congestion. Recommend clinical correlation. - Evidence of prior cardiac surgery. - See above for remaining findings.
[2017-07-12 19:50] LABS: VENOUS BLOOD GAS BASE EXCESS -4.3 mmol/L (0.0-2.0); VENOUS BLOOD PH 7.26 (7.32-7.43)
[2017-07-12] MEDS ORDERED: Oxycodone/Acetaminophen 10/325 mg Tab PO PRN (22:04)
[2017-07-12] MEDS: BRIMONIDINE 0.2% OU SCH (23:59)
[2017-07-13] MEDS: GlipiZIDE 2.5 mg SR Tab PO SCH ×2 (00:12→22:15)
[2017-07-13] MEDS: Insulin Detemir 100 units/ml Vial (Levemir) SC SCH ×3 (00:13→22:15)
[2017-07-13] MEDS: Albuterol-Ipratrop 3 mg / 0.5 (3 ml) UD IH SCH ×4 (08:32→22:15)
[2017-07-13] MEDS ORDERED: Dextrose 50% SYRINGE Inj (50 ml) ONE (08:38)
[2017-07-13] MEDS: Potassium Chloride 10 mEq ER Tab PO SCH (09:52)
[2017-07-13] MEDS ORDERED: TIMOLOL OU SCH (10:00)
[2017-07-13] MEDS: Digoxin 125 mcg (0.125 mg) Tab PO SCH (14:27)
[2017-07-13 14:28] VITALS: PULSE 60
--- NOTE | 2017-07-13 20:08 | CARD ---
APPROVED REPORT EKG Measurement Heart [id number] <Conclusion> Electronic ventricular pacemaker
[2017-07-13] MEDS: BRIMONIDINE 0.2% OU SCH (22:14)
[2017-07-13] MEDS: Acetylcysteine 20% Inhal Soln (4ml) INH SCH (22:14)
--- NOTE | 2017-07-14 00:38 | CON ---
DATE: 07/13/2017 REASON FOR CONSULTATION: Followup shortness of breath and decompensated congestive heart failure. BRIEF CLINICAL HISTORY: This is an 81-year-old male with past medical history significant for coronary artery disease status post CABG, status post congestive heart failure, ischemic cardiomyopathy, pacemaker, chronic atrial fibrillation, and anticoagulation, came in after being brought by granddaughter. The patient is short of breath and was bringing phlegm white for a couple of days. Denies any chest pain. Denies any palpitations. Denies any chest pain on exertion. PAST MEDICAL HISTORY: Significant for history of pacemaker, history of coronary artery disease, history of end of life of pacemaker status post pacemaker generator change on 01/13/2017. History of ischemic cardiomyopathy, hypertension, coronary artery disease, history of CABG, history of recent catheterization, nonobstructive coronary artery disease, history of recurrent pneumonia, history of pacemaker and recently pacemaker generator change on 01/13/2017. Previous cardiac workup as follows, history of recent cardiac catheterization on 03/29/2016 when the patient admitted with non-STEMI, troponin 7.35. Cardiac catheterization revealed 2-vessel disease, occluded LAD and RCA. Patent stent is circumflex, ramus intermedius, [id number] disease, patent [place]OVER to LAD, distal LAD diffusely diseased, ejection fraction 20%, , medical treatment recommended. History of recent pacemaker generator change and history of [employer] pacemaker, history of CABG in 2005 at the [facility], 3-vessels bypass initially GLOVER to LAD and saphenous vein graft to RCA and saphenous vein graft after the diagonal 1 done. Most recently cardiac catheterization revealed occluded LAD, occluded RCA, patent stent to circumflex, patent stent to ramus intermedius. Patent GLOVER to LAD, patent saphenous vein graft to diagonal 1 and patent SVG to RCA, medical treatment recommended, history of chronic atrial fibrillation and anticoagulation. The patient was at one point on Coumadin then Eliquis, and changed to Coumadin back again. Most recently, the patient had a pacemaker generator change on 01/13/2017, from [employer], dated 01/13/2017. CURRENT MEDICATION: The patient is taking at home prednisone, potassium, lactulose, insulin, glipizide, furosemide, Lasix, Coreg, Eliquis, and allopurinol. REVIEW OF SYSTEMS: As per HPI. PHYSICAL EXAMINATION: VITAL SIGNS: Temperature afebrile, heart rate 60, blood pressure 114/75. HEENT: PERRLA. Extraocular muscles intact. NECK: Supple. No carotid bruits or thyromegaly. CHEST: Clear to auscultation. HEART: S1 and S2 regular. ABDOMEN: Soft. EXTREMITIES: Clubbing and cyanosis negative. LABORATORY DATA: Blood workup as follows; WBC 7.0, hemoglobin 12.3, hematocrit 40.7, platelet count 246. Chemistry shows sodium 140, potassium 4.9, chloride 108, carbon dioxide 21, anion gap of 19, BUN 21, and creatinine 1.1. BNP 16,000. Chest x-rays showed consistent with CHF. EKG showed AFib/flutter with 3:1 conduction. IMPRESSION: An 81-year-old male with a past medical history significant for coronary artery disease, coronary artery bypass graft in 2006, status post recently cardiac catheterization on 03/29/2016 that shows patent graft to left internal mammary artery to left anterior descending, patent saphenous graft to diagonal, patent saphenous graft to right coronary artery and diffuse disease distal left anterior descending, patent stent in the circumflex. Decrease left ventricular function, mitral and tricuspid regurgitation. Ischemic cardiomyopathy, most recently the patient had echocardiographic study on 02/19/2016 that shows ejection fraction four-chambered heart at 30% to 35% moderate mitral regurgitation and moderate severe tricuspid regurgitation. Mild to moderate aortic regurgitation dated 02/18/2017. History of atrial fibrillation/flutter, noncompliance with the medication, moderate to severe tricuspid regurgitation, right ventricular systolic pressure of 75, history of pulmonary hypertension. RECOMMENDATION: Start IV Lasix b.i.d., continue Eliquis, continue low dose of Coreg, continue digoxin to treat COPD. We will follow the labs and if his blood pressure tolerates, we will start low dose of IZZY inhibitors, and continue Lasix and if the blood pressure is tolerated after getting diuresed, then we will consider to start Revatio in a day or two when the patient becomes euvolemic. Continue Eliquis with respect to age and correct it for the renal function 2.5 b.i.d. We will put 2.5 of lisinopril also and monitor the renal function. As mentioned, once the patient becomes euvolemic and the blood pressure is stable, consider adding on Revatio for pulmonary hypertension. We will repeat chest x-ray PA and lateral in the morning also to compare the CHF. We will follow with you. Thank you Dr. Luis for providing the opportunity in taking care of your patient, Anthony Wells. Kymberly Costa MD
--- NOTE | 2017-07-14 03:34 | CON ---
DATE: 07/13/2017 PULMONARY CONSULTATION REFERRING PHYSICIAN: Dr. Luis. REASON FOR CONSULT: Cough, shortness of breath. HISTORY OF PRESENT ILLNESS: This is an 81-year-old male with known history of cardiomyopathy, heart failure, has a pacemaker, chronic obstructive lung disease, diabetes, history of shingles, rheumatoid arthritis, GERD, anxiety disorder, history of coronary artery disease, history of coronary stent, comes into the emergency room with cough, shortness of breath, wheezing, given diuretics and bronchodilator with some benefit, admitted for further workup. Presently, lying in the bed, has cough and shortness of breath. No chest pain. No nausea. No vomiting. No diarrhea. No leg pain. No leg swelling. PAST MEDICAL HISTORY: As per history of present illness. FAMILY HISTORY: No significant cardiopulmonary disease reported. SOCIAL HISTORY: He is a nonsmoker. Denied any alcohol use. ALLERGIES: TO ASPIRIN. MEDICATIONS: He is on Coreg 6.25 mg twice a day; DuoNeb q.i.d.; Eliquis 2.5 mg twice a day; lactulose 20 g p.o. daily; glipizide 2.5 mg at bedtime; potassium 10 mEq daily; digoxin 0.125 mg daily; Lasix 40 mg daily; Levemir 10 units subcu q. 12 hours; Percocet 10/325 mg one tablet q. 6 hours p.r.n.; prednisone 50 mg daily; Protonix 40 mg daily; Tylenol p.r.n.; Zestril 2.5 mg daily; allopurinol 100 mg daily. REVIEW OF SYSTEMS: No headache. No rhinitis. Does have cough, shortness of breath, fevers. No hemoptysis. No dysuria. No leg pain. No leg swelling. PHYSICAL EXAMINATION: GENERAL: Lying in the bed, in mild distress secondary to cough and shortness of breath. VITAL SIGNS: Temperature is 98, heart rate is 60, respiratory rate is 18, blood pressure is 114/70, and pulse oximetry is 99% on nasal cannula. HEENT: Moist mucous membrane. Crowded airway. Mallampati score is 4. NECK: Supple. No JVD. LUNGS: Have a few crackles. Prolonged expiratory phase with some wheezing. HEART: S1 and S2. ABDOMEN: Soft, nontender. No organomegaly. EXTREMITIES: No edema. NEUROLOGIC: Awake, alert. Follows simple commands. LABORATORY DATA: Shows hemoglobin 12.9, hematocrit 40.7, WBC 7.1, platelet is 246. INR 1.67, PTT 33. VBG showed pH of 7.26, pCO2 of 52, O2 of 39. Sodium 140, potassium 4.9, chloride 108, bicarbonate 21, BUN 21, creatinine 1.1, glucose is 102, calcium 9.6, phosphorus 4.1, magnesium 2.1, total bilirubin 1.9, AST 33, ALT 19, alkaline phosphatase is 179, proBNP 16,000, troponin 0.04, and albumin 3.7. Chest x-ray done in the emergency room shows cardiomegaly with pulmonary vascular congestion. IMPRESSION AND PLAN: Chronic obstructive lung disease, cardiomyopathy with heart failure, hypertension, atrial fibrillation, sleep apnea syndrome, the patient is noncompliant with follow up. We will add IV and inhaled bronchodilator. Keep head at 45 degrees. Diuretics. Follow up labs in the morning. Thank you and we will follow with you. Kymberly Bauer MD
--- NOTE | 2017-07-14 05:32 | HP ---
DATE: 07/12/2017 REASON FOR ADMISSION: Shortness of breath, dyspnea. HISTORY OF PRESENT ILLNESS: This is an 81-year-old male with history of ischemic cardiomyopathy with ejection fraction 15% to 20%, came in with shortness of breath for the last few days, that seems getting worse. He was brought in by the family for the same reason. The patient denied any fever, chills. No nausea. No vomiting. The patient does have a history of congestive heart failure and chronic atrial fibrillation. PAST MEDICAL HISTORY: As mentioned, he has ischemic cardiomyopathy with low EF, permanent pacemaker, ICD. The patient also has hypertension, diabetes, chronic gouty arthritis, chronic osteoarthritis. The patient also has poor p.o. intake and also has diabetes on insulin, COPD, and hypertension. ALLERGIES: PATIENT IS ALLERGIC TO ASPIRIN, TORADOL, AND PENICILLIN. SOCIAL HISTORY: No smoking. No drinking. The patient is at home. He is seen by the nurses. He is most of the time in the bed. He walks with assistance. REVIEW OF SYSTEMS: As in the present illness, he has dyspnea, he has arthritis, joint pain, gait disorder, blurry vision due to glaucoma. PHYSICAL EXAMINATION: VITAL SIGNS: On 07/12/2017, temperature 97, heart rate 66, blood pressure 143/76, respiration 20, saturation 99%. HEENT: Normal. NECK: No JVD. No thyromegaly. CHEST: Clear, good air entry. CARDIAC: First sound and second sound are normal. Systolic murmur. ABDOMEN: Soft and nontender. EXTREMITIES: There is no edema. NEUROLOGIC: The patient is generally weak. He looks poor nutrition and moves all extremities. He could recognize me. He understands where he is. LABORATORY DATA: The patient had white count 7.1, hemoglobin 12.9, hematocrit 40.7, platelet 246. Chemistry; sodium 143, potassium 4.9, chloride 108, bicarbonate 21, BUN 21, creatinine 1.1. Liver function test is normal. Total bilirubin 1.9, and his BNP is 16,000. His troponin is 0.04. His albumin is 3.7. His globulin 3.9. DIAGNOSTIC DATA: The patient had chest x-ray which shows vascular congestion. He also had an EKG, which shows electronic ventricular pacing. His QTC is 496, QT 496, heart rate 60. IMPRESSION AND PLAN: This is an 81-year-old male with history of ischemic cardiomyopathy, history of chronic obstructive lung disease, obstructive sleep apnea, hypertension, came in with shortness of breath. Chest x-ray shows congestive heart failure, BNP is elevated. We will admit the patient for acute systolic heart failure on top of chronic systolic and diastolic heart failure. We will give the patient IV Lasix; get Cardiology consult, Dr. Costa; also Pulmonary consult, Dr. Bauer. We will resume prednisone. Continue oxygen, nebulizer treatment, BiPAP machine, and IV Lasix; and resume his Lanoxin. The patient also has a history of glaucoma; we will resume his eye drops and we will follow up clinically. For his underlying diabetes and chronic osteoarthritis, continue prednisone. The patient does have rheumatoid arthritis. Continue prednisone. Continue oxycodone. For his diabetes, continue insulin coverage Levemir and Glucotrol. We will follow up clinically with other consultants. The patient received one dose of Levaquin big-dose 750 one time. We will hold off on any further dosage because of his underlying conditions and absence of any underlying pneumonia. We will follow up the x-ray. We will discuss with Pulmonary about the possibility of any underlying pneumonia. At this time we will continue current therapy. Admit to telemetry. Myles Luis MD
[2017-07-14 07:00] LABS: GRAN # 4.15 (1.4-6.5); GRAN % 75.4 % (50.0-68.0); HEMATOCRIT 36.9 % (42.0-52.0); LYMPH % 17.5 % (22.0-35.0); MEAN CELL VOLUME 99.7 fl (80.0-105.0); MEAN CORPUSCULAR HEMOGLOBIN 31.4 pg (25.0-35.0); MEAN CORPUSCULAR HGB CONC 31.4 g/dl (31.0-37.0); MEAN PLATELET VOLUME 9.8 fl (7.0-11.0); MONO # 0.4 (0.1-0.6); MONO % 7.1 % (1.0-6.0); RED CELL DISTRIBUTION WIDTH 17.8 % (11.5-14.5); WHITE BLOOD COUNT 5.5 10^3/ul (4.5-11.0)
[2017-07-14 07:53] LABS: ALB/GLOB RATIO 0.9 (1.1-1.8); ALKALINE PHOSPHATASE 139 U/L (38-126); ALT/SGPT 18 U/L (7-56); AST/SGOT 26 U/L (17-59); BILIRUBIN,TOTAL 1.2 mg/dL (0.2-1.3); BLOOD UREA NITROGEN 24 mg/dL (7-21); CALCIUM 8.9 mg/dL (8.4-10.5); CARBON DIOXIDE 27 mmol/L (21-33); CHLORIDE 99 mmol/L (98-107); CHOLESTEROL 158 mg/dL (130-200); GFR AFRICAN-AMERICAN > 60; GLUCOSE,RANDOM 73 mg/dL (70-110); MAGNESIUM 1.9 mg/dL (1.7-2.2); PHOSPHOROUS 4.4 mg/dL (2.5-4.5); POTASSIUM 4.9 mmol/L (3.6-5.0); SODIUM 134 mmol/L (132-148); TOTAL PROTEIN 6.2 g/dL (5.8-8.3)
[2017-07-14] MEDS: Acetylcysteine 20% Inhal Soln (4ml) INH SCH ×2 (08:20→20:22)
[2017-07-14] MEDS: Albuterol-Ipratrop 3 mg / 0.5 (3 ml) UD IH SCH ×4 (08:23→20:24)
--- NOTE | 2017-07-14 09:21 | PN ---
DATE: 07/13/2017 SUBJECTIVE: An 81-year-old male, today he is comfortable, in no distress. Sitting in the bed. Recognized me, but seems very weak. No respiratory distress. He feels a little better. PHYSICAL EXAMINATION: Today is as follows: VITAL SIGNS: Temperature 97.4, heart rate 62, blood pressure 125/85, respirations 19, saturation 99%. HEAD AND NECK: Normal. No JVD, no thyromegaly. CHEST: Clear. CARDIAC: First sound and second sound normal. Systolic murmur in the aortic area. ABDOMEN: Soft. EXTREMITIES: No edema, NEUROLOGIC: General weakness, nonfocal. The patient is awake and alert, and responds appropriately. IMPRESSION AND PLAN: 1. Acute systolic heart failure on top of chronic systolic and diastolic heart failure. Continue IV Lasix. Continue diuretics. We will followup with Dr. Costa, Cardiology consult. The patient also getting digoxin and he is getting Eliquis for his underlying chronic atrial fibrillation and low ejection fraction. 2. The patient also has a chronic obstructive pulmonary disease. Dr. Bauer will him. Continue inhaled bronchodilator. Continue prednisone. I will hold off any antibiotics at this time. We will add Mucomyst and we will continue current management as per Pulmonology consult. 3. Chronic osteoarthritis, diabetes, hypertension, continue Glucotrol, insulin, insulin coverage Levemir. Blood sugars seems running reasonably. We will continue Percocet p.r.n. for pain, allopurinol 100 mg p.o. daily. The patient will may benefit from Physical Therapy, seems weaker and may be Physical Therapy will help him. Continue current treatments. Myles Luis MD
[2017-07-14] MEDS: Insulin Detemir 100 units/ml Vial (Levemir) SC SCH ×2 (09:45→22:12)
[2017-07-14] MEDS ORDERED: GlipiZIDE 2.5 mg SR Tab PO SCH (10:10)
[2017-07-14] MEDS: Potassium Chloride 10 mEq ER Tab PO SCH (10:13)
--- NOTE | 2017-07-14 10:20 | RAD ---
HISTORY: F/U pneumonia and compare COMPARISON: 07/12/2017 TECHNIQUE: Chest PA and lateral FINDINGS: LUNGS: No active pulmonary disease. PLEURA: Small right effusion CARDIOVASCULAR: Mild cardiomegaly. Mild vascular congestion OSSEOUS STRUCTURES: No significant abnormalities. VISUALIZED UPPER ABDOMEN: Normal. OTHER FINDINGS: None. IMPRESSION: Mild vascular congestion. Small right-sided pleural effusion
[2017-07-14] MEDS: Dorzolamide 2%/Timolol 0.5% 100 DROP/10 ML BOTTLE OU SCH (18:22)
[2017-07-14] MEDS: Digoxin 125 mcg (0.125 mg) Tab PO SCH (18:23)
--- NOTE | 2017-07-14 19:25 | PN ---
DATE: 07/14/2017 REASON FOR CONSULTATION AND FOLLOWUP: Shortness of breath and decompensated congestive heart failure. SUBJECTIVE: The patient denies any chest pain or shortness of breath. Lying flat in the bed, not in apparent distress. PHYSICAL EXAMINATION: VITAL SIGNS: As follows: Temperature afebrile, heart rate , and blood pressure 114/70. HEENT: PERRLA intact. NECK: Supple. No carotid bruits or thyromegaly. CHEST: Clear to auscultation. HEART: S1 and S2 regular. ABDOMEN: Soft. EXTREMITIES: Clubbing and cyanosis negative. LABORATORY DATA: Blood workup as follows; WBC 5.5, hemoglobin 11.6, hematocrit 36.9, and platelet count 175. Chemistry shows sodium 134, potassium 4.9, chloride 90, carbon dioxide 27, anion gap of 30, BUN 24, and creatinine 1.2. BNP 12,400. IMPRESSION: Acute decompensated congestive heart failure, acute on chronic secondary to systolic dysfunction; coronary artery disease, status post coronary artery bypass graft, last catheterization on 03/29/2017 because of non-ST segment elevation myocardial infarction that shows occluded left anterior descending and occluded right coronary artery, patent stent in circumflex and ramus intermedius, [id number] disease in ramus intermedius and circumflex, patent left internal mammary artery to left anterior descending, distal left anterior descending diffusely diseased, and ejection fraction of 25%. Medical treatment recommended. History of coronary artery bypass graft in 2016 at [facility], patent saphenous graft to diagonal 1, patent saphenous graft to the right coronary artery, , medical treatment recommended, history of chronic atrial fibrillation, on anticoagulation. INR is 1.67 day before yesterday. RECOMMENDATIONS: Continue Eliquis. Continue carvedilol. Continue glipizide. Continue digoxin. Continue Lasix and we will follow with you. We will give an extra dose of Lasix at 3:00 p.m. Yesterday, BNP was 16,000, it is trending down to 12,000 and given an extra dose of Lasix at 5:00 p.m. Monitor electrolytes. We will repeat SMA-7, magnesium, and phosphate tomorrow. Thank you Dr. Luis for providing us the opportunity in taking care of the patient, Priscilla. Kymberly Costa MD [facility] # [id number]
[2017-07-14] MEDS: BRIMONIDINE 0.2% OU SCH (22:11)
--- NOTE | 2017-07-15 01:31 | PN ---
PULMONARY PROGRESS NOTE DATE: 07/14/2017 REFERRING PHYSICIAN: Dr. Luis. SUBJECTIVE: The patient is lying in the bed, feels better. Decreased cough. Decreased shortness of breath. No nausea. No vomiting. No diarrhea. No leg pain. No leg swelling. OBJECTIVE: GENERAL: In no acute distress. VITAL SIGNS: Temperature 98, heart rate is 60, respiratory rate is 18, blood pressure 99/67, pulse oximetry is 100% on nasal cannula. HEENT: Moist mucous membranes. Crowded airway. NECK: Supple. No JVD. LUNGS: Have crackles at the bases. Prolonged expiratory phase with wheezing. HEART: S1 and S2. ABDOMEN: Soft, nontender. No organomegaly. EXTREMITIES: There is no edema. NEUROLOGIC: Awake, alert, follows simple commands. MEDICATIONS: He is on Mucomyst 20% inhaled twice a day; also on Coreg 6.25 mg twice a day; albuterol/Atrovent nebulizer q.i.d.; Eliquis 2.5 mg twice a day; lactulose 20 daily; glipizide 2.5 mg daily; potassium 10 mEq daily; digoxin 0.125 mg daily; Lasix 40 mg daily; Levemir 10 units subcu q.12 hours; Percocet 10/325 one tablet q.6 hours p.r.n.; prednisone 15 mg daily; Tylenol p.r.n.; Zestril 2.5 mg daily; allopurinol 100 mg daily. LABORATORY DATA: Shows hemoglobin 11.6, hematocrit 36.9, WBC 5.5, platelet count is 175. Sodium 134, potassium 4.9, chloride 99, bicarbonate 27, BUN 24, creatinine 1.2, glucose 73, hemoglobin A1c 4.7, calcium 8.0, phosphorus 4.4, magnesium 1.9, AST 26, ALT 18, alkaline phosphatase is 139. ProBNP 12,400, albumin 3.0, cholesterol is 158, TSH is 1.70. Microbiology, blood cultures negative. Urine culture has gram-negative and gram-positive organism. Chest x-ray done today shows vascular congestion, small right pleural effusion. IMPRESSION AND PLAN: Chronic obstructive lung disease, cardiomyopathy with heart failure, hypertension, atrial fibrillation, may have sleep apnea syndrome. Pulmonary point of view, he is doing okay, clinically improved. Continue bronchodilator, keep head at 45 degrees, diuretics, gastric prophylaxis, anticoagulation. Thank you and we will follow with you. Kymberly Bauer MD
[2017-07-15 05:59] VITALS: TEMP 97.8; O2SAT 96
[2017-07-15 07:19] LABS: BLOOD UREA NITROGEN 27 mg/dL (7-21); CALCIUM 9.2 mg/dL (8.4-10.5); CARBON DIOXIDE 28 mmol/L (21-33); CHLORIDE 97 mmol/L (98-107); CHOLESTEROL 175 mg/dL (130-200); GFR AFRICAN-AMERICAN > 60; GLUCOSE,RANDOM 92 mg/dL (70-110); POTASSIUM 4.6 mmol/L (3.6-5.0); SODIUM 133 mmol/L (132-148)
[2017-07-15] MEDS: Albuterol-Ipratrop 3 mg / 0.5 (3 ml) UD IH SCH ×2 (08:06→11:32)
[2017-07-15] MEDS: Acetylcysteine 20% Inhal Soln (4ml) INH SCH (08:06)
[2017-07-15] MEDS ORDERED: GlipiZIDE 2.5 mg SR Tab PO SCH (10:00)
[2017-07-15] MEDS ORDERED: Pantoprazole 40 mg EC Tab PO SCH (10:00)
[2017-07-15] MEDS: Potassium Chloride 10 mEq ER Tab PO SCH (10:54)
[2017-07-15] MEDS: Insulin Detemir 100 units/ml Vial (Levemir) SC SCH (10:56)
[2017-07-15] MEDS: Dorzolamide 2%/Timolol 0.5% 100 DROP/10 ML BOTTLE OU SCH (11:09)
--- NOTE | 2017-07-15 11:15 | CP.PCM.CON ---
History of Present Illness - History of Present Illness History of Present Illness: Palliative consult requested by Dr Carrie Costa Reason: Goals of care/advance care planning 81 year old male with history of who presented with chest pain nad shortness of breath. Family reports patient to have a URI with productive cough. Family also reports decreased appetite and weight loss over the past few months. The patient denied fever, chill, nausea, vomiting, headache. dizziness or abdominal pain, diarrhea and constipation. EKG Chest xray stable disease, cardiomegaly and mild pulmonary vascular congestion. Labs; leukocytosis,anemia,hypoglycemia, BNP 13888,elevated Alk. Phos. PMHx:atrial fibrillation, cardiomyopathy,CHF, pacemaker, EF 15%,COPD,DM, CKD, arthritis ,gout, peripheral neuropathy,CVA, glaucoma Social History: Former smoker, no alcohol or drug use. , lives with spouse. Family History: Non Contributory Advance Care Planning: The patient does not have an Advanced Directive. He has been DNR/DNI in the past Review of Systems: As per HPI, all other sytems are negative upon review Past Patient History - Infectious Disease Hx of Infectious Diseases: None - Tetanus Immunizations Tetanus Immunization: Unknown - Past Social History Smoking Status: Unknown If Ever Smoked - CARDIAC Hx Cardiac Disorders: Yes Hx Congestive Heart Failure: Yes Hx Pacemaker: Yes - PULMONARY Hx Chronic Obstructive Pulmonary Disease (COPD): Yes - NEUROLOGICAL HX Cerebrovascular Accident: No - HEENT Hx Cataracts: Yes - RENAL Hx Renal Failure: No - ENDOCRINE/METABOLIC Hx Diabetes Mellitus Type 2: Yes - HEMATOLOGICAL/ONCOLOGICAL Hx Blood Disorders: Yes Hx Shingles: Yes - INTEGUMENTARY Other/Comment: ble discolored dry skin, healed wound lle - MUSCULOSKELETAL/RHEUMATOLOGICAL Hx Falls: No - GASTROINTESTINAL Hx Gastrointestinal Disorders: Yes (reflux) - GENITOURINARY/GYNECOLOGICAL Hx Genitourinary Disorders: No Hx Hematuria: No Hx Incontinence: No Hx Prostate Problems: No Hx Sexually Transmitted Disorders: No Hx Urinary Tract Infection: No - PSYCHIATRIC Hx Anxiety: Yes Hx Depression: Yes - SURGICAL HISTORY Hx Surgeries: Yes Hx Cardiac Catheterization: Yes Hx Coronary Stent: Yes - ANESTHESIA Hx Anesthesia Reactions: No Meds Allergies/Adverse Reactions: Allergies Allergy/AdvReac Type Severity Reaction Status Date / Time aspirin Allergy RASH Verified 07/12/17 16:13 ketorolac tromethamine Allergy SWELLING Verified 07/12/17 16:13 [From Toradol] Penicillins Allergy ANGIOEDEMA Verified 07/12/17 16:13 - Medications Medications: Current Medications Acetaminophen (Tylenol 325mg Tab) 650 mg PO Q4 PRN PRN Reason: Pain, moderate (4-7) Last Admin: 07/14/17 00:21 Dose: 650 mg Acetylcysteine (Acetylcysteine 20%) 3 ml INH BIDRESP [facility] Last Admin: 07/15/17 08:06 Dose: 3 ml Albuterol/Ipratropium (Duoneb 3 Mg/0.5 Mg (3 Ml) Ud) 3 ml IH QID JAVI Last Admin: 07/15/17 08:06 Dose: 3 ml Allopurinol (Zyloprim) 100 mg PO DAILY [facility] Last Admin: 07/15/17 10:53 Dose: 100 mg Apixaban (Eliquis) 2.5 mg PO BID JAVI PRN Reason: Protocol Last Admin: 07/15/17 10:54 Dose: 2.5 mg Carvedilol (Coreg) 6.25 mg PO BID [facility] Last Admin: 07/15/17 10:54 Dose: 6.25 mg Ciprofloxacin (Cipro) 500 mg PO Q12 JAVI PRN Reason: Protocol Stop: 07/15/17 21:12 Last Admin: 07/15/17 10:54 Dose: 500 mg Digoxin (Lanoxin) 0.125 mg PO 1400 [facility] Last Admin: 07/14/17 18:23 Dose: 0.125 mg Dorzolamide/Timolol (Cosopt 2%-0.5% Opht) 0 drop OU BID [facility] Last Admin: 07/15/17 11:09 Dose: 1 drop Furosemide (Lasix) 40 mg IV DAILY [facility] Last Admin: 07/15/17 10:55 Dose: 40 mg Glipizide (Glucotrol Xl) 2.5 mg PO DAILY [facility] Last Admin: 07/15/17 11:09 Dose: 2.5 mg Insulin Detemir (Levemir) 10 unit SC Q12H [facility] Last Admin: 07/15/17 10:56 Dose: Not Given Lactulose (Enulose) 20 gm PO DAILY [facility] Last Admin: 07/15/17 10:53 Dose: 20 gm Lisinopril (Zestril) 2.5 mg PO DAILY [facility] Last Admin: 07/15/17 10:54 Dose: 2.5 mg Brimonidine 0.2% [ Alphagan 0.2% Opht] 1 Drop (Home Med) 1 drop OU HS [facility] Last Admin: 07/14/17 22:11 Dose: Not Given Oxycodone/Acetaminophen (Percocet 10/325 Mg Tab) 1 tab PO Q6H PRN PRN Reason: Pain, moderate (4-7) Pantoprazole Sodium (Protonix Ec Tab) 40 mg PO DAILY [facility] Last Admin: 07/15/17 10:53 Dose: 40 mg Potassium Chloride (Klor-Con 10) 10 meq PO DAILY [facility] Last Admin: 07/15/17 10:54 Dose: 10 meq Prednisone (Prednisone Tab) 10 mg PO DAILY [facility] Last Admin: 07/15/17 10:53 Dose: 10 mg Physical Exam - Constitutional Appears: Cachectic, Chronically Ill - Head Exam Head Exam: NORMAL INSPECTION - Eye Exam Eye Exam: Normal appearance, PERRL - ENT Exam ENT Exam: Mucous Membranes Moist, Normal Oropharynx - Neck Exam Neck exam: Positive for: Normal Inspection - Respiratory Exam Respiratory Exam: Decreased Breath Sounds, Rhonchi, NORMAL BREATHING PATTERN - Cardiovascular Exam Cardiovascular Exam: REGULAR RHYTHM, +S1, +S2 - GI/Abdominal Exam GI & Abdominal Exam: Normal Bowel Sounds, Soft - Extremities Exam Extremities exam: Positive for: pedal edema, pedal pulses present - Back Exam Back exam: NORMAL INSPECTION - Neurological Exam Neurological exam: Alert, Oriented x3 - Skin Skin Exam: Dry, Warm - Additional Findings Additional findings: palliative performance scale rating 50% Results - Vital Signs Recent Vital Signs: Last Vital Signs Temp 97.8 F 07/15/17 05:58 Pulse 63 07/15/17 10:54 Resp 18 07/15/17 05:58 BP 110/67 07/15/17 10:55 Pulse Ox 96 07/15/17 05:58 - Labs Result Diagrams: 07/14/17 06:20 07/15/17 06:00 Labs: Laboratory Results - last 24 hr 07/14/17 07/15/17 06:20 06:00 Sodium 133 Potassium 4.6 Chloride 97 L Carbon Dioxide 28 Anion Gap 12 BUN 27 H Creatinine 1.3 Est GFR ( Amer) > 60 Est GFR (Non-Af Amer) 53 Random Glucose 92 Hemoglobin A1c 4.7 Calcium 9.2 Magnesium 2.0 Triglycerides 151 Cholesterol 175 LDL Cholesterol Direct 127 HDL Cholesterol 24 L Assessment & Plan - Assessment and Plan (Free Text) Assessment: 81 year old male with history of end stage heart disease and other multiple comorbidities who is admitted with decompensated heart failure acute on chronic Patient at bedside. Spoke with patient and . Patient states he does not want to be intubated nor does he want CPR. He states he is tired and wants to . POLST explained both in Cambodian and Pashto. Patient agrees to DNR/ DNI. POLST completed, a copy is placed on the chart I spoke with and also with granddaughter, Shana( via phone).Both state they understand and agree to the patients wishes regarding end of life care. Hospice services explained in detail. Questions answered. Family is agreeable to meeting with a hospice strategic partnership representative. Time spent in goals of care and advance care planning discussion with patient and family, 30 minutes Plan: Dr Luis notified of plan, POLST: DNR/DNI Hospice evaluation [place] of care and end of life counseling
[2017-07-15 12:47] VITALS: BP 98/73; PULSE 65; RESP 16
--- NOTE | 2017-07-15 15:07 | PN ---
DATE: 07/14/2017 SUBJECTIVE: The patient is comfortable, no distress. He seems very weak, emaciated, not eating well and feels end-stage cardiac failure. He has no new complaint. He just need assistance with handling his medications, needs assistance with feeding and very weak. There is no respiratory distress. He does not complaint of any chest pain. He seems comfortable, just generally weak. PHYSICAL EXAMINATION: VITAL SIGNS: On 07/14/2017 is as follows: Temperature 97, heart rate 61, blood pressure , respirations 18, and saturation 100%. HEAD AND NECK: Normal. No JVD. No thyromegaly. CHEST: Clear. CARDIAC: First and second sound are normal, systolic murmur across the precordium. ABDOMEN: Soft and nontender. EXTREMITIES: No edema. NEUROLOGIC: General weakness, but nonfocal. He is alert and awake. He is oriented to the place and to the person. LABORATORY DATA: White count 5.5, hemoglobin 11.6, hematocrit 36.9, and platelets 175. His chemistry noted for sodium 134, potassium 4.9, chloride 99, bicarbonate 27, BUN 24, and creatinine 1.2. His blood sugar is 70. His calcium and phosphorus within normal range. Magnesium 1.9, total bilirubin 1.2. AST and ALT is normal. Alkaline phosphatase is 139. The patient has proBNP, which is 12,400. IMPRESSION AND PLAN: 1. Congestive heart failure, acute on top of chronic. Continue current medications. The patient is getting Lasix, Lenoxin, oxygen, and seen by harness cleaner. We will continue current medicines. 2. Chronic obstructive pulmonary disease and obstructive sleep apnea. Continue inhaled bronchodilator, Mucomyst, DuoNeb. Continue prednisone. 3. History of chronic osteoarthritis, rheumatoid arthritis. Continue the steroids. He is taking prednisone mg. I will talk to the family about the patient to decrease it, that may help his muscle strength. 4. History of hypertension, seems stable. Currently, on lisinopril 2.5 mg; with blood pressure reading, will maintain the same and is more for cardiac than blood pressure. 5. Diabetes. Currently on Levemir 10 units q.12 hours and also he is getting Glucotrol XL, which is 2.5 mg p.o. daily. His sugar readings seems okay, but the patient is not eating well. We may need to stop the Glucotrol. We will monitor his sugar more closely. Continue current therapy. CURRENT MEDICATIONS: The patient is taking Alphagan eye drops, Mucomyst, he is taking Cipro for UTI 500 q. 12 h. for now, and Coreg 6.25 b.i.d., Humalog eye drops. He is getting DuoNeb, Eliquis 2.5 b.i.d., lactulose, Glucotrol XL 2.5, potassium 10, he is taking once a day, Lanoxin 0.125 mg daily, Lasix 40 IV daily, Levemir 2 units, Percocet 10/325 every 6 hours, prednisone 50 mg p.o. daily, Protonix 40 mg daily, Tylenol 650, Zestril 2.5 mg, and allopurinol 100 mg. We will follow up clinically. PLAN: To decrease the prednisone probably to 10 mg, and also we will decrease Cipro to 250 b.i.d. and we will discuss with the family about palliative care, hospice care, and supportive care for that patient who is chronically ill. Myles Luis MD
--- NOTE | 2017-07-15 15:32 | PN ---
DATE: 07/15/2017 REASON FOR CONSULTATION AND FOLLOWUP: Shortness of breath, decompensated congestive heart failure, and acute on chronic systolic dysfunction. SUBJECTIVE: The patient is lying flat in the bed. Denies any chest pain, shortness of breath or any palpitations. PHYSICAL EXAMINATION: GENERAL: Not in apparent distress. Lying flat on the bed. VITAL SIGNS: As follows; temperature afebrile, heart rate 60, and blood pressure 110/67. HEENT: PERRLA. Extraocular muscles intact. NECK: Supple. No carotid bruits or thyromegaly. CHEST: Clear to auscultation. HEART: S1 and S2 regular. ABDOMEN: Soft. EXTREMITIES: Clubbing and cyanosis negative. LABORATORY DATA: Blood workup as follows; WBC 5.5, hemoglobin 11.6, hematocrit 36.9, and platelet count 175. INR 1.67 as of day before yesterday. Sodium 130, potassium 4.6, chloride 97, carbon dioxide 28, anion gap of 12, BUN 26, and creatinine 1.3. Total cholesterol 175, triglycerides 151, LDL 127, HDL 23, and TSH 1.7. IMPRESSION: Atrial fibrillation chronic, decompensated congestive heart failure, [id number] systolic dysfunction, cardiomyopathy, last catheterization on 03/29/2017, where the patient was admitted with [id number]-YL-[id number] elevation myocardial infarction, showed occluded left anterior descending artery, occluded right coronary artery, patent stent in circumflex, patent stent in ramus, [id number] disease in ramus and circumflex. Patent left internal mammary artery graft to the left anterior descending artery, though left anterior descending is distally diffusely diseased. Medical treatment recommended. History of also patent graft in right coronary artery. RECOMMENDATIONS: Continue Eliquis where the patient is noncompliant with Coumadin and on Eliquis. Continue Coreg, continue diuretics. Discontinue telemetry. We will follow with you. We will change Lasix to p.o. from tomorrow. Thank you Dr. Luis, for providing us the opportunity in taking care of the patient, Anthony Wells. Kymberly Costa MD
--- NOTE | 2017-07-17 03:45 | DS ---
HISTORY OF PRESENT ILLNESS: Anthony Wells is an 81-year-old male that is really sick, chronically, intermittently ill from underlying medical problems. He does need some assistance with standing and walking and some assistance with even feeding him and giving him his medicines for that level of his basic daily activity that he is so dependent. The patient came in with acute congestive heart failure, acute systolic on top of chronic, was treated with Lasix, improved and seen by Cardiology Dr. Costa. The patient has no complications, but was recommended to be seen by palliative care, hospice care for plan of treatment and supportive care. PHYSICAL EXAMINATION: VITAL SIGNS: On 07/15/2017, his temperature was 97.8, heart rate 63, blood pressure 110/67, respirations are 16. HEENT: Head and neck exam normal. He has wasting of his temporal muscles area and facial faces are coming out. CHEST: Clear. CARDIAC: First sound and second sounds normal. There is global systolic murmur across the precordium. ABDOMEN: Soft, nontender. EXTREMITIES: There is no edema, mild in ankle otherwise negative. NEUROLOGIC: The patient is generally weak. He is alert. He is awake, oriented to the place, time and person, also the patient speaks Prydeinig, but he is able to answer questions. LABORATORY STUDIES: On the date, he had following; his last CBC shows white count 5.5, hemoglobin 11.6, hematocrit 36.9, platelets 117.8. The patient showed also sodium 133, potassium 4.6, chloride 97, bicarb 28, BUN 27, creatinine 1.3, blood sugar 92 and his triglycerides is 151, his LDL 127, also I will like to see the albumin, the albumin here on 07/14/2017 was 3, 07/12/2017 was 3.7 probably variation is due to either hydration or lab is unclear, but his albumin level was in normal range. The patient in the hospital was seen by Cardiology, palliative care and hospice care. Case discussed with the family who agree of the plan. On discharge, the patient to be followed up as an outpatient at home. DISCHARGE DIAGNOSES: 1. Acute systolic heart failure on top of chronic. 2. Chronic obstructive pulmonary disease, obstructive sleep apnea, chronic gouty arthritis, chronic osteoarthritis, generalized weakness, unsteady gait, glaucoma. PLAN: Plan is to resume all his meds including Digitek, Levemir, Alphagan, pantoprazole 40, Coreg, Eliquis 2.5 daily, Zyloprim, allopurinol 100 p.o. daily, Tylenol, omeprazole, lactulose, glipizide, Lasix 40 p.o. 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 We will see and we will follow up as an outpatient. Potassium, he is taking 10 mEq one p.o. daily. He will continue these medicines. While in the hospital here in microbiology department, we did a couple of cultures and the urine shows Proteus mirabilis and enterococcal. The blood culture was negative and the level of the bacteria colony is between 10,000 and 50,000, it is a kind of colonization; however, the patient may need to repeat the urine culture. There is no sensitivity, but may be need to repeat the urine culture for at present this is small with 100,000. We will follow up clinically and repeat urine as an outpatient. Discharge diagnoses, as I mentioned before, acute systolic heart failure on top of chronic, chronic diastolic heart failure and systolic heart failure, chronic obstructive pulmonary disease, obstructive sleep apnea, diabetes type 2, chronic osteoarthritis, chronic degenerative arthritis, chronic gouty arthritis, gait disorder, memory impaired cognitive functions. We will continue all his medications and we will follow up as an outpatient. The patient is being evaluated by hospice care and palliative care. Myles Luis MD
== END 2017-07-15 16:20 | disposition home or self-care (01) | DRG 291 ==
LOC: ED 15:59 → ERH 19:45 → 3RSO 20:46
PROVIDERS: ADMIT Internal Medicine; ATTEND Internal Medicine
DX: I13.0 Hypertensive heart and chronic kidney disease with heart failure and stage 1 through stage 4 chronic kidney disease, or unspecified chronic kidney disease (principal); I50.43 Acute on chronic combined systolic (congestive) and diastolic (congestive) heart failure; E11.22 Type 2 diabetes mellitus with diabetic chronic kidney disease; E11.42 Type 2 diabetes mellitus with diabetic polyneuropathy; N39.0 Urinary tract infection, site not specified; E11.649 Type 2 diabetes mellitus with hypoglycemia without coma; D64.9 Anemia, unspecified; N18.9 Chronic kidney disease, unspecified; G47.33 Obstructive sleep apnea (adult) (pediatric); H40.9 Unspecified glaucoma; I25.2 Old myocardial infarction; I25.10 Atherosclerotic heart disease of native coronary artery without angina pectoris; I25.5 Ischemic cardiomyopathy; I27.20 Pulmonary hypertension, unspecified; I08.3 Combined rheumatic disorders of mitral, aortic and tricuspid valves; I48.2 Chronic atrial fibrillation; J06.9 Acute upper respiratory infection, unspecified; J44.9 Chronic obstructive pulmonary disease, unspecified; K21.9 Gastro-esophageal reflux disease without esophagitis; K59.00 Constipation, unspecified; M06.9 Rheumatoid arthritis, unspecified; M19.90 Unspecified osteoarthritis, unspecified site; M1A.9XX0 Chronic gout, unspecified, without tophus (tophi); Z66 Do not resuscitate; Z79.01 Long term (current) use of anticoagulants; Z79.4 Long term (current) use of insulin; Z79.899 Other long term (current) drug therapy; Z86.73 Personal history of transient ischemic attack (TIA), and cerebral infarction without residual deficits; Z87.01 Personal history of pneumonia (recurrent); Z87.891 Personal history of nicotine dependence; Z91.14 Patient's other noncompliance with medication regimen; Z91.19 Patient's noncompliance with other medical treatment and regimen; Z95.0 Presence of cardiac pacemaker; Z95.1 Presence of aortocoronary bypass graft; Z95.5 Presence of coronary angioplasty implant and graft; H26.9 Unspecified cataract; Z88.6 Allergy status to analgesic agent; Z88.0 Allergy status to penicillin; R40.2412 Glasgow coma scale score 13-15, at arrival to emergency department